=== PATIENT | female | born 1940 | race Caucasian/White ===

== ENCOUNTER → 2016-05-03 | Outpatient (CLI) | payer OTHER ==
[~2016-05-03] MED LIST: AMOX500C3 PO; ASPI81TA28 PO; CHOL100010 PO; CHOL200010 PO; FOLI800T PO; FOLIC ACID PO; IBAN150T7 PO; IBUP600T44 PO; IBUPROFEN PO; METH2.5T PO; NYSTOIN5 TOP; OXYC-57 PO; OXYC1TAB3 PO; PRAV20TA PO; PRED-301 PO; PRED20TA2 PO; PRVC10 PO
--- NOTE | 2016-05-03 15:37 | MAMMOGRAPHY REPORT ---
BILATERAL DIGITAL SCREENING MAMMOGRAM TOMOSYNTHESIS WITH CAD: 05/03/2016 CLINICAL HISTORY: Routine screening. Patient has no complaints. TECHNIQUE: Breast tomosynthesis in addition to standard 2D mammography was performed. Current study was also evaluated with a Computer Aided Detection (CAD) system. COMPARISON: Comparison is made to exams dated: 04/15/2015 mammogram, 03/13/2013 mammogram, 04/09/2014 m ammogram, 03/12/2012 mammogram, 03/09/2011 mammogram, and 03/06/2010 mammogram - [facility]. BREAST COMPOSITION: There are scattered areas of fibroglandular density in both breasts. FINDINGS: No suspicious masses, calcifications, or areas of architectural distortion are noted in e ither breast. There has been no significant interval change compared to prior exams. IMPRESSION: ACR BI-RADS CATEGORY 1: NEGATIVE There is no mammographic evidence of malignancy. A 1 year screening mammogram is recommended. The p atient will receive written notification of the results. Approximately 10% of breast cancers are not detected with mammography. A negative mammographic repor t should not delay biopsy if a clinically suggestive mass is present. Shani Quijano M.D. ah/:05/03/2016 15:08:26 Manager Interface: Concepcion PACHECO(Yasmin)(M), [facility] letter sent: Normal 1/2 BI-RADS Code: ACR BI-RADS Category 1: Negative
== END | disposition home or self-care (01) ==
LOC: C.MAMM 09:33
PROVIDERS: ATTEND Internal Medicine
DX: Z12.31 Encounter for screening mammogram for malignant neoplasm of breast (principal)

== ENCOUNTER 2016-07-24 16:45 | Emergency (ER) | payer OTHER ==
[~2016-07-24] VITALS: Ht 149.9 cm; Wt 110.1 kg
[~2016-07-24 16:45] MED LIST changes: -CHOL200010 PO; -FOLI800T PO; -IBUP600T44 PO; -OXYC-57 PO; -OXYC1TAB3 PO; -PRED20TA2 PO; -PRVC10 PO
[2016-07-24 16:56] VITALS: TEMP 36.5; Ht 149.9 cm; Wt 110.1 kg
--- NOTE | 2016-07-24 17:02 | EMERGENCY ROOM VISIT NOTE ---
"History Report prepared by Shane: Edna Acosta Under the Supervision of: Irma MorrisO. First contact with patient: 16:51 Chief Complaint: HIP PAIN Stated Complaint: HIP PAIN History of Present Illness The patient is a 75 year old female who presents to the Emergency Room with complaints of right hip pain starting about 3 hours ago. The patient bent over to put on her shoes and since then she has been having right hip pain with movement. She has pain relief with lying still. She currently denies any pain. About a month ago, she had an episode of similar pain which resolved after a few hours but her current pain has been persistent with movement. She denies any recent falls or injuries. Patient denies headache, change in vision, fevers , chest pain, shortness of breath, nausea, vomiting, abdominal pain, diarrhea, pain with urination, melena, numbness in groin, and numbness/tingling in lower extremities. Source of History: patient Onset: about 3 hours ago Position: other (right hip) Modifying Factors (Worsening): movement Modifying Factors (Relieving): other (lying still) Associated Symptoms: No SOB, No abdominal pain, No chest pain, No diarrhea, No fevers, No headache, No nausea, No numbness, No vomiting Review of Systems See HPI for pertinent positives & negatives. A total of 10 systems reviewed and were otherwise negative. Past Medical & Surgical Medical Problems: (1) Fall (2) HTN (hypertension) (3) Rheumatoid arthritis Surgical Problems: (1) H/O hernia repair (2) H/O: hysterectomy Family History Patient reports no known family medical history. Social History Smoking Status: Former Smoker Alcohol Use: none Drug Use: none Housing Status: lives alone Current/Historical Medications Scheduled Aspirin (Aspirin Ec), 81 MG PO QAM Cholecalciferol (Vitamin D), 2,000 INTER.UNIT PO QAM Ibandronate Sodium (Ibandronate Sodium), 150 MG PO MONTHLY Methotrexate (Methotrexate), 15 MG PO QWEEK Nystatin/Triamcinolone (Mycogen ||), 1 DOSE TOP PRN Pravastatin (Pravachol ), 10 MG PO HS Prednisone (Prednisone), 5 MG PO QAM Prednisone (Prednisone Tab), 0 PO DAILY [Folic Acid], 800 MCG PO QAM [Ibuprofen], 300 MG PO BID Scheduled PRN Oxycodone Immediate Rel Tab (Roxicodone Ir), 1-2 TAB PO Q4H PRN for Severe Pain Allergies Coded Allergies: Anselmo (Verified Allergy, Unknown, ANAPHYLAXIS, 07/24/16) Atorvastatin (Verified Adverse Reaction, Unknown, SEVERE MUSCLE ACHES, ) Physical Exam Vital Signs Date Time Temp Pulse Resp B/P Pulse Ox O2 Delivery O2 Flow Rate FiO2 07/24/16 17:42 84 16 154/84 99 07/24/16 16:56 36.5 84 20 154/80 95 Room Air Physical Exam GENERAL: Sitting up in bed, disheveled, no distress, non-toxic EYE EXAM: normal conjunctiva OROPHARYNX: no exudate, no erythema, lips, buccal mucosa, and tongue normal and mucous membranes are moist NECK: supple, no nuchal rigidity, no adenopathy, non-tender LUNGS: Clear to auscultation. Normal chest wall mechanics HEART: no murmurs, S1 normal and S2 normal ABDOMEN: abdomen soft, non-tender, normo-active bowel sounds, no masses, no rebound or guarding. BACK: Back is symmetrical on inspection and there is no deformity, no midline tenderness, no CVA tenderness. SKIN: no rashes and no bruising UPPER EXTREMITIES: upper extremities are grossly normal. LOWER EXTREMITIES: No pitting edema. Acute reproducible tenderness over the right hip and right gluteus tracking down to mid femur. Flexion extension in bilateral hips intact, along with plantar and dorsal flexion. EHL 2/4 bilateral. Dp 2/4. Gross sensation intact in bilateral lower extremities. Able to ambulate without difficulty. NEURO EXAM: Normal sensorium, cranial nerves II-XII grossly intact, normal speech, no gross weakness of arms, no gross weakness of legs. Medical Decision & Procedures ER Provider Diagnostic Interpretation: Radiology results as stated below per my and radiologist's interpretation: PELVIS 1 OR 2 VIEW ROUTINE, RIGHT FEMUR 2 VIEWS ROUTINE CLINICAL HISTORY: right hip pain COMPARISON STUDY: Pelvis and right hip 05/29/2014. FINDINGS: No fracture or dislocation. Degenerative changes within the bilateral SI joints. Soft tissues are within normal limits. No knee effusion. IMPRESSION: No fracture or dislocation within the pelvis, hips, or right femur. Electronically signed by: Tyler Parish M.D. 07/24/2016 5:57 PM Dictated Date/Time: 07/24/2016 5:54 PM LUMBAR SPINE 3 VIEWS HISTORY: right hip pain COMPARISON: None. FINDINGS: There is no fracture. Mild disc space narrowing at at L2-L3 and L3-L4. Mild levoscoliosis. 4 mm of anterolisthesis of L4 and L5. Moderate facet degenerative changes within the lower lumbar spine. IMPRESSION: No fractures within the lumbar spine. Degenerative changes as described above. Electronically signed by: Tyler Parish M.D. 07/24/2016 5:54 PM Dictated Date/Time: 07/24/2016 5:53 PM PELVIS 1 OR 2 VIEW ROUTINE, RIGHT FEMUR 2 VIEWS ROUTINE CLINICAL HISTORY: right hip pain COMPARISON STUDY: Pelvis and right hip 05/29/2014. FINDINGS: No fracture or dislocation. Degenerative changes within the bilateral SI joints. Soft tissues are within normal limits. No knee effusion. IMPRESSION: No fracture or dislocation within the pelvis, hips, or right femur. Electronically signed by: Tyler Parish M.D. 07/24/2016 5:57 PM Dictated Date/Time: 07/24/2016 5:54 PM Medications Administered Medications (Trade) Dose Ordered Sig/Rafael Route Start Time Stop Time Status Last Admin Dose Admin Morphine Sulfate (MoRPHine SULFATE INJ) 6 mg NOW STAT IM 07/24/16 17:48 07/24/16 17:49 DC 07/24/16 17:58 6 MG Ketorolac Tromethamine (Toradol Inj) 15 mg NOW STAT IV 07/24/16 17:48 07/24/16 17:49 DC 07/24/16 17:57 15 MG ED Course ED COURSE: Vital signs were reviewed and showed hypertensive. The patients medical record was reviewed The above diagnostic studies were performed and reviewed. ED treatments and interventions as stated above. 1651: The patient was evaluated in room C07. A complete history and physical examination was performed. 174: Toradol Inj 15 mg IV, Morphine Sulfate 6 mg IM 1821: Prednisone 40 mg PO 1820: Upon reevaluation, the patient is feeling better. I discussed my findings with the patient and she understands and agrees with the treatment plan. Based on the patients age, coexisting illnesses, exam and lab findings the decision to treat as an outpatient was made. The patient remained stable while under my care. The patient appeared well at the time of discharge. Medical Decision Differential diagnosis: Etiologies such as fracture, dislocation, neurovascular compromise, compartment syndrome, soft tissue injury, as well as others were entertained. Patient is a 75-year-old female who presents the ER with right gluteus pain tracking down the right side of her right femur. She denies any weakness or numbness. She notes the pain is improved with bending over. Denies any trauma. No fevers. No weakness or numbness in the legs. Able to urinate and move bowels without difficulty. She is able to walk. X-rays of her lumbar spine, pelvis and femur show no acute fractures. Based on her symptoms and exam I do believe this is consistent with sciatica. She was given IM Toradol, morphine and oral steroids. She was discharged follow-up with her primary care doctor. Discussed with Pt concerning signs and symptoms to watch out for. Pt was instructed to follow up with their PCP and discussed with the patient their option to return to the ED at anytime for persistent or worsening symptoms. The appropriate anticipatory guidance and out-patient management, including indications for return to the emergency department, were explained at length to the patient and understood. [place] Drug Monitoring [place] Search Results: patient reviewed within database, no issues identified Impression Primary Impression: Sciatica Scribe Attestation The scribe's documentation has been prepared under my direction and personally reviewed by me in its entirety. I confirm that the note above accurately reflects all work, treatment, procedures, and medical decision making performed by me. Departure Information Dispostion Home / Self-Care Prescriptions Prednisone (Prednisone Tab) 20 Mg Tab 0 PO DAILY for 4 Days, TAB 2 TABS DAILY FOR 2 DAYS, THEN 1 TAB DAILY FOR 2 DAYS, THEN 1/2 TAB DAILY FOR 2 DAYS. Prov: Moe Hammer, DO 07/24/16 Oxycodone Immediate Rel Tab (ROXICODONE IR) 5 Mg Tab 1-2 TAB PO Q4H Y for Severe Pain, #24 TAB Prov: Moe Hammer, DO 07/24/16 Referrals Poncho Aquino MD (PCP) Forms HOME CARE DOCUMENTATION FORM, IMPORTANT VISIT INFORMATION, WORK / SCHOOL INSTRUCTIONS Patient Instructions ED Sciatica, [facility] Additional Instructions Please follow up with your primary care doctor with in the next 24 hours. Any worsening of your symptoms, please return to the ED immediately. This includes numbness or weakness in your legs, inability to walk, numbness in your groin, inability to move your bowels or urinate, worsening pain, passing out, or any other concerning signs or symptoms from your standpoint. X-rays of your lower back, hip and pelvis show no acute fractures. I do believe that this is likely sciatica. It should gradually improve with steroids and pain medications. Please refrain from any heavy lifting. You were given medications during this visit that will inhibit your ability to drive, operate machinery and work. Please do NOT drive, operate machinery or work for the next 12hrs. You were also given a prescription for a narcotic/oxy IR. While taking this medication you should also not drive, operate machinery and or work. Problem Qualifiers Primary Impression: Sciatica Laterality: right Qualified Codes: M54.31 - Sciatica, right side"
[2016-07-24] MEDS ORDERED: KETOROLAC TROMETHAMINE 30 MG/ML VIAL IV STA (17:48)
[2016-07-24] MEDS ORDERED: MoRPHine SULFATE 10 MG/ML CARP/VIAL IM STA (17:48)
--- NOTE | 2016-07-24 17:56 | DIAGNOSTIC IMAGING REPORT ---
LUMBAR SPINE 3 VIEWS HISTORY: right hip pain COMPARISON: None. FINDINGS: There is no fracture. Mild disc space narrowing at at L2-L3 and L3-L4. Mild levoscoliosis. 4 mm of anterolisthesis of L4 and L5. Moderate facet degenerative changes within the lower lumbar spine. IMPRESSION: No fractures within the lumbar spine. Degenerative changes as described above. Electronically signed by: Tyler Parish M.D. 07/24/2016 5:54 PM Dictated Date/Time: 07/24/2016 5:53 PM
--- NOTE | 2016-07-24 17:59 | DIAGNOSTIC IMAGING REPORT ---
PELVIS 1 OR 2 VIEW ROUTINE, RIGHT FEMUR 2 VIEWS ROUTINE CLINICAL HISTORY: right hip pain COMPARISON STUDY: Pelvis and right hip 05/29/2014. FINDINGS: No fracture or dislocation. Degenerative changes within the bilateral SI joints. Soft tissues are within normal limits. No knee effusion. IMPRESSION: No fracture or dislocation within the pelvis, hips, or right femur. Electronically signed by: Tyler Parish M.D. 07/24/2016 5:57 PM Dictated Date/Time: 07/24/2016 5:54 PM
[2016-07-24] MEDS ORDERED: OXYC1TAB3 PO (18:28)
[2016-07-24] MEDS ORDERED: PRED20TA2 PO (18:28)
[2016-07-24 19:00] VITALS: BP 145/78; PULSE 102; O2SAT 95
[2016-12-04] MEDS ORDERED: CHOL200010 PO (15:09)
[2016-12-04] MEDS ORDERED: FOLI800T PO (15:09)
[2016-12-04] MEDS ORDERED: IBUP600T44 PO (15:09)
[2016-12-04] MEDS ORDERED: PRVC10 PO (15:09)
[2016-12-18] MEDS ORDERED: TRAM-10 PO (11:28)
[2016-12-18] MEDS ORDERED: CIPR-255 PO (11:28)
[2016-12-18] MEDS ORDERED: PHEN95TA14 PO (11:28)
== END 2016-07-24 19:01 | disposition home or self-care (01) ==
LOC: EDBD 16:45 → C.EDC 16:46
DX: M54.30 Sciatica, unspecified side (principal); I10 Essential (primary) hypertension; M06.9 Rheumatoid arthritis, unspecified; Z91.81 History of falling; Z87.891 Personal history of nicotine dependence; Z90.710 Acquired absence of both cervix and uterus; Z98.890 Other specified postprocedural states; Z79.82 Long term (current) use of aspirin; Z79.899 Other long term (current) drug therapy; Z88.8 Allergy status to other drugs, medicaments and biological substances; Z91.018 Allergy to other foods

== ENCOUNTER → 2016-10-02 | Outpatient (CLI) | payer OTHER ==
[~2016-10-02] MED LIST changes: -AMOX500C3 PO; +CHOL200010 PO; +FOLI800T PO; +IBUP600T44 PO; +OXYC1TAB3 PO; +PRVC10 PO
== END | disposition home or self-care (01) ==
LOC: C.PATHSPEC 10-01 11:05
PROVIDERS: ATTEND Urology
DX: C67.9 Malignant neoplasm of bladder, unspecified (principal)

== ENCOUNTER → 2016-10-17 | Outpatient (CLI) | payer OTHER ==
[2016-10-17 17:47] LABS: BLOOD UREA NITROGEN 17 mg/dl (7-18); BUN/CREATININE RATIO 19.3 (10-20); CREATININE 0.89 mg/dl (0.60-1.20)
== END | disposition home or self-care (01) ==
LOC: C.LABPVFM 13:44
PROVIDERS: ATTEND Urology
DX: C67.9 Malignant neoplasm of bladder, unspecified (principal)

== ENCOUNTER → 2016-11-19 | Outpatient (CLI) | payer OTHER ==
[~2016-11-19] MED LIST changes: +OPTIRAY 320 IV PRN
--- NOTE | 2016-11-19 12:51 | DIAGNOSTIC IMAGING REPORT ---
CT ABD/PELVIS COMBO WITH ORAL CLINICAL HISTORY: C67.9 Bladder cancerAUTH VALID 10/01/16 - 11/30/[id number] COMPARISON STUDY: 06/15/2015 TECHNIQUE: Noncontrast images were acquired through the abdomen and pelvis. The patient was injected with 50 cc of Optiray 320. After 5 minute delay, the patient is rescanned in a dynamic helical fashion during the additional administration of 60 cc of Optiray 320. A dose lowering technique was utilized adhering to the principles of ALARA. CT DOSE: 2190.74 mGycm FINDINGS: Lower chest: There is bibasal interstitial thickening/atelectatic change. Liver: There is hepatic steatosis. No focal masses are visualized. Gallbladder: Unremarkable. Spleen: Normal in size and attenuation. Pancreas: There is a 14 mm soft tissue nodule adjacent to the pancreatic tail posteriorly. I would favor this representing a peripancreatic nodule or splenule as opposed to an exophytic pancreatic mass. This remains unchanged from the prior study, and is therefore of doubtful clinical significance. Adrenal glands: Unremarkable. Kidneys: There is a punctate nonobstructing right renal calculus. There is no hydronephrosis. No ureteral calculi are visualized. There is a 4 cm right-sided parapelvic cyst. There are multiple left renal cysts the largest of which measures 35 mm. Bowel: There are no transition zones indicate bowel obstruction. There are no findings to indicate acute appendicitis. There is no evidence of acute diverticulitis. Peritoneum: There is no intraperitoneal free air or abdominal ascites. Vasculature: There is minor ectasia of the infrarenal abdominal aorta which measures 24 mm in maximal diameter. No aneurysm is visualized. Adenopathy: None. Pelvic viscera: The uterus is surgically absent. There is a 2 cm nodule involving the anterior bladder with extravesical infiltration. There are small calcifications along the base the nodule. There are calcifications within the proximal urethra or periurethral soft tissues. Skeletal structures: No destructive osseous lesions are seen. IMPRESSION: 1. Punctate nonobstructing right renal calculus 2. Bilateral renal cysts. No solid renal masses identified 3. No ureteral lesions identified 4. Thickening of the anterior bladder wall with an ill-defined 2 cm nodule which appears to extend into the extravesical fat. There are calcifications at the base the nodule. This is in the area of the previously described bladder nodules. It is difficult to determine with this represents a treatment response, or neoplasm recurrence. Correlation with cystoscopic evaluation is recommended Electronically signed by: Aaron Choi M.D. 11/19/2016 12:50 PM Dictated Date/Time: 11/19/2016 12:30 PM
== END | disposition home or self-care (01) ==
LOC: C.CTS 11:29
PROVIDERS: ATTEND Urology
DX: C67.9 Malignant neoplasm of bladder, unspecified (principal); N28.1 Cyst of kidney, acquired; N20.0 Calculus of kidney

== ENCOUNTER → 2016-11-19 | Outpatient (CLI) | payer OTHER ==
[~2016-11-19] MED LIST changes: -OPTIRAY 320 IV PRN
== END | disposition home or self-care (01) ==
LOC: C.LABPVFM 14:20
PROVIDERS: ATTEND Nurse Practitioner Family
DX: R35.0 Frequency of micturition (principal)

== ENCOUNTER → 2016-12-18 | Day surgery (SDC) | payer OTHER ==
[2016-12-04 15:10] VITALS: BMI 47.0
--- NOTE | 2016-12-04 15:47 | PAT Medication Instructions ---
Service Date Dec 04, 2016. Current Home Medication List Aspirin (Aspirin Ec), 81 MG PO QAM Cholecalciferol (Vitamin D), 1 TAB PO QAM Folic Acid (Folic Acid), 3 TAB PO QAM Ibuprofen (Motrin), 300 MG PO BID PRN for Pain Methotrexate (Methotrexate), 15 MG PO BRADLEY Pravastatin Sod (Pravastatin Sodium), 10 MG PO HS Prednisone (Prednisone), 5 MG PO QAM Medication Instructions For Your Scheduled Surgery - Hold the following medications per your surgeon's instructions: Methotrexate (Methotrexate), 15 MG PO BRADLEY Ibuprofen (Motrin), 300 MG PO BID PRN for Pain - Hold the following medications 10 days prior to surgery: Aspirin (Aspirin Ec), 81 MG PO QAM (per surgeon's instructions) - Hold the following medications the morning of surgery: Cholecalciferol (Vitamin D), 1 TAB PO QAM Folic Acid (Folic Acid), 3 TAB PO QAM - Take the following medications the morning of surgery with a sip of water: Prednisone (Prednisone), 5 MG PO QAM - Take the following medications as scheduled the night before surgery: Pravastatin Sod (Pravastatin Sodium), 10 MG PO HS If you have any questions please call us at [phone] or [phone] or [phone]
[2016-12-04 16:22] LABS: BASO % 0.4 %; BASO ABS # 0.05 K/uL (0-0.2); EOS % 1.7 %; HEMATOCRIT 41.4 % (37-47); IG% 0.1 %; LYMPH % 18.7 %; LYMPH ABS # 2.57 K/uL (1.2-3.4); MEAN CELL VOLUME 102.2 fL (80-100); MEAN CORPUSCULAR HEMOGLOBIN 31.1 pg (25-34); MEAN CORPUSCULAR HGB CONC 30.4 g/dl (32-36); MEAN PLATELET VOLUME 10.2 fL (7.4-10.4); MONO % 4.5 %; NEUT % 74.6 %; PLATELET COUNT 330 K/uL (130-400); RED BLOOD COUNT 4.05 M/uL (4.2-5.4); WHITE BLOOD COUNT 13.72 K/uL (4.8-10.8)
[2016-12-04 16:31] LABS: BUN/CREATININE RATIO 24.1 (10-20); CALCIUM 9.2 mg/dl (8.5-10.1); CREATININE 0.74 mg/dl (0.60-1.20); POTASSIUM 4.2 mmol/L (3.5-5.1)
[2016-12-04 16:38] LABS: URINE APPEARANCE CLOUDY (CLEAR); URINE BILIRUBIN NEG (NEG); URINE COLOR YELLOW; URINE EPITHELIAL CELL AUTO >30 /lpf (0-5); URINE NITRITE NEG (NEG); URINE PH 7.5 (4.5-7.5); UROBILINOGEN NEG (NEG)
[2016-12-04 16:53] LABS: MANUAL MICROSCOPIC REQUIRED? NO; REVIEW REQ? YES; SULFASALICYLIC ACID NEG (NEG)
[2016-12-04 17:09] LABS: COMPLETE YES
--- NOTE | 2016-12-04 17:21 | DIAGNOSTIC IMAGING REPORT ---
CERVICAL SPINE 3 VIEWS CLINICAL HISTORY: Preoperative assessment. FINDINGS: Lateral views of the cervical spine in the neutral, flexed, and extended positions are obtained. No prior studies are available for comparison at the time of dictation. The skeletal structures are osteopenic. There is no radiographic evidence of fracture or malalignment on these lateral views. Vertebral body height is maintained throughout the cervical spine. There is minimal anterolisthesis at C5-C6. This is unchanged in flexion and is in normal alignment in extension. Alignment is otherwise preserved. There is straightening of the cervical lordosis with mild reversal centered at C5-C6. The spinous processes appear intact. The spinolaminar line is maintained. The atlantodental articulation is preserved noting productive degenerative change with bony sclerosis, overgrowth, and narrowing of the interval. There is advanced disc space narrowing seen at C6-C7 and C7-T1. A small posterior disc osteophyte complex at C6-C7 may contribute to mild acquired compromise of the central canal. Mild to moderate disc space narrowing is seen at the remaining cervical levels. Small anterior osteophytes are seen throughout. The prevertebral soft tissues are normal as visualized. Atherosclerotic calcification is noted in the carotid bulbs. IMPRESSION: 1. No acute abnormality is seen. 2. Osteopenia and degenerative change as above. Dictated: 12/04/2016 4:39 PM Transcribed: 12/04/2016 5:21 PM Garima Electronically signed by: Jostin Jansen M.D. 12/04/2016 5:26 PM Dictated Date/Time: 12/04/2016 4:39 PM
[~2016-12-18] VITALS: Ht 149.9 cm; Wt 105.8 kg
[~2016-12-18] MED LIST changes: +ACETAMINOPHEN 325 MG TAB PO PRN; +ATROPINE SULFATE 0.1 MG/ML 5ML SYR IV PRN; -CHOL100010 PO; +CIPR-255 PO; +CIPROFLOXACIN / D5W 400 MG IV SCH; +CONRAY 30% 150ML BOTTLE ONE; +DEXAMETHASONE SOD INJ 4 MG/ML VIAL ONE; +EpHEDrine SULFATE INJ 50 MG/ML AMP IV PRN; +EpHEDrine SULFATE INJ 50 MG/ML AMP ONE; +FENTANYL CITRATE INJ 50 MCG/1 ML 2 ML VIAL IV PRN; +FENTANYL CITRATE INJ 50 MCG/1 ML 2 ML VIAL ONE; -FOLIC ACID PO; +GLYCOPYRROLATE INJ 0.2 MG/ML VIAL ONE; -IBAN150T7 PO; -IBUPROFEN PO; +LABETALOL HCL IV 5 MG/ML 20ML IV PRN; +LACTATED RINGER'S 1000ML 1,000 ML IV SCH; +LIDOCAINE HCL 2% 2 ML VIAL (20MG/ML) ONE; +METOPROLOL TARTRATE 1 MG/ML VIAL IV STA; +METOPROLOL TARTRATE 1 MG/ML VIAL ONE; +MIDAZOLAM HCL 1 MG/ML 2ML VIAL ONE; +NALOXONE HCL 0.4 MG/1 ML VIAL/CARP IV PRN; +NEOSTIGMINE METHYLSULFATE 5 MG/5 ML SYR ONE; -NYSTOIN5 TOP; +ONDANSETRON INJ 2 MG/ML 2 ML VIAL IV PRN; +ONDANSETRON INJ 2 MG/ML 2 ML VIAL ONE; -OXYC1TAB3 PO; +PHEN95TA14 PO; +PHENAZOPYRIDINE HCL 200 MG TAB PO STA; +PHENYLEPHRINE HCL INJ 10 MG/ML VIAL ONE; -PRAV20TA PO; +PROMETHAZINE HCL INJ 12.5 MG in SODIUM CHLORIDE 0.9% 50ML 50 ML IV PRN; +PROPOFOL IV EMULSION 10 MG/ML 20 ML VIAL IV ONE; +SODIUM CHLORIDE 0.9% 1000ML 1,000 ML IV SCH; +SUCCINYLCHOLINE CHLORIDE 20 MG/ML 10 ML VIAL IV ONE; +TRAM-10 PO; +TRAMADOL HCL 50 MG TAB PO PRN
[2016-12-18 09:15] VITALS: BP 163/83; PULSE 79; TEMP 36.7; O2SAT 92; Ht 149.9 cm; Wt 105.8 kg
--- NOTE | 2016-12-18 11:15 | History & Physical Bridge Note ---
H&P Re-Evaluation Bridge Note: I have examined the patient, reviewed the History & Physical and in the interval since the performance of the History & Physical I have noted the following changes of clinical significance: No changes noted
--- NOTE | 2016-12-18 11:30 | Discharge Instructions ---
Discharge Instructions Date of Service Dec 18, 2016. Admission Reason for Admission: Bladder Stone, Bladder Cancer Discharge Discharge Diagnosis / Problem: bladder stone, bladder cancer Discharge Goals Goal(s): Decrease discomfort, Improve function, Increase independence, Improve disease control, Prevent Disease Progression Activity Recommendations Activity Limitations: resume your previous activity Lifting Limitations: none Exercise/Sports Limitations: none May Resume Sexual Activity: when tolerated Shower/Bathe: no limitations Driving or Machine Use: resume 1 day after discharge . Instructions / Follow-Up Instructions / Follow-Up Please keep your previously scheduled follow up appointment with Dr. Mckeon Discharge Diet Recommended Diet: Regular Diet Pending Studies Studies pending at discharge: no Medical Emergencies . Who to Call and When: Medical Emergencies: If at any time you feel your situation is an emergency, please call 911 immediately. . Non-Emergent Contact Non-Emergency issues call your: Urologist Call Non-Emergent contact if: you have a fever, temperature is above 101.5, your pain is not controlled, your pain is worsening . . "Provider Documentation" section prepared by Nate Diaz. . VTE Core Measure Inpt VTE Proph given/why not?: Treatment not indicated [place] Drug Monitoring [place] Search Results: patient reviewed within database, no issues identified
--- NOTE | 2016-12-18 12:50 | [facility] Operative Report ---
Operative Report Operative Date Dec 18, 2016. Pre-Operative Diagnosis Bladder cancer and bladder stones Post-Operative Diagnosis Bladder cancer and bladder stones Procedure(s) Performed Cystolithopaxy with Laser and Cystoscopy Surgeon Dr. Anderson Mckeon Computer Security Manager Surgeon(s) None Estimated Blood Loss 0 mL Findings bladder calculi Specimens Permanent specimens A: Bladder stone for chemical analysis Drains none Anesthesia Gen Complication(s) None Disposition Recovery Room / PACU (stable) Indications Pt was identified in the preoperative holding area, informed consents reviewed, and she was transported to the operative suite where she was given general anesthesia and prepped and draped in standard fashion. She received a preoperative dose of ciprofloxacin. I began the case by passing a 22F cystoscope with 30degree lens. Full inspection of the bladder revealed a large calculus in the dependent portion of the bladder. There were also adherent calculi near the dome (5-6). The free floating stone was too large to irrigate out of the bladder, so a 1000micron laser fiber was passed and the stone was fragmented and irrigated out of the bladder. I then proceeded to fragement and free the adherent stones near the dome of the bladder. After freeing all of these stones - inspection failed to reveal any tissue consistent with a cancer recurrence. I cleared the bladder of all remaining fragments and concluded the case. She was extubated and taken to the PACU in stable condition. I attest to the content of the Intraoperative Record and any orders documented therein. Any exceptions are noted below.
--- NOTE | 2016-12-18 13:42 | Anesthesiology Progress Note ---
Anesthesia Post Op Note Date & Time Dec 18, 2016 at 13:41 Vital Signs Pain Intensity: 0 Vital Signs Past 12 Hours Date Time Temp Pulse Resp B/P (MAP) Pulse Ox O2 Delivery O2 Flow Rate FiO2 12/18/16 13:35 36.2 90 16 126/82 95 Nasal Cannula 2 12/18/16 13:25 90 16 124/77 100 Nasal Cannula 4 12/18/16 13:24 112 143/89 12/18/16 13:15 120 16 117/59 99 Nasal Cannula 4 12/18/16 13:05 120 16 140/89 99 Oxymask 10 12/18/16 12:55 95 16 136/95 100 Oxymask 10 12/18/16 12:45 36.5 95 16 141/92 97 Oxymask 10 12/18/16 09:15 36.7 79 20 163/83 (109) 92 Room Air Notes Mental Status: alert / awake / arousable, participated in evaluation Pt Amnestic to Procedure: Yes Nausea / Vomiting: adequately controlled Pain: adequately controlled Airway Patency, RR, SpO2: stable & adequate BP & HR: stable & adequate Hydration State: stable & adequate Anesthetic Complications: no major complications apparent
[2016-12-18 13:50] VITALS: BP 131/81; PULSE 93; TEMP 36.4; O2SAT 92
[2016-12-18 14:17] VITALS: BP 135/74; PULSE 97; O2SAT 91
[2016-12-18 14:30] VITALS: BP 121/71; PULSE 99; O2SAT 93
[2016-12-18 15:00] VITALS: BP 113/66; PULSE 98; O2SAT 92
== END | disposition home or self-care (01) ==
LOC: C.ACU 08:43
PROVIDERS: ATTEND Urology
DX: N21.0 Calculus in bladder (principal); C67.9 Malignant neoplasm of bladder, unspecified; J44.9 Chronic obstructive pulmonary disease, unspecified; E78.00 Pure hypercholesterolemia, unspecified; Z98.890 Other specified postprocedural states; Z90.710 Acquired absence of both cervix and uterus; Z79.82 Long term (current) use of aspirin; Z68.42 Body mass index [BMI] 45.0-49.9, adult; E66.01 Morbid (severe) obesity due to excess calories; Z87.891 Personal history of nicotine dependence; Z83.3 Family history of diabetes mellitus; Z82.49 Family history of ischemic heart disease and other diseases of the circulatory system; Z80.8 Family history of malignant neoplasm of other organs or systems; Z80.0 Family history of malignant neoplasm of digestive organs

== ENCOUNTER → 2017-06-26 | Day surgery (SDC) | payer OTHER ==
[2017-06-19 10:42] VITALS: BMI 47.0
[~2017-06-26] VITALS: Ht 149.9 cm; Wt 105.0 kg
[~2017-06-26] MED LIST changes: -ACETAMINOPHEN 325 MG TAB PO PRN; +ASPCH81X PO; -ASPI81TA28 PO; -ATROPINE SULFATE 0.1 MG/ML 5ML SYR IV PRN; -CIPR-255 PO; -CIPROFLOXACIN / D5W 400 MG IV SCH; -CONRAY 30% 150ML BOTTLE ONE; -DEXAMETHASONE SOD INJ 4 MG/ML VIAL ONE; -EpHEDrine SULFATE INJ 50 MG/ML AMP IV PRN; -EpHEDrine SULFATE INJ 50 MG/ML AMP ONE; -FENTANYL CITRATE INJ 50 MCG/1 ML 2 ML VIAL IV PRN; -FENTANYL CITRATE INJ 50 MCG/1 ML 2 ML VIAL ONE; +FOLI1TAB8 PO; -FOLI800T PO; -GLYCOPYRROLATE INJ 0.2 MG/ML VIAL ONE; +IBUP-1450 PO; -IBUP600T44 PO; -LABETALOL HCL IV 5 MG/ML 20ML IV PRN; -LACTATED RINGER'S 1000ML 1,000 ML IV SCH; -METOPROLOL TARTRATE 1 MG/ML VIAL IV STA; -METOPROLOL TARTRATE 1 MG/ML VIAL ONE; -MIDAZOLAM HCL 1 MG/ML 2ML VIAL ONE; -NALOXONE HCL 0.4 MG/1 ML VIAL/CARP IV PRN; -NEOSTIGMINE METHYLSULFATE 5 MG/5 ML SYR ONE; -ONDANSETRON INJ 2 MG/ML 2 ML VIAL IV PRN; -ONDANSETRON INJ 2 MG/ML 2 ML VIAL ONE; -PHEN95TA14 PO; -PHENAZOPYRIDINE HCL 200 MG TAB PO STA; -PHENYLEPHRINE HCL INJ 10 MG/ML VIAL ONE; -PROMETHAZINE HCL INJ 12.5 MG in SODIUM CHLORIDE 0.9% 50ML 50 ML IV PRN; -SODIUM CHLORIDE 0.9% 1000ML 1,000 ML IV SCH; -SUCCINYLCHOLINE CHLORIDE 20 MG/ML 10 ML VIAL IV ONE; -TRAM-10 PO; -TRAMADOL HCL 50 MG TAB PO PRN
[2017-06-26 10:27] VITALS: Ht 149.9 cm; Wt 105.0 kg
--- NOTE | 2017-06-26 11:49 | Endo History and Physical ---
History & Physical Date of Service: Jun 26, 2017. Chief Complaint: hx colon polyps, father of colon cancer Referring Physician: Dr. Aquino History of Present Illness h/o polyps Past Medical History Arthritis, Pulmonary Emboli, High Cholesterol, Thrombophlebitis Past Surgical History Hx Cardiac Surgery: No Hx Internal Defibrillator: No Hx Pacemaker: No Hx Abdominal Surgery: Yes (HYSTERECTOMY, UMBILICAL HERNIA) Hx of Implantable Prosthesis: No Hx Post-Op Nausea and Vomiting: Yes Hx Cancer Surgery: Yes (TURBT, CYSTOSCOPY) Hx Thoracic Surgery: No Hx Orthopedic: No Hx Urinary Tract Surgery: No Family History Colon CA Social History Smoking Status: Former Smoker Hx Substance Use: No Hx Alcohol Use: No Allergies Coded Allergies: [place] (Verified Allergy, Severe, ANAPHYLAXIS, 06/26/17) Atorvastatin (Verified Adverse Reaction, Unknown, SEVERE MUSCLE ACHES, ) Current Medications Reported Home Medications Medications Dose Route/Sig Max Daily Dose Days Date Category Dose Instructions Methotrexate 2.5 Mg Tab 6 Tab PO WK 06/19/17 Reported TAKES ON TUESDAYS Motrin (Ibuprofen) 600 Mg Tab 300 Mg PO BID 06/19/17 Reported Folvite (Folic Acid) 1 Mg Tab 3 Tab PO QAM 06/19/17 Reported Vitamin D (Cholecalciferol) 2,000 Unit Cap 1 Cap PO QAM 06/19/17 Reported Aspirin Chewable (Aspirin) 81 Mg Chew 81 Mg PO QPM 06/19/17 Reported Pravastatin Sodium (Pravastatin Sod) 10 Mg Tab 10 Mg PO HS 12/04/16 Reported Prednisone 5 Mg Tab 5 Mg PO QAM 12/20/15 Reported Vital Signs Weight (Kilograms): 105.00 Height (Feet): 4 Height (Inches): 11 Date Time Temp Pulse Resp B/P (MAP) Pulse Ox O2 Delivery O2 Flow Rate FiO2 06/26/17 10:32 36.6 97 22 134/86 (102) 93 Room Air Physical Exam General Appearance: no apparent distress Respiratory/Chest: Auscultation: breath sounds normal Cardiovascular: Heart Auscultation: RRR Abdomen: Inspection & Palpation: soft Assessment and Plan H/o polyps - cscopy
--- NOTE | 2017-06-26 13:07 | Anesthesiology Progress Note ---
Anesthesia Post Op Note Date & Time Jun 26, 2017 at 13:06 Vital Signs Pain Intensity: 8 Vital Signs Past 12 Hours Date Time Temp Pulse Resp B/P (MAP) Pulse Ox O2 Delivery O2 Flow Rate FiO2 06/26/17 12:46 36.0 97 18 118/77 (91) 95 Room Air 06/26/17 10:32 36.6 97 22 134/86 (102) 93 Room Air Notes Mental Status: alert / awake / arousable, participated in evaluation Pt Amnestic to Procedure: Yes Nausea / Vomiting: adequately controlled Pain: adequately controlled, see Notes Airway Patency, RR, SpO2: stable & adequate BP & HR: stable & adequate Hydration State: stable & adequate Anesthetic Complications: no major complications apparent Complaining of abdominal pain and bloating. GI physician aware.
--- NOTE | 2017-06-26 13:14 | Discharge Instructions ---
Endoscopy Patient Instructions Date / Procedure(s) Performed Jun 26, 2017. Colonoscopy Allergy Information Coded Allergies: [place] (Verified Allergy, Severe, ANAPHYLAXIS, 06/26/17) Atorvastatin (Verified Adverse Reaction, Unknown, SEVERE MUSCLE ACHES, ) Discharge Date / Findings Jun 26, 2017. Diverticulosis, hemorrhoids. Multiple polyps - 3 polyps in ascending, transverse, descending removed by cold snare; transverse colon polyp removed by hot snare Medication Instructions Stopped Medication(s): stopped all meds Resume all stopped medications Provider Instructions Activity Restrictions - No exercising or heavy lifting for 24 hours. - Do not drink alcohol the day of the procedure. - Do not drive a car or operate machinery until the day after the procedure. - Do not make any important decisions or sign important papers in 24 hours after the procedure. Following Day: - Return to full activity which may include returning to work/school. Diet Start your diet with liquids and light foods (jello, soup, juice, toast). Then eat your usual diet if not nauseated. Treatment For Common After Affects For mild abdominal pain, bloating, or excessive gas: - Rest - Eat lightly - Lie on right side Follow-Up Information Follow-up with Dr. Aquino as scheduled Anesthesia Information What You Should Know You have had a procedure that required some medicine to reduce anxiety and discomfort. This treatment is called moderate sedation. After receiving the treatment, you may be sleepy, but you will be able to breathe on your own. The effects of the treatment may last for several hours. Follow these instructions along with Activity/Diet recommendations noted above: * Do NOT do anything where dizziness or clumsiness would be dangerous. * Rest quietly at home today, then you can be up and about tomorrow. * Have a responsible person stay with you the rest of today. * You may have had an I.V. today. If so, you may take the dressing off later today. Recommendations Call your doctor if: * Trouble breathing * Continuous vomiting for more than 24 hours * Temperature above 101 degrees * Severe abdominal pain or bloating * Pain not relieved by pain medicine ordered * There is increased drainage or redness from any incision * A large amount of rectal bleeding greater than 2-3 tablespoons. (If you had a polyp/s removed or have hemorrhoids, a small amount of blood - from the rectum is to be expected.) * You have any unanswered questions or concerns. IN THE EVENT OF A SERIOUS EMERGENCY, GO TO THE NEAREST EMERGENCY ROOM Your discharge instructions were prepared by provider Christine Perez. Patient Instructions Signature Page Shoshana Cunninghambarbara Patient (or Guardian) Signature/Date: I have read and understand the instructions given to me by my caregivers. Caregiver/RN/Doctor Signature/Date: The above-named patient and/or guardian has received patient instructions on this date. + Original Patient Signature Page (only) stays with chart. Please make copy for patient.
[2017-06-26 13:15] VITALS: BP 128/78; PULSE 95; O2SAT 95
--- NOTE | 2017-06-27 11:35 | GI REPORT ---
Patient Name: Shoshana Joseph Procedure Date: 06/26/2017 11:46 AM Date of : 1940 Admit Type: Outpatient Age: 76 Gender: Female Attending MD: Christine Bowens MD Procedure: Colonoscopy Providers: Christine Bowens MD Referring MD: Poncho Aquino Indications: High risk colon cancer surveillance: Personal history of colonic polyps Medicines: See the Anesthesia note for documentation of the administered medications Complications: No immediate complications. Estimated Blood Loss: Estimated blood loss: none. Procedure: Pre-Anesthesia Assessment: - ASA Grade Assessment: III - A patient with severe systemic disease. After I obtained informed consent, the scope was passed under direct vision. Throughout the procedure, the patient's blood pressure, pulse, and oxygen saturations were monitored continuously. The scope was introduced through the anus and advanced to the cecum, identified by appendiceal orifice and ileocecal valve. The colonoscopy was somewhat difficult due to significant looping. The patient tolerated the procedure well. The quality of the bowel preparation was good. Findings: Hemorrhoids were found on perianal exam. Three sessile polyps were found in the descending colon, transverse colon and ascending colon. The polyps were 4 to 5 mm in size. These polyps were removed with a cold snare. Resection and retrieval were complete. A 12 mm polyp was found in the transverse colon. The polyp was pedunculated. The polyp was removed with a hot snare. Resection and retrieval were complete. Multiple small and large-mouthed diverticula were found in the sigmoid colon and descending colon. Large non bleeding AVM in the hepatic flexure. The exam was otherwise without abnormality. Impression: - Hemorrhoids found on perianal exam. - Three 4 to 5 mm polyps in the descending colon, in the transverse colon and in the ascending colon, removed with a cold snare. Resected and retrieved. - One 12 mm polyp in the transverse colon, removed with a hot snare. Resected and retrieved. - Diverticulosis in the sigmoid colon and in the descending colon. - AVM. Recommendation: - Discharge patient to home. Johan Cueva MD 06/27/2017 11:32:38 AM This report has been signed electronically. Note Initiated On: 06/26/2017 11:46 AM Number of Addenda: 0 I attest to the content of the Intraoperative Record and orders documented therein, exceptions below {[id number]}
== END | disposition home or self-care (01) ==
LOC: C.GI 09:42
PROVIDERS: ATTEND Internal Medicine Gastroenterology
DX: Z12.11 Encounter for screening for malignant neoplasm of colon (principal); Z86.010 Personal history of colon polyps; K64.8 Other hemorrhoids; D12.6 Benign neoplasm of colon, unspecified; K63.5 Polyp of colon; K57.90 Diverticulosis of intestine, part unspecified, without perforation or abscess without bleeding; Q27.33 Arteriovenous malformation of digestive system vessel; I10 Essential (primary) hypertension; Z85.51 Personal history of malignant neoplasm of bladder; Z86.711 Personal history of pulmonary embolism; Z91.018 Allergy to other foods; Z88.8 Allergy status to other drugs, medicaments and biological substances; Z79.82 Long term (current) use of aspirin; Z79.899 Other long term (current) drug therapy

== ENCOUNTER → 2017-06-28 | Outpatient (CLI) | payer OTHER ==
[~2017-06-28] MED LIST changes: -LIDOCAINE HCL 2% 2 ML VIAL (20MG/ML) ONE; -PROPOFOL IV EMULSION 10 MG/ML 20 ML VIAL IV ONE
--- NOTE | 2017-06-28 13:11 | DIAGNOSTIC IMAGING REPORT ---
CT OF THE ABDOMEN AND PELVIS WITHOUT CONTRAST CLINICAL HISTORY: Bladder stones. Urinary frequency. History of bladder cancer. COMPARISON STUDY: CT of the abdomen and pelvis June 15, 2015 and November 19, 2016. TECHNIQUE: Axial images of the abdomen and pelvis were obtained without IV contrast. Images were reviewed in the axial, sagittal, and coronal planes. A dose lowering technique was utilized adhering to the principles of ALARA. FINDINGS: A prominent right subcarinal lymph node remains unchanged. No enlarged abdominal or pelvic lymph nodes are present. The heart is mildly enlarged. There is moderate coronary artery calcification. Geographic fatty infiltration within the right hepatic lobe is noted. Note is made of a 4 mm calculus within the upper pole of the right kidney. There are no ureteral calculi. The bladder calculus shown on exam of November 19, 2016 is no longer visualized. There are several adherent calcific densities along anterior aspect of the bladder at site of bladder lesions shown on exam of June 15, 2015. These measure up to 4 mm. These calcifications are diminished when compared to exam of November 19, 2016. There is no evidence for a bowel obstruction. There is colonic diverticulosis without evidence for acute diverticulitis. No suspicious osseous lesions are present. Water attenuation bilateral renal lesions are shown to reflect cysts on prior contrast enhanced exam. IMPRESSION: 1. 4 mm right renal calculus. No ureteral calculi or hydronephrosis. 2. Several adherent calcific densities along the anterior aspect of the bladder at site of bladder lesion seen on CT of June 15, 2015. These calcific densities are diminished when compared to CT of November 19, 2016 and could reflect postsurgical change or small adherent calculi. Electronically signed by: Jorje Medrano M.D. 06/28/2017 1:10 PM Dictated Date/Time: 06/28/2017 10:56 AM
== END | disposition home or self-care (01) ==
LOC: C.CTS 10:39
PROVIDERS: ATTEND Urology
DX: N21.0 Calculus in bladder (principal); R35.0 Frequency of micturition

== ENCOUNTER 2018-06-10 08:34 | Inpatient (IN) ==
[2018-06-10] MEDS ORDERED: MoRPHine SULFATE 4 MG/ML 1 ML CARP\\VIAL IV STA ×2 (08:58→11:43)
[2018-06-10] MEDS ORDERED: ONDANSETRON INJ 2 MG/ML 2 ML VIAL IV STA (08:58)
[2018-06-10] MEDS ORDERED: SODIUM CHLORIDE 0.9% 500 ML IV SCH (09:00)
[2018-06-10 09:17] LABS: Basophils # (auto) 0.04 K/uL (0-0.2); Basophils % (auto) 0.3 %; Eosinophils # (auto) 0.25 K/uL (0-0.5); Eosinophils % (auto) 1.9 %; Hemoglobin 13.2 g/dL (12.0-16.0); Immature Granulocytes # (auto) 0.04 K/uL (0.00-0.02); Immature Granulocytes % (auto) 0.3 %; Lymphocytes # (auto) 3.69 K/uL (1.2-3.4); Lymphocytes % (auto) 27.9 %; Mean Corpuscular Hgb Conc 32.2 g/dL (32-36); Mean Corpuscular Volume 94.3 fL (80-100); Mean Platelet Volume 9.8 fL (7.4-10.4); Monocytes # (auto) 1.08 K/uL (0.11-0.59); Monocytes % (auto) 8.2 %; Neutrophils # (auto) 8.12 K/uL (1.4-6.5); Neutrophils % (auto) 61.4 %; Platelet Count 280 K/uL (130-400); RDW Coefficient of Variation 14.7 % (11.5-14.5); RDW Standard Deviation 51.5 fL (36.4-46.3); Red Blood Count 4.35 M/uL (4.2-5.4); White Blood Count 13.22 K/uL (4.8-10.8)
[2018-06-10 09:41] LABS: Albumin Level 2.9 gm/dl (3.4-5.0); BUN Creatinine Ratio 22.6 (10-20); Calcium 9.3 mg/dl (8.5-10.1); Est GFR (African American) 70.5; Est GFR (Non-African American) 60.9; Potassium 3.3 mmol/L (3.5-5.1)
[2018-06-10 09:44] LABS: Albumin Globulin Ratio 0.8 (0.9-2); Bilirubin,Total 0.5 mg/dl (0.2-1); Globulin 3.5 gm/dl (2.5-4.0); Total Protein 6.4 gm/dl (6.4-8.2)
--- NOTE | 2018-06-10 10:12 | CT Scan Report ---
CT lumbar spine wo con CT DOSE: 575.25 mGycm CLINICAL HISTORY: Low back pain status post trauma TECHNIQUE: Helical images were acquired in transverse plane. Reformatted sagittal and coronal images were reviewed. A dose lowering technique was utilized adhering to the principles of ALARA. CONTRAST: No contrast was administered COMPARISON STUDY: May 22, 2018 FINDINGS: L1-2 level: There is no evidence of significant disc bulge or focal herniation. There is no evidence of spinal or foraminal stenosis. L2-3 level: There is a circumferential disc bulge and mild secondary spinal stenosis. L3-4 level: There is no evidence of significant disc bulge or focal herniation. There is no evidence of spinal or foraminal stenosis. L4-5 level: There is a stable grade 1 spondylolisthesis of L4 on L5. There is mild spinal stenosis. T here is facet joint arthropathy. L5-S1 level: There is a minimal grade 1 spondylolisthesis of L5 on S1. There is no focal disc herniat ion. There is no significant spinal stenosis. There is mild bilateral foraminal narrowing. There is an S-shaped scoliosis. There is right-sided nephrolithiasis. Renal cysts are visualized. IMPRESSION: 1. No acute fractures or traumatic subluxations identified 2. Right-sided nephrolithiasis 3. Scoliosis 4. Degenerative changes with stable anterior spondylolisthesis of L4 on L5 and L5 on S1 Electronically signed by: Aaron Choi M.D. 06/10/2018 10:11 AM
--- NOTE | 2018-06-10 10:42 | XRay Report ---
XR pelvis 1-2V routine HISTORY: 77 years-old Female fall acute pelvic pain status post fall COMPARISON: CT lumbar spine of same day TECHNIQUE: Portable AP view of the pelvis FINDINGS: Demineralized appearance of the bones. Moderate osteoarthritis about the bilateral femoral acetabular joints. Degenerative changes of the pubic symphysis and lower lumbar spine. No acute fracture, dislo cation or avascular necrosis. IMPRESSION: No acute fracture or dislocation. The above report was generated using voice recognition software. It may contain grammatical, syntax o r spelling errors. Electronically signed by: Francesco Ziegler M.D. 06/10/2018 10:41 AM
--- NOTE | 2018-06-10 10:43 | XRay Report ---
XR thoracic spine 3V routine HISTORY: Pain. Trauma. back pain COMPARISON: Chest CT 12/27/2017 FINDINGS: No evidence for an acute compression deformity from T1 through T11. Very slight wedge defor mity of a midthoracic vertebral body unchanged from the prior exam. Considerable degenerative disc ch anges throughout. Very slight wedge deformity superior endplate T12. No subluxation. IMPRESSION: 1. Very slight wedge deformity superior endplate T12. 2. All remaining components of the thoracic spine are unchanged from the prior study. 3. Significant degenerative disc changes throughout. The above report was generated using voice recognition software. It may contain grammatical, syntax or spelling errors. Electronically signed by: Edin Falk M.D. 06/10/2018 10:42 AM
[2018-06-10] MEDS ORDERED: MoRPHine SULFATE 2 MG/ML CARP ONE (11:54)
[2018-06-10 11:56] LABS: Appearance Urine Cloudy (Clear); Bacteria Urine Automated Negative (Negative); Bilirubin Urine Negative (Negative); Blood Urine 2+ (Negative); Color Urine Yellow; Epithelial Cell Urine Auto >30 /lpf (0-5); Glucose Urine UA Negative (Negative); Ketones Urine Negative (Negative); Leukocyte Esterase Urine 2+ (Negative); Nitrite Urine Negative (Negative); Protein Urine Negative (Negative); Specific Gravity Urine 1.015 (1.000-1.030); Urobilinogen Urine Negative (Negative); WBC Urine Automated >30 /hpf (0-5)
[2018-06-10 12:26] LABS: RBC Urine Automated 0-4 /hpf (0-4)
--- NOTE | 2018-06-10 13:52 | History & Physical Report ---
Date of Service June 10, 2018 Assessment & Plan (1) Back pain: (2) Compression fracture: (3) Ambulatory dysfunction: Pt presented with c/o low back pain, L leg pain & pareshtesias and R buttock pain. Was in ER on 05/22/18 for L hip and L leg pain and paresthesias, dx with sciatica and was discharged to [facility] for rehab. On 06/04/18 pt reports slid out of bed when trying to go to the bathroom and fell on to buttocks. Pt states since with pain to R buttock.Completed prednisone taper on 06/05/18. Pt was discharge home (high rise apartment) on 06/06/18 and it is reported that she was able to ambulate 75 feet with rolling walker upon discharge. Pt states still with L leg pain and paresthesias and C/O bilateral leg weakness and feels unstable with ambulating with walker at home Today in ER was given morphine, zofran, 500ml NSS Pelvix Xray: No acute fracture or dislocation. THORACIC SPINE XRAY: Very slight wedge deformity superior endplate T12. Significant degenerative disc changes throughout. LUMBAR SPINE CT: No acute fractures or traumatic subluxations identified. Scoliosis. Degenerative changes with stable anterior spondylolisthesis of L4 on L5 and L5 on S1 -afebrile -continue voltaren gel, hydrocodone prn pain. Morphine prn severe pain -pt on ibuprofen and Prednisone 5mg daily for RA -PT/OT eval -Ortho spine eval, appreciate recommendations (4) Leukocytosis: Afebrile. Denies fevers/chills. WBC: 13. Is on chronic prednisone. Denies UTI symptoms, cough -pending urine culture -monitor cbc (5) Hypokalemia: K: 3.3. Probable secondary to HCTZ use -replace and monitor (6) Venous insufficiency: -continue HCTZ (7) Rheumatoid arthritis: -continue prednisone 5mg daily and ibuprofen (8) HLD (hyperlipidemia): -continue statin (9) Obesity: BMI: 47 -diet and lifestyle modifications suggested (10) Exposure to influenza: Pt on 14 day course of tamiflu for flu post exposure prophylaxis. Final dose tamiflu to be on 06/13/18. -continue tamiflu DVT Prophylaxis -Lovenox SQ manager intermediate consult for assistance with discharge and probable placement. Pt reports does not wish to return to [facility]. Full Code as per discussion with pt and daughter however pt reports does not want more than a "few minutes CPR" Follows with Dr Aquino for routine care Pt was seen with Dr Juarez. See addendum History of Present Illness Chief Complaint: Back pain Primary Care Provider: Poncho Aquino MD Pt is 77 y/o F with PMH rheumatoid arthritis, bladder cancer, HLD, prediabetes, obesity, venous insufficiency presented to ER with c/o back pain. Pt reports hx sciatica in past to L side. States couple of weeks ago started with L hip and leg pain and she was seen in ER on 05/22/18 for L hip and L leg pain and paresthesias, dx with sciatica and was discharged to [facility] for rehab. On 06/04/18 pt reports slid out of bed when trying to go to the bathroom and fell on to buttocks. Pt states since with pain to R buttock. Denies R leg pain. Pt states was taking flexeril and that made her feel a little dizzy and she does not want to take any further flexeril. Pt completed prednisone taper on 06/05/18. It is reported that she was able to ambulate 75 feet with rolling walker upon discharge. Pt was discharge home (high rise apartment) on 06/06/18. Pt states still with L leg pain and paresthesias but feels they are improved from initial onset. C/O bilateral leg weakness and feels unstable with ambulating with walker. Denies any falls since being home, however reports having difficulty getting around in her apartment. Pt on 14 day course of tamiflu for post exposure prophylaxis. Final dose tamiflu to be on 06/13/18. Pt reports chronic BLE edema and erythema secondary to venous insuffiency and denies any worsening. Denies fever/chills, diaphoresis, N/V/D/C, LOZA, further dizziness, syncope, vision changes, neck pain, CP, SOB, orthopnea, palpitations, cough, sore throat, choking, otalgia, rhinorrhea, abdominal pain, rashes, urinary symptoms. Allergies Allergy/AdvReac Type Severity Reaction Status Date / Time strawberry Allergy Severe ANAPHYLAXIS Verified 05/22/18 08:21 atorvastatin AdvReac Unknown SEVERE Verified 05/22/18 08:21 MUSCLE ACHES Home Medications Home Medications Medication Instructions Recorded Confirmed Type aspirin 81 mg PO QAM 05/22/18 06/10/18 History cholecalciferol (vitamin D3) 2,000 unit PO QAM 05/22/18 06/10/18 History [Vitamin D3] docusate sodium [Colace] 100 mg PO PM 05/22/18 06/10/18 History pravastatin 10 mg PO HS 05/22/18 06/10/18 History prednisone 5 mg PO QAM 05/22/18 06/10/18 History diclofenac sodium 2 g TOPICAL TID 06/10/18 06/10/18 History hydrochlorothiazide 12.5 mg PO Q2D 06/10/18 06/10/18 History hydrocodone-acetaminophen 1 tab PO Q6H PRN 06/10/18 06/10/18 History ibuprofen 400 mg PO BIDM 06/10/18 06/10/18 History oseltamivir 30 mg PO DAILY 06/10/18 06/10/18 History polyethylene glycol 3350 [Miralax] 17 g PO QAM 06/10/18 06/10/18 History Past Med/Surg History Medical History Venous insufficiency (Chronic) Bladder cancer (Chronic) Prediabetes (Chronic) Obesity (Chronic) HLD (hyperlipidemia) (Chronic) HTN (hypertension) (Chronic) Rheumatoid arthritis (Chronic) Surgical History History of cataract surgery (Chronic) H/O: hysterectomy (Chronic) H/O hernia repair (Chronic) Family History Other Alzheimer disease Breast cancer Coronary heart disease Social History Preferred Language: Yoruba Communication Ability: Effective Pole Classifier Required: No Beliefs That Will Affect Care: None marital status: / Current Living Situation: Alone current occupational status: retired Other Information That Helps Us Care for You: No Feels Safe at Home: Yes Smoking Status: Former smoker Hx Alcohol Use: No Hx Substance Use: No Review of Systems All systems reviewed & are unremarkable except as noted in HPI & below Physical Exam Vital Signs (Past 24 Hours): Last Vital Signs Temp 36.8 C 06/10/18 08:41 Pulse 97 H 06/10/18 12:30 Resp 16 06/10/18 12:30 BP 99/56 L 06/10/18 12:30 Pulse Ox 96 06/10/18 12:30 Physical Exam: General: no distress, obese Head: normocephalic, atraumatic Eyes: PERRL, EOM's intact, conjunctiva non-injected, anicteric ENT: normal inspection external ears, nose, mucous membranes moist Neck: supple, trachea midline, non-tender Lungs: clear, no respiratory distress, no wheezing/rhonchi/rales CV: RRR, no murmur Abd: normal BS, soft, non-tender Back: +slight tenderness to palpation over lower thoracic spinous process, +tenderness to palpation lower lumbar spine, tender to palpation bilateral buttocks Ext: left lateral hip with tenderness to palpation, hips with internal and external ROM intact, no calf tenderness, bilateral lower legs with edema and erythema and dry skin, no significant warmth or open areas. left leg raise positive to approx 30 degrees. pedal pushes and pulls intact bilaterally. Neuro: A&O x 3, no focal deficits noted, normal affect Skin: warm, dry, ecchymosis left lateral thoracic back, ecchymosis right buttock Results & Data Laboratory Results Short CBC 06/10/18 Range/Units 09:05 WBC 13.22 H (4.8-10.8) K/uL Hgb 13.2 (12.0-16.0) g/dL Hct 41.0 (37-47) % Plt Count 280 (130-400) K/uL BMP 06/10/18 09:05 Sodium 141 Potassium 3.3 L Chloride 106 Carbon Dioxide 32 BUN 21 H Creatinine 0.91 Glucose 110 H Calcium 9.3 Liver Function 06/10/18 Range/Units 09:05 Total Bilirubin 0.5 (0.2-1) mg/dl AST 13 L (15-37) U/L ALT 19 (12-78) U/L Alkaline Phosphatase 54 (45-117) U/L Albumin 2.9 L (3.4-5.0) gm/dl Urine 06/10/18 Range/Units 11:00 Urine Color Yellow Urine Appearance Cloudy H (Clear) Urine pH 5.0 (4.5-7.5) Ur Specific [place] 1.015 (1.000-1.030) Urine Protein Negative (Negative) Urine Glucose (UA) Negative (Negative) Diagnostic Findings PELVIS XRAY IMPRESSION: No acute fracture or dislocation. THORACIC SPINE XRAY: IMPRESSION: 1. Very slight wedge deformity superior endplate T12. 2. All remaining components of the thoracic spine are unchanged from the prior study. 3. Significant degenerative disc changes throughout. LUMBAR SPINE CT: IMPRESSION: 1. No acute fractures or traumatic subluxations identified 2. Right-sided nephrolithiasis 3. Scoliosis 4. Degenerative changes with stable anterior spondylolisthesis of L4 on L5 and L5 on S1 Supervising Physician Co-Signing Physician Notes I have seen and examined the patient and have discussed the case with the provider above. I agree with the assessment and plan as stated. Repeat PT/OT evals to re-evaluate for the need for placement, Ortho Spine for eval of compression fracture. Multiple tenderpoints everywhere along back and legs. Cont pain regimen as above. DO Larry (1) Back pain Back pain laterality: bilateral Back pain location: low back pain Chronicity: acute Sciatica laterality: sciatica of left side Sciatica presence: with sciatica Qualified Code(s): M54.42 - Lumbago with sciatica, left side
--- NOTE | 2018-06-10 14:18 | Emergency Department Note ---
Entered by Nuvia Wahl acting as a scribe for Moe Hammer DO History of Present Illness General Chief complaint: Back Injury/Pain Stated complaint: fall/ back pain Source: patient History of Present Illness Provider complaint: back pain Onset (ago): day(s) 5 Location: back (lower) Radiation: extremity (left) Pain Consistency: + other (persistent) Quality: + other (back pain) Associated symptoms: + other (left leg numbness. Denies: pain/burning with urination, bowel movement symptoms) The patient is a 77 year old female who presents to the Emergency Room with complaints of persistent lower back pain beginning 5 days ago. She reports she was at [facility] last week for rehab due to a history of sciatica, and slid from the bed to the floor 5 days ago. The patient notes left leg movement exacerbates her back pain. She states she has shooting pain down her left leg, into her calf. The patient reports a small amount of numbness in her left leg. She denies pain/burning with urination or bowel movement symptoms. The patient reports she does not wear oxygen and has no history of COPD or asthma. No other exacerbating or remitting factors. Home Medications Home Medications Medication Instructions Recorded Confirmed Type aspirin 81 mg PO QAM 05/22/18 06/10/18 History cholecalciferol (vitamin D3) 2,000 unit PO QAM 05/22/18 06/10/18 History [Vitamin D3] docusate sodium [Colace] 100 mg PO PM 05/22/18 06/10/18 History pravastatin 10 mg PO HS 05/22/18 06/10/18 History prednisone 5 mg PO QAM 05/22/18 06/10/18 History diclofenac sodium 2 g TOPICAL TID 06/10/18 06/10/18 History hydrochlorothiazide 12.5 mg PO Q2D 06/10/18 06/10/18 History hydrocodone-acetaminophen 1 tab PO Q6H PRN 06/10/18 06/10/18 History ibuprofen 400 mg PO BIDM 06/10/18 06/10/18 History oseltamivir 30 mg PO DAILY 06/10/18 06/10/18 History polyethylene glycol 3350 [Miralax] 17 g PO QAM 06/10/18 06/10/18 History Allergies Allergy/AdvReac Type Severity Reaction Status Date / Time strawberry Allergy Severe ANAPHYLAXIS Verified 05/22/18 08:21 atorvastatin AdvReac Unknown SEVERE Verified 05/22/18 08:21 MUSCLE ACHES Past Med/Surg History Medical History Bladder cancer (Chronic) Prediabetes (Chronic) Obesity (Chronic) HLD (hyperlipidemia) (Chronic) HTN (hypertension) (Chronic) Rheumatoid arthritis (Chronic) Surgical History H/O: hysterectomy (Resolved) H/O hernia repair (Resolved) Family History Other Alzheimer disease Breast cancer Coronary heart disease Social History Preferred Language: Bruneian marital status: / Current Living Situation: Alone current occupational status: retired Feels Safe at Home: Yes Smoking Status: Former smoker Hx Alcohol Use: No Hx Substance Use: No Review of Systems See HPI for pertinent positives & negatives. and A total of 10 systems reviewed and were otherwise negative Physical Exam Vital Signs Vital Signs - 24 hr 06/10/18 08:41 06/10/18 09:39 06/10/18 11:04 Temperature 36.8 C Temperature Source Oral Sepsis Recent Fever Within 48 Hours No Sepsis Action Taken by Nursing No Action Required Pulse Rate 86 Pulse Rate [Right Finger] 86 91 H Pulse Rate from SpO2 Sensor 94 H Pulse Rhythm [Right Finger] Regular Pulse Strength [Right Finger] Normal Respiratory Rate 20 20 20 Respiratory Effort / Characteristics Non-Labored Spontaneous Spontaneous Respiratory Depth Normal Normal Blood Pressure 126/79 Blood Pressure [Left Arm] 109/63 Blood Pressure Mean 94 Blood Pressure Mean [Left Arm] 78 Pulse Oximetry 95 92 84 L Oxygen Delivery Method Room Air Room Air Room Air Oxygen Flow Rate 06/10/18 11:59 06/10/18 12:01 06/10/18 12:30 Temperature Temperature Source Sepsis Recent Fever Within 48 Hours Sepsis Action Taken by Nursing Pulse Rate 96 H 97 H Pulse Rate [Right Finger] 96 H Pulse Rate from SpO2 Sensor 95 H Pulse Rhythm [Right Finger] Pulse Strength [Right Finger] Respiratory Rate 10 L 0 L 16 Respiratory Effort / Characteristics Respiratory Depth Blood Pressure 104/45 L 99/56 L Blood Pressure [Left Arm] 110/53 L Blood Pressure Mean 64 70 Blood Pressure Mean [Left Arm] 72 Pulse Oximetry 91 96 Oxygen Delivery Method Room Air Nasal Cannula Oxygen Flow Rate 2 06/10/18 13:00 06/10/18 13:30 06/10/18 14:01 Temperature Temperature Source Sepsis Recent Fever Within 48 Hours Sepsis Action Taken by Nursing Pulse Rate 99 H Pulse Rate [Right Finger] Pulse Rate from SpO2 Sensor 99 H 92 H 92 H Pulse Rhythm [Right Finger] Pulse Strength [Right Finger] Respiratory Rate 20 1 L 0 L Respiratory Effort / Characteristics Respiratory Depth Blood Pressure 113/79 117/83 116/87 Blood Pressure [Left Arm] Blood Pressure Mean 90 94 96 Blood Pressure Mean [Left Arm] Pulse Oximetry 95 96 97 Oxygen Delivery Method Nasal Cannula Nasal Cannula Nasal Cannula Oxygen Flow Rate 2 2 2 GENERAL: In moderate distress, intermittently rolling around. EYE EXAM: normal conjunctiva. OROPHARYNX: no exudate, no erythema, lips, buccal mucosa, and tongue normal and mucous membranes are moist NECK: supple, no nuchal rigidity, no adenopathy, non-tender LUNGS: Clear to auscultation. Normal chest wall mechanics HEART: no murmurs, S1 normal and S2 normal ABDOMEN: abdomen soft, non-tender, normo-active bowel, sounds, no masses, no rebound or guarding. BACK: Lumbar midline tenderness tracking down to the coccyx, upper thoracic paraspinal tenderness with bruising on left side. SKIN: no rashes and no bruising UPPER EXTREMITIES: upper extremities are grossly normal. LOWER EXTREMITIES: No pitting edema. Flexion and extension of the hips, knees, ankles, and EHL 5/5 bilaterally. Gross sensation is intact. DPs are 2/4 bilateral. Significant pain with flexion in left hip. NEURO EXAM: Normal sensorium, cranial nerves II-XII grossly intact, normal speech, no gross weakness of arms, no gross weakness of legs. Course ED COURSE: Vital signs were reviewed and showed no abnormalities. The patients medical record was reviewed The above diagnostic studies were performed and reviewed. ED treatments and interventions as stated above. 0848: The patient was evaluated in room A3. A complete history and physical examination was performed. 1235: I reviewed the patient's case with Danni Iraheta PA-C, [facility] hospitalist. She will evaluate the patient for further management. 1239: Upon reevaluation, the patient is resting. I discussed my findings with the patient and she understands and agrees with the treatment plan. Based on the patients age, coexisting illnesses, exam and lab findings the decision to treat as an inpatient was made. The patient remained stable while under my care. The patient will be evaluated for further management. Consultations Consultation #1: Danni Iraheta PA-C, [facility] hospitalist Time: 12:35 Administered Medications Discontinued Medications Sodium Chloride (Nss) 500 mls @ 999 mls/hr IV .Q31M SAMANTA Stop: 06/10/18 09:30 Last Infusion: 06/10/18 11:01 Dose: 0 mls/hr Documented by: [id number] Admin: 06/10/18 09:38 Dose: 999 mls/hr Documented by: [id number] Morphine Sulfate (Morphine Sulfate) 4 mg IV NOW STA Stop: 06/10/18 08:59 Last Admin: 06/10/18 09:32 Dose: 4 mg Documented by: [id number] Morphine Sulfate (Morphine Sulfate) 6 mg IV NOW STA Stop: 06/10/18 11:44 Last Admin: 06/10/18 12:02 Dose: 4 mg Documented by: [id number] Morphine Sulfate (Morphine Sulfate) Confirm Administered Dose 2 mg .ROUTE .STK- MED ONE Stop: 06/10/18 11:55 Last Admin: 06/10/18 12:03 Dose: 2 mg Documented by: [id number] Ondansetron HCl (Zofran) 4 mg IV NOW STA Stop: 06/10/18 08:59 Last Admin: 06/10/18 09:32 Dose: 4 mg Documented by: [id number] Medical Decision Making Differential Diagnosis Etiologies such as fracture, dislocation, neurovascular compromise, compartment syndrome, soft tissue injury, as well as others were entertained. Medical Records Attestation: I reviewed the patient's medical records. Home Medications Current Medication List: was personally reviewed by me Laboratory Data Attestation: I reviewed the patient's lab results. Result diagrams: 06/10/18 09:05 06/10/18 09:05 Lab Results 06/10/18 06/10/18 06/10/18 Range/Units 09:05 09:05 11:00 WBC 13.22 H (4.8-10.8) K/uL RBC 4.35 (4.2-5.4) M/uL Hgb 13.2 (12.0-16.0) g/dL Hct 41.0 (37-47) % MCV 94.3 (80-100) fL MCH 30.3 (25-34) pg MCHC 32.2 (32-36) g/dL RDW Std Deviation 51.5 H (36.4-46.3) fL RDW Coeff of Coty 14.7 H (11.5-14.5) % Plt Count 280 (130-400) K/uL MPV 9.8 (7.4-10.4) fL Immature Gran % (Auto) 0.3 % Neut % (Auto) 61.4 % Lymph % (Auto) 27.9 % Haines % (Auto) 8.2 % Eos % (Auto) 1.9 % Baso % (Auto) 0.3 % Immature Gran # (Auto) 0.04 H (0.00-0.02) K/uL Neut # (Auto) 8.12 H (1.4-6.5) K/uL Lymph # (Auto) 3.69 H (1.2-3.4) K/uL Haines # (Auto) 1.08 H (0.11-0.59) K/uL Eos # (Auto) 0.25 (0-0.5) K/uL Baso # (Auto) 0.04 (0-0.2) K/uL Sodium 141 (136-145) mmol/L Potassium 3.3 L (3.5-5.1) mmol/L Chloride 106 (98-107) mmol/L Carbon Dioxide 32 (21-32) mmol/L Anion Gap 3.0 (3-11) BUN 21 H (7-18) mg/dl Creatinine 0.91 (0.6-1.2) mg/dl Est Cr Clr Drug Dosing 55.0 ml/min Est GFR ( Amer) 70.5 Est GFR (Non-Af Amer) 60.9 BUN/Creatinine Ratio 22.6 H (10-20) Glucose 110 H (70-99) mg/dl Calcium 9.3 (8.5-10.1) mg/dl Total Bilirubin 0.5 (0.2-1) mg/dl AST 13 L (15-37) U/L ALT 19 (12-78) U/L Alkaline Phosphatase 54 (45-117) U/L Total Protein 6.4 (6.4-8.2) gm/dl Albumin 2.9 L (3.4-5.0) gm/dl Globulin 3.5 (2.5-4.0) gm/dl Albumin/Globulin Ratio 0.8 L (0.9-2) Lipase 228 (73-393) U/L Urine Color Yellow Urine Appearance Cloudy H (Clear) Urine pH 5.0 (4.5-7.5) Ur Specific Weinert 1.015 (1.000-1.030) Urine Protein Negative (Negative) POC Urine Protein (Negative) Urine Glucose (UA) Negative (Negative) POC Ur Glucose (UA) (Normal) Urine Ketones Negative (Negative) POC Urine Ketones (Negative) Urine Blood 2+ H (Negative) POC Urine Blood (Negative) Urine Nitrite Negative (Negative) POC Urine Nitrite (Negative) Urine Bilirubin Negative (Negative) Urine Urobilinogen Negative (Negative) Ur Leukocyte Esterase 2+ H (Negative) POC U Leukocyte Esteras (Negative) Urine WBC (Auto) >30 H (0-5) /hpf Urine RBC (Auto) 0-4 (0-4) /hpf U Hyaline Cast (Auto) 1-5 (0-5) /lpf U Epithel Cells (Auto) >30 H (0-5) /lpf Urine Bacteria (Auto) Negative (Negative) 06/10/18 Range/Units Unknown WBC (4.8-10.8) K/uL RBC (4.2-5.4) M/uL Hgb (12.0-16.0) g/dL Hct (37-47) % MCV (80-100) fL MCH (25-34) pg MCHC (32-36) g/dL RDW Std Deviation (36.4-46.3) fL RDW Coeff of Coty (11.5-14.5) % Plt Count (130-400) K/uL MPV (7.4-10.4) fL Immature Gran % (Auto) % Neut % (Auto) % Lymph % (Auto) % Haines % (Auto) % Eos % (Auto) % Baso % (Auto) % Immature Gran # (Auto) (0.00-0.02) K/uL Neut # (Auto) (1.4-6.5) K/uL Lymph # (Auto) (1.2-3.4) K/uL Haines # (Auto) (0.11-0.59) K/uL Eos # (Auto) (0-0.5) K/uL Baso # (Auto) (0-0.2) K/uL Sodium (136-145) mmol/L Potassium (3.5-5.1) mmol/L Chloride (98-107) mmol/L Carbon Dioxide (21-32) mmol/L Anion Gap (3-11) BUN (7-18) mg/dl Creatinine (0.6-1.2) mg/dl Est Cr Clr Drug Dosing ml/min Est GFR ( Amer) Est GFR (Non-Af Amer) BUN/Creatinine Ratio (10-20) Glucose (70-99) mg/dl Calcium (8.5-10.1) mg/dl Total Bilirubin (0.2-1) mg/dl AST (15-37) U/L ALT (12-78) U/L Alkaline Phosphatase (45-117) U/L Total Protein (6.4-8.2) gm/dl Albumin (3.4-5.0) gm/dl Globulin (2.5-4.0) gm/dl Albumin/Globulin Ratio (0.9-2) Lipase (73-393) U/L Urine Color Urine Appearance (Clear) Urine pH (4.5-7.5) Ur Specific Weinert (1.000-1.030) Urine Protein (Negative) POC Urine Protein Negative (Negative) Urine Glucose (UA) (Negative) POC Ur Glucose (UA) Normal (Normal) Urine Ketones (Negative) POC Urine Ketones Negative (Negative) Urine Blood (Negative) POC Urine Blood 50 H (Negative) Urine Nitrite (Negative) POC Urine Nitrite Negative (Negative) Urine Bilirubin (Negative) Urine Urobilinogen (Negative) Ur Leukocyte Esterase (Negative) POC U Leukocyte Esteras 2+ H (Negative) Urine WBC (Auto) (0-5) /hpf Urine RBC (Auto) (0-4) /hpf U Hyaline Cast (Auto) (0-5) /lpf U Epithel Cells (Auto) (0-5) /lpf Urine Bacteria (Auto) (Negative) Imaging Data Radiologist's Impression: Radiology results as stated below per my review and the radiologist's interpretation: XR thoracic spine 3V routine HISTORY: Pain. Trauma. back pain COMPARISON: Chest CT 12/27/2017 FINDINGS: No evidence for an acute compression deformity from T1 through T11. Very slight wedge deformity of a midthoracic vertebral body unchanged from the prior exam. Considerable degenerative disc changes throughout. Very slight wedge deformity superior endplate T12. No subluxation. IMPRESSION: 1. Very slight wedge deformity superior endplate T12. 2. All remaining components of the thoracic spine are unchanged from the prior study. 3. Significant degenerative disc changes throughout. The above report was generated using voice recognition software. It may contain grammatical, syntax or spelling errors. Electronically signed by: Edin Falk M.D. 06/10/2018 10:42 AM XR pelvis 1-2V routine HISTORY: 77 years-old Female fall acute pelvic pain status post fall COMPARISON: CT lumbar spine of same day TECHNIQUE: Portable AP view of the pelvis FINDINGS: Demineralized appearance of the bones. Moderate osteoarthritis about the bilateral femoral acetabular joints. Degenerative changes of the pubic symphysis and lower lumbar spine. No acute fracture, dislocation or avascular necrosis. IMPRESSION: No acute fracture or dislocation. The above report was generated using voice recognition software. It may contain grammatical, syntax or spelling errors. Electronically signed by: Francesco Ziegler M.D. 06/10/2018 10:[address] lumbar spine wo con CT DOSE: 575.25 mGycm CLINICAL HISTORY: Low back pain status post trauma TECHNIQUE: Helical images were acquired in transverse plane. Reformatted sagittal and coronal images were reviewed. A dose lowering technique was utilized adhering to the principles of ALARA. CONTRAST: No contrast was administered COMPARISON STUDY: May 22, 2018 FINDINGS: L1-2 level: There is no evidence of significant disc bulge or focal herniation. There is no evidence of spinal or foraminal stenosis. L2-3 level: There is a circumferential disc bulge and mild secondary spinal carmel nosis. L3-4 level: There is no evidence of significant disc bulge or focal herniation. There is no evidence of spinal or foraminal stenosis. L4-5 level: There is a stable grade 1 spondylolisthesis of L4 on L5. There is mild spinal stenosis. There is facet joint arthropathy. L5-S1 level: There is a minimal grade 1 spondylolisthesis of L5 on S1. There is no focal disc herniation. There is no significant spinal stenosis. There is mild bilateral foraminal narrowing. There is an S-shaped scoliosis. There is right-sided nephrolithiasis. Renal cysts are visualized. IMPRESSION: 1. No acute fractures or traumatic subluxations identified 2. Right-sided nephrolithiasis 3. Scoliosis 4. Degenerative changes with stable anterior spondylolisthesis of L4 on L5 and L5 on S1 Electronically signed by: Aaron Choi M.D. 06/10/2018 10:11 AM Blood Pressure Blood Pressure Findings: Normal blood pressure Blood Pressure Disposition: did not require urgent referral MDM Narrative Patient is a 77-year-old female who was recently admitted and discharged from the hospital and treated for [facility]. She notes that she fell at [facility] on Saturday and since then her back pain has been worsening. She does have her sciatica pain but this pain has been worsening. Denies any weakness in the lower extremities. Labs were obtained and showed a leukocytosis of 13,000. No significant anemia. BMP with mild hypokalemia at 3.3. LFTs bilirubin lipase was unremarkable. UA was contaminated with multiple epithelial cells. CT of the lumbar spine and x-ray of the thoracic shows a slightly new compression fracture at T12. Patient was given 2 dose of IV narcotics. She did become slightly hypoxic. Attempted to place but unsuccessful and patient was discussed with the hospitalist for observation. Impression & Plan Compression fracture, Back pain Discharge Plan Visit Data Chief Complaint: Back Injury/Pain Stated Complaint: fall/ back pain ED Provider: Moe Hammer Discharge Problem: Compression fracture, Back pain Patient Disposition: Being Evaluated by Hospitalist Forms Stand Alone Forms: My [facility] Prescriptions Prescriptions: No Action prednisone 5 mg Tablet 5 mg PO QAM RF: 0 aspirin 81 mg Tablet,Delayed Release (Dr/Ec) 81 mg PO QAM RF: 0 pravastatin 10 mg Tablet 10 mg PO HS RF: 0 docusate sodium [Colace] 100 mg Capsule 100 mg PO PM RF: 0 cholecalciferol (vitamin D3) [Vitamin D3] 2,000 unit Tablet 2,000 unit PO QAM RF: 0 polyethylene glycol 3350 [Miralax] 17 gram Powder In Packet 17 g PO QAM RF: 0 hydrochlorothiazide 12.5 mg Tablet 12.5 mg PO Q2D RF: 0 diclofenac sodium 1 % Gel 2 g TOPICAL TID RF: 0 hydrocodone-acetaminophen 5-325 mg Tablet 1 tab PO Q6H PRN (Reason: Pain) RF: 0 ibuprofen 200 mg Tablet 400 mg PO BIDM RF: 0 oseltamivir 30 mg Capsule 30 mg PO DAILY RF: 0 Referrals Referrals: Poncho Aquino MD [Primary Care Provider] - Discharge Problem: Back pain Qualifiers: Back pain location: low back pain Chronicity: acute Back pain laterality: bilateral Sciatica presence: with sciatica Sciatica laterality: sciatica of left side Qualified Code(s): M54.42 - Lumbago with sciatica, left side The scribe's documentation has been prepared under my direction and personally reviewed by me in its entirety. I confirm that the note above accurately reflects all work, treatment, procedures, and medical decision making performed by me.
[2018-06-10] MEDS ORDERED: POLYETHYLENE (MIRALAX) 17 GM PACK PO PRN (15:58)
[2018-06-10] MEDS ORDERED: ONDANSETRON INJ 2 MG/ML 2 ML VIAL IV PRN (15:58)
[2018-06-10] MEDS: HYDROCODONE/ACETAMOPHEN 5/325MG TAB PO PRN (16:22)
[2018-06-10] MEDS: IBUPROFEN 200 MG TAB PO SCH (16:48)
[2018-06-10 17:43] LABS: Prothrombin Time 10.1 Seconds (9.0-12.0)
[2018-06-10] MEDS: PRAVASTATIN SOD 10 MG TAB PO SCH (18:31)
[2018-06-10] MEDS: ENOXAPARIN INJ 40 MG/0.4 ML SYR SQ SCH (18:33)
[2018-06-10] MEDS: OSELTAMIVIR PHOSPHATE SUSP 30 MG/5 ML UDP PO SCH (20:35)
[2018-06-10] MEDS: DICLOFENAC SOD 1% GEL 100 GM TUBE EXT SCH (20:38)
[2018-06-10] MEDS: DOCUSATE SODIUM 100 MG CAP PO SCH (20:38)
[2018-06-10] MEDS: MoRPHine SULFATE 2 MG/ML CARP IV PRN (20:45)
[2018-06-11] MEDS: HYDROCODONE/ACETAMOPHEN 5/325MG TAB PO PRN ×3 (01:08→16:40)
[2018-06-11] MEDS: MoRPHine SULFATE 2 MG/ML CARP IV PRN ×3 (06:14→20:20)
[2018-06-11 06:15] LABS: Basophils # (auto) 0.06 K/uL (0-0.2); Basophils % (auto) 0.6 %; Eosinophils # (auto) 0.29 K/uL (0-0.5); Eosinophils % (auto) 2.8 %; Hematocrit (blood only) 39.6 % (37-47); Hemoglobin 12.4 g/dL (12.0-16.0); Immature Granulocytes # (auto) 0.02 K/uL (0.00-0.02); Immature Granulocytes % (auto) 0.2 %; Lymphocytes # (auto) 2.82 K/uL (1.2-3.4); Lymphocytes % (auto) 26.8 %; Mean Corpuscular Hgb Conc 31.3 g/dL (32-36); Mean Corpuscular Volume 96.4 fL (80-100); Mean Platelet Volume 10.2 fL (7.4-10.4); Monocytes # (auto) 0.81 K/uL (0.11-0.59); Monocytes % (auto) 7.7 %; Neutrophils # (auto) 6.53 K/uL (1.4-6.5); Neutrophils % (auto) 61.9 %; Platelet Count 278 K/uL (130-400); RDW Coefficient of Variation 14.8 % (11.5-14.5); RDW Standard Deviation 52.8 fL (36.4-46.3); Red Blood Count 4.11 M/uL (4.2-5.4); White Blood Count 10.53 K/uL (4.8-10.8)
[2018-06-11 06:28] LABS: BUN Creatinine Ratio 22.4 (10-20); Calcium 8.7 mg/dl (8.5-10.1); Creatinine Clr Calc Pharmacy 56.2 ml/min; Est GFR (African American) 72.5; Est GFR (Non-African American) 62.5; Potassium 3.5 mmol/L (3.5-5.1)
[2018-06-11] MEDS: IBUPROFEN 200 MG TAB PO SCH ×2 (08:36→16:40)
[2018-06-11] MEDS: DICLOFENAC SOD 1% GEL 100 GM TUBE EXT SCH ×3 (08:36→20:24)
[2018-06-11] MEDS: OSELTAMIVIR PHOSPHATE SUSP 30 MG/5 ML UDP PO SCH (08:37)
[2018-06-11] MEDS: hydroCHLOROthiazide 25 MG TAB PO SCH (08:37)
[2018-06-11] MEDS: CHOLECALCIFEROL 1,000 UNITS TAB PO SCH (08:37)
[2018-06-11] MEDS: predniSONE 5 MG TAB PO SCH (08:37)
[2018-06-11] MEDS ORDERED: OSELTAMIVIR PHOSPHATE SUSP 75 MG/12.5 ML UDP PO SCH (09:00)
--- NOTE | 2018-06-11 13:52 | Orthopedic Consultation ---
Date of Consultation June 11, 2018 Assessment & Plan (1) Spinal stenosis, lumbar region with neurogenic claudication: Patient does have evidence on her CAT scan of fairly significant lateral recess stenosis with spondylolisthesis. This is undoubtedly creating a component of nerve compression and subsequent leg pain. She has significant medical history as well as morbid obesity may be very high risk for surgical intervention. I have discussed with her interventional pain management for which she was receptive. I also discussed my desire to obtain an MRI of the lumbar spine at some point. She understands agrees. I will follow-up with her if she fails to improve with injections. Present on Admission?: Yes History of Present Illness Reason for Consultation: Back and leg pain Attending Physician: Shalonda Galeana MD History of Present Illness This is a very pleasant 77-year-old female that states she is a history of back and left leg symptoms for several months now. She is unable to describe any precipitating trauma fall or event. She describes symptoms involving the back left buttock posterior thigh extending down to the lower extremity with numbness and tingling into her left foot. She states the right is asymptomatic. She does note a fall approximately weeks ago where she fell onto the right side. The symptoms have essentially resolved. Allergies Allergy/AdvReac Type Severity Reaction Status Date / Time strawberry Allergy Severe ANAPHYLAXIS Verified 05/22/18 08:21 atorvastatin AdvReac Unknown SEVERE Verified 05/22/18 08:21 MUSCLE ACHES Home Medications Home Medications Medication Instructions Recorded Confirmed Type aspirin 81 mg PO QAM 05/22/18 06/10/18 History cholecalciferol (vitamin D3) 2,000 unit PO QAM 05/22/18 06/10/18 History [Vitamin D3] docusate sodium [Colace] 100 mg PO PM 05/22/18 06/10/18 History pravastatin 10 mg PO HS 05/22/18 06/10/18 History prednisone 5 mg PO QAM 05/22/18 06/10/18 History diclofenac sodium 2 g TOPICAL TID 06/10/18 06/10/18 History hydrochlorothiazide 12.5 mg PO Q2D 06/10/18 06/10/18 History hydrocodone-acetaminophen 1 tab PO Q6H PRN 06/10/18 06/10/18 History ibuprofen 400 mg PO BIDM 06/10/18 06/10/18 History oseltamivir 30 mg PO DAILY 06/10/18 06/10/18 History polyethylene glycol 3350 [Miralax] 17 g PO QAM 06/10/18 06/10/18 History Patient History Medical History Venous insufficiency (Chronic) Bladder cancer (Chronic) Prediabetes (Chronic) Obesity (Chronic) HLD (hyperlipidemia) (Chronic) HTN (hypertension) (Chronic) Rheumatoid arthritis (Chronic) Surgical History History of cataract surgery (Chronic) H/O: hysterectomy (Chronic) H/O hernia repair (Chronic) Family History Other Alzheimer disease Breast cancer Coronary heart disease Social History Communication Ability: Effective Beliefs That Will Affect Care: None marital status: / Current Living Situation: Alone current occupational status: retired Other Information That Helps Us Care for You: No Feels Safe at Home: Yes Smoking Status: Former smoker Hx Alcohol Use: No Hx Substance Use: No Physical Exam Vital Signs (Past 24 Hours): Last Vital Signs Temp 36.7 C 06/11/18 07:11 Pulse 92 H 06/11/18 07:11 Resp 20 06/11/18 07:11 BP 91/52 L 06/11/18 07:11 Pulse Ox 93 06/11/18 07:17 Physical Exam: Patient is sitting in the chair at the bedside. She leans forward for comfort. She has no tension signs with straight leg raising. She does have obvious signs of venous insufficiency with inspection of her feet and ankles. She does have reasonable strength detailed testing.
[2018-06-11] MEDS: PRAVASTATIN SOD 10 MG TAB PO SCH (16:41)
[2018-06-11] MEDS: ENOXAPARIN INJ 40 MG/0.4 ML SYR SQ SCH (17:49)
[2018-06-11] MEDS: DOCUSATE SODIUM 100 MG CAP PO SCH (20:23)
--- NOTE | 2018-06-11 20:27 | Hospitalist Progress Note ---
Date of Service June 11, 2018 Assessment & Plan (1) Back pain: (2) Compression fracture: (3) Ambulatory dysfunction: Present on admission with low back pain radiated to lower extremity THORACIC SPINE XRAY: Very slight wedge deformity superior endplate T12. Significant degenerative disc changes throughout. LUMBAR SPINE CT showed Degenerative changes with stable anterior spondylolisthesis of L4 on L5 and L5 on S1 Pelvis xray showed no acute fracture or dislocation. Ortho on board recommended pain management consult for possible injection Due to significant medical history very high risk for surgical intervention. Continue pain contol Fall precaution PT/OT (4) Leukocytosis: Mostly due to steroid Afebrile and WBC back to normal Urine cx pending (5) Hypokalemia: K: 3.5 Continue monitor BMP (6) Venous insufficiency: continue HCTZ (7) Rheumatoid arthritis: continue prednisone 5mg daily and ibuprofen (8) HLD (hyperlipidemia): continue statin (9) Obesity: BMI: 47 diet and lifestyle modifications suggested (10) Exposure to influenza: Pt on 14 day course of tamiflu for flu post exposure prophylaxis. Final dose tamiflu to be on 06/13/18. continue tamiflu DVT Prophylaxis Lovenox SQ CODE STATUS FULL CODE Subjective Pt was seen and examined Sitting in chair with no distress Pt said that she continue to have pain She said that she does have so much pain back pain and if she was home she would take all the pain med that she can find to help her She said that she would rather than to be in so much pain She said that pain is worst with standing and working Denies any chest pain, palpitation, dizziness and SOB Physical Exam Vital Signs (Past 24 Hours): Last Vital Signs Temp 36.5 C 06/11/18 15:23 Pulse 92 H 06/11/18 15:23 Resp 16 06/11/18 15:23 BP 92/64 L 06/11/18 15:23 Pulse Ox 93 06/11/18 15:23 Physical Exam: General- No acute distress Head- atraumatic Eyes- PERRL, EOMI, ENT- oropharynx clear Neck- supple, no JVD Lungs- clear to auscultation Heart- regular rhythm; no murmur Abdomen- normal bowel sounds, soft, nontender Extremities- no calf tenderness Neuro- alert, oriented x 3; PERRL, EOMI; no facial palsy; no dysarthria Skin- warm & dry (1) Back pain Back pain laterality: bilateral Back pain location: low back pain Chronicity: acute Sciatica laterality: sciatica of left side Sciatica presence: with sciatica Qualified Code(s): M54.42 - Lumbago with sciatica, left side
[2018-06-11] MEDS: KETOROLAC TROMETHAMINE 15 MG/ML VIAL IV PRN (22:02)
[2018-06-12] MEDS: HYDROCODONE/ACETAMOPHEN 5/325MG TAB PO PRN ×3 (01:11→18:34)
[2018-06-12] MEDS: MoRPHine SULFATE 2 MG/ML CARP IV PRN ×3 (03:54→20:54)
[2018-06-12] MEDS: KETOROLAC TROMETHAMINE 15 MG/ML VIAL IV ONE ×2 (06:25→06:55)
[2018-06-12] MEDS: TRAMADOL HCL 50 MG TABLET PO PRN ×2 (06:28→15:21)
[2018-06-12] MEDS: LIDOCAINE 5% 1 PATCH TD SCH (06:55)
[2018-06-12] MEDS: predniSONE 5 MG TAB PO SCH (07:59)
[2018-06-12] MEDS: DICLOFENAC SOD 1% GEL 100 GM TUBE EXT SCH ×3 (08:00→20:46)
[2018-06-12] MEDS: CHOLECALCIFEROL 1,000 UNITS TAB PO SCH (08:00)
[2018-06-12] MEDS: OSELTAMIVIR PHOSPHATE SUSP 30 MG/5 ML UDP PO SCH (08:02)
--- NOTE | 2018-06-12 08:17 | Pain Management Consultation ---
Date of Consultation June 12, 2018 Assessment & Plan (1) Lumbar back pain with radiculopathy affecting left lower extremity: Present on Admission?: Yes (2) Spinal stenosis, lumbar region with neurogenic claudication: Present on Admission?: Yes (3) Exposure to influenza: Present on Admission?: Yes (4) Venous insufficiency: Present on Admission?: Yes (5) Ambulatory dysfunction: 1. Will recommend patient undergo MRI of the lumbar spine prior to pursuing interventional treatment and attempt to further define etiology of presenting complaint. Discussed with hospitalist service who will arrange. 2. Recommend patient continue utilization of hydrocodone for as needed breakthrough pain in place of IV morphine which contributed to some confusion/mental status changes earlier today 3. Would not recommend gabapentin due to concerns over side effects profile with a recent history of episodes of falling 4. Ability to pursue STEFANI upon this admission will be determined pending review of MRI study Thank you for allowing us to participate in the care of Mrs. Correa. Present on Admission?: Yes History of Present Illness Reason for Consultation: Intractable low back and left lower extremity radicular pain Attending Physician: Shalonda Galeana MD History of Present Illness Mrs. Correa is a 77-year-old white female with a past medical history significant for steroid-dependent rheumatoid arthritis, bladder cancer, prediabetes, obesity and venous insufficiency who was admitted due to intractable low back and left lower extremity radicular pain. The patient reported onset of her low back and left lower extremity pain a few weeks ago and was emergently evaluated on 05/22/2018 for similar pain complaints. She was then discharged to [facility] on a steroid taper without symptomatic improvement. She then reportedly had a fall while at [facility] out of bed onto the gluteal region. She has had some increased pain in the left greater than right gluteal area. The left lower extremity pain continues to be problematic which she describes as burning, sharp and shooting in characteristic predominately traveling in an L4 distribution to the ankle and dorsal foot. She reports difficulty finding a comfortable position with her pain exacerbated with any standing or ambulation. She describes some generalized weakness of the lower extremity and is experience and ambulatory dysfunction. The patient denies any bowel or bladder incontinence or saddle anesthesias. She denies any recent fevers, chills or night sweats. She is currently on post influenza exposure Tamiflu with final dose to be on 06/13/2018. Influenza was apparently present at [facility] during her stay. She is typically living independently. Patient has no further constitutional complaints. Plan of care discussed with Dr. Vora. Pain Assessment Full Body Front + Back: 1. Left lower extremity-L4 distribution predominantly 2. Lower back left greater than right-sided Pain scale - at its best (0-10): 2 Pain scale - at its worst (0-10): 8 Allergies Allergy/AdvReac Type Severity Reaction Status Date / Time strawberry Allergy Severe ANAPHYLAXIS Verified 05/22/18 08:21 atorvastatin AdvReac Unknown SEVERE Verified 05/22/18 08:21 MUSCLE ACHES Home Medications Home Medications Medication Instructions Recorded Confirmed Type aspirin 81 mg PO QAM 05/22/18 06/10/18 History cholecalciferol (vitamin D3) 2,000 unit PO QAM 05/22/18 06/10/18 History [Vitamin D3] docusate sodium [Colace] 100 mg PO PM 05/22/18 06/10/18 History pravastatin 10 mg PO HS 05/22/18 06/10/18 History prednisone 5 mg PO QAM 05/22/18 06/10/18 History diclofenac sodium 2 g TOPICAL TID 06/10/18 06/10/18 History hydrochlorothiazide 12.5 mg PO Q2D 06/10/18 06/10/18 History hydrocodone-acetaminophen 1 tab PO Q6H PRN 06/10/18 06/10/18 History ibuprofen 400 mg PO BIDM 06/10/18 06/10/18 History oseltamivir 30 mg PO DAILY 06/10/18 06/10/18 History polyethylene glycol 3350 [Miralax] 17 g PO QAM 06/10/18 06/10/18 History Pain History Pain Intensity Pain scale - at its best (0-10): 2 Pain scale - at its worst (0-10): 8 Patient History Medical History Venous insufficiency (Chronic) Bladder cancer (Chronic) Prediabetes (Chronic) Obesity (Chronic) HLD (hyperlipidemia) (Chronic) HTN (hypertension) (Chronic) Rheumatoid arthritis (Chronic) Surgical History History of cataract surgery (Chronic) H/O: hysterectomy (Resolved) H/O hernia repair (Resolved) Family History Other Alzheimer disease Breast cancer Coronary heart disease Social History Communication Ability: Effective Beliefs That Will Affect Care: None marital status: / Current Living Situation: Alone current occupational status: retired Other Information That Helps Us Care for You: No Feels Safe at Home: Yes Smoking Status: Former smoker Hx Alcohol Use: No Hx Substance Use: No Review of Systems Constitutional: Negative for fever, chills, sweats Eyes: Negative for eye pain, photophobia, drainage Ear, nose, mouth, throat: Negative for ear pain, nasal congestion, mouth lesio ns, change in voice Respiratory: Negative for wheezing, sputum production Cardiovascular: Negative for chest pain, palpitations, calf pain Gastrointestinal: Negative for abdominal pain, belching, bloating Genitourinary: Negative for dysuria, urinary incontinence, urinary urgency Musculoskeletal: Negative for deformities Integumentary: Negative for nail changes, skin yellowing, pruritus Neurological: Negative for abnormal speech, seizure type activity Physical Exam Vital Signs (Past 24 Hours): Last Vital Signs Temp 36.5 C 06/12/18 07:08 Pulse 76 06/12/18 07:08 Resp 18 06/12/18 07:08 BP 108/57 L 06/12/18 07:08 Pulse Ox 92 06/12/18 07:08 Physical Exam: General: Patient in no acute distress. Speech and thought process appropriate. Patient morbidly obese and physically deconditioned. Patient is sitting in her chair upon entering the room. Mood and affect appropriate. Cognition intact. Head: Normocephalic and atraumatic. ENT: No evidence of nasal or oral mucosal lesions. Mucous membranes are moist. Eyes: Pupils equal round reactive to light. Neck: Supple without adenopathy and full range of motion. Chest: Nontender to palpation of the costosternal junction. Cardiac: Regular rate and rhythm without murmur. Lungs: Clear to auscultation no wheeze or rhonchi. Abdomen: Soft and nondistended. No organomegaly. Bowel sounds active. Back/spine: Loss of lumbar lordosis. Patient diffusely tender over the entire lumbosacral region which is nonfocal to the midline, facet joints or SI joints. Slightly hyperalgesic response upon palpation in the myofascial regions. Limited range of motion in all planes. Lower extremities: Dusky erythematous change in the pretibial region with evidence of chronic venous insufficiency. Lidoderm patch in place in the left pretibial region. Scaling of the skin with 1+ pitting edema of the ankle and pretibial regions. SLR was equivocal on the left in a sitting position and negative on the right. Strength testing was 4/5 throughout bilateral lower extremities without focal deficit. Sensation was intact distally. Neurologic: Cranial nerves grossly intact. Ambulatory function not witnessed. Results Diagnostic Review CT: non enhanced and reports reviewed CT Findings: [facility] [place] [phone] CT Scan Report Patient: NATAN CORREA Date: 06/10/18 MR#: [id number]: [address] Acct ID:[id number]: Date: [address] Zip: [place] [address] Age: 77Location: ED Sex: F Room/Bed: Att Phy: Diagnosis: fall/ back pain Rosa Phy: Poncho Aquino MDService Date: 06/10/18 Fam Phy: Interpreting Phy: Aaron Choi MD Admit Phy: Ordering Phy: Moe Hammer DO cc: ~ CT lumbar spine wo con CT DOSE: 575.25 mGycm CLINICAL HISTORY: Low back pain status post trauma TECHNIQUE: Helical images were acquired in transverse plane. Reformatted sagittal and coronal images were reviewed. A dose lowering technique was utilized adhering to the principles of ALARA. CONTRAST: No contrast was administered COMPARISON STUDY: May 22, 2018 FINDINGS: L1-2 level: There is no evidence of significant disc bulge or focal herniation. There is no evidence of spinal or foraminal stenosis. L2-3 level: There is a circumferential disc bulge and mild secondary spinal stenosis. L3-4 level: There is no evidence of significant disc bulge or focal herniation. There is no evidence of spinal or foraminal stenosis. L4-5 level: There is a stable grade 1 spondylolisthesis of L4 on L5. There is mild spinal stenosis. There is facet joint arthropathy. L5-S1 level: There is a minimal grade 1 spondylolisthesis of L5 on S1. There is no focal disc herniation. There is no significant spinal stenosis. There is mild bilateral foraminal narrowing. There is an S-shaped scoliosis. There is right-sided nephrolithiasis. Renal cysts are visualized. IMPRESSION: 1. No acute fractures or traumatic subluxations identified 2. Right-sided nephrolithiasis 3. Scoliosis 4. Degenerative changes with stable anterior spondylolisthesis of L4 on L5 and L5 on S1 Electronically signed by: Aaron Choi M.D. 06/10/2018 10:11 AM Dictated: 06/10/18 1005 Transcribed: 06/10/18 1005 Radiology: reports reviewed Radiology Findings: [facility], [place] [phone] XRay Report Patient: NATAN CORREA Date: 06/10/18 MR#: [id number]: [address] Acct ID:[id number]: Date: 1City Zip: [place] [address] Age: 77Location: ED Sex: F Room/Bed: Att Phy: Diagnosis: fall/ back pain Orsa Phy: Poncho Aquino MDService Date: 06/10/18 Fam Phy: Interpreting Phy: Edin Falk MD Admit Phy: Ordering Phy: Moe Hammer DO cc: ~ XR thoracic spine 3V routine HISTORY: Pain. Trauma. back pain COMPARISON: Chest CT 12/27/2017 FINDINGS: No evidence for an acute compression deformity from T1 through T11. Very slight wedge deformity of a midthoracic vertebral body unchanged from the prior exam. Considerable degenerative disc changes throughout. Very slight wedge deformity superior endplate T12. No subluxation. IMPRESSION: 1. Very slight wedge deformity superior endplate T12. 2. All remaining components of the thoracic spine are unchanged from the prior study. 3. Significant degenerative disc changes throughout. The above report was generated using voice recognition software. It may contain grammatical, syntax or spelling errors. Electronically signed by: Edin Falk M.D. 06/10/2018 10:42 AM Dictated: 06/10/18 1039 Transcribed: 06/10/18 1039 [place], [place] [phone] XRay Report Patient: NATAN CORREA Date: 06/10/18 MR#: [id number]: [address] Acct ID:[id number]: [facility] Zip: [place] [address] Age: 77Location: ED Sex: F Room/Bed: Att Phy: Diagnosis: fall/ back pain Rosa Phy: Poncho Aquino MDService Date: 06/10/18 Fam Phy: Interpreting Phy: Ankit Ziegler Admit Phy: Ordering Phy: Moe Hammer DO cc: ~ XR pelvis 1-2V routine HISTORY: 77 years-old Female fall acute pelvic pain status post fall COMPARISON: CT lumbar spine of same day TECHNIQUE: Portable AP view of the pelvis FINDINGS: Demineralized appearance of the bones. Moderate osteoarthritis about the bilateral femoral acetabular joints. Degenerative changes of the pubic symphysis and lower lumbar spine. No acute fracture, dislocation or avascular necrosis. IMPRESSION: No acute fracture or dislocation. The above report was generated using voice recognition software. It may contain grammatical, syntax or spelling errors. Electronically signed by: Francesco Ziegler M.D. 06/10/2018 10:41 AM Dictated: 06/10/18 1039 Transcribed: 06/10/18 1039
--- NOTE | 2018-06-12 15:08 | Hospitalist Progress Note ---
Date of Service June 12, 2018 Assessment & Plan (1) Back pain: (2) Compression fracture: (3) Ambulatory dysfunction: Present on admission with low back pain radiated to lower extremity THORACIC SPINE XRAY: Very slight wedge deformity superior endplate T12. Significant degenerative disc changes throughout. LUMBAR SPINE CT showed Degenerative changes with stable anterior spondylolisthesis of L4 on L5 and L5 on S1 Pelvis xray showed no acute fracture or dislocation. Ortho on board recommended pain management consult for possible injection Due to significant medical history very high risk for surgical intervention. Continue pain control Pain management on board Unable to get MRI of the back due to pt severe claustrophobic Dr. Mckinney reviewed the lumbar CT scan case discussed with Dr. Mckinney who will plan for injection in am will make NPO after midnight for possible injection Fall precaution PT/OT (4) Leukocytosis: Mostly due to steroid Afebrile and WBC back to normal Urine cx contaminated denies any urinary sumptoms (5) Hypokalemia: K: 3.5 Continue monitor BMP (6) Venous insufficiency: continue HCTZ (7) Rheumatoid arthritis: continue prednisone 5mg daily and ibuprofen (8) HLD (hyperlipidemia): continue statin (9) Obesity: BMI: 47 diet and lifestyle modifications suggested (10) Exposure to influenza: Pt on 14 day course of tamiflu for flu post exposure prophylaxis. Final dose tamiflu to be on 06/13/18. continue tamiflu DVT Prophylaxis Lovenox SQ will hold it for the injection in am CODE STATUS FULL CODE Subjective Pt was seen and examined Sitting in chair with no distress Pt said that pain seems to get better with pain med, but after a few hours pain is back talked to Dr. Mckinney who would like to get an MRI of the back to look for the location for injection Pt said that she is very claustrophobic and would not be able to get the MRI I tried to arrange with MRI and anesthesiologist to get IV sedation MRI, unfortunately we were not able to schedule it since there was no spot available The earliest possible time was after 10PM tomorrow and at that time we will not have any anesthesiologist in house Pt denies any chest pain, palpitation, dizziness and SOB Physical Exam Vital Signs (Past 24 Hours): Last Vital Signs Temp 36.5 C 06/12/18 07:08 Pulse 76 06/12/18 07:08 Resp 18 06/12/18 07:08 BP 108/57 L 06/12/18 07:08 Pulse Ox 92 06/12/18 07:08 Physical Exam: General- No acute distress Head- atraumatic Eyes- PERRL, EOMI, ENT- oropharynx clear Neck- supple, no JVD Lungs- clear to auscultation Heart- regular rhythm; no murmur Abdomen- normal bowel sounds, soft, nontender Extremities- no calf tenderness Neuro- alert, oriented x 3; PERRL, EOMI; no facial palsy; no dysarthria Skin- warm & dry (1) Back pain Back pain laterality: bilateral Back pain location: low back pain Chronicity: acute Sciatica laterality: sciatica of left side Sciatica presence: with sciatica Qualified Code(s): M54.42 - Lumbago with sciatica, left side
--- NOTE | 2018-06-12 17:01 | Anesthesiology Consultation ---
Date of Service June 12, 2018 Assessment & Plan Chart Review Chart Review: Acceptable Risk for Surgery and Patient NOT seen in Pre Admission Testing Consults Requested none History Surgery Operation Date: 06/13/18 11:30 Proposed Procedures p Lumbar Epidural Steroid Injection - Dkkyle Vora MD, PP Height/Weight Height: 1.49 m Weight: 105.1 kg Allergies Allergy/AdvReac Type Severity Reaction Status Date / Time strawberry Allergy Severe ANAPHYLAXIS Verified 05/22/18 08:21 atorvastatin AdvReac Unknown SEVERE Verified 05/22/18 08:21 MUSCLE ACHES Medications Home Medications Medication Instructions Recorded Confirmed Last Taken aspirin 81 mg PO QAM 05/22/18 06/10/18 06/09/18 cholecalciferol (vitamin D3) 2,000 unit PO QAM 05/22/18 06/10/18 06/09/18 [Vitamin D3] docusate sodium [Colace] 100 mg PO PM 05/22/18 06/10/18 06/09/18 pravastatin 10 mg PO HS 05/22/18 06/10/18 06/09/18 prednisone 5 mg PO QAM 05/22/18 06/10/18 06/09/18 diclofenac sodium 2 g TOPICAL TID 06/10/18 06/10/18 06/09/18 20:00 hydrochlorothiazide 12.5 mg PO Q2D 06/10/18 06/10/18 06/09/18 hydrocodone-acetaminophen 1 tab PO Q6H PRN 06/10/18 06/10/18 06/09/18 ibuprofen 400 mg PO BIDM 06/10/18 06/10/18 06/09/18 oseltamivir 30 mg PO DAILY 06/10/18 06/10/18 06/09/18 polyethylene glycol 3350 [Miralax] 17 g PO QAM 06/10/18 06/10/18 06/09/18 Active Medications Generic Name Dose Route Start Last Admin Trade Name Freq PRN Reason Stop Dose Admin Hydrocodone Bitart/Acetaminophen 1 tab 06/10/18 16:03 06/12/18 08:02 Cotton 5/325 PO 06/24/18 16:02 1 tab Q6H PRN Administration Pain Diclofenac Sodium 1 appln 06/10/18 21:00 06/12/18 13:42 Voltaren 1% Top EXT 07/10/18 20:59 1 appln TID SAMANTA Administration Docusate Sodium 100 mg 06/10/18 21:00 06/11/18 20:23 Colace PO 07/10/18 20:59 Not Given PM [facility] Enoxaparin Sodium 40 mg 06/10/18 18:00 06/11/18 17:49 Lovenox SQ 07/10/18 17:59 40 mg Q24H SAMANTA Administration Hydrochlorothiazide 12.5 mg 06/11/18 09:00 06/11/18 08:37 Hctz PO 07/11/18 08:59 12.5 mg Q2D SAMANTA Administration Ibuprofen 400 mg 06/10/18 17:00 06/11/18 16:40 Advil PO 07/10/18 16:59 400 mg BIDM SAMANTA Administration Ketorolac Tromethamine 15 mg 06/11/18 20:33 06/11/18 22:02 Toradol IV 06/16/18 20:32 15 mg Q12H PRN Administration Pain Lidocaine 1 patch 06/12/18 06:10 06/12/18 06:55 Lidoderm 5% TD 07/12/18 06:09 1 patch QAM SAMANTA Administration Morphine Sulfate 2 mg 06/10/18 14:55 06/12/18 11:43 Morphine Sulfate IV 06/24/18 14:54 2 mg Q4H PRN Administration Severe Pain Oseltamivir Phosphate 30 mg 06/10/18 16:30 06/12/18 08:02 Tamiflu PO 06/13/18 16:29 30 mg DAILY SAMANTA Administration Protocol Pravastatin Sodium 10 mg 06/10/18 17:00 06/11/18 16:41 Pravachol PO 07/10/18 16:59 10 mg DAILY@1700 SAMANTA Administration Prednisone 5 mg 06/11/18 09:00 06/12/18 07:59 Prednisone PO 07/11/18 08:59 5 mg DAILY SAMANTA Administration Tramadol HCl 25 - 50 mg 06/12/18 06:10 06/12/18 15:21 Ultram PO 07/12/18 06:09 50 mg Q4H PRN Administration Pain Vitamin D 2,000 units 06/11/18 09:00 06/12/18 08:00 Vitamin D3 PO 07/11/18 08:59 2,000 units QAM SAMANTA Administration Past Medical History Medical History Venous insufficiency (Chronic) Bladder cancer (Chronic) Prediabetes (Chronic) Obesity (Chronic) HLD (hyperlipidemia) (Chronic) HTN (hypertension) (Chronic) Rheumatoid arthritis (Chronic) Past Family History Family History Other Alzheimer disease Breast cancer Coronary heart disease Past Surgical History Surgical History History of cataract surgery (Chronic) H/O: hysterectomy (Resolved) H/O hernia repair (Resolved) Social History Smoking Status: Former smoker tobacco type: cigarettes Do You Dip or Chew Tobacco: No Smoking End Date: 2015 Hx Alcohol Use: No Hx Substance Use: No Physical Exam Vital Signs Last Vital Signs Temp 36.4 C L 06/12/18 15:00 Pulse 87 06/12/18 15:00 Resp 20 06/12/18 15:00 BP 108/80 06/12/18 15:00 Pulse Ox 90 06/12/18 15:00 Testing Laboratory Results 06/11/18 05:40 06/11/18 05:40 PT 10.1 Seconds (9.0-12.0) 06/10/18 16:25 INR 1.0 (0.9-1.1) 06/10/18 16:25 Urine Color Yellow 06/10/18 11:00 Urine Appearance Cloudy (Clear) H 06/10/18 11:00 Urine pH 5.0 (4.5-7.5) 06/10/18 11:00 Ur Specific [place] 1.015 (1.000-1.030) 06/10/18 11:00 Urine Protein Negative (Negative) 06/10/18 11:00 Urine Glucose (UA) Negative (Negative) 06/10/18 11:00 Urine Ketones Negative (Negative) 06/10/18 11:00 Urine Nitrite Negative (Negative) 06/10/18 11:00 Ur Leukocyte Esterase 2+ (Negative) H 06/10/18 11:00 Urine WBC (Auto) >30 /hpf (0-5) H 06/10/18 11:00 Urine RBC (Auto) 0-4 /hpf (0-4) 06/10/18 11:00 U Hyaline Cast (Auto) 1-5 /lpf (0-5) 06/10/18 11:00 U Epithel Cells (Auto) >30 /lpf (0-5) H 06/10/18 11:00 Urine Bacteria (Auto) Negative (Negative) 06/10/18 11:00 06/10/18 11:00 Urine Culture - Final Urine,Clean Catch More than three types of organisms present, all moderate counts mixed probable skin gely. No further identifications or sensitivities to follow.
[2018-06-12] MEDS: PRAVASTATIN SOD 10 MG TAB PO SCH (17:14)
[2018-06-12] MEDS: DOCUSATE SODIUM 100 MG CAP PO SCH (20:46)
[2018-06-13] MEDS: HYDROCODONE/ACETAMOPHEN 5/325MG TAB PO PRN ×3 (02:28→21:12)
[2018-06-13] MEDS: TRAMADOL HCL 50 MG TABLET PO PRN ×3 (06:11→15:07)
[2018-06-13 07:29] LABS: Partial Thromboplastin Ratio 0.9; Partial Thromboplastin Time 23.4 Seconds (21.0-31.0); Prothrombin Time 10.2 Seconds (9.0-12.0)
[2018-06-13] MEDS: MoRPHine SULFATE 2 MG/ML CARP IV PRN (07:36)
[2018-06-13] MEDS: DICLOFENAC SOD 1% GEL 100 GM TUBE EXT SCH ×3 (09:00→21:08)
--- NOTE | 2018-06-13 11:54 | History & Physical Bridge Note ---
Date of Service June 13, 2018 History & Physical Bridge Note Shoshana ortega is a 77-year-old with lumbar spinal stenosis with radicular symptoms. Lumbar interlaminar epidural steroid injection was offered to her based on her history, examination and imaging findings. Potential risks including infection, bleeding, nerve injury, persistent pain at the injection site, reaction to any one of the medication used for the procedure, possibility of postdural puncture headache as well as persistent symptoms after the procedure were discussed with the patient. Patient was also informed that additional procedures may be required to treat the complications. Alternatives to this procedure were also discussed with the patient. Patient's questions were answered. Patient gave informed consent. I have examined the patient, reviewed the History & Physical and in the interval since the performance of the History & Physical I have noted the following changes of clinical significance: no changes noted
[2018-06-13] MEDS ORDERED: IOPAMIDOL INJ 61% 15 ML VIAL ONE (12:00)
[2018-06-13] MEDS ORDERED: LIDOCAINE HCL 1% 20 ML VIAL ONE (12:00)
[2018-06-13] MEDS ORDERED: SODIUM CHLORIDE 0.9% INJ 10 ML VIAL ONE (12:00)
[2018-06-13] MEDS ORDERED: methylPREDNISolone acetate 80 MG/ML VIAL ONE (12:01)
--- NOTE | 2018-06-13 12:38 | Operative Report ---
Post Operative Report Pre & Post Diagnosis Operation Date: 06/13/18 11:30 <No data on this case meets the specified criteria> Procedure Operation Date: 06/13/18 11:30 Actual Procedures Lumbar Epidural Steroid Injection - Dk Vora MD, TYRA Surgeon Dk Vora MD, TYRA Appraiser None Estimated Blood Loss 0 Findings Consistent with Post-Op Diagnosis Specimens None Complications none Disposition Accompanied Patient To Recovery: No Disposition: Recovery Room Description of Procedure INTERLAMINAR EPIDURAL STEROID INJECTION Diagnosis: Lumbar radiculitis, lumbar spinal stenosis Level injected: L4/L5 Surgeon: Dr. Vora Prior to starting, the Patients diagnosis and the procedure were reviewed with the patient in detail. Possible risks, complications and alternative therapies were also reviewed. Patients questions were answered. Informed consent was obtained. Allergies and medication list was reviewed. The patient was brought to the fluoroscopy room and placed in prone position on the table. Immediately prior to starting the procedure, a ``time out was conducted with the staff and the patient where the patient was identified, proposed procedure was verified, consent was reviewed and the proper site for the planned procedure was identified. Fluoroscopy was utilized in performing the procedure to assist the placement of the needle, to evaluate the final position of the needle prior to injection and to avoid intravascular injection. Monitors used included intermittent blood pressure with automated device, continuous pulse oximetry and level of consciousness. Patient was not given any intravenous sedation and constant verbal contact was maintained throughout the procedure. Biplanar fluoroscopy was used to assist the placement of the needle and to evaluate final needle position prior to injection. Lumbar-sacral area was prepped with DuraPrep and Betadine solution. Sterile drapes were applied. A true AP view of the superior endplate of the inferior vertebra was obtained. Skin and soft tissue over the inferior aspect of the interlaminar laminar notch was infiltrated with 1 mL of 1% Xylocaine using a 25 gauge needle. Midline approach was utilized. A 20 gauge, 3.5 inch Tuohy needle was then inserted through the anesthetized area and advanced under fluoroscopic guidance through the intraspinous ligaments. C-arm was then turned to a true lateral view and the needle was advanced through the ligamentum flavum into the epidural space with [id number] technique with air. Upon entering the epidural space the patient did not experience pain or paresthesia. Bevel of the needle was directed in the cephalad direction. 6 inch micro bore tubing was attached to the needle and aspiration via the needle demonstrated no CSF or blood. In a lateral view, 1cc Isovue 300 contrast was injected via the needle under live fluoroscopy. The contrast was noted to be in the dorsal epidural space. No subarachnoid spread of contrast was noted. Presence of contrast was verified and contralateral oblique view. Finally, an AP view was then checked and additional 1cc of the contrast was injected under live fluoroscopy. Neither subdural or subarachnoid spread nor intravascular uptake was noted on plain fluoroscopy. No vascular uptake was noted on a 10 second run of digital subtraction angiography at rate of 8 fps. Next, 80 mg Depo-Medrol followed by 3cc of preservation free 0.9% saline was injected via the epidural needle gradually. Patient did not experience any pain, paresthesia or discomfort throughout the injection period. Needle was flushed with additional 0.5 ML of saline withdrawn. Adequate hemostasis was noted. A sterile Band-Aid was applied at the injection site. Patient was then placed in sitting position. Patient was monitored for additional 30 minutes in the waiting area and discharged with an accompanying adult. Discharge instructions were reviewed with the Patient. Any specific questions were answered. Patient voiced understanding of the instructions. Follow-up appointment has been scheduled. I attest to the content of the Intraoperative Record and any orders documented therein. Any exceptions are noted below.
[2018-06-13] MEDS: hydroCHLOROthiazide 25 MG TAB PO SCH (13:32)
[2018-06-13] MEDS: predniSONE 5 MG TAB PO SCH (13:32)
[2018-06-13] MEDS: LIDOCAINE 5% 1 PATCH TD SCH (13:32)
[2018-06-13] MEDS: OSELTAMIVIR PHOSPHATE SUSP 30 MG/5 ML UDP PO SCH (13:33)
[2018-06-13] MEDS: CHOLECALCIFEROL 1,000 UNITS TAB PO SCH (13:33)
[2018-06-13] MEDS ORDERED: Nursing to Pharmacy Communication ONE (14:28)
[2018-06-13] MEDS: IBUPROFEN 200 MG TAB PO SCH (16:00)
[2018-06-13] MEDS: PRAVASTATIN SOD 10 MG TAB PO SCH (16:00)
--- NOTE | 2018-06-13 19:21 | Hospitalist Progress Note ---
Date of Service June 13, 2018 Assessment & Plan (1) Back pain: (2) Compression fracture: (3) Ambulatory dysfunction: Present on admission with low back pain radiated to lower extremity THORACIC SPINE XRAY: Very slight wedge deformity superior endplate T12. Significant degenerative disc changes throughout. LUMBAR SPINE CT showed Degenerative changes with stable anterior spondylolisthesis of L4 on L5 and L5 on S1 Pelvis xray showed no acute fracture or dislocation. Ortho on board recommended pain management consult for possible injection Due to significant medical history very high risk for surgical intervention. Continue pain control Pain management on board Unable to get MRI of the back due to pt severe claustrophobic Dr. Mckinney reviewed the lumbar CT scan case discussed with Dr. Mckinney who will plan for injection in am will make NPO after midnight for possible injection Fall precaution PT/OT 06/13 S/P Lumbar Epidural Steroid Injection done by Dr. Vora No complication case discussed with pain management team Continue hydrocodone for pain Follow up with pain management as an outpatient fall precaution Plan to go to [facility] for rehab Continue PT/OT (4) Leukocytosis: Mostly due to steroid Afebrile and WBC back to normal Urine cx contaminated denies any urinary sumptoms (5) Hypokalemia: K: 3.5 Continue monitor BMP (6) Venous insufficiency: continue HCTZ (7) Rheumatoid arthritis: continue prednisone 5mg daily and ibuprofen (8) HLD (hyperlipidemia): continue statin (9) Obesity: BMI: 47 diet and lifestyle modifications suggested (10) Exposure to influenza: Pt on 14 day course of tamiflu for flu post exposure prophylaxis. Final dose tamiflu to be on 06/13/18. continue tamiflu DVT Prophylaxis Lovenox SQ will hold it for the injection in am CODE STATUS FULL CODE Subjective Pt was seen and examined Sitting in chair with no distress Pt said that pain slightly improves Denies any chest pain, palpitation and SOB Physical Exam Vital Signs (Past 24 Hours): Last Vital Signs Temp 36.6 C 06/13/18 15:00 Pulse 78 06/13/18 15:00 Resp 22 06/13/18 15:00 BP 122/74 06/13/18 15:00 Pulse Ox 96 06/13/18 15:00 Physical Exam: General- No acute distress Head- atraumatic Eyes- PERRL, EOMI, ENT- oropharynx clear Neck- supple, no JVD Lungs- clear to auscultation Heart- regular rhythm; no murmur Abdomen- normal bowel sounds, soft, nontender Extremities- no calf tenderness Neuro- alert, oriented x 3; PERRL, EOMI; no facial palsy; no dysarthria Skin- warm & dry (1) Back pain Back pain laterality: bilateral Back pain location: low back pain Chronicity: acute Sciatica laterality: sciatica of left side Sciatica presence: with sciatica Qualified Code(s): M54.42 - Lumbago with sciatica, left side
[2018-06-13] MEDS: DOCUSATE SODIUM 100 MG CAP PO SCH (21:08)
[2018-06-13] MEDS: ENOXAPARIN INJ 40 MG/0.4 ML SYR SQ SCH (21:50)
[2018-06-14] MEDS: TRAMADOL HCL 50 MG TABLET PO PRN ×4 (00:18→21:23)
[2018-06-14] MEDS: KETOROLAC TROMETHAMINE 15 MG/ML VIAL IV PRN (02:46)
[2018-06-14] MEDS: DICLOFENAC SOD 1% GEL 100 GM TUBE EXT SCH ×3 (09:10→21:41)
[2018-06-14] MEDS: CHOLECALCIFEROL 1,000 UNITS TAB PO SCH (09:11)
[2018-06-14] MEDS: predniSONE 5 MG TAB PO SCH (09:11)
[2018-06-14] MEDS: LIDOCAINE 5% 1 PATCH TD SCH (09:11)
[2018-06-14] MEDS: IBUPROFEN 200 MG TAB PO SCH ×2 (09:11→16:42)
[2018-06-14] MEDS: ASPIRIN 81 MG ECTAB PO SCH (09:11)
[2018-06-14] MEDS: POLYETHYLENE (MIRALAX) 17 GM PACK PO SCH (09:11)
[2018-06-14] MEDS: PRAVASTATIN SOD 10 MG TAB PO SCH (16:42)
--- NOTE | 2018-06-14 18:41 | Hospitalist Progress Note ---
Date of Service June 14, 2018 Assessment & Plan (1) Back pain: (2) Compression fracture: (3) Ambulatory dysfunction: Present on admission with low back pain radiated to lower extremity THORACIC SPINE XRAY: Very slight wedge deformity superior endplate T12. Significant degenerative disc changes throughout. LUMBAR SPINE CT showed Degenerative changes with stable anterior spondylolisthesis of L4 on L5 and L5 on S1 Pelvis xray showed no acute fracture or dislocation. Ortho on board recommended pain management consult for possible injection Due to significant medical history very high risk for surgical intervention. Continue pain control Pain management on board Unable to get MRI of the back due to pt severe claustrophobic Dr. Mckinney reviewed the lumbar CT scan case discussed with Dr. Mckinney who will plan for injection in am will make NPO after midnight for possible injection Fall precaution PT/OT 06/14 S/P day 1 Lumbar Epidural Steroid Injection done by Dr. Vora No complication case discussed with pain management team Continue hydrocodone for pain Follow up with pain management as an outpatient fall precaution Plan to go to [facility] re[facility] Continue PT/OT Clinically improves (4) Leukocytosis: Mostly due to steroid Afebrile and WBC back to normal Urine cx contaminated denies any urinary sumptoms (5) Hypokalemia: K: 3.5 Continue monitor BMP (6) Venous insufficiency: continue HCTZ (7) Rheumatoid arthritis: continue prednisone 5mg daily and ibuprofen (8) HLD (hyperlipidemia): continue statin (9) Obesity: BMI: 47 diet and lifestyle modifications suggested (10) Exposure to influenza: Pt on 14 day course of tamiflu for flu post exposure prophylaxis. Final dose tamiflu to be on 06/13/18. continue tamiflu DVT Prophylaxis Lovenox SQ CODE STATUS FULL CODE Disposition waiting for placement to rehab Subjective Pt was seen and examined Lying in bed with no distress Pt said that pain improves significantly She said that she was walk to the bathroom today Denies any chest pain, palpitation and SOB Physical Exam Vital Signs (Past 24 Hours): Last Vital Signs Temp 36.4 C L 06/14/18 15:57 Pulse 79 06/14/18 15:57 Resp 16 06/14/18 15:57 BP 122/76 06/14/18 15:57 Pulse Ox 93 06/14/18 15:57 Physical Exam: General- No acute distress Head- atraumatic Eyes- PERRL, EOMI, ENT- oropharynx clear Neck- supple, no JVD Lungs- clear to auscultation Heart- regular rhythm; no murmur Abdomen- normal bowel sounds, soft, nontender Extremities- no calf tenderness Neuro- alert, oriented x 3; PERRL, EOMI; no facial palsy; no dysarthria Skin- warm & dry (1) Back pain Back pain laterality: bilateral Back pain location: low back pain Chronicity: acute Sciatica laterality: sciatica of left side Sciatica presence: with sciatica Qualified Code(s): M54.42 - Lumbago with sciatica, left side
[2018-06-14] MEDS: DOCUSATE SODIUM 100 MG CAP PO SCH (21:28)
[2018-06-14] MEDS: ENOXAPARIN INJ 40 MG/0.4 ML SYR SQ SCH (21:40)
[2018-06-15] MEDS: TRAMADOL HCL 50 MG TABLET PO PRN ×4 (01:55→23:49)
[2018-06-15] MEDS: HYDROCODONE/ACETAMOPHEN 5/325MG TAB PO PRN ×2 (03:44→21:28)
[2018-06-15] MEDS: predniSONE 5 MG TAB PO SCH (10:22)
[2018-06-15] MEDS: ASPIRIN 81 MG ECTAB PO SCH (10:22)
[2018-06-15] MEDS: hydroCHLOROthiazide 25 MG TAB PO SCH (10:23)
[2018-06-15] MEDS: LIDOCAINE 5% 1 PATCH TD SCH (10:23)
[2018-06-15] MEDS: CHOLECALCIFEROL 1,000 UNITS TAB PO SCH (10:23)
[2018-06-15] MEDS: DICLOFENAC SOD 1% GEL 100 GM TUBE EXT SCH ×3 (10:24→21:23)
[2018-06-15] MEDS: POLYETHYLENE (MIRALAX) 17 GM PACK PO SCH (10:24)
[2018-06-15] MEDS: IBUPROFEN 200 MG TAB PO SCH ×2 (11:08→16:36)
[2018-06-15] MEDS: PRAVASTATIN SOD 10 MG TAB PO SCH (16:35)
--- NOTE | 2018-06-15 18:40 | Hospitalist Progress Note ---
Date of Service June 15, 2018 Assessment & Plan (1) Back pain: (2) Compression fracture: (3) Ambulatory dysfunction: Present on admission with low back pain radiated to lower extremity THORACIC SPINE XRAY: Very slight wedge deformity superior endplate T12. Significant degenerative disc changes throughout. LUMBAR SPINE CT showed Degenerative changes with stable anterior spondylolisthesis of L4 on L5 and L5 on S1 Pelvis xray showed no acute fracture or dislocation. Ortho on board recommended pain management consult for possible injection Due to significant medical history very high risk for surgical intervention. Continue pain control Pain management on board Unable to get MRI of the back due to pt severe claustrophobic Dr. Mckinney reviewed the lumbar CT scan case discussed with Dr. Mckinney who will plan for injection in am will make NPO after midnight for possible injection Fall precaution PT/OT 06/15 S/P day 2 Lumbar Epidural Steroid Injection done by Dr. Vora No complication case discussed with pain management team Continue hydrocodone for pain Follow up with pain management as an outpatient fall precaution Plan to go to [facility] for rehab Continue PT/OT Clinically improves (4) Leukocytosis: Mostly due to steroid Afebrile and WBC back to normal Urine cx contaminated denies any urinary symptoms (5) Hypokalemia: K: 3.5 Continue monitor BMP Stable (6) Venous insufficiency: continue HCTZ (7) Rheumatoid arthritis: continue prednisone 5mg daily and ibuprofen (8) HLD (hyperlipidemia): continue statin (9) Obesity: BMI: 47 diet and lifestyle modifications suggested (10) Exposure to influenza: Pt on 14 day course of tamiflu for flu post exposure prophylaxis. Final dose tamiflu to be on 06/13/18. continue tamiflu DVT Prophylaxis Lovenox SQ CODE STATUS FULL CODE Disposition waiting for placement to rehab Subjective Pt was seen and examined Lying in chair with no distress Pt said that pain is improved Pt said that pain is worst in at night She said that pain improves in the morning She said that she walked to the bathroom today and cleaned herself Denies any chest pain, palpitation, dizziness and SOB Physical Exam Vital Signs (Past 24 Hours): Last Vital Signs Temp 36.2 C L 06/15/18 15:18 Pulse 67 06/15/18 15:18 Resp 18 06/15/18 15:18 BP 119/71 06/15/18 15:18 Pulse Ox 92 06/15/18 15:18 Physical Exam: General- No acute distress Head- atraumatic Eyes- PERRL, EOMI, ENT- oropharynx clear Neck- supple, no JVD Lungs- clear to auscultation Heart- regular rhythm; no murmur Abdomen- normal bowel sounds, soft, nontender Extremities- no calf tenderness Neuro- alert, oriented x 3; PERRL, EOMI; no facial palsy; no dysarthria Skin- warm & dry (1) Back pain Back pain laterality: bilateral Back pain location: low back pain Chronicity: acute Sciatica laterality: sciatica of left side Sciatica presence: with sciatica Qualified Code(s): M54.42 - Lumbago with sciatica, left side
[2018-06-15] MEDS: DOCUSATE SODIUM 100 MG CAP PO SCH (21:22)
[2018-06-15] MEDS: ENOXAPARIN INJ 40 MG/0.4 ML SYR SQ SCH (21:23)
[2018-06-16] MEDS: HYDROCODONE/ACETAMOPHEN 5/325MG TAB PO PRN ×2 (03:35→21:41)
[2018-06-16] MEDS: IBUPROFEN 200 MG TAB PO SCH ×2 (09:30→18:42)
[2018-06-16] MEDS: LIDOCAINE 5% 1 PATCH TD SCH (09:31)
[2018-06-16] MEDS: ASPIRIN 81 MG ECTAB PO SCH (09:31)
[2018-06-16] MEDS: CHOLECALCIFEROL 1,000 UNITS TAB PO SCH (09:33)
[2018-06-16] MEDS: predniSONE 5 MG TAB PO SCH (09:33)
[2018-06-16] MEDS: DICLOFENAC SOD 1% GEL 100 GM TUBE EXT SCH ×3 (09:34→20:48)
[2018-06-16] MEDS: POLYETHYLENE (MIRALAX) 17 GM PACK PO SCH (09:34)
[2018-06-16] MEDS: TRAMADOL HCL 50 MG TABLET PO PRN (09:39)
[2018-06-16] MEDS: PRAVASTATIN SOD 10 MG TAB PO SCH (18:11)
[2018-06-16] MEDS: DOCUSATE SODIUM 100 MG CAP PO SCH (20:46)
[2018-06-16] MEDS: ENOXAPARIN INJ 40 MG/0.4 ML SYR SQ SCH (20:48)
[2018-06-17] MEDS: TRAMADOL HCL 50 MG TABLET PO PRN ×4 (01:09→20:48)
[2018-06-17] MEDS ORDERED: hydrOXYzine HCl 10 MG TAB PO STA (01:21)
[2018-06-17] MEDS: HYDROCODONE/ACETAMOPHEN 5/325MG TAB PO PRN (03:36)
[2018-06-17] MEDS: IBUPROFEN 200 MG TAB PO SCH ×2 (07:29→16:59)
--- NOTE | 2018-06-17 09:31 | Pain Management Progress Note ---
Date of Service June 17, 2018 Assessment & Plan (1) Lumbar back pain with radiculopathy affecting left lower extremity: (2) Spinal stenosis, lumbar region with neurogenic claudication: (3) Exposure to influenza: (4) Venous insufficiency: (5) Ambulatory dysfunction: 1. Epidural steroid injections can take 10 to 14 days for maximal effect of the procedure. She does not appear to have any complications after the procedure and her site is well-healed. She may follow-up at the [facility] pain management office for further evaluation and care in 2 weeks. 2. Recommend continued utilization of hydrocodone for as needed breakthrough pain. Consider conversion to tramadol as an outpatient. 3. Please call with any questions thank you Thank you for allowing us to participate in the care of Mrs. Joseph. Subjective 77-year-old white female with steroid-dependent rheumatoid arthritis, bladder cancer, prediabetes, obesity, venous insufficiency, and diagnosed with lumbar spinal stenosis and neurogenic claudication as well as lumbar radiculopathy who had an L5-S1 interlaminar epidural steroid injection performed at [facility] on June 13, 2018. She denies any complications of the procedure but has not noticed much as far as pain relief at this time. She reports that pain is predominantly over her left lower extremity described as burning, sharp and shooting in characteristic predominately traveling in an L4 distribution to the ankle and dorsal foot. She denies significant axial low back pain at this time. She denies any bowel or bladder incontinence, foot drop, fever, chills, night sweats. She does report that it is difficult to find a comfortable position and does continue to have generalized weakness over bilateral lower extremities as well as amatory dysfunction. She is not experiencing any side effects secondary to medication at this time. Pain is currently range between 4 and 5 out of 10. Review of Systems All systems reviewed & are unremarkable except as noted in HPI & below Pain Assessment Pain Assessment Full Body Front + Back: 1. [facility] Combined Pain Scale: 4-Mild to Mod - Interrupts ADLs. Decr ease in job performance Physical Exam Vital Signs (Past 24 Hours): Last Vital Signs Temp 36.4 C L 06/17/18 06:37 Pulse 72 06/17/18 06:37 Resp 16 06/17/18 06:37 BP 133/80 06/17/18 06:37 Pulse Ox 93 06/17/18 06:37 Physical Exam: General: Patient in no acute distress. Mood seems depressed pa tient morbidly obese and physically deconditioned. Patient is sitting in her bedside chair upon entering the room. Flat affect Head: Normocephalic and atraumatic. ENT: No evidence of nasal or oral mucosal lesions. Mucous membranes are moist. Eyes: Pupils equal round reactive to light. Neck: full range of motion. Chest: Deferred Cardiac: Regular rate and rhythm Lungs: Clear to auscultation no wheeze or rhonchi. Abdomen: Soft and nondistended. Morbidly obese and protuberant Back/spine: Loss of lumbar lordosis. Patient mildly tender over the entire lumbosacral junction but not tender over facet joints or SI joints. Limited range of motion in all planes. Well-healed injection site. No drainage fluctuance or erythema noted. Some discoloration from DuraPrep assist. Patient is nontender over the injection site. Lower extremities: Chronic venous stasis changes noted left greater than right lower extremities, scaling of the skin with 1-2+ pitting edema of the ankle and pretibial regions. SLR was negative bilaterally. Strength testing was 4/5 throughout bilateral lower extremities without focal deficit. Sensation was intact distally. Neurologic: Cranial nerves grossly intact. Gait was not observed
[2018-06-17] MEDS: ASPIRIN 81 MG ECTAB PO SCH (09:38)
[2018-06-17] MEDS: LIDOCAINE 5% 1 PATCH TD SCH ×2 (09:39→10:37)
[2018-06-17] MEDS: POLYETHYLENE (MIRALAX) 17 GM PACK PO SCH (09:39)
[2018-06-17] MEDS: DICLOFENAC SOD 1% GEL 100 GM TUBE EXT SCH ×4 (09:40→20:49)
[2018-06-17] MEDS: hydroCHLOROthiazide 25 MG TAB PO SCH (09:41)
[2018-06-17] MEDS: predniSONE 5 MG TAB PO SCH (10:37)
[2018-06-17] MEDS: CHOLECALCIFEROL 1,000 UNITS TAB PO SCH (10:49)
--- NOTE | 2018-06-17 11:14 | Hospitalist Progress Note ---
Date of Service June 16, 2018 Assessment & Plan (1) Back pain: (2) Compression fracture: (3) Ambulatory dysfunction: Present on admission with low back pain radiated to lower extremity THORACIC SPINE XRAY: Very slight wedge deformity superior endplate T12. Significant degenerative disc changes throughout. LUMBAR SPINE CT showed Degenerative changes with stable anterior spondylolisthesis of L4 on L5 and L5 on S1 Pelvis xray showed no acute fracture or dislocation. Ortho on board recommended pain management consult for possible injection Due to significant medical history very high risk for surgical intervention. Continue pain control Pain management on board Unable to get MRI of the back due to pt severe claustrophobic Dr. Mckinney reviewed the lumbar CT scan case discussed with Dr. Mckinney who will plan for injection in am will make NPO after midnight for possible injection Fall precaution PT/OT 06/16 S/P day 3 Lumbar Epidural Steroid Injection done by Dr. Vora No complication case discussed with pain management team Continue hydrocodone for pain Follow up with pain management as an outpatient in 2 weeks Will transition to tramadol prn on discharge fall precaution Plan to go to [facility] for rehab Continue PT/OT Clinically improves (4) Leukocytosis: Mostly due to steroid Afebrile and WBC back to normal Urine cx contaminated denies any urinary symptoms (5) Hypokalemia: K: 3.5 Continue monitor BMP Stable (6) Venous insufficiency: continue HCTZ (7) Rheumatoid arthritis: continue prednisone 5mg daily and ibuprofen (8) HLD (hyperlipidemia): continue statin (9) Obesity: BMI: 47 diet and lifestyle modifications suggested (10) Exposure to influenza: Pt on 14 day course of tamiflu for flu post exposure prophylaxis. Final dose tamiflu to be on 06/13/18. continue tamiflu DVT Prophylaxis Lovenox SQ CODE STATUS FULL CODE Disposition waiting for placement to rehab Subjective Late entry Pt was seen and examined Sitting in chair with no distress Pt said that pain improves Waiting for placement Denies any chest pain, palpitation, dizziness and SOB Physical Exam Vital Signs (Past 24 Hours): Last Vital Signs Temp 36.4 C L 06/17/18 06:37 Pulse 72 06/17/18 06:37 Resp 16 06/17/18 06:37 BP 109/69 06/17/18 09:41 Pulse Ox 93 06/17/18 06:37 Physical Exam: General- No acute distress Head- atraumatic Eyes- PERRL, EOMI, ENT- oropharynx clear Neck- supple, no JVD Lungs- clear to auscultation Heart- regular rhythm; no murmur Abdomen- normal bowel sounds, soft, nontender Extremities- no calf tenderness Neuro- alert, oriented x 3; PERRL, EOMI; no facial palsy; no dysarthria Skin- warm & dry (1) Back pain Back pain laterality: bilateral Back pain location: low back pain Chronicity: acute Sciatica laterality: sciatica of left side Sciatica presence: with sciatica Qualified Code(s): M54.42 - Lumbago with sciatica, left side
--- NOTE | 2018-06-17 13:19 | Psychiatric Consultation ---
Date of Consultation June 17, 2018 Impression / Recommendations Impression 77 yo woman with back pain and radiculopathy, admitted for management. We are consulted to evaluate suicidal statements. She did not want to endure a full psychiatric evaluation but restates that she is not suicidal and made the statements out of frustration that she was still in pain. She is not interested in medications for depression. Will sign off, but if the patient demonstrates additional symptoms of depression/suicidality, please feel free to reconsult. Risk Factors Assessment Male: No : Yes Health Problems: Yes Mental Health Diagnoses: No Substance Use Disorders: No Previous Psychiatric Hospitalization: No Protective Factors Assessment Church Beliefs: Yes Responsible for Young Children: No Employed: No CPT Code 57171 Psych History Chief Complaint "I was just in such pain". History of Present Illness Per H&P: Pt is 77 y/o F with PMH rheumatoid arthritis, bladder cancer, HLD, prediabetes, obesity, venous insufficiency presented to ER with c/o back pain. Pt reports hx sciatica in past to L side. States couple of weeks ago started with L hip and leg pain and she was seen in ER on 05/22/18 for L hip and L leg pain and par esthesias, dx with sciatica and was discharged to [facility] for rehab. On 06/04/18 pt reports slid out of bed when trying to go to the bathroom and fell on to buttocks. Pt states since with pain to R buttock. Denies R leg pain. Pt states was taking flexeril and that made her feel a little dizzy and she does not want to take any further flexeril. Pt completed prednisone taper on 06/05/18. It is reported that she was able to ambulate 75 feet with rolling walker upon discharge. Pt was discharge home (high rise apartment) on 06/06/18. Pt states still with L leg pain and paresthesias but feels they are improved from initial onset. C/O bilateral leg weakness and feels unstable with ambulating with walker. Denies any falls since being home, however reports having difficulty getting around in her apartment. Pt on 14 day course of tamiflu for post exposure prophylaxis. Final dose tamiflu to be on 06/13/18. Pt reports chronic BLE edema and erythema secondary to venous insuffiency and denies any worsening. Denies fever/chills, diaphoresis, N/V/D/C, LOZA, further dizziness, syncope, vision changes, neck pain, CP, SOB, orthopnea, palpitations, cough, sore throat, choking, otalgia, rhinorrhea, abdominal pain, rashes, urinary symptoms. The patient was seen by the liaison nurse last evening (see nurses notes) after the patient made suicidal statements. The patient explained that she made the statement when she was in pain and without sleep, but did not mean it. She denied SI, and was focused on getting her pain needs met. She said that she did not want meds nor did she want to see a psychiatric provider. I stopped by today to check in with the patient and she still doesn't want meds or to go through a psychiatric consult, but was willing to reiterate that she is not suicidal. She is a spiritual person and would not commit suicide as it is against her baptist beliefs. She made the statement in frustration and pain and has no P/I to hurt herself. She feels better informed now saying that she is being told that it could take up to 14 days to find relief from her procedure and she is only 7 days out, making her more hopeful. Allergies Allergy/AdvReac Type Severity Reaction Status Date / Time strawberry Allergy Severe ANAPHYLAXIS Verified 06/13/18 11:08 atorvastatin AdvReac Unknown SEVERE Verified 06/13/18 11:08 MUSCLE ACHES fentanyl AdvReac Verified 06/13/18 11:08 Home Medications Home Medications Medication Instructions Recorded Confirmed Type aspirin 81 mg PO QAM 05/22/18 06/10/18 History cholecalciferol (vitamin D3) 2,000 unit PO QAM 05/22/18 06/10/18 History [Vitamin D3] docusate sodium [Colace] 100 mg PO PM 05/22/18 06/10/18 History pravastatin 10 mg PO HS 05/22/18 06/10/18 History prednisone 5 mg PO QAM 05/22/18 06/10/18 History diclofenac sodium 2 g TOPICAL TID 06/10/18 06/10/18 History hydrochlorothiazide 12.5 mg PO Q2D 06/10/18 06/10/18 History hydrocodone-acetaminophen 1 tab PO Q6H PRN 06/10/18 06/10/18 History ibuprofen 400 mg PO BIDM 06/10/18 06/10/18 History oseltamivir 30 mg PO DAILY 06/10/18 06/10/18 History polyethylene glycol 3350 [Miralax] 17 g PO QAM 06/10/18 06/10/18 History Personal History Beliefs That Will Affect Care: None Patient History Medical History Venous insufficiency (Chronic) Bladder cancer (Chronic) Prediabetes (Chronic) Obesity (Chronic) HLD (hyperlipidemia) (Chronic) HTN (hypertension) (Chronic) Rheumatoid arthritis (Chronic) Surgical History History of cataract surgery (Chronic) H/O: hysterectomy (Resolved) H/O hernia repair (Resolved) Family History Other Alzheimer disease Breast cancer Coronary heart disease Social History Communication Ability: Effective Beliefs That Will Affect Care: None marital status: / Current Living Situation: Alone current occupational status: retired Feels Safe at Home: Yes Smoking Status: Former smoker Hx Alcohol Use: No Hx Substance Use: No Physical Exam Psychiatric Orientation: alert and cooperative (minimally) Apperance: appropriately dressed and appropriately groomed Eye Contact: good eye contact Motor Behavior: no abnormal motor movements Speech: normal rate/rhythm/volume of speech Affect: + depressed affect Mood: + depressed mood Thought Process: goal directed thought process Thought Content: reality based without delusions Suicidal Thoughts: denies suicidal thoughts Homicidal Thoughts: denies homicidal thoughts Hallucinations: no auditory hallucinations and no visual hallucinations Cognition: recent memory grossly intact, remote memory grossly intact, attention grossly intact and language grossly intact Estimated Intelligence: consistent with education level Insight: + limited insight Judgement: + limited judgement Vital Signs (Past 24 Hours) Last Vital Signs Temp 36.4 C L 06/17/18 06:37 Pulse 72 06/17/18 06:37 Resp 16 06/17/18 06:37 BP 109/69 06/17/18 09:41 Pulse Ox 93 06/17/18 06:37 Results & Data Medications Administered Hydrocodone Bitart/Acetaminophen ([place] 5/325) 1 tab PO Q6H PRN PRN Reason: Pain Stop: 06/24/18 16:02 Last Admin: 06/17/18 03:36 Dose: 1 tab Documented by: [id number] Admin: 06/16/18 21:41 Dose: 1 tab Documented by: [id number] Admin: 06/16/18 03:35 Dose: 1 tab Documented by: [id number] Admin: 06/15/18 21:28 Dose: 1 tab Documented by: [id number] Admin: 06/15/18 03:44 Dose: 1 tab Documented by: [id number] Admin: 06/13/18 21:12 Dose: 1 tab Documented by: [id number] Admin: 06/13/18 13:35 Dose: 1 tab Documented by: [id number] Admin: 06/13/18 02:28 Dose: 1 tab Documented by: [id number] Admin: 06/12/18 18:34 Dose: 1 tab Documented by: [id number] Admin: 06/12/18 08:02 Dose: 1 tab Documented by: [id number] Admin: 06/12/18 01:11 Dose: 1 tab Documented by: [id number] Admin: 06/11/18 16:40 Dose: 1 tab Documented by: [id number] Admin: 06/11/18 08:45 Dose: 1 tab Documented by: [id number] Admin: 06/11/18 01:08 Dose: 1 tab Documented by: [id number] Admin: 06/10/18 16:22 Dose: 1 tab Documented by: [id number] Aspirin (Ecotrin Ectab) 81 mg PO QAM COUNTS INCLUDE 234 BEDS AT THE [facility] Stop: 07/14/18 08:59 Last Admin: 06/17/18 09:38 Dose: 81 mg Documented by: [id number] Admin: 06/16/18 09:31 Dose: 81 mg Documented by: [id number] Admin: 06/15/18 10:22 Dose: 81 mg Documented by: [id number] Admin: 06/14/18 09:11 Dose: 81 mg Documented by: [id number] Diclofenac Sodium (Voltaren 1% Top) 1 appln EXT TID SAMANTA Stop: 07/10/18 20:59 Last Admin: 06/17/18 09:43 Dose: Not Given Documented by: [id number] Admin: 06/16/18 20:48 Dose: 1 appln Documented by: [id number] Admin: 06/16/18 14:14 Dose: 1 appln Documented by: [id number] Admin: 06/16/18 09:34 Dose: 1 appln Documented by: [id number] Admin: 06/15/18 21:23 Dose: 1 appln Documented by: [id number] Admin: 06/15/18 13:58 Dose: 1 appln Documented by: [id number] Admin: 06/15/18 10:24 Dose: 1 appln Documented by: [id number] Admin: 06/14/18 21:41 Dose: 1 appln Documented by: [id number] Admin: 06/14/18 13:07 Dose: 1 appln Documented by: [id number] Admin: 06/14/18 09:10 Dose: 1 appln Documented by: [id number] Admin: 06/13/18 21:08 Dose: 1 appln Documented by: [id number] Admin: 06/13/18 13:33 Dose: 1 appln Documented by: [id number] Admin: 06/13/18 09:00 Dose: Not Given Documented by: [id number] Admin: 06/12/18 20:46 Dose: 1 appln Documented by: [id number] Admin: 06/12/18 13:42 Dose: 1 appln Documented by: [id number] Admin: 06/12/18 08:00 Dose: 1 appln Documented by: [id number] Admin: 06/11/18 20:24 Dose: Not Given Documented by: [id number] Admin: 06/11/18 13:53 Dose: 1 appln Documented by: [id number] Admin: 06/11/18 08:36 Dose: 1 appln Documented by: [id number] Admin: 06/10/18 20:38 Dose: Not Given Documented by: [id number] Docusate Sodium (Colace) 100 mg PO PM SAMANTA Stop: 07/10/18 20:59 Last Admin: 06/16/18 20:46 Dose: Not Given Documented by: [id number] Admin: 06/15/18 21:22 Dose: 100 mg Documented by: [id number] Admin: 06/14/18 21:28 Dose: 100 mg Documented by: [id number] Admin: 06/13/18 21:08 Dose: 100 mg Documented by: [id number] Admin: 06/12/18 20:46 Dose: 100 mg Documented by: [id number] Admin: 06/11/18 20:23 Dose: Not Given Documented by: [id number] Admin: 06/10/18 20:38 Dose: Not Given Documented by: [id number] Enoxaparin Sodium (Lovenox) 40 mg SQ HS SAMANTA Stop: 07/13/18 20:59 Last Admin: 06/16/18 20:48 Dose: 40 mg Documented by: [id number] Admin: 06/15/18 21:23 Dose: 40 mg Documented by: [id number] Admin: 06/14/18 21:40 Dose: 40 mg Documented by: [id number] Admin: 06/13/18 21:50 Dose: 40 mg Documented by: [id number] Hydrochlorothiazide (Hctz) 12.5 mg PO Q2D SAMANTA Stop: 07/11/18 08:59 Last Admin: 06/17/18 09:41 Dose: 12.5 mg Documented by: [id number] Admin: 06/15/18 10:23 Dose: 12.5 mg Documented by: [id number] Admin: 06/13/18 13:32 Dose: 12.5 mg Documented by: [id number] Admin: 06/11/18 08:37 Dose: 12.5 mg Documented by: [id number] Ibuprofen (Advil) 400 mg PO BIDM SAMANTA Stop: 07/10/18 16:59 Last Admin: 06/17/18 07:29 Dose: 400 mg Documented by: [id number] Admin: 06/16/18 18:42 Dose: 400 mg Documented by: [id number] Admin: 06/16/18 09:30 Dose: 400 mg Documented by: [id number] Admin: 06/15/18 16:36 Dose: 400 mg Documented by: [id number] Admin: 06/15/18 11:08 Dose: 400 mg Documented by: [id number] Admin: 06/14/18 16:42 Dose: 400 mg Documented by: [id number] Admin: 06/14/18 09:11 Dose: 400 mg Documented by: [id number] Admin: 06/13/18 16:00 Dose: 400 mg Documented by: [id number] Admin: 06/11/18 16:40 Dose: 400 mg Documented by: [id number] Admin: 06/11/18 08:36 Dose: 400 mg Documented by: [id number] Admin: 06/10/18 16:48 Dose: 400 mg Documented by: [id number] Lidocaine (Lidoderm 5%) 1 patch TD QAM SAMANTA Stop: 07/12/18 06:09 Last Admin: 06/17/18 10:37 Dose: 1 patch Documented by: [id number] Admin: 06/16/18 09:31 Dose: 1 patch Documented by: [id number] Admin: 06/15/18 10:23 Dose: 1 patch Documented by: [id number] Admin: 06/14/18 09:11 Dose: 1 patch Documented by: [id number] Admin: 06/13/18 13:32 Dose: 1 patch Documented by: [id number] Admin: 06/12/18 06:55 Dose: 1 patch Documented by: [id number] Miscellaneous (Remove Lidoderm Patch) 1 ea N/A DAILY@2100 COUNTS INCLUDE 234 BEDS AT THE [facility] Stop: 07/12/18 20:59 Last Admin: 06/16/18 20:47 Dose: 1 ea Documented by: [id number] Admin: 06/15/18 21:22 Dose: 1 ea Documented by: [id number] Admin: 06/14/18 21:41 Dose: 1 ea Documented by: [id number] Admin: 06/13/18 21:09 Dose: 1 ea Documented by: [id number] Admin: 06/12/18 20:46 Dose: 1 ea Documented by: [id number] Morphine Sulfate (Morphine Sulfate) 2 mg IV Q4H PRN PRN Reason: Severe Pain Stop: 06/24/18 14:54 Last Admin: 06/13/18 07:36 Dose: 2 mg Documented by: [id number] Admin: 06/12/18 20:54 Dose: 2 mg Documented by: [id number] Admin: 06/12/18 11:43 Dose: 2 mg Documented by: [id number] Admin: 06/12/18 03:54 Dose: 2 mg Documented by: [id number] Admin: 06/11/18 20:20 Dose: 2 mg Documented by: [id number] Admin: 06/11/18 13:52 Dose: 2 mg Documented by: [id number] Admin: 06/11/18 06:14 Dose: 2 mg Documented by: [id number] Admin: 06/10/18 20:45 Dose: 2 mg Documented by: [id number] Polyethylene Glycol (Miralax Powder Packet) 17 gm PO DAILY PRN PRN Reason: Constipation Stop: 07/10/18 15:57 Last Admin: 06/12/18 17:15 Dose: 17 gm Documented by: [id number] Polyethylene Glycol (Miralax Powder Packet) 17 gm PO QAM COUNTS INCLUDE 234 BEDS AT THE [facility] Stop: 07/14/18 08:59 Last Admin: 06/17/18 09:39 Dose: 17 gm Documented by: [id number] Admin: 06/16/18 09:34 Dose: 17 gm Documented by: [id number] Admin: 06/15/18 10:24 Dose: 17 gm Documented by: [id number] Admin: 06/14/18 09:11 Dose: 17 gm Documented by: [id number] Pravastatin Sodium (Pravachol) 10 mg PO DAILY@1700 SAMANTA Stop: 07/10/18 16:59 Last Admin: 06/16/18 18:11 Dose: 10 mg Documented by: [id number] Admin: 06/15/18 16:35 Dose: 10 mg Documented by: [id number] Admin: 06/14/18 16:42 Dose: 10 mg Documented by: [id number] Admin: 06/13/18 16:00 Dose: 10 mg Documented by: [id number] Admin: 06/12/18 17:14 Dose: 10 mg Documented by: [id number] Admin: 06/11/18 16:41 Dose: 10 mg Documented by: [id number] Admin: 06/10/18 18:31 Dose: 10 mg Documented by: [id number] Prednisone (Prednisone) 5 mg PO DAILY COUNTS INCLUDE 234 BEDS AT [facility] Stop: 07/11/18 08:59 Last Admin: 06/17/18 10:37 Dose: 5 mg Documented by: [id number] Admin: 06/16/18 09:33 Dose: 5 mg Documented by: [id number] Admin: 06/15/18 10:22 Dose: 5 mg Documented by: [id number] Admin: 06/14/18 09:11 Dose: 5 mg Documented by: [id number] Admin: 06/13/18 13:32 Dose: 5 mg Documented by: [id number] Admin: 06/12/18 07:59 Dose: 5 mg Documented by: [id number] Admin: 06/11/18 08:37 Dose: 5 mg Documented by: [id number] Tramadol HCl (Ultram) 25 - 50 mg PO Q4H PRN PRN Reason: Pain Stop: 07/12/18 06:09 Last Admin: 06/17/18 09:44 Dose: 50 mg Documented by: [id number] Admin: 06/17/18 01:09 Dose: 50 mg Documented by: [id number] Admin: 06/16/18 09:39 Dose: 50 mg Documented by: [id number] Admin: 06/15/18 23:49 Dose: 50 mg Documented by: [id number] Admin: 06/15/18 14:00 Dose: 50 mg Documented by: [id number] Admin: 06/15/18 07:52 Dose: 50 mg Documented by: [id number] Admin: 06/15/18 01:55 Dose: 50 mg Documented by: [id number] Admin: 06/14/18 21:23 Dose: 50 mg Documented by: [id number] Admin: 06/14/18 15:01 Dose: 50 mg Documented by: [id number] Admin: 06/14/18 07:02 Dose: 50 mg Documented by: [id number] Admin: 06/14/18 00:18 Dose: 50 mg Documented by: [id number] Admin: 06/13/18 15:07 Dose: 50 mg Documented by: [id number] Admin: 06/13/18 06:11 Dose: 50 mg Documented by: [id number] Admin: 06/13/18 00:00 Dose: 50 mg Documented by: [id number] Admin: 06/12/18 15:21 Dose: 50 mg Documented by: [id number] Admin: 06/12/18 06:28 Dose: 50 mg Documented by: [id number] Vitamin D (Vitamin D3) [facility] [place] Stop: 07/11/18 08:59 Last Admin: 06/17/18 10:49 Dose: 2,000 units Documented by: [id number] Admin: 06/16/18 09:33 Dose: 2,000 units Documented by: [id number] Admin: 06/15/18 10:23 Dose: 2,000 units Documented by: [id number] Admin: 06/14/18 09:11 Dose: 2,000 units Documented by: [id number] Admin: 06/13/18 13:33 Dose: 2,000 units Documented by: [id number] Admin: 06/12/18 08:00 Dose: 2,000 units Documented by: [id number] Admin: 06/11/18 08:37 Dose: 2,000 units Documented by: [id number]
[2018-06-17] MEDS: PRAVASTATIN SOD 10 MG TAB PO SCH ×3 (18:11→20:48)
--- NOTE | 2018-06-17 20:16 | Hospitalist Progress Note ---
Date of Service June 17, 2018 Assessment & Plan (1) Back pain: (2) Compression fracture: (3) Ambulatory dysfunction: Present on admission with low back pain radiated to lower extremity THORACIC SPINE XRAY: Very slight wedge deformity superior endplate T12. Significant degenerative disc changes throughout. LUMBAR SPINE CT showed Degenerative changes with stable anterior spondylolisthesis of L4 on L5 and L5 on S1 Pelvis xray showed no acute fracture or dislocation. Ortho on board recommended pain management consult for possible injection Due to significant medical history very high risk for surgical intervention. Continue pain control Pain management on board Unable to get MRI of the back due to pt severe claustrophobic Dr. Mckinney reviewed the lumbar CT scan case discussed with Dr. Mckinney who will plan for injection in am will make NPO after midnight for possible injection Fall precaution PT/OT 06/17 S/P day 4 Lumbar Epidural Steroid Injection done by Dr. Vora No complication case discussed with pain management team Continue hydrocodone for pain Follow up with pain management as an outpatient in 2 weeks Will transition to tramadol prn as an oupatient fall precaution accepted by [facility] for rehab, but due to suicidal statement last night, facility refused to take her Continue PT/OT Clinically improves (4) Leukocytosis: Mostly due to steroid Afebrile and WBC back to normal Urine cx contaminated denies any urinary symptoms (5) Hypokalemia: K: 3.5 Continue monitor BMP Stable (6) Venous insufficiency: continue HCTZ (7) Rheumatoid arthritis: continue prednisone 5mg daily and ibuprofen (8) HLD (hyperlipidemia): continue statin (9) Obesity: BMI: 47 diet and lifestyle modifications suggested (10) Exposure to influenza: Pt on 14 day course of tamiflu for flu post exposure prophylaxis. Final dose tamiflu to be on 06/13/18. continue tamiflu Suicidal Statement denies any suicidal thought Psych on board No psych med started at this time DVT Prophylaxis Lovenox SQ CODE STATUS FULL CODE Disposition waiting for placement to rehab Subjective Pt was seen and examined Sitting in chair with no distress Last night pt was having alot of pain She made comment about to sign AMA and suicidal statements. Pt said that she is a Muslim and would never commit suicide Currently denies any hallucination and suicidal thoughts Pt said that her pain only occurs at night Physical Exam Vital Signs (Past 24 Hours): Last Vital Signs Temp 36.7 C 06/17/18 15:16 Pulse 85 06/17/18 15:16 Resp 19 06/17/18 15:16 BP 117/64 06/17/18 15:16 Pulse Ox 90 06/17/18 15:16 Physical Exam: General- No acute distress Head- atraumatic Eyes- PERRL, EOMI, ENT- oropharynx clear Neck- supple, no JVD Lungs- clear to auscultation Heart- regular rhythm; no murmur Abdomen- normal bowel sounds, soft, nontender Extremities- no calf tenderness Neuro- alert, oriented x 3; PERRL, EOMI; no facial palsy; no dysarthria Skin- warm & dry (1) Back pain Back pain laterality: bilateral Back pain location: low back pain Chronicity: acute Sciatica laterality: sciatica of left side Sciatica presence: with sciatica Qualified Code(s): M54.42 - Lumbago with sciatica, left side
[2018-06-17] MEDS: ENOXAPARIN INJ 40 MG/0.4 ML SYR SQ SCH (20:49)
[2018-06-17] MEDS: DOCUSATE SODIUM 100 MG CAP PO SCH (20:49)
[2018-06-18] MEDS: TRAMADOL HCL 50 MG TABLET PO PRN (05:09)
[2018-06-18] MEDS: LIDOCAINE 5% 1 PATCH TD SCH (07:23)
[2018-06-18] MEDS: IBUPROFEN 200 MG TAB PO SCH ×2 (07:23→18:34)
[2018-06-18] MEDS: ASPIRIN 81 MG ECTAB PO SCH (07:24)
[2018-06-18] MEDS: CHOLECALCIFEROL 1,000 UNITS TAB PO SCH (07:24)
[2018-06-18] MEDS: DICLOFENAC SOD 1% GEL 100 GM TUBE EXT SCH ×3 (07:24→20:54)
[2018-06-18] MEDS: POLYETHYLENE (MIRALAX) 17 GM PACK PO SCH (07:25)
[2018-06-18] MEDS: predniSONE 5 MG TAB PO SCH (07:28)
[2018-06-18] MEDS: HYDROCODONE/ACETAMOPHEN 5/325MG TAB PO PRN ×2 (09:35→22:05)
--- NOTE | 2018-06-18 18:25 | Hospitalist Progress Note ---
Date of Service June 18, 2018 Assessment & Plan (1) Back pain: (2) Compression fracture: (3) Ambulatory dysfunction: Present on admission with low back pain radiated to lower extremity THORACIC SPINE XRAY: Very slight wedge deformity superior endplate T12. Significant degenerative disc changes throughout. LUMBAR SPINE CT showed Degenerative changes with stable anterior spondylolisthesis of L4 on L5 and L5 on S1 Pelvis xray showed no acute fracture or dislocation. Ortho on board recommended pain management consult for possible injection Due to significant medical history very high risk for surgical intervention. Continue pain control Pain management on board Unable to get MRI of the back due to pt severe claustrophobic Dr. Mckinney reviewed the lumbar CT scan case discussed with Dr. Mckinney who will plan for injection in am will make NPO after midnight for possible injection Fall precaution PT/OT 06/18 S/P day 5 Lumbar Epidural Steroid Injection done by Dr. Vora No complication case discussed with pain management team Continue hydrocodone for pain Follow up with pain management as an outpatient in 2 weeks Will transition to tramadol prn as an oupatient fall precaution accepted by [facility] for rehab, but due to suicidal statement last night, facility refused to take her Continue PT/OT Clinically improves (4) Leukocytosis: Mostly due to steroid Afebrile and WBC back to normal Urine cx contaminated denies any urinary symptoms (5) Hypokalemia: K: 3.5 Continue monitor BMP Stable (6) Venous insufficiency: continue HCTZ (7) Rheumatoid arthritis: continue prednisone 5mg daily and ibuprofen (8) HLD (hyperlipidemia): continue statin (9) Obesity: BMI: 47 diet and lifestyle modifications suggested (10) Exposure to influenza: Pt on 14 day course of tamiflu for flu post exposure prophylaxis. Final dose tamiflu to be on 06/13/18. continue tamiflu Suicidal Statement denies any suicidal thought Psych on board No psych med started at this time DVT Prophylaxis Lovenox SQ CODE STATUS FULL CODE Disposition waiting for placement to rehab Subjective Pt was seen an examined Sitting in chair with no distress Pt said that he feels fine Denies any new complaint Physical Exam Physical Exam: General- No acute distress Head- atraumatic Eyes- PERRL, EOMI, ENT- oropharynx clear Neck- supple, no JVD Lungs- clear to auscultation Heart- regular rhythm; no murmur Abdomen- normal bowel sounds, soft, nontender Extremities- no calf tenderness Neuro- alert, oriented x 3; PERRL, EOMI; no facial palsy; no dysarthria Skin- warm & dry Results & Data Vital Signs (Past 12 Hours) Vital Signs Temp Pulse Resp BP Pulse Ox 06/18/18 15:19 36.2 C L 97 H 19 115/65 90 06/18/18 07:17 36.4 C L 72 17 115/63 93 (1) Back pain Back pain laterality: bilateral Back pain location: low back pain Chronicity: acute Sciatica laterality: sciatica of left side Sciatica presence: with sciatica Qualified Code(s): M54.42 - Lumbago with sciatica, left side
[2018-06-18] MEDS: PRAVASTATIN SOD 10 MG TAB PO SCH (20:55)
[2018-06-18] MEDS: ENOXAPARIN INJ 40 MG/0.4 ML SYR SQ SCH (20:56)
[2018-06-18] MEDS: DOCUSATE SODIUM 100 MG CAP PO SCH (20:56)
[2018-06-19] MEDS: TRAMADOL HCL 50 MG TABLET PO PRN ×4 (02:46→21:51)
[2018-06-19] MEDS: HYDROCODONE/ACETAMOPHEN 5/325MG TAB PO PRN ×2 (05:20→23:15)
[2018-06-19] MEDS: CHOLECALCIFEROL 1,000 UNITS TAB PO SCH (08:15)
[2018-06-19] MEDS: hydroCHLOROthiazide 25 MG TAB PO SCH (08:15)
[2018-06-19] MEDS: ASPIRIN 81 MG ECTAB PO SCH (08:15)
[2018-06-19] MEDS: predniSONE 5 MG TAB PO SCH (08:17)
[2018-06-19] MEDS: LIDOCAINE 5% 1 PATCH TD SCH (08:17)
[2018-06-19] MEDS: IBUPROFEN 200 MG TAB PO SCH ×2 (08:18→17:02)
[2018-06-19] MEDS: POLYETHYLENE (MIRALAX) 17 GM PACK PO SCH (08:19)
[2018-06-19] MEDS: DICLOFENAC SOD 1% GEL 100 GM TUBE EXT SCH ×3 (08:20→21:52)
--- NOTE | 2018-06-19 20:57 | Hospitalist Progress Note ---
Date of Service June 19, 2018 Assessment & Plan (1) Back pain: (2) Compression fracture: (3) Ambulatory dysfunction: Present on admission with low back pain radiated to lower extremity THORACIC SPINE XRAY: Very slight wedge deformity superior endplate T12. Significant degenerative disc changes throughout. LUMBAR SPINE CT showed Degenerative changes with stable anterior spondylolisthesis of L4 on L5 and L5 on S1 Pelvis xray showed no acute fracture or dislocation. Ortho on board recommended pain management consult for possible injection Due to significant medical history very high risk for surgical intervention. Continue pain control Pain management on board Unable to get MRI of the back due to pt severe claustrophobic Dr. Mckinney reviewed the lumbar CT scan case discussed with Dr. Mckinney who will plan for injection in am will make NPO after midnight for possible injection Fall precaution PT/OT 06/19 S/P day 6 Lumbar Epidural Steroid Injection done by Dr. Vora No complication case discussed with pain management team Continue hydrocodone for pain Follow up with pain management as an outpatient in 2 weeks Will transition to tramadol prn as an oupatient fall precaution accepted by [facility] for rehab, but due to suicidal statement last night, facility refused to take her Continue PT/OT Clinically improves (4) Leukocytosis: Mostly due to steroid Afebrile and WBC back to normal Urine cx contaminated denies any urinary symptoms (5) Hypokalemia: K: 3.5 Continue monitor BMP Stable (6) Venous insufficiency: continue HCTZ (7) Rheumatoid arthritis: continue prednisone 5mg daily and ibuprofen (8) HLD (hyperlipidemia): continue statin (9) Obesity: BMI: 47 diet and lifestyle modifications suggested (10) Exposure to influenza: Pt on 14 day course of tamiflu for flu post exposure prophylaxis. Final dose tamiflu to be on 06/13/18. continue tamiflu Suicidal Statement denies any suicidal thought Psych on board No psych med started at this time DVT Prophylaxis Lovenox SQ CODE STATUS FULL CODE Disposition waiting for placement to rehab Subjective Pt was seen and examined Sitting in chair with no distress Pt said that she only has the back pain when lying on the bed last night She said that she feels much better now by sitting on the chair She said that she walked around with no distress Denies any chest pain, palpitation, dizziness and SOB Physical Exam Physical Exam: General- No acute distress Head- atraumatic Eyes- PERRL, EOMI, ENT- oropharynx clear Neck- supple, no JVD Lungs- clear to auscultation Heart- regular rhythm; no murmur Abdomen- normal bowel sounds, soft, nontender Extremities- no calf tenderness Neuro- alert, oriented x 3; PERRL, EOMI; no facial palsy; no dysarthria Skin- warm & dry Results & Data Vital Signs (Past 12 Hours) Vital Signs Temp Pulse Resp BP Pulse Ox 06/19/18 14:58 36.7 C 90 18 119/74 94 (1) Back pain Back pain laterality: bilateral Back pain location: low back pain Chronicity: acute Sciatica laterality: sciatica of left side Sciatica presence: with sciatica Qualified Code(s): M54.42 - Lumbago with sciatica, left side
[2018-06-19] MEDS: PRAVASTATIN SOD 10 MG TAB PO SCH (21:51)
[2018-06-19] MEDS: DOCUSATE SODIUM 100 MG CAP PO SCH (21:52)
[2018-06-19] MEDS: ENOXAPARIN INJ 40 MG/0.4 ML SYR SQ SCH (21:52)
[2018-06-20] MEDS: TRAMADOL HCL 50 MG TABLET PO PRN (03:35)
[2018-06-20] MEDS: IBUPROFEN 200 MG TAB PO SCH (07:42)
[2018-06-20] MEDS: LIDOCAINE 5% 1 PATCH TD SCH (08:16)
[2018-06-20] MEDS: ASPIRIN 81 MG ECTAB PO SCH (08:16)
[2018-06-20] MEDS: POLYETHYLENE (MIRALAX) 17 GM PACK PO SCH (08:17)
[2018-06-20] MEDS: predniSONE 5 MG TAB PO SCH (08:17)
[2018-06-20] MEDS: CHOLECALCIFEROL 1,000 UNITS TAB PO SCH (08:17)
[2018-06-20] MEDS: DICLOFENAC SOD 1% GEL 100 GM TUBE EXT SCH ×2 (08:17→14:12)
--- NOTE | 2018-06-20 13:39 | Hospitalist Progress Note ---
Date of Service June 20, 2018 Assessment & Plan (1) Back pain: (2) Compression fracture: (3) Ambulatory dysfunction: Present on admission with low back pain radiated to lower extremity THORACIC SPINE XRAY: Very slight wedge deformity superior endplate T12. Significant degenerative disc changes throughout. LUMBAR SPINE CT showed Degenerative changes with stable anterior spondylolisthesis of L4 on L5 and L5 on S1 Pelvis xray showed no acute fracture or dislocation. Ortho on board recommended pain management consult for possible injection Due to significant medical history very high risk for surgical intervention. Continue pain control Pain management on board Unable to get MRI of the back due to pt severe claustrophobic Dr. Mckinney reviewed the lumbar CT scan case discussed with Dr. Mckinney who will plan for injection in am will make NPO after midnight for possible injection Fall precaution PT/OT 06/20 S/P day 7 Lumbar Epidural Steroid Injection done by Dr. Vora No complication case discussed with pain management team Continue hydrocodone for pain Follow up with pain management as an outpatient in 2 weeks Will transition to tramadol prn as an outpatient fall precaution Accepted to [facility]. Continue PT/OT Clinically improves (4) Leukocytosis: Mostly due to steroid Afebrile and WBC back to normal Urine cx contaminated denies any urinary symptoms (5) Hypokalemia: K: 3.5 Continue monitor BMP Stable (6) Venous insufficiency: continue HCTZ (7) Rheumatoid arthritis: continue prednisone 5mg daily and ibuprofen (8) HLD (hyperlipidemia): continue statin (9) Obesity: BMI: 47 diet and lifestyle modifications suggested (10) Exposure to influenza: Pt on 14 day course of tamiflu for flu post exposure prophylaxis. Final dose tamiflu to be on 06/13/18. continue tamiflu Suicidal Statement denies any suicidal thought Psych on board No psych med started at this time DVT Prophylaxis Lovenox SQ CODE STATUS FULL CODE Disposition Discharge to [facility] today Subjective Pt was seen and examined Sitting in bed with no distress Pt said that she feels much better She said that she did not use the bed last night to sleep She said that she slept on the chair She said that her pain much better Denies any chest pain, palpitation, hallucination and SOB Physical Exam Physical Exam: General- No acute distress Head- atraumatic Eyes- PERRL, EOMI, ENT- oropharynx clear Neck- supple, no JVD Lungs- clear to auscultation Heart- regular rhythm; no murmur Abdomen- normal bowel sounds, soft, nontender Extremities- no calf tenderness Neuro- alert, oriented x 3; PERRL, EOMI; no facial palsy; no dysarthria Skin- warm & dry Results & Data Vital Signs (Past 12 Hours) Vital Signs Temp Pulse Resp BP Pulse Ox 06/20/18 06:54 36.5 C 91 H 20 126/77 93 (1) Back pain Back pain laterality: bilateral Back pain location: low back pain Chronicity: acute Sciatica laterality: sciatica of left side Sciatica presence: with sciatica Qualified Code(s): M54.42 - Lumbago with sciatica, left side
--- NOTE | 2018-06-20 14:03 | Discharge Summary ---
Date of Service June 20, 2018 Admission HPI Per Admitting Provider Per H&P: Pt is 77 y/o F with PMH rheumatoid arthritis, bladder cancer, HLD, prediabetes, obesity, venous insufficiency presented to ER with c/o back pain. Pt reports hx sciatica in past to L side. States couple of weeks ago started with L hip and leg pain and she was seen in ER on 05/22/18 for L hip and L leg pain and paresthesias, dx with sciatica and was discharged to [facility] for rehab. On 06/04/18 pt reports slid out of bed when trying to go to the bathroom and fell on to buttocks. Pt states since with pain to R buttock. Denies R leg pain. Pt states was taking flexeril and that made her feel a little dizzy and she does not want to take any further flexeril. Pt completed prednisone taper on 06/05/18. It is reported that she was able to ambulate 75 feet with rolling walker upon discharge. Pt was discharge home (high rise apartment) on 06/06/18. Pt states still with L leg pain and paresthesias but feels they are improved from initial onset. C/O bilateral leg weakness and feels unstable with ambulating with walker. Denies any falls since being home, however reports having difficulty getting around in her apartment. Pt on 14 day course of tamiflu for post exposure prophylaxis. Final dose tamiflu to be on 06/13/18. Pt reports chronic BLE edema and erythema secondary to venous insuffiency and denies any worsening. Denies fever/chills, diaphoresis, N/V/D/C, LOZA, further dizziness, syncope, vision changes, neck pain, CP, SOB, orthopnea, palpitations, cough, sore throat, choking, otalgia, rhinorrhea, abdominal pain, rashes, urinary symptoms. The patient was seen by the liaison nurse last evening (see nurses notes) after the patient made suicidal statements. The patient explained that she made the statement when she was in pain and without sleep, but did not mean it. She denied SI, and was focused on getting her pain needs met. She said that she did not want meds nor did she want to see a psychiatric provider. I stopped by today to check in with the patient and she still doesn't want meds or to go through a psychiatric consult, but was willing to reiterate that she is not suicidal. She is a spiritual person and would not commit suicide as it is against her evangelical beliefs. She made the statement in frustration and pain and has no P/I to hurt herself. She feels better informed now saying that she is being told that it could take up to 14 days to find relief from her procedure and she is only 7 days out, making her more hopeful. Admission Exam Per Admitting Provider General: no distress, obese Head: normocephalic, atraumatic Eyes: PERRL, EOM's intact, conjunctiva non-injected, anicteric ENT: normal inspection external ears, nose, mucous membranes moist Neck: supple, trachea midline, non-tender Lungs: clear, no respiratory distress, no wheezing/rhonchi/rales CV: RRR, no murmur Abd: normal BS, soft, non-tender Back: +slight tenderness to palpation over lower thoracic spinous process, +tenderness to palpation lower lumbar spine, tender to palpation bilateral buttocks Ext: left lateral hip with tenderness to palpation, hips with internal and external ROM intact, no calf tenderness, bilateral lower legs with edema and erythema and dry skin, no significant warmth or open areas. left leg raise positive to approx 30 degrees. pedal pushes and pulls intact bilaterally. Neuro: A&O x 3, no focal deficits noted, normal affect Skin: warm, dry, ecchymosis left lateral thoracic back, ecchymosis right buttock Principal Diagnosis Back pain: Compression fracture: Ambulatory dysfunction: Hypokalemia Rheumatoid Arthritis Discharge Exam General- No acute distress Head- atraumatic Eyes- PERRL, EOMI, ENT- oropharynx clear Neck- supple, no JVD Lungs- clear to auscultation Heart- regular rhythm; no murmur Abdomen- normal bowel sounds, soft, nontender Extremities- no calf tenderness Neuro- alert, oriented x 3; PERRL, EOMI; no facial palsy; no dysarthria Skin- warm & dry Discharge Data Allergies Allergy/AdvReac Type Severity Reaction Status Date / Time strawberry Allergy Severe ANAPHYLAXIS Verified 06/13/18 11:08 atorvastatin AdvReac Unknown SEVERE Verified 06/13/18 11:08 MUSCLE ACHES fentanyl AdvReac Verified 06/13/18 11:08 Consultations 06/10/18 12:35 ED Decision to Admit Stat 06/10/18 14:55 Consult Orthopedic Surgery Routine 06/10/18 15:59 Consult Case Management - Discharge Planning Routine 06/11/18 20:30 Consult Pain Management Routine 06/17/18 00:10 Consult Psychiatry Routine Procedures Performed Operation Date: 06/13/18 11:30 Actual Procedures p Lumbar Epidural Steroid Injection - Dk Vora MD, FIPP Ordered Studies 06/10/18 08:58 CT lumbar spine wo con Stat 06/13/18 FL fluoroscopy <1hr Routine FL lumbar spine 2-3V Routine XR thoracic spine 3V routine HISTORY: Pain. Trauma. back pain COMPARISON: Chest CT 12/27/2017 FINDINGS: No evidence for an acute compression deformity from T1 through T11. Very slight wedge deformity of a midthoracic vertebral body unchanged from the prior exam. Considerable degenerative disc changes throughout. Very slight wedge deformity superior endplate T12. No subluxation. IMPRESSION: 1. Very slight wedge deformity superior endplate T12. 2. All remaining components of the thoracic spine are unchanged from the prior study. 3. Significant degenerative disc changes throughout. The above report was generated using voice recognition software. It may contain grammatical, syntax or spelling errors. Electronically signed by: Edin Falk M.D. 06/10/2018 10:42 AM Dictated: 06/10/181038 Transcribed: 06/10/18 103 XR pelvis 1-2V routine HISTORY: 77 years-old Female fall acute pelvic pain status post fall COMPARISON: CT lumbar spine of same day TECHNIQUE: Portable AP view of the pelvis FINDINGS: Demineralized appearance of the bones. Moderate osteoarthritis about the bilateral femoral acetabular joints. Degenerative changes of the pubic symphysis and lower lumbar spine. No acute fracture, dislocation or avascular necrosis. IMPRESSION: No acute fracture or dislocation. The above report was generated using voice recognition software. It may contain grammatical, syntax or spelling errors. Electronically signed by: Francesco Ziegler M.D. 06/10/2018 10:41 AM Dictated: 06/10/18 1039 Transcribed: 06/10/[address] lumbar spine wo con CT DOSE: 575.25 mGycm CLINICAL HISTORY: Low back pain status post trauma TECHNIQUE: Helical images were acquired in transverse plane. Reformatted sagittal and coronal images were reviewed. A dose lowering technique was utilized adhering to the principles of ALARA. CONTRAST: No contrast was administered COMPARISON STUDY: May 22, 2018 FINDINGS: L1-2 level: There is no evidence of significant disc bulge or focal herniation. There is no evidence of spinal or foraminal stenosis. L2-3 level: There is a circumferential disc bulge and mild secondary spinal stenosis. L3-4 level: There is no evidence of significant disc bulge or focal herniation. There is no evidence of spinal or foraminal stenosis. L4-5 level: There is a stable grade 1 spondylolisthesis of L4 on L5. There is m ild spinal stenosis. There is facet joint arthropathy. L5-S1 level: There is a minimal grade 1 spondylolisthesis of L5 on S1. There is no focal disc herniation. There is no significant spinal stenosis. There is mild bilateral foraminal narrowing. There is an S-shaped scoliosis. There is right-sided nephrolithiasis. Renal cysts are visualized. IMPRESSION: 1. No acute fractures or traumatic subluxations identified 2. Right-sided nephrolithiasis 3. Scoliosis 4. Degenerative changes with stable anterior spondylolisthesis of L4 on L5 and L5 on S1 Electronically signed by: Aaron Choi M.D. 06/10/2018 10:11 AM Dictated: 06/10/18 1005 Transcribed: 06/10/18 1005 Hospital Course (1) Back pain: (2) Compression fracture: (3) Ambulatory dysfunction: Present on admission with low back pain radiated to lower extremity THORACIC SPINE XRAY: Very slight wedge deformity superior endplate T12. Significant degenerative disc changes throughout. LUMBAR SPINE CT showed Degenerative changes with stable anterior spondylolisthesis of L4 on L5 and L5 on S1 Pelvis xray showed no acute fracture or dislocation. Ortho on board recommended pain management consult for possible injection Due to significant medical history very high risk for surgical intervention. Continue pain control Pain management on board Unable to get MRI of the back due to pt severe claustrophobic Dr. Mckinney reviewed the lumbar CT scan case discussed with Dr. Mckinney who will plan for injection in am will make NPO after midnight for possible injection Fall precaution PT/OT 06/20 S/P day 7 Lumbar Epidural Steroid Injection done by Dr. Vora No complication case discussed with pain management team Continue hydrocodone for pain Follow up with pain management as an outpatient in 2 weeks Will transition to tramadol prn as an outpatient fall precaution Accepted to [facility]. Continue PT/OT Clinically improves (4) Leukocytosis: Mostly due to steroid Afebrile and WBC back to normal Urine cx contaminated denies any urinary symptoms (5) Hypokalemia: K: 3.5 Continue monitor BMP Stable (6) Venous insufficiency: continue HCTZ (7) Rheumatoid arthritis: continue prednisone 5mg daily and ibuprofen (8) HLD (hyperlipidemia): continue statin (9) Obesity: BMI: 47 diet and lifestyle modifications suggested (10) Exposure to influenza: Pt on 14 day course of tamiflu for flu post exposure prophylaxis. Final dose tamiflu to be on 06/13/18. continue tamiflu Suicidal Statement denies any suicidal thought Psych on board No psych med started at this time DVT Prophylaxis Lovenox SQ CODE STATUS FULL CODE Disposition Discharge to [facility] today Total Time Total Time Spent Total Time Spent (In Minutes): 35 minutes Total Time Includes: Examination of the Patient, Discharge Planning, Medication Reconciliation, Communication With Other Providers and Other Discharge Plan Discharge Items Patient Disposition: Transfer Long Term Fac Reason For Visit: BACK PAIN Discharge Diagnosis: Back pain: Compression fracture: Ambulatory dysfunction: Hypokalemia Rheumatoid Arthritis Discharge Goals: Decrease discomfort, Diagnostic testing, Improve disease control, Improve function and Increase independence Activity: Resume your previous activity Activity Comment: As tolerated Non-emergency contact: Primary Care Provider and Specialist Call non-emergency contact if: you have any medication questions and your symptoms worsen Follow-up/Referrals: Poncho Aquino MD [Primary Care Provider] - Diet: Heart Healthy Addtl Provider Instructions: Follow up with Naye Villatoro pain management in 1-2 week (Please call to schedule for the appointment ) Follow up with your primary care provider Dr. Aquino on 06/24 @ 1:00 PM Fall precaution Continue physical and occupational therapy Continue tramadol as needed for pain Do not drive or operate any machine after taking the tramadol (Please hold the next dose of tramadol if you become drowsy) Prescriptions: New lidocaine 5 % Adhesive Patch,Medicated 1 patch transdermal QAM 5 Days Qty: 5 RF: 0 tramadol 50 mg Tablet 50 mg PO Q6H PRN (Reason: pain) Qty: 10 RF: 0 Continued prednisone 5 mg Tablet 5 mg PO QAM RF: 0 aspirin 81 mg Tablet,Delayed Release (Dr/Ec) 81 mg PO QAM RF: 0 pravastatin 10 mg Tablet 10 mg PO HS RF: 0 docusate sodium [Colace] 100 mg Capsule 100 mg PO PM RF: 0 cholecalciferol (vitamin D3) [Vitamin D3] 2,000 unit Tablet 2,000 unit PO QAM RF: 0 polyethylene glycol 3350 [Miralax] 17 gram Powder In Packet 17 g PO QAM RF: 0 hydrochlorothiazide 12.5 mg Tablet 12.5 mg PO Q2D RF: 0 diclofenac sodium 1 % Gel 2 g TOPICAL TID RF: 0 ibuprofen 200 mg Tablet 400 mg PO BIDM RF: 0 Discontinued hydrocodone-acetaminophen 5-325 mg Tablet 1 tab PO Q6H PRN (Reason: Pain) RF: 0 oseltamivir 30 mg Capsule 30 mg PO DAILY RF: 0 Stand-Alone Forms: [facility] Discharge Orders: Discharge Order (Routine); Ordered 06/20/18 Ordered By: Shalonda Galeana Skilled Items Patient informed of condition?: Yes DNR: No Discharge Level of Care: Skilled Communicable Disease: No Discharge Prognosis: Stable Admission Data Admit Date/Time: 06/12/18 10:06 Attending Provider: Shalonda Galeana Admit Provider: Fang Juarez Primary Care Provider: Poncho Aquino Other Providers: Home,Nursing Agency ; Fang Juarez ; Scooby Sharp ; Dk Vora ; Quin Morales Service: Medical
[2018-06-20] MEDS: HYDROCODONE/ACETAMOPHEN 5/325MG TAB PO PRN (14:15)
== END 2018-06-20 14:53 | DRG 552 ==
LOC: 3N 08:34 → ED 08:34 → 3N 14:41

== ENCOUNTER 2018-12-01 15:48 | Observation (INO) ==
[2018-12-01] MEDS ORDERED: ALPRAZolam 0.25 MG TABLET PO STA (17:42)
[2018-12-01] MEDS ORDERED: SODIUM CHLORIDE 0.9% 1000ML 1,000 ML IV SCH (17:45)
[2018-12-01] MEDS ORDERED: ALPRAZolam 0.5 MG TABLET ONE (17:52)
[2018-12-01] MEDS ORDERED: ALPRAZolam 0.5 MG TABLET PO STA (17:53)
--- NOTE | 2018-12-01 18:10 | XRay Report ---
XR chest 1V portable CLINICAL HISTORY: 78 years-old Female presenting with Dyspnea. TECHNIQUE: Portable upright AP view of the chest was obtained. COMPARISON: 09/10/[address] chest from 12/01/2018. FINDINGS: Atherosclerosis of the aortic arch. Cardiac silhouette enlarged. Pulmonary vascular prominence. Inter stitial prominence may suggest interlobular septal thickening. Opacity at the right lung base may in part related to the prominent pericardial fat pad and is chronic. No other focal opacity. No large ef fusion or pneumothorax. Degenerative changes of the thoracic spine. Upper abdomen normal. IMPRESSION: 1. Cardiomegaly with volume overload and congestive change. No nain pulmonary edema at this time. 2. No convincing evidence of a new right basilar infiltrate suggest developing infarct in the distri bution affected by pulmonary emboli allowing for image quality. Electronically signed by: Familia Hyatt M.D. 12/01/2018 6:09 PM
[2018-12-01 18:37] LABS: Basophils # (auto) 0.04 K/uL (0-0.2); Basophils % (auto) 0.2 %; Eosinophils # (auto) 0.05 K/uL (0-0.5); Eosinophils % (auto) 0.3 %; Hematocrit (blood only) 43.2 % (37-47); Hemoglobin 13.6 g/dL (12.0-16.0); Immature Granulocytes # (auto) 0.11 K/uL (0.00-0.02); Immature Granulocytes % (auto) 0.6 %; Lymphocytes # (auto) 2.53 K/uL (1.2-3.4); Lymphocytes % (auto) 14.7 %; Mean Corpuscular Hemoglobin 30.7 pg (25-34); Mean Corpuscular Hgb Conc 31.5 g/dL (32-36); Mean Corpuscular Volume 97.5 fL (80-100); Mean Platelet Volume 10.1 fL (7.4-10.4); Monocytes # (auto) 0.81 K/uL (0.11-0.59); Monocytes % (auto) 4.7 %; Neutrophils % (auto) 79.5 %; Platelet Count 371 K/uL (130-400); RDW Coefficient of Variation 13.3 % (11.5-14.5); RDW Standard Deviation 47.3 fL (36.4-46.3); Red Blood Count 4.43 M/uL (4.2-5.4); White Blood Count 17.24 K/uL (4.8-10.8)
[2018-12-01 18:49] LABS: Partial Thromboplastin Ratio 0.9; Partial Thromboplastin Time 25.7 Seconds (21.0-31.0); Prothrombin Time 10.4 Seconds (9.0-12.0)
[2018-12-01 19:10] LABS: Alanine Aminotransferase 16 U/L (12-78); Albumin Level 3.2 gm/dl (3.4-5.0); Aspartate Aminotransferase 15 U/L (15-37); BUN Creatinine Ratio 18.1 (10-20); Blood Urea Nitrogen 19 mg/dl (7-18); Calcium 9.4 mg/dl (8.5-10.1); Carbon Dioxide 31 mmol/L (21-32); Chloride 104 mmol/L (98-107); Est GFR (Non-African American) 52.6; Glucose 108 mg/dl (70-99); Magnesium 2.1 mg/dl (1.8-2.4); Potassium 3.4 mmol/L (3.5-5.1); Sodium 141 mmol/L (136-145)
[2018-12-01] MEDS ORDERED: HYDROCODONE/ACETAMOPHEN 5/325MG TAB PO STA (19:11)
[2018-12-01 19:12] LABS: Albumin Globulin Ratio 0.7 (0.9-2); Alkaline Phosphatase 71 U/L (45-117); Bilirubin,Total 0.3 mg/dl (0.2-1); Globulin 4.5 gm/dl (2.5-4.0); Total Protein 7.7 gm/dl (6.4-8.2)
--- NOTE | 2018-12-01 20:52 | History & Physical Report ---
Date of Service December 01, 2018 Assessment & Plan (1) Acute pulmonary embolism: -Admit to [facility] with telemetry -Patient found to have acute/subacute right lung pulmonary embolism on routine follow-up CT scan as an outpatient today -Patient asymptomatic, saturating well on room air, hemodynamically stable -History of prior DVT in the past, anticoagulation discontinued 02/2018 as per patient request -Patient agreeable to restart anticoagulation -Was on Coumadin in the past and would like to restart (also previously was on Xarelto however reports she had increased bruising) -will start Lovenox/Coumadin bridge; of note, patient unwilling to do home Lovenox injections, therefore at discharge, may need to utilize 1.5 mg/kg Lovenox daily so that she can receive her injections in the clinic -per prior outpatient Coumadin clinic note, patient received 150 mg Lovenox daily while bridging to Coumadin -Check lower extremity Dopplers (2) Lymphedema: (3) Wound of lower extremity: -Patient has been following with the wound center -Recent wound culture grew a pansensitive Pseudomonas -WBC 17 K -prednisone and acute PE likely contributing; patient does not appear septic -Patient was started on Cipro by the wound care center, will continue as patient has had significant improvement since starting -Wound care consult -Lymphedema fluid managed with HCTZ every other day as BP allows (4) Rheumatoid arthritis: -Continue prednisone (5) HLD (hyperlipidemia): -Continue statin (6) DVT prophylaxis: -Currently on Lovenox/Coumadin bridge History of Present Illness Chief Complaint: Evaluation for PE Primary Care Provider: Poncho Aquino MD 78-year-old female who was referred to the ED for evaluation after outpatient CT scan demonstrated acute/subacute PE. Patient was getting a routine chest CT to follow-up on a previous diagnosis of pneumonia. Patient reports she was experiencing some shortness of breath a few weeks ago whenever she developed l ymphedema to the bilateral lower extremities. Reports this improved once she started to receive wraps to her legs and the swelling improved. She denies chest pain and palpitations. No lightheadedness, dizziness, diaphoresis, syncopal events. She denies abdominal pain, nausea, vomiting, diarrhea. No urinary symptoms. No fevers or chills. She is following at the wound care center for bilateral lower extremity wounds and lymphedema. Recent outpatient culture was positive for a pansensitive Pseudomonas. Patient was placed on ciprofloxacin. She reports a market improvement in her lower extremities since starting this antibiotic. In the ED, patient is hemodynamically stable. She is saturating well on room air. Labs show WBC 17 K however otherwise unremarkable. Allergies Allergy/AdvReac Type Severity Reaction Status Date / Time strawberry Allergy Severe ANAPHYLAXIS Verified 12/01/18 18:13 tramadol AdvReac Severe confusion Verified 12/01/18 18:13 atorvastatin AdvReac Unknown SEVERE Verified 12/01/18 18:13 MUSCLE ACHES ibandronate sodium AdvReac Unknown nausea/vomi Verified 12/01/18 18:13 [From Boniva] ting fentanyl AdvReac Verified 12/01/18 18:13 Home Medications Home Medications Medication Instructions Recorded Confirmed Type aspirin 81 mg PO QAM 05/22/18 12/01/18 History cholecalciferol (vitamin D3) 2,000 unit PO QAM 05/22/18 12/01/18 History [Vitamin D3] docusate sodium [Colace] 100 mg PO BID 05/22/18 12/01/18 History pravastatin 10 mg PO HS 05/22/18 12/01/18 History hydrochlorothiazide 12.5 mg PO Q2D PRN 06/10/18 12/01/18 History ibuprofen 600 mg PO DAILY@0600,1800,0000 06/10/18 12/01/18 History hydrocodone 5 mg-acetaminophen 325 1 tab PO TID PRN tab 11/25/18 12/01/18 History mg tablet prednisone 5 mg tablet 10 mg PO QAM tab 11/25/18 12/01/18 History ciprofloxacin 500 mg tablet 500 mg PO q12h #28 tab 11/27/18 12/01/18 Rx biotin 5 mg PO QAM 12/01/18 12/01/18 History Past Med/Surg History Medical History COPD (chronic obstructive pulmonary disease) (Chronic) H/O deep venous thrombosis (Chronic) H/O renal calculi (Chronic) H/O sciatica (Chronic) Compression fracture (Resolved) Lymphedema (Chronic) Lumbar back pain with radiculopathy affecting left lower extremity (Chronic) Spinal stenosis, lumbar region with neurogenic claudication (Chronic) Venous insufficiency (Chronic) Bladder cancer (Chronic) Prediabetes (Chronic) Obesity (Chronic) HLD (hyperlipidemia) (Chronic) HTN (hypertension) (Chronic) Rheumatoid arthritis (Chronic) Surgical History H/O breast biopsy (Chronic) History of cataract surgery (Chronic) H/O: hysterectomy (Resolved) H/O hernia repair (Resolved) Family History Mother Diabetes Father Colorectal cancer Social History Preferred Language: Vincentian Communication Ability: Effective Assembler Skylights Required: No Beliefs That Will Affect Care: None marital status: / Current Living Situation: Alone current occupational status: retired Feels Safe at Home: Yes Smoking Status: Former smoker Tobacco Type: cigarettes ; Second Hand Exposure: No ; Hx Alcohol Use: No Hx Substance Use: No Review of Systems Review of Systems: ROS per HPI, all other systems reviewed and negative Physical Exam Constitutional: WD/WN, vitals as above Eyes: PERRL, conjunctivae normal, anicteric sclerae ENMT: external ear and nose normal, oropharynx normal Respiratory: normal respiratory effort, lungs clear to auscultation Cardiovascular: Rate/Rhythm: regular rate and regular rhythm Vessels: normal peripheral pulses Extremities: + edema (+2 BLE) Gastrointestinal (Abdomen): normal bowel sounds, soft, nontender, no hepatosplenomegaly Musculoskeletal: no cyanosis or clubbing, extremities motor strength 5/5 Skin: no rashes, warm and dry Dry flaky skin BLE, mild erythema/pinkness BLE, scattered open/seeping areas BLE (L>R) Neurologic: PERRL, EOMI, accommodation nl, no face palsy, no dysarthria Psychiatric: A+Ox3, euthymic affect Results & Data Vital Signs (Past 12 Hours) Vital Signs Temp Pulse Resp BP Pulse Ox 12/01/18 19:16 80 23 93 12/01/18 19:14 80 23 137/78 12/01/18 19:00 79 21 119/76 93 12/01/18 15:59 36.6 C 81 24 92 Laboratory Results Short CBC 12/01/18 Range/Units 18:27 WBC 17.24 H (4.8-10.8) K/uL Hgb 13.6 (12.0-16.0) g/dL Hct 43.2 (37-47) % Plt Count 371 (130-400) K/uL BMP 12/01/18 18:27 Sodium 141 Potassium 3.4 L Chloride 104 Carbon Dioxide 31 BUN 19 H Creatinine 1.02 Glucose 108 H Calcium 9.4 Liver Function 12/01/18 Range/Units 18:27 Total Bilirubin 0.3 (0.2-1) mg/dl AST 15 (15-37) U/L ALT 16 (12-78) U/L Alkaline Phosphatase 71 (45-117) U/L Albumin 3.2 L (3.4-5.0) gm/dl Diagnostic Findings CXR IMPRESSION: 1. Cardiomegaly with volume overload and congestive change. No nain pulmonary edema at this time. 2. No convincing evidence of a new right basilar infiltrate suggest developing infarct in the distribution affected by pulmonary emboli allowing for image quality. CTA CHEST: 1. Acute/subacute right lung pulmonary emboli, not visualized in the prior December 2017 study 2. Stable mildly enlarged right as azygoesophageal recess lymph node 3. Mild interstitial thickening similar to the preceding study 4. Pulmonary thyroid goiter 5. Hepatic steatosis 4. Pulmonary thyroid gland 5. Hepatic steatosis 6. Partially visualized 13 mm cystic lesion in the upper abdomen, possibly representing a cystic pancreatic head lesion Code Status & VTE Plan Code Status Patient is a full code as per my discussion with her. VTE Prophylaxis Plan VTE Prophylaxis will be ordered: Yes Supervising Physician Co-Signing Physician Notes I, Dr. Mikey Hunter, have seen and examined the patient with nurse practitioner and agree with the assessment and plan and would like to comment that This is a 78 year old female who had CT of Chest with IV contrast to follow for resolution of a pneumonia when she was seen on the scan to have findings of Acute/subacute right lung pulmonary emboli. Patient does not have recent acute respiratory symptoms and breathing on room air. Patient is hemodynamically stable with normal heart rate and blood pressure so there is no clinical evidence for acute cor pulmonale. Patient had ultrasound performed of lower extremities but no ultrasound findings of deep vein thrombosis. As the admitting physician, I have called radiologist to discuss whether any need to do a dedicated CTA test to verify whether patient truly has pulmonary embolism. Radiologist Dr. Hyatt reports that the CT of Chest with IV contrast is an accurate test and no need for repeat CTA. Will perform the anticoagulation of Lovenox 1mg/kg BID with transition to coumadin by starting warfarin 1st dose on 12/01/18 for ACUTE PULMONARY EMBOLISM WITHOUT ACUTE COR PULMONALE patient follows chronically of lower extremity edema and wounds with outpatient wound care and on oral antibiotics agree with nurse practitioner for management of other health issues including LYMPHEDEMA and OPEN WOUNDS of LEFT lower extremity and RIGHT lower extremity patient has also CURRENT CHRONIC USE OF SYSTEMIC STEROIDS as prednisone for RHEUMATOID ARTHRITIS Physical Exam general: no acute distress lungs: clear to auscultation bilaterally heart: regular rate and rhythm abdomen: soft, nontender, positive bowel sounds, truncal obesity Extremities: bilateral lower extremity erythema, Dry flaky skin, some areas of scattered open/seeping areas BLE (L>R) My colleague Dr. Velez will be taking care of the patient on 12/02/18
--- NOTE | 2018-12-01 20:54 | Ultrasound Report ---
US venous doppler LE CLINICAL HISTORY: 78 years-old Female presenting with Dyspnea, pain and swelling in the lower extremi ties. TECHNIQUE: Real-time grayscale and color and spectral Doppler ultrasound imaging of the veins of the bilateral lower extremities was performed. Compression and augmentation were also utilized. COMPARISON: 09/11/2017. FINDINGS: RIGHT: Common femoral vein: Patent. Greater saphenous vein (superficial): Patent. Deep femoral vein: Patent. Femoral vein: Patent. Popliteal vein: Patent. Calf veins: Patent. LEFT: Common femoral vein: Patent. Greater saphenous vein (superficial): Patent. Deep femoral vein: Patent. Femoral vein: Patent. Popliteal vein: Patent. Calf veins: Limited visualization secondary to subcutaneous edema. Grossly patent apart from nonvisua lization of the left peroneal vein. Additionally, the region of the open wound in the mid to distal c half-way was not interrogated. Other: Subcutaneous edema in the popliteal fossae. IMPRESSION: 1. No evidence of deep venous thrombosis. 2. Bilateral lower extremity subcutaneous edema. Electronically signed by: Familia Hyatt M.D. 12/01/2018 8:52 PM
[2018-12-01] MEDS ORDERED: HYDROCODONE/ACETAMOPHEN 5/325MG TAB PO PRN (22:25)
[2018-12-01] MEDS ORDERED: ENOXAPARIN 100 MG/1ML SYR SQ SCH (23:00)
[2018-12-01] MEDS ORDERED: PRAVASTATIN SOD 10 MG TAB PO SCH (23:00)
[2018-12-01] MEDS ORDERED: WARFARIN SOD 5 MG TAB PO ONE (23:00)
--- NOTE | 2018-12-01 23:03 | Emergency Department Note ---
Entered by Ashlyn Charles acting as a scribe for History of Present Illness General Chief complaint: Respiratory Problems Stated complaint: ANNIKA, DR PRESTON Source: patient History of Present Illness Onset (ago): hour(s) (earlier today) Location: chest (pulmonary embolus) Pain Consistency: + other (episode) Relieved By: + none Associated symptoms: + other (anxiety); no shortness of breath The patient is a 78 year old F who presents to the Emergency Room with complaints of an episode of a pulmonary embolus that occurred earlier today. The patient states that she got pneumonia last year. She notes that she went to see her PCP who told her that something was not sounding right in her lung. She adds that her PCP wanted her to get a CT done to see if her prior pneumonia was clearing up properly. She notes that she had a CT scan done at [facility], today, which found a pulmonary embolus. She states that she has a history of pulmonary emboli and DVTs. She notes that she has been on Xarelto and Coumadin for her history of blood clots. She adds that she goes to see the wound care clinic regularly to get her legs wrapped for lymph edema. She notes that she is currently experiencing anxiety. She denies currently experiencing shortness of breath. Home Medications Home Medications Medication Instructions Recorded Confirmed Type cholecalciferol (vitamin D3) 2,000 unit PO QAM 05/22/18 12/01/18 History [Vitamin D3] docusate sodium [Colace] 100 mg PO BID 05/22/18 12/01/18 History pravastatin 10 mg PO HS 05/22/18 12/01/18 History hydrochlorothiazide 12.5 mg PO Q2D PRN 06/10/18 12/01/18 History prednisone 5 mg tablet 10 mg PO QAM tab 11/25/18 12/01/18 History ciprofloxacin 500 mg tablet 500 mg PO q12h #28 tab 11/27/18 12/01/18 Rx biotin 5 mg PO QAM 12/01/18 12/01/18 History enoxaparin [Lovenox] 150 mg SUBCUT DAILY@1100 10 Days 12/02/18 Rx #10 ml hydrocodone-acetaminophen 1 tab PO TID PRN #10 tab 12/02/18 Rx potassium chloride [Klor-Con M10] 20 meq PO DAILY 30 Days #60 tab 12/02/18 Rx warfarin [Coumadin] 5 mg PO DAILY@1600 30 Days #30 tab 12/02/18 Rx Allergies Allergy/AdvReac Type Severity Reaction Status Date / Time strawberry Allergy Severe ANAPHYLAXIS Verified 12/01/18 18:13 tramadol AdvReac Severe confusion Verified 12/01/18 18:13 atorvastatin AdvReac Unknown SEVERE Verified 12/01/18 18:13 MUSCLE ACHES ibandronate sodium AdvReac Unknown nausea/vomi Verified 12/01/18 18:13 [From Boniva] ting fentanyl AdvReac Verified 12/01/18 18:13 Past Med/Surg History Medical History COPD (chronic obstructive pulmonary disease) (Chronic) H/O deep venous thrombosis (Chronic) H/O renal calculi (Chronic) H/O sciatica (Chronic) Compression fracture (Resolved) Lymphedema (Chronic) Lumbar back pain with radiculopathy affecting left lower extremity (Chronic) Spinal stenosis, lumbar region with neurogenic claudication (Chronic) Venous insufficiency (Chronic) Bladder cancer (Chronic) Prediabetes (Chronic) Obesity (Chronic) HLD (hyperlipidemia) (Chronic) HTN (hypertension) (Chronic) Rheumatoid arthritis (Chronic) Surgical History H/O breast biopsy (Chronic) History of cataract surgery (Chronic) H/O: hysterectomy (Resolved) H/O hernia repair (Resolved) Family History Mother Diabetes Father Colorectal cancer Social History Preferred Language: Moldovan Communication Ability: Effective Vet Tech Required: No Beliefs That Will Affect Care: Scientology marital status: / Current Living Situation: Alone current occupational status: retired Other Information That Helps Us Care for You: No Feels Safe at Home: Yes Safety Concerns: Afraid for Self Smoking Status: Former smoker Tobacco Type: cigarettes ; Second Hand Exposure: No ; Hx Alcohol Use: No Hx Substance Use: No Review of Systems See HPI for pertinent positives & negatives. and A total of 10 systems reviewed and were otherwise negative Physical Exam Vital Signs Vital Signs - 24 hr 12/01/18 15:59 12/01/18 19:00 12/01/18 19:14 Temperature 36.6 C Temperature Source Oral Sepsis Recent Fever Within 48 Hours No Sepsis New/Unexplained Change in Mental Status No Sepsis Action Taken by Nursing No Action Required Pulse Rate 81 79 80 Pulse Rate from SpO2 Sensor 74 79 Respiratory Rate 24 21 23 Respiratory Effort / Characteristics Non-Labored Respiratory Depth Normal Blood Pressure 119/76 137/78 Blood Pressure Mean 90 97 Pulse Oximetry 92 93 Oxygen Delivery Method Room Air 12/01/18 19:16 Temperature Temperature Source Sepsis Recent Fever Within 48 Hours Sepsis New/Unexplained Change in Mental Status Sepsis Action Taken by Nursing Pulse Rate 80 Pulse Rate from SpO2 Sensor 69 Respiratory Rate 23 Respiratory Effort / Characteristics Respiratory Depth Blood Pressure Blood Pressure Mean Pulse Oximetry 93 Oxygen Delivery Method Room Air Vital signs reviewed. General: Chronically ill-appearing elderly female. HEENT: No scleral icterus, PERRLA, neck supple. Atraumatic. Cardiovascular: Regular rate and rhythm, no extra sounds. Pulmonary: Clear to auscultation bilaterally, normal work of breathing. Abdomen: Soft, obese, nontender, nondistended, positive bowel sounds. Musculoskeletal: Atraumatic, no peripheral edema. Extensive dressing in place to bilateral lower extremities (refuses removal) Neurologic: Patient awake alert and oriented x 3 Skin: Warm, dry, no rash Course 172: Past medical records reviewed. The patient was evaluated in room B7. A complete history and physical exam was performed. 7: I reassessed the patient who is doing fine. I will monitor her further as she waits for an ultrasound. 1930: I reviewed the patient's case with CORINNE Huston. She will evaluate the patient for further management. Consultations Consultation #1: I reviewed the patient's case with CORINNE Narvaez. She will evaluate the patient for further management. Time: 19:30 Administered Medications Discontinued Medications Acetaminophen (Tylenol) 650 mg PO Q4H PRN PRN Reason: pain/fever Stop: 12/31/18 22:24 Last Admin: 12/02/18 15:48 Dose: 650 mg Documented by: [id number] Admin: 12/02/18 10:38 Dose: 650 mg Documented by: [id number] Hydrocodone Bitart/Acetaminophen ([place] 5/325) 1 tab PO NOW STA Stop: 12/01/18 19:12 Last Admin: 12/01/18 19:24 Dose: 1 tab Documented by: [id number] Hydrocodone Bitart/Acetaminophen ([place] 5/325) 1 tab PO TID PRN PRN Reason: Pain Stop: 12/15/18 22:24 Last Admin: 12/01/18 22:41 Dose: 1 tab Documented by: [id number] Hydrocodone Bitart/Acetaminophen ([place] 5/325) 1 - 2 tab PO Q6H PRN PRN Reason: Pain Stop: 12/15/18 22:24 Last Admin: 12/02/18 01:52 Dose: 2 tab Documented by: [id number] Alprazolam (Xanax) 0.25 mg PO NOW STA Stop: 12/01/18 17:54 Last Admin: 12/01/18 17:55 Dose: 0.25 mg Documented by: [id number] Alprazolam (Xanax) Confirm Administered Dose 0.5 mg .ROUTE .STK-MED ONE Stop: 12/01/18 17:53 Last Admin: 12/01/18 17:55 Dose: Not Given Documented by: [id number] Aspirin (Ecotrin Ectab) 81 mg PO QAM [facility] Stop: 01/01/19 08:59 Last Admin: 12/02/18 08:46 Dose: 81 mg Documented by: [id number] Ciprofloxacin (Cipro) 500 mg PO BID [facility] Stop: 12/11/18 22:59 Last Admin: 12/02/18 08:46 Dose: 500 mg Documented by: [id number] Admin: 12/01/18 23:56 Dose: 500 mg Documented by: [id number] Docusate Sodium (Colace) 100 mg PO BID [facility] Stop: 12/31/18 22:59 Last Admin: 12/02/18 08:46 Dose: 100 mg Documented by: [id number] Admin: 12/01/18 23:56 Dose: 100 mg Documented by: [id number] Enoxaparin Sodium (Lovenox) 100 mg SQ Q12H [facility] Stop: 12/31/18 22:59 Last Admin: 12/01/18 23:57 Dose: 100 mg Documented by: [id number] Enoxaparin Sodium (Lovenox) 150 mg SQ DAILY@1100 [facility] Stop: 01/01/19 10:59 Last Admin: 12/02/18 11:30 Dose: 150 mg Documented by: [id number] Hydrochlorothiazide (Hctz) 12.5 mg PO Q2D@0900 [facility] Stop: 01/01/19 08:59 Last Admin: 12/02/18 10:31 Dose: 12.5 mg Documented by: [id number] Sodium Chloride (Nss 1000ml) 1,000 mls @ 100 mls/hr IV .Q10H [facility] Stop: 12/02/18 03:44 Last Admin: 12/01/18 23:22 Dose: Not Given Documented by: [id number] Influenza Virus Vaccine Quadrival (Flucelvax Quad Vaccine) 0.5 ml IM .ONCE ONE Stop: 12/02/18 09:01 Last Admin: 12/02/18 10:33 Dose: 0.5 ml Documented by: [id number] Potassium Chloride (Klor-Con M10) 40 meq PO DAILY [facility] Stop: 01/01/19 08:59 Last Admin: 12/02/18 10:31 Dose: 40 meq Documented by: [id number] Pravastatin Sodium (Pravachol) 10 mg PO HS [facility] Stop: 12/31/18 22:59 Last Admin: 12/01/18 23:56 Dose: 10 mg Documented by: [id number] Prednisone (Prednisone) 10 mg PO QAM [facility] Stop: 01/01/19 08:59 Last Admin: 12/02/18 08:46 Dose: 10 mg Documented by: [id number] Warfarin Sodium (Coumadin) 5 mg PO NOW ONE Stop: 12/01/18 23:01 Last Admin: 12/01/18 23:56 Dose: 5 mg Documented by: [id number] Warfarin Sodium (Coumadin) 5 mg PO DAILY@1600 [facility] Stop: 01/01/19 15:59 Last Admin: 12/02/18 15:49 Dose: 5 mg Documented by: [id number] Medical Decision Making Differential Diagnosis Differential diagnosis: Etiologies such as infections, reactive airway disease, pneumonia, pneumothorax, COPD, CHF, cardiac ischemia, pulmonary embolism, musculoskeletal, gastrointestinal, as well as others were entertained. Medical Records Attestation: I reviewed the patient's medical records. Home Medications Current Medication List: was personally reviewed by me Laboratory Data Attestation: I reviewed the patient's lab results. Result diagrams: 12/02/18 05:56 12/02/18 05:56 Lab Results 12/01/18 12/01/18 12/01/18 Range/Units 18:27 18:27 18:27 WBC 17.24 H (4.8-10.8) K/uL RBC 4.43 (4.2-5.4) M/uL Hgb 13.6 (12.0-16.0) g/dL Hct 43.2 (37-47) % MCV 97.5 (80-100) fL MCH 30.7 (25-34) pg MCHC 31.5 L (32-36) g/dL RDW Std Deviation 47.3 H (36.4-46.3) fL RDW Coeff of Coty 13.3 (11.5-14.5) % Plt Count 371 (130-400) K/uL MPV 10.1 (7.4-10.4) fL Immature Gran % (Auto) 0.6 % Neut % (Auto) 79.5 % Lymph % (Auto) 14.7 % [place] % (Auto) 4.7 % Eos % (Auto) 0.3 % Baso % (Auto) 0.2 % Immature Gran # (Auto) 0.11 H (0.00-0.02) K/uL Neut # (Auto) 13.70 H (1.4-6.5) K/uL Lymph # (Auto) 2.53 (1.2-3.4) K/uL [place] # (Auto) 0.81 H (0.11-0.59) K/uL Eos # (Auto) 0.05 (0-0.5) K/uL Baso # (Auto) 0.04 (0-0.2) K/uL PT 10.4 (9.0-12.0) Seconds INR 1.0 (0.9-1.1) APTT 25.7 (21.0-31.0) Seconds PTT Ratio 0.9 Sodium 141 (136-145) mmol/L Potassium 3.4 L (3.5-5.1) mmol/L Chloride 104 (98-107) mmol/L Carbon Dioxide 31 (21-32) mmol/L Anion Gap 6.0 (3-11) BUN 19 H (7-18) mg/dl Creatinine 1.02 (0.6-1.2) mg/dl Est Cr Clr Drug Dosing Not Reportable Est GFR ( Amer) 61.0 Est GFR (Non-Af Amer) 52.6 BUN/Creatinine Ratio 18.1 (10-20) Glucose 108 H (70-99) mg/dl Calcium 9.4 (8.5-10.1) mg/dl Magnesium 2.1 (1.8-2.4) mg/dl Total Bilirubin 0.3 (0.2-1) mg/dl AST 15 (15-37) U/L ALT 16 (12-78) U/L Alkaline Phosphatase 71 (45-117) U/L Total Protein 7.7 (6.4-8.2) gm/dl Albumin 3.2 L (3.4-5.0) gm/dl Globulin 4.5 H (2.5-4.0) gm/dl Albumin/Globulin Ratio 0.7 L (0.9-2) Imaging Data Radiologist's Impression: Radiology results as stated below per my review and the radiologist's interpretation: XR chest 1V portable CLINICAL HISTORY: 78 years-old Female presenting with Dyspnea. TECHNIQUE: Portable upright AP view of the chest was obtained. COMPARISON: 09/10/[address] chest from 12/01/2018. FINDINGS: Atherosclerosis of the aortic arch. Cardiac silhouette enlarged. Pulmonary vascular prominence. Interstitial prominence may suggest interlobular septal thickening. Opacity at the right lung base may in part related to the prominent pericardial fat pad and is chronic. No other focal opacity. No large effusion or pneumothorax. Degenerative changes of the thoracic spine. Upper abdomen normal. IMPRESSION: 1. Cardiomegaly with volume overload and congestive change. No nain pulmonary edema at this time. 2. No convincing evidence of a new right basilar infiltrate suggest developing infarct in the distribution affected by pulmonary emboli allowing for image quality. Electronically signed by: Familia Hyatt M.D. 12/01/2018 6:09 PM US venous doppler LE CLINICAL HISTORY: 78 years-old Female presenting with Dyspnea, pain and swelling in the lower extremities. TECHNIQUE: Real-time grayscale and color and spectral Doppler ultrasound imaging of the veins of the bilateral lower extremities was performed. Compression and augmentation were also utilized. COMPARISON: 09/11/2017. FINDINGS: RIGHT: Common femoral vein: Patent. Greater saphenous vein (superficial): Patent. Deep femoral vein: Patent. Femoral vein: Patent. Popliteal vein: Patent. Calf veins: Patent. LEFT: Common femoral vein: Patent. Greater saphenous vein (superficial): Patent. Deep femoral vein: Patent. Femoral vein: Patent. Popliteal vein: Patent. Calf veins: Limited visualization secondary to subcutaneous edema. Grossly patent apart from nonvisualization of the left peroneal vein. Additionally, the region of the open wound in the mid to distal calf was not interrogated. Other: Subcutaneous edema in the popliteal fossae. IMPRESSION: 1. No evidence of deep venous thrombosis. 2. Bilateral lower extremity subcutaneous edema. Electronically signed by: Familia Hyatt M.D. 12/01/2018 8:52 PM ECG Data Attestation: I personally reviewed and interpreted this ECG as follows: Indication: chest pain and SOB/dyspnea Rate (beats per minute): 72 Rhythm: sinus rhythm Findings: + other (T wave abnormality inferior and anterior; QTC 431) and + PAC Comparison ECG Date: from (09/10/17) Change: no significant change Blood Pressure Blood Pressure Findings: Normal blood pressure MDM Narrative This patient was evaluated and appeared to be in no significant distress. IV access was obtained and laboratory work was drawn. The patient was placed on the public health informatician. Outpatient imaging study was reviewed and is significant for pulmonary emboli. There is no evidence of heart strain. EKG reveals no evidence of acute ischemia and patient has a rate of 72 bpm. Oxygen levels have remained stable on room air. Patient was significantly anxious and required Xanax. She requested pain medication including ibuprofen however as she will likely be anticoagulated, this is ill advised. Patient was then given a [place] tablet. Patient was finally agreeable to obtaining lower extremity Dopplers. As the patient is stable and the duration of the PE is unknown, patient will likely be anticoagulated with Lovenox. Case was discussed with the hospitalist service for further management. Patient and daughter are aware of the findings and plan and agree. Impression & Plan Pulmonary embolism, Chronic acquired lymphedema Discharge Plan Visit Data *Final* Discharge Date/Time: 12/01/18 21:58 Chief Complaint: Respiratory Problems Stated Complaint: PE, DR PRESTON ED Provider: Jessica James Discharge Problem: Pulmonary embolism, Chronic acquired lymphedema Patient Disposition: Admitted As Inpatient Discharge Instructions Interventions: ED Discharge Assessment Last Done: 12/01/18 21:58 The scribe's documentation has been prepared under my direction and personally reviewed by me in its entirety. I confirm that the note above accurately reflects all work, treatment, procedures, and medical decision making performed by me.
[2018-12-01] MEDS: CIPROFLOXACIN 500 MG TAB PO SCH (23:56)
[2018-12-01] MEDS: DOCUSATE SODIUM 100 MG CAP PO SCH (23:56)
[2018-12-02] MEDS ORDERED: HYDROCODONE/ACETAMOPHEN 5/325MG TAB PO PRN (01:35)
[2018-12-02 06:35] LABS: Hemoglobin 13.1 g/dL (12.0-16.0); Mean Corpuscular Hemoglobin 30.8 pg (25-34); Mean Corpuscular Hgb Conc 31.2 g/dL (32-36); Mean Corpuscular Volume 98.8 fL (80-100); Mean Platelet Volume 10.5 fL (7.4-10.4); Platelet Count 354 K/uL (130-400); RDW Coefficient of Variation 13.5 % (11.5-14.5); RDW Standard Deviation 48.2 fL (36.4-46.3); Red Blood Count 4.25 M/uL (4.2-5.4); White Blood Count 14.73 K/uL (4.8-10.8)
[2018-12-02 06:45] LABS: INR 1.1 (0.9-1.1); Prothrombin Time 10.8 Seconds (9.0-12.0)
[2018-12-02 06:54] LABS: BUN Creatinine Ratio 21.9 (10-20); Calcium 9.2 mg/dl (8.5-10.1); Creatinine Clr Calc Pharmacy 48.2 ml/min; Est GFR (African American) 65.7; Est GFR (Non-African American) 56.6; Potassium 3.3 mmol/L (3.5-5.1)
[2018-12-02] MEDS: DOCUSATE SODIUM 100 MG CAP PO SCH (08:46)
[2018-12-02] MEDS: CIPROFLOXACIN 500 MG TAB PO SCH (08:46)
[2018-12-02] MEDS ORDERED: INFLUENZA VIRUS QUAD VACCINE 0.5 ML SYR IM ONE (09:00)
[2018-12-02] MEDS ORDERED: ASPIRIN 81 MG ECTAB PO SCH (09:00)
[2018-12-02] MEDS ORDERED: POTASSIUM CHLORIDE 10 MEQ TABCR PO SCH (09:00)
[2018-12-02] MEDS ORDERED: predniSONE 10 MG TABLET PO SCH (09:00)
[2018-12-02] MEDS ORDERED: hydroCHLOROthiazide 25 MG TAB PO SCH (09:00)
[2018-12-02] MEDS ORDERED: INFLUENZA ADMINISTRATION CHARGE ONE (09:00)
[2018-12-02] MEDS: ACETAMINOPHEN 325 MG TAB PO PRN ×2 (10:38→15:48)
[2018-12-02] MEDS ORDERED: ENOXAPARIN 150 MG/ML SYR SQ SCH (11:00)
--- NOTE | 2018-12-02 12:20 | Hospitalist Progress Note ---
Date of Service December 02, 2018 Assessment & Plan (1) Acute pulmonary embolism: Per admitting service notes: -Patient found to have acute/subacute right lung pulmonary embolism on routine follow-up CT scan as an outpatient today -Patient asymptomatic, saturating well on room air, hemodynamically stable -History of prior DVT in the past, anticoagulation discontinued 02/2018 as per patient request Lower extremity Doppler ultrasound: Negative for DVT Coumadin 5 mg p.o. daily started with Lovenox bridge 150 mg subcutaneous daily (daily dosing prescribed as twice daily dosing not possible with logistics, discussed with pharmacist) Patient will need to be established with the Coumadin clinic, already informed about patient, will need repeat INR on , December 04, 2018 Please refer to associate software development engineer, this is patient's second episode of venous thromboembolism, will need to hypercoagulable work-up (2) Lymphedema: (3) Wound of lower extremity: Already following with the wound care center -Recent wound culture grew a pansensitive Pseudomonas -Continue ciprofloxacin as prescribed by wound care center Continue follow-up with wound care center Continue HCTZ (4) Rheumatoid arthritis: -Continue prednisone (5) HLD (hyperlipidemia): -Continue statin (6) DVT prophylaxis: -Currently on Lovenox/Coumadin bridge Disposition Discharge to home with home health services Follow-up with primary care physician on December 08, [address] Aquino Follow-up with wound care center as scheduled Subjective Follow-up for acute PE Seen resting in bedside chair, comfortable, not in distress On room air Denies shortness of breath, palpitations, chest pain, dizziness, cough Denies other symptoms She feels fine overall No bleeding Denies any other symptoms States she would like to be discharged today Review of Systems Review of Systems: All systems reviewed & are unremarkable except as noted in HPI & below Physical Exam Physical Exam: General- oriented x 3, not in distress, speaks in sentences with no effort or accessory muscle use Head- atraumatic Eyes- PERRL, EOMI, anicteric ENT- oropharynx clear Neck- supple, no JVD, no adenopathy, no thyromegaly; carotids +2/2, no bruits appreciated Lungs- clear to auscultation bilaterally, no rales/wheezes Heart- normal rate, regular rhythm; no murmur, no gallop, no rub appreciated Abdomen- normal bowel sounds, nondistended, soft, nontender, no masses or hepatosplenomegaly Extremities-right lower leg edema, chronic as per patient, with dressing wrapped around the whole lower leg Neuro- alert, oriented x 3; CN 2-12 grossly intact; motor 5/5 bilaterally;sensation 100% on all extremities; no other gross focal neurologic deficits Skin- warm & dry Results & Data Vital Signs (Past 12 Hours) Vital Signs Temp Pulse Pulse Resp BP Pulse Ox 12/02/18 11:31 36.6 C 69 18 111/63 92 12/02/18 07:10 36.4 C L 73 20 119/77 91 12/02/18 07:00 77 12/02/18 03:24 36.5 C 67 18 96/57 L 92 12/02/18 02:04 97 H Laboratory Results Laboratory Results - last 24 hr 12/01/18 12/01/18 12/01/18 18:27 18:27 18:27 WBC 17.24 H RBC 4.43 Hgb 13.6 Hct 43.2 MCV 97.5 MCH 30.7 MCHC 31.5 L RDW Std Deviation 47.3 H RDW Coeff of Coty 13.3 Plt Count 371 MPV 10.1 Immature Gran % (Auto) 0.6 Neut % (Auto) 79.5 Lymph % (Auto) 14.7 [place] % (Auto) 4.7 Eos % (Auto) 0.3 Baso % (Auto) 0.2 Immature Gran # (Auto) 0.11 H Neut # (Auto) 13.70 H Lymph # (Auto) 2.53 [place] # (Auto) 0.81 H Eos # (Auto) 0.05 Baso # (Auto) 0.04 PT 10.4 INR 1.0 APTT 25.7 PTT Ratio 0.9 Sodium 141 Potassium 3.4 L Chloride 104 Carbon Dioxide 31 Anion Gap 6.0 BUN 19 H Creatinine 1.02 Est Cr Clr Drug Dosing Not Reportable Est GFR ( Amer) 61.0 Est GFR (Non-Af Amer) 52.6 BUN/Creatinine Ratio 18.1 Glucose 108 H Calcium 9.4 Magnesium 2.1 Total Bilirubin 0.3 AST 15 ALT 16 Alkaline Phosphatase 71 Total Protein 7.7 Albumin 3.2 L Globulin 4.5 H Albumin/Globulin Ratio 0.7 L 12/02/18 12/02/18 12/02/18 05:56 05:56 06:20 WBC 14.73 H RBC 4.25 Hgb 13.1 Hct 42.0 MCV 98.8 MCH 30.8 MCHC 31.2 L RDW Std Deviation 48.2 H RDW Coeff of [place]y 13.5 Plt Count 354 MPV 10.5 H Immature Gran % (Auto) Neut % (Auto) Lymph % (Auto) [place] % (Auto) Eos % (Auto) Baso % (Auto) Immature Gran # (Auto) Neut # (Auto) Lymph # (Auto) [place] # (Auto) Eos # (Auto) Baso # (Auto) PT 10.8 INR 1.1 APTT PTT Ratio Sodium 141 Potassium 3.3 L Chloride 106 Carbon Dioxide 29 Anion Gap 7.0 BUN 21 H Creatinine 0.96 Est Cr Clr Drug Dosing 48.2 Est GFR ( Amer) 65.7 Est GFR (Non-Af Amer) 56.6 BUN/Creatinine Ratio 21.9 H Glucose 111 H Calcium 9.2 Magnesium Total Bilirubin AST ALT Alkaline Phosphatase Total Protein Albumin Globulin Albumin/Globulin Ratio
--- NOTE | 2018-12-02 12:37 | Discharge Summary ---
Date of Service December 02, 2018 Admission HPI Per Admitting Provider 78-year-old female who was referred to the ED for evaluation after outpatient CT scan demonstrated acute/subacute PE. Patient was getting a routine chest CT to follow-up on a previous diagnosis of pneumonia. Patient reports she was experiencing some shortness of breath a few weeks ago whenever she developed lymphedema to the bilateral lower extremities. Reports this improved once she started to receive wraps to her legs and the swelling improved. She denies chest pain and palpitations. No lightheadedness, dizziness, diaphoresis, syncopal events. She denies abdominal pain, nausea, vomiting, diarrhea. No u rinary symptoms. No fevers or chills. She is following at the wound care center for bilateral lower extremity wounds and lymphedema. Recent outpatient culture was positive for a pansensitive Pseudomonas. Patient was placed on ciprofloxacin. She reports a market improvement in her lower extremities since starting this antibiotic. In the ED, patient is hemodynamically stable. She is saturating well on room air. Labs show WBC 17 K however otherwise unremarkable. Admission Exam Per Admitting Provider General- oriented x 3, not in distress, speaks in sentences with no effort or accessory muscle use Head- atraumatic Eyes- PERRL, EOMI, anicteric ENT- oropharynx clear Neck- supple, no JVD, no adenopathy, no thyromegaly; carotids +2/2, no bruits appreciated Lungs- clear to auscultation bilaterally, no rales/wheezes Heart- normal rate, regular rhythm; no murmur, no gallop, no rub appreciated Abdomen- normal bowel sounds, nondistended, soft, nontender, no masses or hepatosplenomegaly Extremities-right lower leg edema, chronic as per patient, with dressing wrapped around the whole lower leg Neuro- alert, oriented x 3; CN 2-12 grossly intact; motor 5/5 bilaterally;sensation 100% on all extremities; no other gross focal neurologic deficits Skin- warm & dry Principal Diagnosis ACUTE PULMONARY EMBOLISM, RIGHT LUNG Discharge Exam General- oriented x 3, not in distress, speaks in sentences with no effort or accessory muscle use Head- atraumatic Eyes- PERRL, EOMI, anicteric ENT- oropharynx clear Neck- supple, no JVD, no adenopathy, no thyromegaly; carotids +2/2, no bruits appreciated Lungs- clear to auscultation bilaterally, no rales/wheezes Heart- normal rate, regular rhythm; no murmur, no gallop, no rub appreciated Abdomen- normal bowel sounds, nondistended, soft, nontender, no masses or hepatosplenomegaly Extremities-right lower leg edema, chronic as per patient, with dressing wrapped around the whole lower leg Neuro- alert, oriented x 3; CN 2-12 grossly intact; motor 5/5 bilat erally;sensation 100% on all extremities; no other gross focal neurologic deficits Skin- warm & dry Discharge Data Allergies Allergy/AdvReac Type Severity Reaction Status Date / Time strawberry Allergy Severe ANAPHYLAXIS Verified 12/01/18 18:13 tramadol AdvReac Severe confusion Verified 12/01/18 18:13 atorvastatin AdvReac Unknown SEVERE Verified 12/01/18 18:13 MUSCLE ACHES ibandronate sodium AdvReac Unknown nausea/vomi Verified 12/01/18 18:13 [From Boniva] ting fentanyl AdvReac Verified 12/01/18 18:13 Consultations 12/01/18 19:58 ED Decision to Admit Stat 12/01/18 22:25 Consult Case Management - Discharge Planning Routine Ordered Studies 12/01/18 17:32 US venous doppler LE BI Stat IMPRESSION: 1. No evidence of deep venous thrombosis. 2. Bilateral lower extremity subcutaneous edema. Hospital Course (1) Acute pulmonary embolism: Per admitting service notes: -Patient found to have acute/subacute right lung pulmonary embolism on routine follow-up CT scan as an outpatient today -Patient asymptomatic, saturating well on room air, hemodynamically stable -History of prior DVT in the past, anticoagulation discontinued 02/2018 as per patient request Lower extremity Doppler ultrasound: Negative for DVT Coumadin 5 mg p.o. daily started with Lovenox bridge 150 mg subcutaneous daily ( discussed with pharmacist, daily dosing prescribed as twice daily dosing not possible with logistics) Patient will need to be established with the Coumadin clinic, already informed about patient, will need repeat INR on , December 04, 2018 Please refer to stick puller, this is patient's second episode of venous thromboembolism, will need to hypercoagulable work-up (2) Lymphedema: (3) Wound of lower extremity: Already following with the wound care center -Recent wound culture grew a pansensitive Pseudomonas -Continue ciprofloxacin as prescribed by wound care center Continue follow-up with wound care center Continue HCTZ, potassium ordered for hypokalemia of 3.3 Repeat basic metabolic panel on follow-up with primary care physician Requested prescription for [place], PDMP queried, no issues (4) Rheumatoid arthritis: -Continue prednisone (5) HLD (hyperlipidemia): -Continue statin (6) DVT prophylaxis: -Currently on Coumadin with Lovenox bridge Disposition Discharge to home with home health services Follow-up with primary care physician on December 08, [address] Aquino Follow-up with wound care center as scheduled Total Time Total Time Spent Total Time Spent (In Minutes): 60 minutes Discharge Plan Discharge Items Patient Disposition: Home - Home Health Services Reason For Visit: PE Discharge Diagnosis: Acute pulmonary embolism (blood clot in the lung) Activity: As commented below Activity Comment: No heavy exertion until reevaluated by primary care physician Lifting: Wait until after follow-up appointment Exercise/Sports: Wait until after follow-up appointment Non-emergency contact: Primary Care Provider Call non-emergency contact if: you have any medication questions, your symptoms worsen, you have a fever, your wound has increased redness, your wound has increased drainage and your wound pain has increased Follow-up/Referrals: Poncho Aquino MD [Primary Care Provider] - 12/08/18 2:00 pm Diet: Heart Healthy Addtl Attending Provider Instructions: New medications for blood clot: Lovenox injection 150 mg subcutaneous daily Coumadin 5 mg by mouth daily You are also ordered potassium supplement, potassium 20 mEq daily. Stop taking aspirin, ibuprofen or any other NSAIDs to avoid bleeding. The [facility] pharmacist/Coumadin clinic will be calling you soon for advice regarding dosing of Coumadin and Lovenox, as well as blood work. Proceed to the emergency room immediately or call 911 if you have any head trauma, or if you experience major bleeding, for evaluation. Call your primary care physician immediately if you have signs of minor b leeding. Follow-up with Dr. Aquino on December 08, 2018 at [address] Aquino if you have any questions regarding your medications. Pending Studies at Discharge: Yes Studies:: Blood work care of [facility] pharmacy/Coumadin clinic (the office will be calling you for the schedule) Stand-Alone Forms: My [facility] Medications and DC Order Prescriptions: New enoxaparin [Lovenox] 150 mg/mL Syringe 150 mg subcut DAILY@1100 10 Days Qty: 10 RF: 1 warfarin [Coumadin] 5 mg Tablet 5 mg PO DAILY@1600 30 Days Qty: 30 RF: 0 potassium chloride [Klor-Con M10] 10 mEq Tablet,Er Particles/Crystals 20 meq PO DAILY 30 Days Qty: 60 RF: 0 Continued ciprofloxacin HCl 500 mg tablet 500 mg PO q12h Qty: 28 RF: 1 pravastatin 10 mg Tablet 10 mg PO HS RF: 0 docusate sodium [Colace] 100 mg Capsule 100 mg PO BID RF: 0 cholecalciferol (vitamin D3) [Vitamin D3] 2,000 unit Tablet 2,000 unit PO QAM RF: 0 prednisone 5 mg tablet 10 mg PO QAM RF: 0 hydrochlorothiazide 12.5 mg Tablet 12.5 mg PO Q2D PRN (Reason: Blood Pressure Systolic>100) RF: 0 biotin 5 mg Tablet 5 mg PO QAM RF: 0 hydrocodone-acetaminophen 5-325 mg tablet 1 tab PO TID PRN (Reason: Pain) Qty: 10 RF: 0 Discontinued aspirin 81 mg Tablet,Delayed Release (Dr/Ec) 81 mg PO QAM RF: 0 ibuprofen 200 mg Tablet 600 mg PO DAILY@0600,1800,0000 RF: 0 Discharge Orders: Discharge Order (Routine); Ordered 12/02/18 Ordered By: Gerardo Velez Admission Data Admit Date/Time: 12/01/18 20:23 Attending Provider: Gerardo Velez Admit Provider: Mikey Hunter Primary Care Provider: Poncho Aquino Other Providers: Teofilo Prather ; Mikey Hunter Other Interventions: Discharge Summary Assessment (RN) Last Done: 12/02/18 15:35
[2018-12-02] MEDS ORDERED: WARFARIN SOD 5 MG TAB PO SCH (16:00)
== END 2018-12-02 16:50 | disposition home health service (06) ==
LOC: 2W 15:48 → ED 15:48 → SUATTDRO 20:23 → 2W 21:58

== ENCOUNTER 2019-05-17 15:22 | Inpatient (IN) ==
--- NOTE | 2019-05-17 16:12 | Emergency Department Note ---
ED Provider Note NAME: NATAN CORREA AGE: 78 SEX: F ARRIVES VIA: Ambulance INFORMANT: [Patient] ED PROVIDER(S): [Zana Cohen MD] CHIEF COMPLAINT: Shortness of breath IMPRESSION: Hypoxia, Pneumonia, Acute UTI, COPD (chronic obstructive pulmonary disease) MEDICAL DECISION MAKING: The patient is a pleasant 78-year-old woman with a past medical history of COPD, hypertension, hyperlipidemia, rheumatoid arthritis, PE, venous insufficiency, history of Pseudomonas infection who presents emergency department from her assisted living facility with cough congestion and fevers over the past 36 hours. On arrival the patient is uncomfortable appearing but no acute distress, temperature of 37.4, hypoxic with O2 saturation of 85% on room air and vital signs otherwise stable. Patient has scattered wheezes throughout. She has dry mucous membranes. She has 2+ bilateral lower extremity edema which she reports is improved for her. EKG without overt acute ischemia. Chest x-ray with bibasilar infiltrates suspicious for pneumonia. WBC, H/H and platelets within normal limits. Chemistry without acidosis. Lactate within normal limits. Electrolytes LFTs unremarkable. Troponin negative/undetectable. BNP within normal limits. Influenza a negative. Given the patient's objective fevers prior to arrival in the setting of her chest x-ray findings, symptoms suspicious for pneumonia. Reasonable to proceed with admission given the patient's hypoxia in the setting of not being on oxygen normally. Ordered for Cefepime (given h/o of pseudomonas infection) and doxycycline. [facility]. Triage Nursing notes reviewed and agree them. [Prior medical records reviewed] [] Differential diagnosis: Reactive airway disease, pneumonia, pneumothorax, COPD, CHF, infections, cardiac ischemia, pulmonary embolism, musculoskeletal, gastrointestinal, as well as other pathologies. ER treatment provided: See below Diagnostics interpreted by me: ECG: NSR, 98 bpm, occasional pvcs, No ST elevation or depression, Qtc 446 and qrs 72. Cardiac Monitoring: NSR 90, occasional pvcs. Laboratory studies: [See below] [] Imaging studies: [See below] [] Consultation(s): [facility] HPI: The patient is a pleasant 78-year-old woman with a past medical history of COPD, hypertension, hyperlipidemia, rheumatoid arthritis, PE, venous insufficiency, history of Pseudomonas infection who presents emergency department from her assisted living facility with cough congestion and fevers over the past 36 hours. The patient reports onset as gradual. Reports no provoking factors. Describes symptoms as tightness. Reports no radiation. Reports severity as mild to moderate. Timing of symptoms are constant over past 36 hours. Has tried no medications prior to arrival. ROS: See above HPI for pertinent positives & negatives. A total of [10] systems reviewed and were otherwise negative. PAST MEDICAL HISTORY:[See Below] PAST SURGICAL HISTORY:[See Below] FAMILY HISTORY:[See Below] SOCIAL HISTORY:[See Below] HOME MEDICATIONS:[See Below] ALLERGIES:[See Below] VITALS:[See Below] PHYSICAL EXAMINATION: GENERAL: Awake, alert, uncomfortable-appearing, in no distress HENT: Normocephalic, atraumatic. Oropharynx with dry mucous membranes and otherwise unremarkable. . EYES: Normal conjunctiva. Sclera non-icteric. NECK: Supple. No nuchal rigidity. FROM. No JVD. RESPIRATORY: Scattered wheezes otherwise clear. CARDIAC: Tachycardic rate, normal rhythm. Extremities warm and well perfused. Pulses equal. ABDOMEN: Soft, non-distended. No tenderness to palpation. No rebound or guarding. No masses. RECTAL: Deferred. MUSCULOSKELETAL: Chest examination reveals no tenderness. The back is symmetrical on inspection without obvious abnormality. There is no CVA tenderness to palpation. No joint edema. LOWER EXTREMITIES: Calves are equal size bilaterally and non-tender. 2+ BLE edema. No discoloration. NEURO: Normal sensorium. No sensory or motor deficits noted. SKIN: No rash or jaundice noted. ED COURSE: Procedures: [none] [Critical Care:] [None] Impression & Plan Hypoxia, Pneumonia, Acute UTI, COPD (chronic obstructive pulmonary disease) Past Med/Surg History Medical History Bladder cancer (Chronic) Compression fracture (Resolved) COPD (chronic obstructive pulmonary disease) (Chronic) H/O deep venous thrombosis (Chronic) H/O renal calculi (Chronic) H/O sciatica (Chronic) HLD (hyperlipidemia) (Chronic) HTN (hypertension) (Chronic) Lumbar back pain with radiculopathy affecting left lower extremity (Chronic) Lymphedema (Chronic) Obesity (Chronic) Prediabetes (Chronic) Rheumatoid arthritis (Chronic) Spinal stenosis, lumbar region with neurogenic claudication (Chronic) Venous insufficiency (Chronic) Surgical History H/O breast biopsy (Chronic) H/O hernia repair (Resolved) H/O: hysterectomy (Resolved) History of cataract surgery (Chronic) Family History Mother Diabetes Father Colorectal cancer Social History Preferred Language: Lithuanian Communication Ability: Effective Phone Circuit Operator Required: No Beliefs That Will Affect Care: Jewish Jewish Beliefs: CONFUCIANISM marital status: / Current Living Situation: Alone Current Living Situation Comment: [facility] current occupational status: retired Other Information That Helps Us Care for You: No Feels Safe at Home: Yes Smoking Status: Former smoker Tobacco Type: cigarettes ; Second Hand Exposure: No ; Hx Alcohol Use: No Hx Substance Use: No Results & Data Vital Signs Vital Signs - 24 hr 05/17/19 15:34 05/17/19 15:43 05/17/19 16:36 Temperature 37.4 C Temperature Source Oral Pulse Rate 106 H Pulse Rate [Right Finger] 98 H Pulse Rate from SpO2 Sensor Pulse Rhythm Regular Respiratory Rate 22 22 Respiratory Effort / Characteristics Spontaneous SOB on Exertion Respiratory Depth Normal Blood Pressure 132/89 Blood Pressure Mean 103 Blood Pressure Position Lying Pulse Oximetry 85 L 93 96 Oxygen Delivery Method Room Air Nasal Cannula Nasal Cannula Oxygen Flow Rate 4 4 Sepsis Recent Fever Within 48 Hours No Sepsis Action Taken by Nursing No Action Required 05/17/19 17:14 05/17/19 19:00 Temperature Temperature Source Pulse Rate 124 H Pulse Rate [Right Finger] Pulse Rate from SpO2 Sensor 125 H Pulse Rhythm Respiratory Rate 22 Respiratory Effort / Characteristics Respiratory Depth Blood Pressure 115/67 Blood Pressure Mean 89 Blood Pressure Position Pulse Oximetry 96 90 Oxygen Delivery Method Aerosol Mask Oxygen Flow Rate 7 Sepsis Recent Fever Within 48 Hours Sepsis Action Taken by Custodial Medications Current Medication List: was personally reviewed by me Laboratory Data Attestation: I reviewed the patient's lab results. Result diagrams: 05/17/19 16:50 05/17/19 16:50 Lab Results 05/17/19 05/17/19 05/17/19 Range/Units 16:45 16:50 16:50 WBC 10.23 (4.8-10.8) K/uL RBC 4.41 (4.2-5.4) M/uL Hgb 13.4 (12.0-16.0) g/dL Hct 42.8 (37-47) % MCV 97.1 (80-100) fL MCH 30.4 (25-34) pg MCHC 31.3 L (32-36) g/dL RDW Std Deviation 53.2 H (36.4-46.3) fL RDW Coeff of Coty 14.9 H (11.5-14.5) % Plt Count 275 (130-400) K/uL MPV 10.1 (7.4-10.4) fL Immature Gran % (Auto) 0.2 % Neut % (Auto) 79.3 % Lymph % (Auto) 10.8 % Crosby % (Auto) 8.8 % Eos % (Auto) 0.4 % Baso % (Auto) 0.5 % Immature Gran # (Auto) 0.02 (0.00-0.02) K/uL Neut # (Auto) 8.12 H (1.4-6.5) K/uL Lymph # (Auto) 1.10 L (1.2-3.4) K/uL Crosby # (Auto) 0.90 H (0.11-0.59) K/uL Eos # (Auto) 0.04 (0-0.5) K/uL Baso # (Auto) 0.05 (0-0.2) K/uL PT 19.3 H (9.0-12.0) Seconds INR 1.9 H (0.9-1.1) APTT 35.5 H (21.0-31.0) Seconds PTT Ratio 1.3 Sodium (136-145) mmol/L Potassium (3.5-5.1) mmol/L Chloride (98-107) mmol/L Carbon Dioxide (21-32) mmol/L Anion Gap (3-11) BUN (7-18) mg/dl Creatinine (0.6-1.2) mg/dl Est Cr Clr Drug Dosing ml/min Est GFR ( Amer) Est GFR (Non-Af Amer) BUN/Creatinine Ratio (10-20) Glucose (70-99) mg/dl Lactate (0.4-2.0) mmol/L Calcium (8.5-10.1) mg/dl Phosphorus (2.5-4.9) mg/dl Magnesium (1.8-2.4) mg/dl Total Bilirubin (0.2-1) mg/dl AST (15-37) U/L ALT (12-78) U/L Alkaline Phosphatase (45-117) U/L Troponin I (0-0.045) ng/ml NT-Pro-B Natriuret Pep (0-1800) pg/ml Total Protein (6.4-8.2) gm/dl Albumin (3.4-5.0) gm/dl Globulin (2.5-4.0) gm/dl Albumin/Globulin Ratio (0.9-2) Influenza Type A (PCR) Neg for Influ A (Neg) Influenza Type B (PCR) Neg for Influ B (Neg) 05/17/19 05/17/19 Range/Units 16:50 16:50 WBC (4.8-10.8) K/uL RBC (4.2-5.4) M/uL Hgb (12.0-16.0) g/dL Hct (37-47) % MCV (80-100) fL MCH (25-34) pg MCHC (32-36) g/dL RDW Std Deviation (36.4-46.3) fL RDW Coeff of Coty (11.5-14.5) % Plt Count (130-400) K/uL MPV (7.4-10.4) fL Immature Gran % (Auto) % Neut % (Auto) % Lymph % (Auto) % Crosby % (Auto) % Eos % (Auto) % Baso % (Auto) % Immature Gran # (Auto) (0.00-0.02) K/uL Neut # (Auto) (1.4-6.5) K/uL Lymph # (Auto) (1.2-3.4) K/uL Crosby # (Auto) (0.11-0.59) K/uL Eos # (Auto) (0-0.5) K/uL Baso # (Auto) (0-0.2) K/uL PT (9.0-12.0) Seconds INR (0.9-1.1) APTT (21.0-31.0) Seconds PTT Ratio Sodium 137 (136-145) mmol/L Potassium 3.6 (3.5-5.1) mmol/L Chloride 104 (98-107) mmol/L Carbon Dioxide 28 (21-32) mmol/L Anion Gap 5.0 (3-11) BUN 18 (7-18) mg/dl Creatinine 1.15 (0.6-1.2) mg/dl Est Cr Clr Drug Dosing 43.0 ml/min Est GFR ( Amer) 52.8 Est GFR (Non-Af Amer) 45.5 BUN/Creatinine Ratio 15.4 (10-20) Glucose 114 H (70-99) mg/dl Lactate 0.8 (0.4-2.0) mmol/L Calcium 8.6 (8.5-10.1) mg/dl Phosphorus 3.6 (2.5-4.9) mg/dl Magnesium 1.9 (1.8-2.4) mg/dl Total Bilirubin 0.6 (0.2-1) mg/dl AST 23 (15-37) U/L ALT 19 (12-78) U/L Alkaline Phosphatase 62 (45-117) U/L Troponin I < 0.015 (0-0.045) ng/ml NT-Pro-B Natriuret Pep 200 (0-1800) pg/ml Total Protein 7.0 (6.4-8.2) gm/dl Albumin 3.0 L (3.4-5.0) gm/dl Globulin 4.0 (2.5-4.0) gm/dl Albumin/Globulin Ratio 0.8 L (0.9-2) Influenza Type A (PCR) (Neg) Influenza Type B (PCR) (Neg) Administered Medications Hydrocodone Bitart/Acetaminophen ([place] 5/325) 0.5 tab PO HS PRN PRN Reason: Pain Stop: 05/31/19 21:54 Last Admin: 05/18/19 01:13 Dose: 0.5 tab Documented by: [id number] Acetylcysteine (Mucomyst 10%) 3 ml INH BIDR SAMANTA Stop: 06/16/19 21:43 Last Admin: 05/17/19 23:26 Dose: Not Given Documented by: [id number] Docusate Sodium (Colace) 100 mg PO BID [facility] Stop: 06/16/19 21:43 Last Admin: 05/17/19 23:31 Dose: 100 mg Documented by: [id number] Guaifenesin (Mucinex) 1,200 mg PO Q12 [facility] Stop: 06/16/19 21:43 Last Admin: 05/17/19 23:31 Dose: 1,200 mg Documented by: [id number] Sodium Chloride (Nss 1000ml) 1,000 mls @ 100 mls/hr IV .Q10H SAMANTA Stop: 06/16/19 21:43 Last Admin: 05/17/19 22:11 Dose: 100 mls/hr Documented by: [id number] Ipratropium [place] (Atrovent 0.02% 0.5mg/2.5ml) 0.5 mg INH Q6R [facility] Stop: 06/17/19 00:59 Last Admin: 05/18/19 01:02 Dose: 0.5 mg Documented by: [id number] Levalbuterol HCl (Xopenex 1.25mg/0.5ml Neb) 1.25 mg INH Q6R SAMANTA Stop: 06/17/19 00:59 Last Admin: 05/18/19 01:02 Dose: 1.25 mg Documented by: [id number] Pravastatin Sodium (Pravachol) 10 mg PO HS [facility] Stop: 06/16/19 21:43 Last Admin: 05/17/19 23:31 Dose: 10 mg Documented by: [id number] Warfarin Sodium (Coumadin) 2.5 mg PO [id number] [facility] Stop: 06/16/19 21:59 Last Admin: 05/17/19 23:30 Dose: 2.5 mg Documented by: [id number] Discontinued Medications Albuterol (Duoneb) 12 ml NEB ONE ONE Stop: 05/17/19 16:19 Last Admin: 05/17/19 16:36 Dose: 12 ml Documented by: [id number] Cefepime HCl (Maxipime) Confirm Administered Dose 2,000 mg .ROUTE .STK-MED ONE Stop: 05/17/19 20:08 Last Admin: 05/17/19 20:08 Dose: Not Given Documented by: [id number] Dexamethasone Sodium Phosphate (Decadron Pf) 10 mg IV NOW ONE Stop: 05/17/19 16:19 Last Admin: 05/17/19 17:04 Dose: 10 mg Documented by: [id number] Guaifenesin (Mucinex) 600 mg PO NOW STA Stop: 05/17/19 16:21 Last Admin: 05/17/19 17:04 Dose: 600 mg Documented by: [id number] Acetaminophen (Ofirmev) 1,000 mg in 100 mls @ 400 mls/hr IV NOW STA Stop: 05/17/19 16:33 Last Infusion: 05/17/19 18:00 Dose: 0 mls/hr Documented by: [id number] Admin: 05/17/19 17:04 Dose: 400 mls/hr Documented by: [id number] Cefepime HCl (Maxipime) 2,000 mg in 20 mls @ 5 mls/min IV NOW STA; Protocol Stop: 05/17/19 17:50 Last Admin: 05/17/19 20:09 Dose: 5 mls/min Documented by: [id number] Doxycycline Hyclate 100 mg/ (Dextrose) 110 mls @ 50 mls/hr IV NOW STA Stop: 05/17/19 20:01 Last Infusion: 05/17/19 21:35 Dose: 0 mls/hr Documented by: [id number] Admin: 05/17/19 19:09 Dose: 50 mls/hr Documented by: [id number] Blood Pressure Blood Pressure Findings: Elevated blood pressure Blood Pressure Disposition: further management by hospitalist Discharge Plan Visit Data *Final* Discharge Date/Time: 05/17/19 21:44 Chief Complaint: Flu Like Symptoms Stated Complaint: LEG PAIN, FLU LIKE SX, COUGH ED Provider: Zana Cohen Discharge Problem: Hypoxia, Pneumonia, Acute UTI, COPD (chronic obstructive pulmonary disease) Patient Disposition: Admitted As Inpatient Discharge Instructions Interventions: ED Discharge Assessment Last Done: 05/17/19 21:44 Meds Home Medications and Allergies Home Medications Medication Instructions Recorded Confirmed Type cholecalciferol (vitamin D3) 2,000 unit PO QAM 05/22/18 05/17/19 History [Vitamin D3] docusate sodium [Colace] 100 mg PO BID 05/22/18 05/17/19 History pravastatin 10 mg PO HS 05/22/18 05/17/19 History hydrochlorothiazide 12.5 mg PO Q2D PRN 06/10/18 05/17/19 History prednisone 5 mg tablet 10 mg PO QAM tab 11/25/18 05/17/19 History biotin 5 mg PO QAM 12/01/18 05/17/19 History acetaminophen [Tylenol Extra 1,000 mg PO Q6H PRN 05/17/19 05/17/19 History Strength] hydrocodone-acetaminophen 0.5 tab PO HS PRN 05/17/19 05/17/19 History warfarin [Jantoven] 2.5 mg PO [id number] 05/17/19 05/17/19 History warfarin [Jantoven] 5 mg PO WK 05/17/19 05/17/19 History Allergies Allergy/AdvReac Type Severity Reaction Status Date / Time strawberry Allergy Severe ANAPHYLAXIS Verified 05/17/19 16:15 tramadol AdvReac Severe confusion Verified 05/17/19 16:15 atorvastatin AdvReac Unknown SEVERE Verified 05/17/19 16:15 MUSCLE ACHES ibandronate sodium AdvReac Unknown nausea/vomi Verified 05/17/19 16:15 [From Boniva] ting fentanyl AdvReac Unknown Verified 05/17/19 21:46
[2019-05-17] MEDS ORDERED: DEXAMETHASONE **PF** INJ 10 MG/ML VIAL IV ONE (16:18)
[2019-05-17] MEDS ORDERED: ALBUT/IPRATROP 3MG/0.5MG NEB 3 ML VIAL NEB ONE (16:18)
[2019-05-17] MEDS ORDERED: ACETAMINOPHEN 1,000 MG/100 ML VIAL IV STA (16:19)
[2019-05-17] MEDS ORDERED: guaiFENesin 600 MG TABCR PO STA (16:20)
[2019-05-17 17:04] LABS: Basophils # (auto) 0.05 K/uL (0-0.2); Basophils % (auto) 0.5 %; Eosinophils # (auto) 0.04 K/uL (0-0.5); Eosinophils % (auto) 0.4 %; Hematocrit (blood only) 42.8 % (37-47); Hemoglobin 13.4 g/dL (12.0-16.0); Immature Granulocytes # (auto) 0.02 K/uL (0.00-0.02); Immature Granulocytes % (auto) 0.2 %; Lymphocytes % (auto) 10.8 %; Mean Corpuscular Hemoglobin 30.4 pg (25-34); Mean Corpuscular Hgb Conc 31.3 g/dL (32-36); Mean Corpuscular Volume 97.1 fL (80-100); Mean Platelet Volume 10.1 fL (7.4-10.4); Monocytes % (auto) 8.8 %; Neutrophils # (auto) 8.12 K/uL (1.4-6.5); Neutrophils % (auto) 79.3 %; Platelet Count 275 K/uL (130-400); RDW Coefficient of Variation 14.9 % (11.5-14.5); RDW Standard Deviation 53.2 fL (36.4-46.3); Red Blood Count 4.41 M/uL (4.2-5.4); White Blood Count 10.23 K/uL (4.8-10.8)
--- NOTE | 2019-05-17 17:10 | XRay Report ---
XR chest 1V portable CLINICAL HISTORY: SEPSIS COMPARISON STUDY: 12/01/2018 FINDINGS: The heart is enlarged. There is radiographic evidence of mild congestive failure/fluid over load. There is no lobar consolidation. Basilar opacities likely represent a combination of atelectasi s, and overlying breast tissue attenuation. If there is clinical concern over the presence of a pneum onia, then a PA and lateral study should be obtained in follow-up[ IMPRESSION: 1. Cardiomegaly and radiographic evidence of mild congestive failure/fluid overload 2. Basilar opacities statistically atelectatic although an infectious/inflammatory processes could ap pear similar ACT 112: Negative or not required by law. Electronically signed by: Aaron Choi M.D. 05/17/2019 5:09 PM
[2019-05-17 17:15] LABS: INR 1.9 (0.9-1.1); Partial Thromboplastin Ratio 1.3; Partial Thromboplastin Time 35.5 Seconds (21.0-31.0); Prothrombin Time 19.3 Seconds (9.0-12.0)
[2019-05-17 17:26] LABS: Alanine Aminotransferase 19 U/L (12-78); Aspartate Aminotransferase 23 U/L (15-37); BUN Creatinine Ratio 15.4 (10-20); Blood Urea Nitrogen 18 mg/dl (7-18); Calcium 8.6 mg/dl (8.5-10.1); Carbon Dioxide 28 mmol/L (21-32); Chloride 104 mmol/L (98-107); Est GFR (African American) 52.8; Est GFR (Non-African American) 45.5; Glucose 114 mg/dl (70-99); Magnesium 1.9 mg/dl (1.8-2.4); Potassium 3.6 mmol/L (3.5-5.1); Sodium 137 mmol/L (136-145)
[2019-05-17 17:31] LABS: Influenza A virus by PCR Neg for Influ A (Neg); Influenza B virus by PCR Neg for Influ B (Neg)
[2019-05-17 17:31] LABS: Albumin Globulin Ratio 0.8 (0.9-2); Alkaline Phosphatase 62 U/L (45-117); Bilirubin,Total 0.6 mg/dl (0.2-1); NT Pro B Type Natriuretic Pept 200 pg/ml (0-1800); Phosphorus 3.6 mg/dl (2.5-4.9); Troponin I < 0.015 ng/ml (0-0.045)
[2019-05-17] MEDS ORDERED: CEFEPIME 2,000 MG/20 ML VIAL IV STA (17:47)
[2019-05-17] MEDS ORDERED: DOXYCYCLINE HYCLATE 100 MG in DEXTROSE 5% 100 ML IV STA (17:50)
--- NOTE | 2019-05-17 19:13 | History & Physical Report ---
Date of Service May 17, 2019 Assessment & Plan (1) Pneumonia: PNEUMONIA WITH HYPOXIA POSSIBLE SEPSIS Blood pressure stable, lactic acid within normal limits Blood cultures, sputum culture, urinalysis with reflex for urine culture ordered Chest x-ray:1. Cardiomegaly and radiographic evidence of mild congestive failure/fluid overload 2. Basilar opacities statistically atelectatic although an infectious/inflammatory processes could appear similar CT chest without contrast: Ordered Nasal MRSA ordered Influenza a and B PCR negative Bio fire test ordered, if unrevealing will proceed with testing for Covid 19 in light of patient's clinical presentation and history For now airborne, droplet, contact precautions ordered Cefepime plus doxycycline ordered IV fluids Scheduled Xopenex and Atrovent, Mucomyst every 12, Mucinex every 12 Monitor in telemetry unit HISTORY OF PULMONARY EMBOLISM ON COUMADIN INR 1.9 Usually on Coumadin 2.5 mg daily except 5 mg INR daily HISTORY OF BILATERAL LOWER EXTREMITY LYMPHEDEMA Lower extremity edema at baseline per patient On HCTZ, hold for now in light of underlying infection RHEUMATOID ARTHRITIS ON CHRONIC PREDNISONE Blood pressure stable, continue prednisone 10 mg p.o. daily DVT prophylaxis INR 1.9, on chronic Coumadin Disposition Lives in a senior housing facility Will need PT and OT evaluation History of Present Illness 78-year-old female with history of pulmonary embolism on Coumadin, bilateral lymphedema, rheumatoid arthritis on chronic prednisone, Presenting with progressive cough, shortness of breath, subjective chills x4 days. Patient lives in a senior housing building. She was at her usual baseline state of heal. until last 4 days ago, when she started to develop cough, associated with subjective chills, and shortness of breath This was followed by sputum production-green, thick phlegm. Today, the patient was noted to be very weak and unable to stand due to leg weakness as per patient's daughter at the bedside. Of note, patient reports that she was around residents in her building who were coughing for the past week. Patient was admitted with blood pressure of 132/89, pulse rate 106, respiratory rate 22, saturating 85% on room air, improving to 93% 4 L of nasal cannula. Temperature is 37.4 Chest x-ray showing possible bilateral lower lobe pneumonia. Lactic acid normal. BNP normal. On exam, the patient was seen sitting up in bedside chair, on 4 L of nasal cannula, oriented x3, alert, not in distress, speaks in sentences with no effort Denies active shortness of breath, chest pain, headache, dizziness, nausea or vomiting, abdominal pain, problems urination bowel movement. She says she just feels "rotten". Denies sore throat, myalgias, arthralgias. No other symptoms Primary Care Provider: Poncho Aquino MD Allergies Allergy/AdvReac Type Severity Reaction Status Date / Time strawberry Allergy Severe ANAPHYLAXIS Verified 05/17/19 16:15 tramadol AdvReac Severe confusion Verified 05/17/19 16:15 atorvastatin AdvReac Unknown SEVERE Verified 05/17/19 16:15 MUSCLE ACHES ibandronate sodium AdvReac Unknown nausea/vomi Verified 05/17/19 16:15 [From Boniva] ting fentanyl AdvReac Verified 05/17/19 16:15 Home Medications Home Medications Medication Instructions Recorded Confirmed Type cholecalciferol (vitamin D3) 2,000 unit PO QAM 05/22/18 05/17/19 History [Vitamin D3] docusate sodium [Colace] 100 mg PO BID 05/22/18 05/17/19 History pravastatin 10 mg PO HS 05/22/18 05/17/19 History hydrochlorothiazide 12.5 mg PO Q2D PRN 06/10/18 05/17/19 History prednisone 5 mg tablet 10 mg PO QAM tab 11/25/18 05/17/19 History biotin 5 mg PO QAM 12/01/18 05/17/19 History acetaminophen [Tylenol Extra 1,000 mg PO Q6H PRN 05/17/19 05/17/19 History Strength] hydrocodone-acetaminophen 0.5 tab PO HS PRN 05/17/19 05/17/19 History warfarin [Jantoven] 2.5 mg PO [id number] 05/17/19 05/17/19 History warfarin [Jantoven] 5 mg PO WK 05/17/19 05/17/19 History Past Med/Surg History Social History Preferred Language: Palestinian Communication Ability: Effective [place] Required: No Beliefs That Will Affect Care: Faith Faith Beliefs: SYNAGOGUE marital status: / Current Living Situation: Alone Current Living Situation Comment: [facility] current occupational status: retired Other Information That Helps Us Care for You: No Feels Safe at Home: Yes Smoking Status: Former smoker Tobacco Type: cigarettes ; Second Hand Exposure: No ; Hx Alcohol Use: No Hx Substance Use: No Review of Systems Review of Systems: All systems reviewed & are unremarkable except as noted in HPI & below Physical Exam Physical Exam: General- oriented x 3, not in distress, speaks in sentences with no effort or accessory muscle use Head- atraumatic Eyes- PERRL, EOMI, anicteric ENT- oropharynx clear Neck- supple, no JVD, no adenopathy, no thyromegaly; carotids +2/2, no bruits appreciated Lungs-positive crackles at the bases, no wheezing, good air entry bilaterally Heart-tachycardic, regular rhythm; no murmur, no gallop, no rub appreciated Abdomen- normal bowel sounds, nondistended, soft, nontender, no masses or hepatosplenomegaly Extremities-positive grade 2 bilateral lower extremity edema, with mild to moderate erythema, no warmth, no tenderness; peripheral pulses intact Neuro- alert, oriented x 3; CN 2-12 grossly intact; motor 5/5 bilate rally;sensation 100% on all extremities; no other gross focal neurologic deficits Skin- warm & dry Results & Data Vital Signs (Past 12 Hours) Vital Signs Temp Pulse Pulse Resp BP Pulse Ox 05/17/19 17:14 96 05/17/19 16:36 98 H 22 96 05/17/19 15:43 93 05/17/19 15:34 37.4 C 106 H 22 132/89 85 L Laboratory Results Laboratory Results - last 24 hr 05/17/19 05/17/19 05/17/19 16:45 16:50 16:50 WBC 10.23 RBC 4.41 Hgb 13.4 Hct 42.8 MCV 97.1 MCH 30.4 MCHC 31.3 L RDW Std Deviation 53.2 H RDW Coeff of Coty 14.9 H Plt Count 275 MPV 10.1 Immature Gran % (Auto) 0.2 Neut % (Auto) 79.3 Lymph % (Auto) 10.8 [place] % (Auto) 8.8 Eos % (Auto) 0.4 Baso % (Auto) 0.5 Immature Gran # (Auto) 0.02 Neut # (Auto) 8.12 H Lymph # (Auto) 1.10 L [place] # (Auto) 0.90 H Eos # (Auto) 0.04 Baso # (Auto) 0.05 PT 19.3 H INR 1.9 H APTT 35.5 H PTT Ratio 1.3 Sodium Potassium Chloride Carbon Dioxide Anion Gap BUN Creatinine Est Cr Clr Drug Dosing Est GFR ( Amer) Est GFR (Non-Af Amer) BUN/Creatinine Ratio Glucose Lactate Calcium Phosphorus Magnesium Total Bilirubin AST ALT Alkaline Phosphatase Troponin I NT-Pro-B Natriuret Pep Total Protein Albumin Globulin Albumin/Globulin Ratio Influenza Type A (PCR) Neg for Influ A Influenza Type B (PCR) Neg for Influ B 05/17/19 05/17/19 16:50 16:50 WBC RBC Hgb Hct MCV MCH MCHC RDW Std Deviation RDW Coeff of Coty Plt Count MPV Immature Gran % (Auto) Neut % (Auto) Lymph % (Auto) [place] % (Auto) Eos % (Auto) Baso % (Auto) Immature Gran # (Auto) Neut # (Auto) Lymph # (Auto) [place] # (Auto) Eos # (Auto) Baso # (Auto) PT INR APTT PTT Ratio Sodium 137 Potassium 3.6 Chloride 104 Carbon Dioxide 28 Anion Gap 5.0 BUN 18 Creatinine 1.15 Est Cr Clr Drug Dosing 43.0 Est GFR ( Amer) 52.8 Est GFR (Non-Af Amer) 45.5 BUN/Creatinine Ratio 15.4 Glucose 114 H Lactate 0.8 Calcium 8.6 Phosphorus 3.6 Magnesium 1.9 Total Bilirubin 0.6 AST 23 ALT 19 Alkaline Phosphatase 62 Troponin I < 0.015 NT-Pro-B Natriuret Pep 200 Total Protein 7.0 Albumin 3.0 L Globulin 4.0 Albumin/Globulin Ratio 0.8 L Influenza Type A (PCR) Influenza Type B (PCR) Code Status & VTE Plan Code Status Full code as per patient VTE Prophylaxis Plan VTE Prophylaxis will be ordered: Yes
[2019-05-17] MEDS ORDERED: CEFEPIME 2,000 MG/20 ML VIAL ONE (20:07)
[2019-05-17 21:38] LABS: Appearance Urine Cloudy (Clear); Bilirubin Urine Negative (Negative); Blood Urine 3+ (Negative); Color Urine Amber; Glucose Urine UA Negative (Negative); Ketones Urine 1+ (Negative); Leukocyte Esterase Urine 1+ (Negative); Nitrite Urine Positive (Negative); Protein Urine 1+ (Negative); Specific Gravity Urine >= 1.030 (1.000-1.030); Urobilinogen Urine Negative (Negative); pH Urine 5.5 (4.5-7.5)
[2019-05-17 21:44] LABS: Bacteria Urine 4+ (Negative); Mucus Urine Present (None Prsent); WBC Urine >30 /hpf (0-5)
[2019-05-17] MEDS ORDERED: XOPENEX/ATROVENT 1.25mg/0.5MG NEB COMBO NEB SCH (21:44)
[2019-05-17 21:45] LABS: RBC Urine >30 /hpf (0-4)
[2019-05-17] MEDS ORDERED: CEFEPIME CONSULT ACTIVE PRN (21:50)
[2019-05-17] MEDS: SODIUM CHLORIDE 0.9% 1000ML 1,000 ML IV SCH (22:11)
[2019-05-17 23:21] LABS: Adenovirus PCR Not Detected (NotDetected)
[2019-05-17 23:22] LABS: Bordetella parapertussis PCR Not Detected (NotDetected); Bordetella pertussis PCR Not Detected (NotDetected); Chlamydia pneumoniae PCR Not Detected (NotDetected); Coronavirus 229E PCR Not Detected (NotDetected); Coronavirus HKU1 PCR Not Detected (NotDetected); Coronavirus NL63 PCR Not Detected (NotDetected); Coronavirus OC43PCR Not Detected (NotDetected); Influenza A PCR Not Detected (NotDetected); Influenza B PCR Not Detected (NotDetected); Mycoplasma pneumoniae PCR Not Detected (NotDetected); Parainfluenza Virus 1 PCR Not Detected (NotDetected); Parainfluenza Virus 2 PCR Not Detected (NotDetected); Parainfluenza Virus 3 PCR Not Detected (NotDetected); Parainfluenza Virus 4 PCR Not Detected (NotDetected); Respiratory Syncytial VirusPCR Not Detected (NotDetected); Rhinovirus/Enterovirus PCR Not Detected (NotDetected)
[2019-05-17 23:23] LABS: Human Metapneumovirus PCR DETECTED (NotDetected)
[2019-05-17] MEDS: ACETYLCYSTEINE 10% INHAL SOLN 4 ML **DISPENSED BY RESP. INH SCH (23:26)
[2019-05-17] MEDS: WARFARIN SOD 2.5 MG TAB PO SCH (23:30)
[2019-05-17] MEDS: PRAVASTATIN SOD 10 MG TAB PO SCH (23:31)
[2019-05-17] MEDS: guaiFENesin 600 MG TABCR PO SCH (23:31)
[2019-05-17] MEDS: DOCUSATE SODIUM 100 MG CAP PO SCH (23:31)
[2019-05-18] MEDS: IPRATROPIUM BROMIDE NEB SOLN 0.02% 2.5 ML VIAL INH SCH ×4 (01:02→19:16)
[2019-05-18] MEDS: LEVALBUTEROL 1.25MG/0.5ML NEB INH SCH ×4 (01:02→19:16)
[2019-05-18] MEDS: HYDROCODONE/ACETAMOPHEN 5/325MG TAB PO PRN (01:13)
[2019-05-18] MEDS: ACETAMINOPHEN 325 MG TAB PO PRN (05:23)
[2019-05-18 05:47] LABS: Basophils # (auto) 0.01 K/uL (0-0.2); Basophils % (auto) 0.2 %; Hematocrit (blood only) 41.8 % (37-47); Hemoglobin 12.9 g/dL (12.0-16.0); Immature Granulocytes # (auto) 0.02 K/uL (0.00-0.02); Immature Granulocytes % (auto) 0.3 %; Lymphocytes # (auto) 0.91 K/uL (1.2-3.4); Lymphocytes % (auto) 14.4 %; Mean Corpuscular Hemoglobin 29.9 pg (25-34); Mean Corpuscular Hgb Conc 30.9 g/dL (32-36); Mean Corpuscular Volume 96.8 fL (80-100); Mean Platelet Volume 9.7 fL (7.4-10.4); Monocytes # (auto) 0.39 K/uL (0.11-0.59); Monocytes % (auto) 6.2 %; Neutrophils # (auto) 5.01 K/uL (1.4-6.5); Neutrophils % (auto) 78.9 %; Platelet Count 248 K/uL (130-400); RDW Coefficient of Variation 14.8 % (11.5-14.5); RDW Standard Deviation 52.4 fL (36.4-46.3); Red Blood Count 4.32 M/uL (4.2-5.4); White Blood Count 6.34 K/uL (4.8-10.8)
[2019-05-18 05:55] LABS: Prothrombin Time 19.9 Seconds (9.0-12.0)
[2019-05-18] MEDS ORDERED: DOXYCYCLINE HYCLATE 100 MG in DEXTROSE 5% 100 ML IV SCH (06:00)
[2019-05-18 06:16] LABS: BUN Creatinine Ratio 16.7 (10-20); Calcium 8.2 mg/dl (8.5-10.1); Creatinine Clr Calc Pharmacy 41.6 ml/min; Est GFR (African American) 50.6; Est GFR (Non-African American) 43.7; Potassium 3.8 mmol/L (3.5-5.1)
[2019-05-18] MEDS: ACETYLCYSTEINE 10% INHAL SOLN 4 ML **DISPENSED BY RESP. INH SCH ×2 (07:06→19:16)
--- NOTE | 2019-05-18 07:25 | CT Scan Report ---
CT chest wo con CT DOSE: 652.63 mGycm HISTORY: hypoxia, pneumonia, r/o pleural effusion TECHNIQUE: Multiaxial CT images of the chest were performed without contrast. A dose lowering techni que was utilized adhering to the principles of ALARA. COMPARISON: Chest CT 12/01/2018. FINDINGS: No pneumothorax. No pleural effusions. Patchy consolidation within the left lower lobe. The re are a few additional faint groundglass airspace opacities seen within the lungs. The central airwa ys are patent. No fractures within the visualized osseous structures. The heart is borderline enlarge d. No pericardial effusion. Limited views of the upper abdomen demonstrate hepatic steatosis. There i s a bilobed hypodense lesion within the left kidney which is partially visualized. This favors a cyst . Normal esophagus. Normal caliber thoracic aorta with mild calcified plaque. IMPRESSION: 1. Patchy consolidation within the left lower lobe. There are a few additional scattered faint ground glass opacities within the lungs. This is nonspecific and could be due to a bacterial or viral pneumo yarely. 2. Additional findings as described above. ACT 112: Negative or not required by law. Electronically signed by: Tyler Parish M.D. 05/18/2019 7:23 AM
[2019-05-18] MEDS: predniSONE 10 MG TABLET PO SCH (08:51)
[2019-05-18] MEDS: guaiFENesin 600 MG TABCR PO SCH ×2 (08:51→21:26)
[2019-05-18] MEDS: DOCUSATE SODIUM 100 MG CAP PO SCH ×2 (08:51→21:25)
[2019-05-18] MEDS: CHOLECALCIFEROL 1,000 UNITS 25 MCG TAB PO SCH (08:52)
[2019-05-18] MEDS: CEFEPIME 2,000 MG in SYRINGE 7.5 ML IV SCH ×2 (08:52→21:24)
[2019-05-18] MEDS ORDERED: NON-FORMULARY MEDICATION (Biotin 5 MG) PO SCH (09:00)
[2019-05-18] MEDS: SODIUM CHLORIDE 0.9% 1000ML 1,000 ML IV SCH (10:27)
--- NOTE | 2019-05-18 11:48 | Hospitalist Progress Note ---
Date of Service Delayed entry Date of service noted below May 18, 2019 Assessment & Plan (1) Pneumonia: PNEUMONIA WITH HYPOXIA POSSIBLE SEPSIS Blood pressure stable, lactic acid within normal limits Blood cultures: Negative so far Serum culture: Awaiting collection Urine culture: Negative Chest x-ray: 1. Cardiomegaly and radiographic evidence of mild congestive failure/fluid overload 2. Basilar opacities statistically atelectatic although an infectious/inflammatory processes could appear similar CT chest without contrast: Patchy consolidation within the left lower lobe. There are a few additional scattered faint groundglass opacities within the lungs. This is nonspecific and could be due to a bacterial or viral pneumonia. Nasal MRSA: Negative Influenza a and B PCR negative Bio fire test: Positive for metapneumovirus Continue cefepime plus doxycycline Scheduled Xopenex and Atrovent, Mucomyst nebs and Mucinex every 12 hours Discontinue IV fluids Dr. ribeiro HISTORY OF PULMONARY EMBOLISM ON COUMADIN INR 2.0 Usually on Coumadin 2.5 mg daily except 5 mg INR daily HISTORY OF BILATERAL LOWER EXTREMITY LYMPHEDEMA Lower extremity edema at baseline per patient Will resume HCTZ RHEUMATOID ARTHRITIS ON CHRONIC PREDNISONE Blood pressure stable, continue prednisone 10 mg p.o. daily DVT prophylaxis INR 2.0, on chronic Coumadin Disposition Lives in a senior housing facility on her own PT and OT evaluation Admission and Anticipated Discharge Date Admission Date: May 17, 2019 Subjective Follow-up for hypoxia, pneumonia Seen resting in bedside chair, off nasal cannula, comfortable States that she feels improved compared to previous day Less cough, less sputum production No chills, no chest pain No abdominal pain, nausea vomiting Denies other symptoms Review of Systems Review of Systems: All systems reviewed & are unremarkable except as noted in HPI & below Physical Exam Physical Exam: General- oriented x 3, not in distress, speaks in sentences with no effort or accessory muscle use Eyes- anicteric Neck- no JVD Lungs-mild rales on the left base, no wheezing Heart- normal rate, regular rhythm; no murmurs Abdomen- normal bowel sounds, nondistended, soft, nontender Extremities-chronic grade 2 lower leg edema with mild erythema, no tenderness Neuro- alert, oriented x 3; no gross focal neurologic deficits Skin- warm & dry Results & Data ([facility]) Vital Signs (Past 12 Hours) Vital Signs Temp Pulse Pulse Resp BP Pulse Ox 05/18/19 08:07 36.5 C 98 H 18 149/73 H 96 05/18/19 08:00 37.0 C 76 96 H 16 151/69 H 95 05/18/19 07:07 71 20 92 05/18/19 02:34 36.4 C L 90 22 150/78 H 91 05/18/19 01:03 93 H 20 93 Laboratory Results All noted and reviewed
[2019-05-18] MEDS ORDERED: SODIUM CHLORIDE 0.65% NA SOLN 45 ML (OCEAN) ONE (19:57)
[2019-05-18] MEDS: WARFARIN SOD 2.5 MG TAB PO SCH (21:25)
[2019-05-18] MEDS: PRAVASTATIN SOD 10 MG TAB PO SCH (21:26)
[2019-05-19] MEDS: LEVALBUTEROL 1.25MG/0.5ML NEB INH SCH ×4 (00:55→19:52)
[2019-05-19] MEDS: IPRATROPIUM BROMIDE NEB SOLN 0.02% 2.5 ML VIAL INH SCH ×4 (00:57→19:51)
[2019-05-19] MEDS: HYDROCODONE/ACETAMOPHEN 5/325MG TAB PO PRN (01:32)
--- NOTE | 2019-05-19 05:30 | Electrocardiogram Report ---
Test Reason : Blood Pressure : / mmHG Vent. Rate : 098 BPM Atrial Rate : 098 BPM P-R Int : 140 ms QRS Dur : 072 ms QT Int : 350 ms P-R-T Axes : 065 022 -18 degrees QTc Int : 446 ms Poor data quality, interpretation may be adversely affected Sinus rhythm with occasional Premature ventricular complexes and Premature atrial complexes Poor R wave progression, consider anterior VA vs. lead placement vs. LVH Nonspecific T wave abnormality Abnormal ECG When compared with ECG of 01-DEC-2018 18:30, Premature ventricular complexes are now Present Confirmed by Mitchell Stevens ([id number]) on 05/19/2019 5:30:23 AM Referred By: REFERRED SELF Confirmed By:Mitchell Stevens
[2019-05-19 06:00] LABS: Basophils # (auto) 0.07 K/uL (0-0.2); Basophils % (auto) 0.6 %; Eosinophils # (auto) 0.04 K/uL (0-0.5); Eosinophils % (auto) 0.3 %; Hematocrit (blood only) 40.6 % (37-47); Hemoglobin 12.6 g/dL (12.0-16.0); Immature Granulocytes # (auto) 0.02 K/uL (0.00-0.02); Immature Granulocytes % (auto) 0.2 %; Lymphocytes # (auto) 1.78 K/uL (1.2-3.4); Lymphocytes % (auto) 15.3 %; Mean Corpuscular Hemoglobin 29.9 pg (25-34); Mean Corpuscular Volume 96.2 fL (80-100); Mean Platelet Volume 9.9 fL (7.4-10.4); Monocytes # (auto) 0.99 K/uL (0.11-0.59); Monocytes % (auto) 8.5 %; Neutrophils # (auto) 8.71 K/uL (1.4-6.5); Neutrophils % (auto) 75.1 %; Platelet Count 262 K/uL (130-400); RDW Coefficient of Variation 14.8 % (11.5-14.5); RDW Standard Deviation 52.2 fL (36.4-46.3); Red Blood Count 4.22 M/uL (4.2-5.4); White Blood Count 11.61 K/uL (4.8-10.8)
[2019-05-19 06:34] LABS: BUN Creatinine Ratio 22.3 (10-20); Calcium 8.3 mg/dl (8.5-10.1); Creatinine Clr Calc Pharmacy 47.7 ml/min; Est GFR (African American) 59.6; Est GFR (Non-African American) 51.4; Potassium 3.9 mmol/L (3.5-5.1)
[2019-05-19 06:39] LABS: INR 2.7 (0.9-1.1); Prothrombin Time 27.4 Seconds (9.0-12.0)
[2019-05-19] MEDS: ACETYLCYSTEINE 10% INHAL SOLN 4 ML **DISPENSED BY RESP. INH SCH ×2 (07:19→19:53)
[2019-05-19] MEDS: DOCUSATE SODIUM 100 MG CAP PO SCH ×2 (07:46→21:56)
[2019-05-19] MEDS: guaiFENesin 600 MG TABCR PO SCH ×2 (07:46→21:10)
[2019-05-19] MEDS: predniSONE 10 MG TABLET PO SCH (07:47)
[2019-05-19] MEDS: CHOLECALCIFEROL 1,000 UNITS 25 MCG TAB PO SCH (07:47)
[2019-05-19] MEDS: CEFEPIME 2,000 MG in SYRINGE 7.5 ML IV SCH ×2 (07:48→21:08)
[2019-05-19] MEDS: DOXYCYCLINE HYCLATE 100 MG CAP PO SCH ×2 (10:37→21:10)
[2019-05-19] MEDS: LACTOBACILLUS ACIDOPHILUS (FLORANEX) TAB PO SCH ×3 (12:33→21:12)
[2019-05-19] MEDS ORDERED: WARFARIN SOD 2.5 MG TAB PO SCH (16:00)
[2019-05-19] MEDS ORDERED: hydroCHLOROthiazide 25 MG TAB PO PRN (18:49)
--- NOTE | 2019-05-19 18:54 | Hospitalist Progress Note ---
Date of Service May 19, 2019 Assessment & Plan (1) Pneumonia: LEFT LOWER LOBE PNEUMONIA WITH HYPOXIA POSSIBLE SEPSIS Blood pressure stable, lactic acid within normal limits Blood cultures: Negative so far Sputum culture: Awaiting collection Urine culture: Negative Chest x-ray: 1. Cardiomegaly and radiographic evidence of mild congestive failure/fluid overload 2. Basilar opacities statistically atelectatic although an infectious/inflammatory processes could appear similar CT chest without contrast: Patchy consolidation within the left lower lobe. There are a few additional scattered faint groundglass opacities within the lungs. This is nonspecific and could be due to a bacterial or viral pneumonia. Procalcitonin limits Nasal MRSA: Negative Influenza a and B PCR negative Bio fire test: Positive for metapneumovirus Clinically improving, patient has been weaned off nasal cannula cefepime plus doxycycline day #2, if patient remains afebrile and cultures remain negative, DC cefepime tomorrow, may transition to doxycycline to complete 7 days course Continue with scheduled Xopenex and Atrovent, Mucomyst nebs and Mucinex every 12 hours Monitor closely HISTORY OF PULMONARY EMBOLISM ON COUMADIN INR 2.7 Usually on Coumadin 2.5 mg daily except 5 mg INR daily HISTORY OF BILATERAL LOWER EXTREMITY LYMPHEDEMA Lower extremity edema at baseline per patient Will resume HCTZ RHEUMATOID ARTHRITIS ON CHRONIC PREDNISONE Blood pressure stable, continue prednisone 10 mg p.o. daily DVT prophylaxis INR 2.7, on chronic Coumadin Disposition Lives in a senior housing facility on her own PT and OT evaluation ordered Admission and Anticipated Discharge Date Admission Date: May 17, 2019 Subjective Follow-up for pneumonia, hypoxia Seen sitting up in bedside chair, not in distress, appears tired today On room air, saturating well States she feels tired today, did not sleep well last night But reports breathing continues to improve Less cough, no sputum production, no chest pain No chills Denies other symptoms Review of Systems Review of Systems: All systems reviewed & are unremarkable except as noted in HPI & below Physical Exam Physical Exam: General- oriented x 3, not in distress, speaks in sentences with no effort or accessory muscle use Eyes- anicteric Neck- no JVD Lungs-mild crackles left base, no wheezing Clear breath sounds on the right Heart- normal rate, regular rhythm; no murmurs Abdomen- normal bowel sounds, nondistended, soft, nontender Extremities-grade 2 lower leg edema mild erythema, no calf tenderness Neuro- alert, oriented x 3; no gross focal neurologic deficits Skin- warm & dry Results & Data ([facility]) Vital Signs (Past 12 Hours) Vital Signs Temp Pulse Pulse Resp BP Pulse Ox 05/19/19 16:00 86 05/19/19 15:52 36.8 C 82 20 109/73 91 05/19/19 13:13 93 H 16 91 05/19/19 11:27 36.5 C 77 19 133/82 92 05/19/19 08:00 86 05/19/19 07:46 36.7 C 93 H 18 113/74 92 05/19/19 07:19 86 18 91
[2019-05-19] MEDS ORDERED: COUGH DROP (SUGAR FREE) LOZ 24 LOZ/1 BOX BUCCAL ONE (19:50)
[2019-05-19] MEDS: PRAVASTATIN SOD 10 MG TAB PO SCH (21:10)
[2019-05-20] MEDS ORDERED: methylPREDNISolone 20 MG in SYRINGE 0 ML IV STA (00:39)
[2019-05-20] MEDS ORDERED: BENZONATATE 100 MG CAPSULE PO PRN (00:39)
[2019-05-20] MEDS: LEVALBUTEROL 1.25MG/0.5ML NEB INH SCH ×4 (00:51→19:13)
[2019-05-20] MEDS: IPRATROPIUM BROMIDE NEB SOLN 0.02% 2.5 ML VIAL INH SCH ×4 (00:51→19:13)
[2019-05-20] MEDS: ACETAMINOPHEN 325 MG TAB PO PRN (04:37)
[2019-05-20 07:02] LABS: Hematocrit (blood only) 41.4 % (37-47); Hemoglobin 12.5 g/dL (12.0-16.0); Mean Corpuscular Hemoglobin 29.6 pg (25-34); Mean Corpuscular Hgb Conc 30.2 g/dL (32-36); Mean Corpuscular Volume 97.9 fL (80-100); Mean Platelet Volume 10.3 fL (7.4-10.4); Platelet Count 283 K/uL (130-400); RDW Standard Deviation 53.3 fL (36.4-46.3); Red Blood Count 4.23 M/uL (4.2-5.4); White Blood Count 8.83 K/uL (4.8-10.8)
[2019-05-20] MEDS: ACETYLCYSTEINE 10% INHAL SOLN 4 ML **DISPENSED BY RESP. INH SCH ×2 (07:06→19:13)
[2019-05-20 07:16] LABS: INR 3.1 (0.9-1.1); Prothrombin Time 30.6 Seconds (9.0-12.0)
[2019-05-20 07:22] LABS: Basophils # (auto) 0.03 K/uL (0-0.2); Basophils % (auto) 0.3 %; Eosinophils # (auto) 0.05 K/uL (0-0.5); Eosinophils % (auto) 0.6 %; Immature Granulocytes # (auto) 0.02 K/uL (0.00-0.02); Immature Granulocytes % (auto) 0.2 %; Lymphocytes # (auto) 1.73 K/uL (1.2-3.4); Lymphocytes % (auto) 19.6 %; Monocytes # (auto) 0.67 K/uL (0.11-0.59); Monocytes % (auto) 7.6 %; Neutrophils # (auto) 6.33 K/uL (1.4-6.5); Neutrophils % (auto) 71.7 %
[2019-05-20 07:33] LABS: BUN Creatinine Ratio 21.6 (10-20); Calcium 8.4 mg/dl (8.5-10.1); Creatinine Clr Calc Pharmacy 55.3 ml/min; Est GFR (Non-African American) 61.2; Potassium 3.7 mmol/L (3.5-5.1)
[2019-05-20] MEDS: CHOLECALCIFEROL 1,000 UNITS 25 MCG TAB PO SCH (08:01)
[2019-05-20] MEDS: LACTOBACILLUS ACIDOPHILUS (FLORANEX) TAB PO SCH ×4 (08:01→21:07)
[2019-05-20] MEDS: DOCUSATE SODIUM 100 MG CAP PO SCH ×2 (08:01→21:09)
[2019-05-20] MEDS: predniSONE 10 MG TABLET PO SCH (08:02)
[2019-05-20] MEDS: DOXYCYCLINE HYCLATE 100 MG CAP PO SCH ×2 (08:02→21:08)
[2019-05-20] MEDS: guaiFENesin 600 MG TABCR PO SCH ×2 (08:02→21:08)
[2019-05-20] MEDS: CEFEPIME 2,000 MG in SYRINGE 7.5 ML IV SCH ×2 (08:28→19:42)
[2019-05-20] MEDS ORDERED: Nursing to Pharmacy Communication ONE (14:38)
[2019-05-20] MEDS ORDERED: POLYETHYLENE (MIRALAX) 17 GM PACK PO PRN (20:17)
[2019-05-20] MEDS: DOCUSATE SODIUM/SENNA 50/8.6MG TAB PO SCH (21:08)
[2019-05-20] MEDS: WARFARIN SOD 2.5 MG TAB PO SCH (21:08)
[2019-05-20] MEDS: PRAVASTATIN SOD 10 MG TAB PO SCH (21:09)
--- NOTE | 2019-05-20 21:29 | Hospitalist Progress Note ---
Date of Service May 20, 2019 Assessment & Plan (1) Pneumonia: Metapneumovirus diagnosed by Biofire resp panel. Continue doxycycline for possible co-existent bacterial infection. (2) Hypoxia: Secondary to viral pneumonia. Continue supplemental O2. (3) COPD (chronic obstructive pulmonary disease): Exacerbation secondary to viral pneumonia. Continue nebs, O2. (4) HTN (hypertension): HCTZ on hold due to acute illness. (5) Chronic venous insufficiency of lower extremity: Continue compression stockings and elevation. (6) Rheumatoid arthritis: Continue prednisone. (7) DVT prophylaxis: On warfarin for history of PE & DVT. (8) Discharge planning issues: Discharge disposition to be determined. Internal Medicine follow-up with Dr. Aquino. Admission and Anticipated Discharge Date Admission Date: May 17, 2019 Subjective Recheck for viral pneumonia. Patient seen in their room around 1340. Persistent nonproductive cough and SOB. No fever. Review of Systems: Constitutional- no fever. Cardiac- no chest pain. Pulmonary- as noted above. GI- no nausea, vomiting, diarrhea, melena, hematochezia. - no urinary symptoms. Otherwise, as noted above. Physical Exam Constitutional: no acute distress Respiratory: no respiratory distress Auscultation: + rales (bibasilar) Cardiovascular: Rate/Rhythm: regular rate and regular rhythm Vessels: no JVD ((neck veins difficult to assess)) Extremities: + edema (1+); no calf tenderness Gastrointestinal (Abdomen): normal bowel sounds, soft, nontender, no hepatosplenomegaly Skin: no rashes, warm and dry Psychiatric: Orientation: alert and oriented x 3 Results & Data ([facility]) Vital Signs (Past 12 Hours) Vital Signs Temp Pulse Pulse Resp BP Pulse Ox 05/20/19 19:18 89 18 98 05/20/19 18:55 36.4 C L 89 19 126/84 98 05/20/19 16:21 100 H 05/20/19 16:04 36.7 C 93 H 20 155/78 H 92 05/20/19 13:26 87 20 91 05/20/19 11:46 36.8 C 79 18 124/69 96 Laboratory Results Laboratory Results - last 24 hr 05/20/19 05/20/19 05/20/19 06:18 06:18 06:18 WBC 8.83 RBC 4.23 Hgb 12.5 Hct 41.4 MCV 97.9 MCH 29.6 MCHC 30.2 L RDW Std Deviation 53.3 H RDW Coeff of Coty 15.0 H Plt Count 283 MPV 10.3 Immature Gran % (Auto) 0.2 Neut % (Auto) 71.7 Lymph % (Auto) 19.6 [place] % (Auto) 7.6 Eos % (Auto) 0.6 Baso % (Auto) 0.3 Immature Gran # (Auto) 0.02 Neut # (Auto) 6.33 Lymph # (Auto) 1.73 [place] # (Auto) 0.67 H Eos # (Auto) 0.05 Baso # (Auto) 0.03 PT 30.6 H INR 3.1 H Sodium 141 Potassium 3.7 Chloride 111 H Carbon Dioxide 26 Anion Gap 4.0 BUN 20 H Creatinine 0.90 Est Cr Clr Drug Dosing 55.3 Est GFR ( Amer) 71.0 Est GFR (Non-Af Amer) 61.2 BUN/Creatinine Ratio 21.6 H Glucose 108 H Calcium 8.4 L
[2019-05-21] MEDS: LEVALBUTEROL 1.25MG/0.5ML NEB INH SCH ×4 (01:13→18:55)
[2019-05-21] MEDS: IPRATROPIUM BROMIDE NEB SOLN 0.02% 2.5 ML VIAL INH SCH ×4 (01:14→18:55)
[2019-05-21] MEDS: HYDROCODONE/ACETAMOPHEN 5/325MG TAB PO PRN (02:32)
[2019-05-21 06:04] LABS: Hematocrit (blood only) 41.1 % (37-47); Hemoglobin 12.1 g/dL (12.0-16.0); Mean Corpuscular Hemoglobin 28.9 pg (25-34); Mean Corpuscular Hgb Conc 29.4 g/dL (32-36); Mean Corpuscular Volume 98.1 fL (80-100); Mean Platelet Volume 10.3 fL (7.4-10.4); Platelet Count 289 K/uL (130-400); RDW Coefficient of Variation 14.8 % (11.5-14.5); RDW Standard Deviation 52.8 fL (36.4-46.3); Red Blood Count 4.19 M/uL (4.2-5.4); White Blood Count 10.59 K/uL (4.8-10.8)
[2019-05-21] MEDS: ACETAMINOPHEN 325 MG TAB PO PRN ×2 (06:10→10:28)
[2019-05-21 06:33] LABS: INR 3.5 (0.9-1.1); Prothrombin Time 34.2 Seconds (9.0-12.0)
[2019-05-21 06:38] LABS: BUN Creatinine Ratio 22.1 (10-20); Calcium 8.7 mg/dl (8.5-10.1); Creatinine Clr Calc Pharmacy 54.1 ml/min; Est GFR (African American) 69.1; Est GFR (Non-African American) 59.6; Potassium 3.6 mmol/L (3.5-5.1)
[2019-05-21 06:43] LABS: Basophils # (auto) 0.03 K/uL (0-0.2); Basophils % (auto) 0.3 %; Eosinophils % (auto) 0.9 %; Immature Granulocytes # (auto) 0.03 K/uL (0.00-0.02); Immature Granulocytes % (auto) 0.3 %; Lymphocytes # (auto) 3.34 K/uL (1.2-3.4); Lymphocytes % (auto) 31.5 %; Monocytes # (auto) 0.94 K/uL (0.11-0.59); Monocytes % (auto) 8.9 %; Neutrophils # (auto) 6.15 K/uL (1.4-6.5); Neutrophils % (auto) 58.1 %
[2019-05-21] MEDS: ACETYLCYSTEINE 10% INHAL SOLN 4 ML **DISPENSED BY RESP. INH SCH ×2 (07:03→18:55)
[2019-05-21] MEDS: LACTOBACILLUS ACIDOPHILUS (FLORANEX) TAB PO SCH ×4 (07:49→20:31)
[2019-05-21] MEDS: CHOLECALCIFEROL 1,000 UNITS 25 MCG TAB PO SCH (07:50)
[2019-05-21] MEDS: CEFEPIME 2,000 MG in SYRINGE 7.5 ML IV SCH ×2 (07:50→20:31)
[2019-05-21] MEDS: DOXYCYCLINE HYCLATE 100 MG CAP PO SCH ×2 (07:50→20:33)
[2019-05-21] MEDS: DOCUSATE SODIUM 100 MG CAP PO SCH ×2 (07:51→20:32)
[2019-05-21] MEDS: predniSONE 10 MG TABLET PO SCH (07:51)
[2019-05-21] MEDS: DOCUSATE SODIUM/SENNA 50/8.6MG TAB PO SCH ×2 (07:51→20:32)
[2019-05-21] MEDS: guaiFENesin 600 MG TABCR PO SCH ×2 (07:51→20:33)
[2019-05-21] MEDS ORDERED: SODIUM CHLORIDE 0.65% NA SOLN 45 ML (OCEAN) ONE (10:25)
[2019-05-21] MEDS: SODIUM CHLORIDE 0.65% NA SOLN 45 ML (OCEAN) SCH ×3 (12:26→20:33)
[2019-05-21] MEDS ORDERED: WARFARIN SOD 5 MG TAB PO SCH (16:00)
[2019-05-21] MEDS ORDERED: MAGNESIUM HYDROXIDE SUSP 30 ML UDC PO PRN (19:31)
[2019-05-21] MEDS: WARFARIN SOD 2.5 MG TAB PO SCH (20:32)
[2019-05-21] MEDS: PRAVASTATIN SOD 10 MG TAB PO SCH (20:34)
--- NOTE | 2019-05-21 20:52 | Hospitalist Progress Note ---
Date of Service May 21, 2019 Assessment & Plan (1) Pneumonia: Metapneumovirus diagnosed by Biofire resp panel. Continue doxycycline for possible co-existent bacterial infection. (2) Hypoxia: Secondary to viral pneumonia. Continue supplemental O2. (3) COPD (chronic obstructive pulmonary disease): Exacerbation secondary to viral pneumonia. Continue nebs, O2. (4) HTN (hypertension): HCTZ on hold due to acute illness. (5) Chronic venous insufficiency of lower extremity: Continue compression stockings and elevation. (6) Rheumatoid arthritis: Continue prednisone. (7) DVT prophylaxis: On warfarin for history of PE & DVT. (8) Discharge planning issues: Discharge disposition to be determined. Pt hopes to be discharged to home. Internal Medicine follow-up with Dr. Aquino. Admission and Anticipated Discharge Date Admission Date: May 17, 2019 Subjective Recheck for viral pneumonia. Patient seen in their room around 1530. Frontal headache this morning- improved with analgesics and saline nasal spray. Persistent nonproductive cough and SOB. No fever. Constipated. Review of Systems: Constitutional- no fever. Cardiac- no chest pain. Pulmonary- as noted above. GI- no nausea, vomiting, diarrhea, melena, hematochezia. - no urinary symptoms. Otherwise, as noted above. Physical Exam Constitutional: no acute distress Respiratory: no respiratory distress Auscultation: + rales (bibasilar) Cardiovascular: Rate/Rhythm: regular rate and regular rhythm Vessels: no JVD ((neck veins difficult to assess)) Extremities: + edema (1+); no calf tenderness Gastrointestinal (Abdomen): normal bowel sounds, soft, nontender, no hepatosplenomegaly Skin: no rashes, warm and dry Psychiatric: Orientation: alert and oriented x 3 Results & Data ([facility]) Vital Signs (Past 12 Hours) Vital Signs Temp Pulse Pulse Resp BP Pulse Ox 05/21/19 20:00 36.9 C 74 16 132/64 98 05/21/19 19:01 96 H 18 96 05/21/19 16:00 92 H 05/21/19 15:38 36.8 C 84 18 124/69 96 05/21/19 13:45 80 18 91 05/21/19 12:03 36.5 C 82 16 116/76 92 Laboratory Results Laboratory Results - last 24 hr 05/21/19 05/21/19 05/21/19 05:31 05:31 05:31 WBC 10.59 RBC 4.19 L Hgb 12.1 Hct 41.1 MCV 98.1 MCH 28.9 MCHC 29.4 L RDW Std Deviation 52.8 H RDW Coeff of Coty 14.8 H Plt Count 289 MPV 10.3 Immature Gran % (Auto) 0.3 Neut % (Auto) 58.1 Lymph % (Auto) 31.5 [place] % (Auto) 8.9 Eos % (Auto) 0.9 Baso % (Auto) 0.3 Immature Gran # (Auto) 0.03 H Neut # (Auto) 6.15 Lymph # (Auto) 3.34 [place] # (Auto) 0.94 H Eos # (Auto) 0.10 Baso # (Auto) 0.03 PT 34.2 H INR 3.5 H Sodium 141 Potassium 3.6 Chloride 109 H Carbon Dioxide 30 Anion Gap 2.0 L BUN 20 H Creatinine 0.92 Est Cr Clr Drug Dosing 54.1 Est GFR ( Amer) 69.1 Est GFR (Non-Af Amer) 59.6 BUN/Creatinine Ratio 22.1 H Glucose 102 H Calcium 8.7
[2019-05-22] MEDS: IPRATROPIUM BROMIDE NEB SOLN 0.02% 2.5 ML VIAL INH SCH ×4 (01:08→19:08)
[2019-05-22] MEDS: LEVALBUTEROL 1.25MG/0.5ML NEB INH SCH ×4 (01:08→19:08)
[2019-05-22] MEDS: ACETAMINOPHEN 325 MG TAB PO PRN ×2 (01:38→05:49)
[2019-05-22 05:59] LABS: Basophils # (auto) 0.02 K/uL (0-0.2); Basophils % (auto) 0.2 %; Eosinophils % (auto) 1.7 %; Hematocrit (blood only) 41.3 % (37-47); Hemoglobin 12.4 g/dL (12.0-16.0); Immature Granulocytes # (auto) 0.04 K/uL (0.00-0.02); Immature Granulocytes % (auto) 0.3 %; Lymphocytes # (auto) 3.17 K/uL (1.2-3.4); Lymphocytes % (auto) 27.1 %; Mean Corpuscular Hemoglobin 29.4 pg (25-34); Mean Corpuscular Volume 97.9 fL (80-100); Mean Platelet Volume 10.2 fL (7.4-10.4); Monocytes # (auto) 0.97 K/uL (0.11-0.59); Monocytes % (auto) 8.3 %; Neutrophils # (auto) 7.28 K/uL (1.4-6.5); Neutrophils % (auto) 62.4 %; Platelet Count 329 K/uL (130-400); RDW Coefficient of Variation 14.5 % (11.5-14.5); RDW Standard Deviation 51.9 fL (36.4-46.3); Red Blood Count 4.22 M/uL (4.2-5.4); White Blood Count 11.68 K/uL (4.8-10.8)
[2019-05-22 06:08] LABS: INR 3.1 (0.9-1.1); Prothrombin Time 30.8 Seconds (9.0-12.0)
[2019-05-22 06:30] LABS: BUN Creatinine Ratio 18.4 (10-20); Calcium 8.7 mg/dl (8.5-10.1); Creatinine Clr Calc Pharmacy 53.5 ml/min; Est GFR (African American) 68.2; Est GFR (Non-African American) 58.9; Potassium 3.7 mmol/L (3.5-5.1)
[2019-05-22] MEDS: ACETYLCYSTEINE 10% INHAL SOLN 4 ML **DISPENSED BY RESP. INH SCH ×2 (07:11→19:07)
--- NOTE | 2019-05-22 07:20 | XRay Report ---
XR chest 1V portable CLINICAL HISTORY: pneumonia dyspnea COMPARISON STUDY: 05/17/2019 FINDINGS: Cardiomegaly. Unchanging atelectatic and/or infiltrative changes left lung base. Slight imp rovement in aeration right base. Pulmonary vascular congestion is considered stable. IMPRESSION: 1. Slight improvement in aeration right lung base. 2. Unchanging infiltrative process left base. 3. Stable findings of cardiomegaly and pulmonary vascular congestion. ACT 112: Negative or not required by law. The above report was generated using voice recognition software. It may contain grammatical, syntax or spelling errors. Electronically signed by: Edin Falk M.D. 05/22/2019 7:19 AM
[2019-05-22] MEDS: SODIUM CHLORIDE 0.65% NA SOLN 45 ML (OCEAN) SCH ×4 (08:41→20:45)
[2019-05-22] MEDS: DOXYCYCLINE HYCLATE 100 MG CAP PO SCH ×2 (08:42→20:45)
[2019-05-22] MEDS: CHOLECALCIFEROL 1,000 UNITS 25 MCG TAB PO SCH (08:42)
[2019-05-22] MEDS: guaiFENesin 600 MG TABCR PO SCH ×2 (08:42→20:43)
[2019-05-22] MEDS: predniSONE 10 MG TABLET PO SCH (08:42)
[2019-05-22] MEDS: LACTOBACILLUS ACIDOPHILUS (FLORANEX) TAB PO SCH ×4 (08:42→20:42)
[2019-05-22] MEDS: DOCUSATE SODIUM/SENNA 50/8.6MG TAB PO SCH ×2 (08:42→20:46)
[2019-05-22] MEDS: DOCUSATE SODIUM 100 MG CAP PO SCH ×2 (08:42→20:42)
[2019-05-22] MEDS: CEFEPIME 2,000 MG in SYRINGE 7.5 ML IV SCH ×2 (09:44→20:41)
--- NOTE | 2019-05-22 13:31 | XRay Report ---
XR sinus min 3V routine CLINICAL HISTORY: frontal headache COMPARISON STUDY: Head CT September 10, 2017. FINDINGS: Frontal sinuses are well aerated. The ethmoid and right maxillary sinuses are well aerated. There is slight asymmetric opacity projecting over the left maxillary sinus. No bony destruction is identified by radiography. IMPRESSION: Possible partial opacification of the left maxillary sinus. ACT 112: Negative or not required by law. Electronically signed by: Jorje Medrano M.D. 05/22/2019 1:30 PM
--- NOTE | 2019-05-22 19:55 | Hospitalist Progress Note ---
Date of Service May 22, 2019 Assessment & Plan (1) Pneumonia: Metapneumovirus diagnosed by [employer] resp panel. Continue doxycycline for possible co-existent bacterial infection. Suspect that tachycardia and tachypnea due to respiratory status, not to sepsis. Did not meet other criteria for sepsis. (2) Hypoxia: Secondary to viral pneumonia. Continue supplemental O2. (3) COPD (chronic obstructive pulmonary disease): Exacerbation secondary to viral pneumonia. Continue nebs, O2. (4) HTN (hypertension): HCTZ on hold due to acute illness. (5) Chronic venous insufficiency of lower extremity: Continue compression stockings and elevation. (6) Rheumatoid arthritis: Continue prednisone. (7) Sinus headache: Check sinus films. 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 (9) Discharge planning issues: Discharge disposition to be determined. Pt hopes to be discharged to home. Internal Medicine follow-up with Dr. Aquino. Admission and Anticipated Discharge Date Admission Date: May 17, 2019 Subjective Recheck for viral pneumonia. Patient seen in their room around 1620. Recurrent frontal headache. Persistent nonproductive cough and SOB with exertion. No fever. Review of Systems: Constitutional- no fever. Cardiac- no chest pain. Pulmonary- as noted above. GI- no nausea, vomiting, diarrhea, melena, hematochezia. - no urinary symptoms. Otherwise, as noted above. Physical Exam Constitutional: no acute distress Respiratory: no respiratory distress Auscultation: + rales (bibasilar) Cardiovascular: Rate/Rhythm: regular rate and regular rhythm Vessels: no JVD ((neck veins difficult to assess)) Extremities: + edema (1+); no calf tenderness Gastrointestinal (Abdomen): normal bowel sounds, soft, nontender, no hepatospl enomegaly Skin: no rashes, warm and dry Psychiatric: Orientation: alert and oriented x 3 Results & Data ([facility]) Vital Signs (Past 12 Hours) Vital Signs Temp Pulse Pulse Resp BP Pulse Ox 05/22/19 19:34 36.5 C 106 H 20 115/75 94 05/22/19 19:08 100 H 18 90 05/22/19 16:09 92 05/22/19 16:00 104 H 05/22/19 15:40 36.5 C 100 H 20 125/84 85 L 05/22/19 13:41 92 H 18 90 05/22/19 11:44 36.7 C 85 19 139/83 94 05/22/19 08:15 37.0 C 85 20 136/84 97 05/22/19 08:00 72 Laboratory Results 05/22/19 05:27 05/22/19 05:27
[2019-05-22] MEDS: OXYMETAZOLINE 0.05% 30 ML BTL SCH (20:41)
[2019-05-22] MEDS: FLUTICASONE PROPIONATE NA SPR 16 GM BTL SCH (20:44)
[2019-05-22] MEDS: WARFARIN SOD 2.5 MG TAB PO SCH (20:44)
[2019-05-22] MEDS: PRAVASTATIN SOD 10 MG TAB PO SCH (20:46)
[2019-05-23] MEDS: HYDROCODONE/ACETAMOPHEN 5/325MG TAB PO PRN ×2 (00:02→22:58)
[2019-05-23] MEDS: IPRATROPIUM BROMIDE NEB SOLN 0.02% 2.5 ML VIAL INH SCH ×4 (01:17→19:17)
[2019-05-23] MEDS: LEVALBUTEROL 1.25MG/0.5ML NEB INH SCH ×4 (01:18→19:17)
[2019-05-23] MEDS: ACETYLCYSTEINE 10% INHAL SOLN 4 ML **DISPENSED BY RESP. INH SCH ×2 (07:10→19:17)
[2019-05-23 07:46] LABS: BUN Creatinine Ratio 21.3 (10-20); Calcium 9.1 mg/dl (8.5-10.1); Creatinine Clr Calc Pharmacy 55.9 ml/min; Est GFR (African American) 71.9; Est GFR (Non-African American) 62.1; Potassium 3.4 mmol/L (3.5-5.1)
[2019-05-23] MEDS ORDERED: POTASSIUM CHLORIDE 20 MEQ TABCR PO ONE (07:55)
[2019-05-23] MEDS: OXYMETAZOLINE 0.05% 30 ML BTL SCH ×2 (09:02→20:46)
[2019-05-23] MEDS: SODIUM CHLORIDE 0.65% NA SOLN 45 ML (OCEAN) SCH ×4 (09:02→20:45)
[2019-05-23] MEDS: FLUTICASONE PROPIONATE NA SPR 16 GM BTL SCH ×2 (09:02→20:46)
[2019-05-23] MEDS: CEFEPIME 2,000 MG in SYRINGE 7.5 ML IV SCH ×2 (09:05→19:22)
[2019-05-23] MEDS: LACTOBACILLUS ACIDOPHILUS (FLORANEX) TAB PO SCH ×4 (09:07→20:44)
[2019-05-23] MEDS: guaiFENesin 600 MG TABCR PO SCH ×2 (09:07→20:45)
[2019-05-23] MEDS: predniSONE 10 MG TABLET PO SCH (09:08)
[2019-05-23] MEDS: DOCUSATE SODIUM/SENNA 50/8.6MG TAB PO SCH ×2 (09:08→20:45)
[2019-05-23] MEDS: DOCUSATE SODIUM 100 MG CAP PO SCH ×2 (09:08→20:44)
[2019-05-23] MEDS: CHOLECALCIFEROL 1,000 UNITS 25 MCG TAB PO SCH (09:08)
[2019-05-23] MEDS: DOXYCYCLINE HYCLATE 100 MG CAP PO SCH ×2 (09:08→20:45)
[2019-05-23] MEDS ORDERED: ALUMINUM/MAGNESIUM SUSP 30 ML UDC PO PRN (17:12)
--- NOTE | 2019-05-23 18:05 | Hospitalist Progress Note ---
Date of Service May 23, 2019 Assessment & Plan (1) Pneumonia: Metapneumovirus diagnosed by [employer] resp panel. Continue doxycycline for possible co-existent bacterial infection. Suspect that tachycardia and tachypnea due to respiratory status, not to sepsis. Did not meet other criteria for sepsis. (2) Hypoxia: Secondary to viral pneumonia. Continue supplemental O2. (3) COPD (chronic obstructive pulmonary disease): Exacerbation secondary to viral pneumonia. Continue nebs, O2. (4) HTN (hypertension): HCTZ on hold due to acute illness. (5) Chronic venous insufficiency of lower extremity: Continue compression stockings and elevation. (6) Rheumatoid arthritis: Continue prednisone. (7) Sinus headache: Sinus films showed possible partial opacification of left maxillary sinus. Receiving saline nasal spray, Flonase, Afrin. Improved. (8) Hypokalemia: K 3.4. Replace. Follow. (9) Nocturnal hypoxia: Check nocturnal pulse oximetry. 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 (11) Discharge planning issues: Discharge disposition to be determined. Pt hopes to be discharged to home. Internal Medicine follow-up with Dr. Aquino. Admission and Anticipated Discharge Date Admission Date: May 17, 2019 Subjective Recheck for viral pneumonia. Patient seen in their room around 1140. Cough improved. Less SOB. Oxygenating well on RA when awake, but noted to be hypoxic when sleeping. Sinus headache resolved. Review of Systems: Constitutional- no fever. Cardiac- no chest pain. Pulmonary- as noted above. GI- no nausea, vomiting, diarrhea, melena, hematochezia. - no urinary symptoms. Otherwise, as noted above. Physical Exam Constitutional: no acute distress Respiratory: no respiratory distress Auscultation: + rales (bibasilar) Cardiovascular: Rate/Rhythm: regular rate and regular rhythm Vessels: no JVD ((neck veins difficult to assess)) Extremities: + edema (1+); no calf tenderness Gastrointestinal (Abdomen): normal bowel sounds, soft, nontender, no hepatosplenomegaly Skin: no rashes, warm and dry Psychiatric: Orientation: alert and oriented x 3 Results & Data ([facility]) Vital Signs (Past 12 Hours) Vital Signs Temp Pulse Pulse Resp BP Pulse Ox 05/23/19 15:16 36.7 C 97 H 19 135/89 93 05/23/19 13:34 90 18 91 05/23/19 11:41 36.7 C 88 18 127/83 93 05/23/19 08:00 36.8 C 99 H 20 124/80 91 05/23/19 07:11 86 18 93 Laboratory Results Laboratory Results - last 24 hr 05/23/19 06:29 Sodium 140 Potassium 3.4 L Chloride 107 Carbon Dioxide 29 Anion Gap 4.0 BUN 19 H Creatinine 0.89 Est Cr Clr Drug Dosing 55.9 Est GFR ( Amer) 71.9 Est GFR (Non-Af Amer) 62.1 BUN/Creatinine Ratio 21.3 H Glucose 110 H Calcium 9.1
[2019-05-23] MEDS ORDERED: POTASSIUM CHLORIDE PWD 20 MEQ PACK PO ONE (18:06)
[2019-05-23] MEDS: PRAVASTATIN SOD 10 MG TAB PO SCH (20:44)
[2019-05-23] MEDS: WARFARIN SOD 2.5 MG TAB PO SCH (20:45)
[2019-05-24] MEDS: IPRATROPIUM BROMIDE NEB SOLN 0.02% 2.5 ML VIAL INH SCH ×2 (01:14→07:20)
[2019-05-24] MEDS: LEVALBUTEROL 1.25MG/0.5ML NEB INH SCH ×2 (01:15→07:20)
[2019-05-24 07:20] LABS: INR 2.5 (0.9-1.1); Prothrombin Time 24.8 Seconds (9.0-12.0)
[2019-05-24] MEDS: ACETYLCYSTEINE 10% INHAL SOLN 4 ML **DISPENSED BY RESP. INH SCH (07:21)
[2019-05-24 07:38] LABS: BUN Creatinine Ratio 23.1 (10-20); Creatinine Clr Calc Pharmacy 56.5 ml/min; Est GFR (African American) 72.9; Est GFR (Non-African American) 62.9; Potassium 3.6 mmol/L (3.5-5.1)
[2019-05-24] MEDS: CEFEPIME 2,000 MG in SYRINGE 7.5 ML IV SCH (08:05)
[2019-05-24] MEDS: OXYMETAZOLINE 0.05% 30 ML BTL SCH (08:06)
[2019-05-24] MEDS: FLUTICASONE PROPIONATE NA SPR 16 GM BTL SCH (08:06)
[2019-05-24] MEDS: SODIUM CHLORIDE 0.65% NA SOLN 45 ML (OCEAN) SCH (08:07)
[2019-05-24] MEDS: LACTOBACILLUS ACIDOPHILUS (FLORANEX) TAB PO SCH (08:07)
[2019-05-24] MEDS: DOXYCYCLINE HYCLATE 100 MG CAP PO SCH (08:08)
[2019-05-24] MEDS: CHOLECALCIFEROL 1,000 UNITS 25 MCG TAB PO SCH (08:08)
[2019-05-24] MEDS: DOCUSATE SODIUM/SENNA 50/8.6MG TAB PO SCH (08:08)
[2019-05-24] MEDS: predniSONE 10 MG TABLET PO SCH (08:08)
[2019-05-24] MEDS: DOCUSATE SODIUM 100 MG CAP PO SCH (08:09)
[2019-05-24] MEDS: guaiFENesin 600 MG TABCR PO SCH (08:09)
--- NOTE | 2019-05-24 14:43 | Hospitalist Progress Note ---
Date of Service May 24, 2019 Assessment & Plan (1) Pneumonia: Metapneumovirus diagnosed by [employer] resp panel. Received doxycycline and cefepime for possible co-existent bacterial infection. Suspect that tachycardia and tachypnea due to respiratory status, not to sepsis. Did not meet other criteria for sepsis. No need for additional antibiotics. (2) Hypoxia: Secondary to viral pneumonia with exacerbation of COPD. Oxygen weaned and saturating well on RA. Nocturnal hypoxia noted, but pt declined home O2 HS. (3) Nocturnal hypoxia: As noted above. (4) COPD (chronic obstructive pulmonary disease): Exacerbation secondary to viral pneumonia. Received nebs, O2. Discharged with Rx for albuterol HFA. (5) HTN (hypertension): HCTZ held due to acute illness. Resumed at time of discharge. (6) Chronic venous insufficiency of lower extremity: Continue compression stockings and elevation. (7) Rheumatoid arthritis: Continue prednisone. (8) Sinus headache: Sinus films showed possible partial opacification of left maxillary sinus. Receiving saline nasal spray, Flonase, Afrin with improvement. (9) Hypokalemia: K as low as 3.4. Replaced. K 3.6 day of discharge. Follow. 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 (11) Discharge planning issues: Discharged to home. Internal Medicine follow-up with Dr. Aquino. Admission and Anticipated Discharge Date Admission Date: May 17, 2019 Subjective Recheck for viral pneumonia. Patient seen in their room around 0920. Cough improved. Less SOB. Sinus headache resolved. Oxygenating well on RA when awake, but desaturations noted while sleeping. Pt does not want to have O2 at home because it seems to make her headaches worse. Very interested in going home today. Review of Systems: Constitutional- no fever. Cardiac- no chest pain; chronic dependent edema unchanged. Pulmonary- as noted above. GI- no nausea, vomiting, diarrhea, melena, hematochezia. - no urinary symptoms. Otherwise, as noted above. Physical Exam Constitutional: no acute distress Respiratory: no respiratory distress Auscultation: + rales (bibasilar) Cardiovascular: Rate/Rhythm: regular rate and regular rhythm Vessels: no JVD ((neck veins difficult to assess)) Extremities: + edema (1+ pretibial / 2+ pedal); no calf tenderness Gastrointestinal (Abdomen): normal bowel sounds, soft, nontender, no hepatosplenomegaly Skin: no rashes, warm and dry Psychiatric: Orientation: alert and oriented x 3 Results & Data ([facility]) Vital Signs (Past 12 Hours) Vital Signs Temp Pulse Pulse Pulse Resp BP Pulse Ox 05/24/19 09:47 36.5 C 80 88 16 138/73 92 05/24/19 08:00 86 05/24/19 07:21 88 16 92 05/24/19 06:54 36.5 C 80 20 138/73 90 05/24/19 04:41 36.7 C 69 20 113/78 93 Laboratory Results 05/24/19 06:40
--- NOTE | 2019-05-24 22:25 | Discharge Summary ---
Date of Service Date of Admission: 05/17/19 Date of Discharge: 05/24/19 Admission HPI Per Admitting Provider 78-year-old female with history of pulmonary embolism on Coumadin, bilateral lymphedema, rheumatoid arthritis on chronic prednisone, Presenting with progressive cough, shortness of breath, subjective chills x4 days. Patient lives in a senior housing building. She was at her usual baseline state of heal. until last 4 days ago, when she started to develop cough, associated with subjective chills, and shortness of breath This was followed by sputum production-green, thick phlegm. Today, the patient was noted to be very weak and unable to stand due to leg weakness as per patient's daughter at the bedside. Of note, patient reports that she was around residents in her building who were coughing for the past week. Patient was admitted with blood pressure of 132/89, pulse rate 106, respiratory rate 22, saturating 85% on room air, improving to 93% 4 L of nasal cannula. Temperature is 37.4 Chest x-ray showing possible bilateral lower lobe pneumonia. Lactic acid normal. BNP normal. On exam, the patient was seen sitting up in bedside chair, on 4 L of nasal cannula, oriented x3, alert, not in distress, speaks in sentences with no effort Denies active shortness of breath, chest pain, headache, dizziness, nausea or vomiting, abdominal pain, problems urination bowel movement. She says she just feels "rotten". Denies sore throat, myalgias, arthralgias. No other symptoms Principal Diagnosis viral pneumonia secondary to human metapneumovirus OTHER ACUTE / NEW DIAGNOSES: hypoxia exacerbation COPD Discharge Data Allergies Allergy/AdvReac Type Severity Reaction Status Date / Time strawberry Allergy Severe ANAPHYLAXIS Verified 05/17/19 16:15 tramadol AdvReac Severe confusion Verified 05/17/19 16:15 atorvastatin AdvReac Unknown SEVERE Verified 05/17/19 16:15 MUSCLE ACHES ibandronate sodium AdvReac Unknown nausea/vomi Verified 05/17/19 16:15 [From Boniva] ting fentanyl AdvReac Unknown Verified 05/17/19 21:46 Consultations 05/17/19 17:50 ED Decision to Admit Stat Ordered Studies 05/17/19 21:44 CT chest wo con Stat Hospital Course (1) Pneumonia: Metapneumovirus diagnosed by [employer] resp panel. Received doxycycline and cefepime for possible co-existent bacterial infection. Suspect that tachycardia and tachypnea due to respiratory status, not to sepsis. Did not meet other criteria for sepsis. No need for additional antibiotics. (2) Hypoxia: Secondary to viral pneumonia with exacerbation of COPD. Oxygen weaned and saturating well on RA by discharge when awake. Nocturnal hypoxia noted, but pt declined home O2 HS. (3) Nocturnal hypoxia: As noted above. (4) COPD (chronic obstructive pulmonary disease): Exacerbation secondary to viral pneumonia. Received nebs, O2. Discharged with Rx for albuterol HFA. (5) HTN (hypertension): HCTZ held due to acute illness. Resumed at time of discharge. (6) Chronic venous insufficiency of lower extremity: Continue compression stockings and elevation. (7) Rheumatoid arthritis: Continue prednisone. (8) Sinus headache: Sinus films showed possible partial opacification of left maxillary sinus. Receiving saline nasal spray, Flonase, Afrin with improvement. (9) Hypokalemia: K as low as 3.4. Replaced. K 3.6 day of discharge. Follow. 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 (11) Discharge planning issues: Discharged to home. Internal Medicine follow-up with Dr. Aquino. Total Time Total Time Spent Total Time Spent (In Minutes): 45 Discharge Plan Discharge Items Patient Disposition: Home - Home Health Services Reason For Visit: cough Discharge Diagnosis: viral pneumonia Condition on Discharge: Fair Activity: As commented below Activity Comment: Gradually increase activity as tolerated. Non-emergency contact: Primary Care Provider and Hospitalist Call non-emergency contact if: you have any medication questions and your symptoms worsen Follow-up/Referrals: Poncho Aqunio MD [Primary Care Provider] - 06/02/19 3:00 pm (06/02/2019 3:00 PM Poncho Aquino MD) Diet: Heart Healthy Addtl Attending Provider Instructions: MEDICATION CHANGES: albuterol inhaler (Proventil or Ventolin) for wheezing 2 puffs 4 times a day until better, then 4 times a day as needed for wheezing saline nose spray (Caroline [place]) 4 sprays to each nostril 4 times a day for next few days, then as needed for nasal congestion or sinus headache no prescription necessary fluticasone nose spray (Flonase) 2 sprays to each nostril twice a day for next few days, then as needed for nasal congestion or sinus headache no prescription necessary SUMMARY OF TEST RESULTS: Testing showed that you had a virus called metapneumovirus. RECOMMENDATIONS FOR FOLLOW-UP: Please discuss outpatient sleep study with Dr. Aquino. OTHER INSTRUCTIONS: You are recovering from a viral pneumonia. You may or may not still be contagious. Best to play it safe and wear a mask whenever you are coughing and around other people. You and others should wash hands often. Seek medical attention if you have: * temperature above 101 * chest pain or trouble breathing * abdominal pain, nausea, vomiting * diarrhea, dark stools or bloody stools * any unanswered questions or concerns Call 911 if symptoms are severe. Please take good care of yourself. Call if you have any questions or problems. You can reach a [facility] hospitalist on duty at [facility] 24 hours a day by calling [phone]. My cell # is [phone]. Pending Studies at Discharge: No Stand-Alone Forms: My [facility], Smoking Cessation Medications and DC Order Prescriptions: New fluticasone propionate 50 mcg/actuation [place],Suspension 2 spray NA BID PRN (Reason: nasal congestion or sinus headaches) Qty: 15.8 RF: 0 sodium chloride [Saline Mist] 0.65 % Aerosol,[place] 4 spray NA QID PRN (Reason: nasal congestion or sinus headache) Qty: 30 RF: 0 albuterol sulfate 90 mcg/actuation HFA aerosol inhaler 2 puffs INH Q6H Qty: 18 RF: 1 Continued pravastatin 10 mg Tablet 10 mg PO HS RF: 0 docusate sodium [Colace] 100 mg Capsule 100 mg PO BID RF: 0 cholecalciferol (vitamin D3) [Vitamin D3] 2,000 unit Tablet 2,000 unit PO QAM RF: 0 hydrochlorothiazide 12.5 mg Tablet 12.5 mg PO Q2D PRN (Reason: Blood Pressure Systolic>100) RF: 0 acetaminophen [Tylenol Extra Strength] 500 mg Tablet 1,000 mg PO Q6H PRN (Reason: Pain) RF: 0 warfarin [Jantoven] 5 mg tablet 2.5 mg PO [id number] RF: 0 warfarin [Jantoven] 5 mg tablet 5 mg PO WK RF: 0 hydrocodone-acetaminophen 5-325 mg tablet 0.5 tab PO HS PRN (Reason: Pain) RF: 0 prednisone 10 mg tablet 10 mg PO DAILY RF: 0 biotin 5 mg Tablet 5 mg PO QAM RF: 0 Discharge Orders: Discharge Order (Routine); Ordered 05/24/19 Ordered By: Antonio Schrader/Other Patient Handouts: Droplet Transmission Precautions Admission Data Admit Date/Time: 05/17/19 19:06 Attending Provider: Antonio Barrow Admit Provider: Gerardo Velez Primary Care Provider: Poncho Aquino Other Providers: Gerardo Velez ; [facility],Home Health Other Interventions: Discharge Summary Assessment (RN) Last Done: 05/24/19 09:47 DC Date/Time DO NOT enter until pt leaves facility: 05/24/19 10:17
== END 2019-05-24 10:17 | disposition home health service (06) | DRG 194 ==
LOC: ED 15:22 → SUATTDRO 19:06 → 2S 19:06

== ENCOUNTER 2019-11-23 14:20 | Inpatient (IN) ==
--- NOTE | 2019-11-23 15:05 | Emergency Department Note ---
Impression & Plan Acute kidney injury, Hypoxia, Acute dyspnea ED Provider Note NAME: NATAN CORREA AGE: 79 SEX: F : 1940 ARRIVES VIA: Ambulance INFORMANT: Patient, ED PROVIDER(S): David Ramsey DO CHIEF COMPLAINT: Shortness of breath HPI: The patient is a 79-year-old female who presented to the emergency department for evaluation of difficulty breathing. The patient has a history of pulmonary embolism as well as DVT. She was seen in our facility over the summer for an injury to her left leg. She is currently [facility] because of delayed healing in the left leg. The patient was noted to have difficulty breathing after ambulating. Her pulse ox was checked and it was noted to be 85% by the prehospital personnel. While she was at the wound care center 911 was called. The patient complains of shortness of breath with lying flat as well as exertion. She denies having any swelling in her legs greater th an usual. She denies having any cough or fever. She denies having any significant weight gain. She does not have any chest pain. 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 She states that she has been compliant with his medication and her last INR was [facility]. The patient has been having the symptoms for 2 weeks. The patient did contact her primary care physician. She is scheduled for a CT of the chest on Saturday to evaluate for venous pulmonary thromboembolic disease. ROS: See above HPI for pertinent positives & negatives. A total of 10 systems reviewed and were otherwise negative. PAST MEDICAL HISTORY: See Below PAST SURGICAL HISTORY: See Below FAMILY HISTORY: See Below SOCIAL HISTORY: See Below HOME MEDICATIONS: See Below ALLERGIES: See Below VITALS: See Below PHYSICAL EXAMINATION: GENERAL: Patient is awake alert in no acute distress patient is resting comfortably and showing no signs of anxiety EYES: The conjunctivae are clear. The pupils are round and reactive. EARS, NOSE, MOUTH AND THROAT: The nose is without any evidence of any deformity. Mucous membranes are moist. Tongue is midline. NECK: The neck is nontender and supple. RESPIRATORY: Normal respiratory effort is noted there is no evidence of wheezing rhonchi or rales CARDIOVASCULAR: Regular rate and rhythm noted there no murmurs rubs or gallops normal S1 normal S2. GASTROINTESTINAL: The abdomen is soft. Abdomen is nontender. MUSCULOSKELETAL/EXTREMITIES: There is no evidence of gross deformity full range of motion is noted in the hips and shoulders. SKIN: There is bilateral pedal edema noted. There are compression dressings in both legs. There is some erythema to the anterior left de la torre. Skin is warm and dry. NEUROLOGIC: Patient is awake alert and oriented x3. MEDICAL DECISION MAKING: The patient is a 79-year-old female who presented to the emergency department for an evaluation shortness of breath. The patient has a history of pulmonary venous thromboembolic disease. She does take blood thinners. She was at the wound care center and was sent to the emergency department with hypoxia. The patient was placed on supplemental oxygen and was feeling much better. I discussed the patient's laboratory and radiographic studies with her. Given the patient's findings and hypoxia I also discussed her case with the on[facility]call [facility]. They have agreed to evaluate the patient in the emergency department for further management and disposition. The patient was reevaluated multiple times. Given the patient's cardiac status I did not treat her elevated creatinine with any IV fluids. I will defer this to the admitting team at this time. Triage Nursing notes reviewed. Prior medical records reviewed Vital Signs: reviewed and remarkable for no significant abnormalities Differential diagnosis: Reactive airway disease, pneumonia, pneumothorax, COPD, CHF, infections, cardiac ischemia, pulmonary embolism, musculoskeletal, gastrointestinal, as well as other pathologies. ER treatment provided: See below Diagnostics interpreted by me: ECG: EKG was obtained in the emergency department. My interpretation is sinus rhythm at 90 bpm. PACs were noted. Low voltage was noted throughout. There were no acute ST segment abnormalities noted. This was compared to a tracing from May 162019. No significant changes were noted. Cardiac Monitoring: An order was placed for continuous cardiac monitoring. The monitor shows a rate of 75 bpm with sinus rhythm. Laboratory studies: As stated above and show below. Imaging studies: See below Consultation(s): 1730: I discussed this case with Jyotsna Rodriguez who is on-call for [facility]. Past Med/Surg History Medical History Bladder cancer Compression fracture COPD (chronic obstructive pulmonary disease) H/O deep venous thrombosis H/O renal calculi H/O sciatica HLD (hyperlipidemia) HTN (hypertension) Lumbar back pain with radiculopathy affecting left lower extremity Lymphedema Obesity Prediabetes Rheumatoid arthritis Spinal stenosis, lumbar region with neurogenic claudication Venous insufficiency Surgical History H/O breast biopsy H/O hernia repair H/O: hysterectomy History of cataract surgery Family History Mother Diabetes Father Colorectal cancer Social History Smoking Status: Former smoker Tobacco Type: Cigarettes Second Hand Exposure: No; Hx Alcohol Use: No Hx Substance Use: No Preferred Language: Russian Communication Ability: Effective 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 Beliefs That Will Affect Care: Buddhist Buddhist Beliefs: Yazdanism marital status: / Current Living Situation: Alone Current Living Situation Comment: [facility] current occupational status: retired Feels Safe at Home: No Is there a partner from a previous relationship who is making you feel unsafe now?: No Assistive Devices: Oxygen - Continuous Allergies Allergies Allergy/AdvReac Type Severity Reaction Status Date / Time strawberry Allergy Severe Anaphylaxis Verified 11/23/19 16:23 tramadol AdvReac Severe Confusion Verified 11/23/19 16:23 atorvastatin AdvReac Unknown Muscle Verified 11/23/19 16:23 Aches fentanyl AdvReac Unknown Vomiting Verified 11/23/19 16:23 ibandronate sodium AdvReac Unknown Nausea/Vomi Verified 11/23/19 16:23 [From Boniva] ting Home Meds Home Medications Medication Instructions Recorded Confirmed cholecalciferol (vitamin D3) 2,000 unit PO QAM 05/22/18 11/23/19 [Vitamin D3] docusate sodium [Colace] 100 mg PO BID 05/22/18 11/23/19 pravastatin 10 mg PO HS 05/22/18 11/23/19 hydrochlorothiazide 12.5 mg PO Q2D 06/10/18 11/23/19 biotin 5 mg PO QAM 12/01/18 11/23/19 acetaminophen [Tylenol Extra 1,000 mg PO Q6H PRN 05/17/19 11/23/19 Strength] hydrocodone-acetaminophen 0.5 tab PO BID PRN 05/17/19 11/23/19 warfarin [Jantoven] 2.5 mg PO SUMOTUWEFRSA@1600 05/17/19 11/23/19 losartan 25 mg tablet 25 mg PO DAILY 11/16/19 11/23/19 warfarin [Jantoven] 5 mg PO TH@1600 11/23/19 11/23/19 prednisone 10 mg PO DAILY 11/24/19 11/24/19 Previous Rx's Medication Instructions Recorded albuterol sulfate 2 puffs INH Q6H #18 gm 05/24/19 fluticasone propionate 2 spray NA BID PRN #15.8 ml 05/24/19 sodium chloride [Saline Mist] 4 spray NA QID PRN #30 ml 05/24/19 ciprofloxacin HCl 500 mg tablet 500 mg PO q12h 10 Days #20 tab 11/18/19 Results & Data (ED) Vital Signs Vital Signs - 24 hr 11/23/19 14:30 11/23/19 14:35 11/23/19 15:00 Temperature 36.6 C Temperature Source Oral Pulse Rate 98 H 93 H 88 Pulse Rate from SpO2 Sensor 98 H 86 Respiratory Rate 24 20 20 Respiratory Effort / Characteristics Non-Labored Spontaneous Respiratory Depth Normal Respiratory Pattern Regular Blood Pressure 144/66 H 144/66 H 141/64 H Blood Pressure Mean 88 92 95 Pulse Oximetry 100 95 100 Oxygen Delivery Method Nasal Cannula Room Air Oxygen Flow Rate 3 Sepsis Recent Fever Within 48 Hours No Sepsis New/Unexplained Change in Mental Status No Sepsis Action Taken by Nursing No Action Required Oxygen Flow Rate - Titration 3 Pulse Oximetry Post Tiitration 100 11/23/19 15:01 11/23/19 15:35 11/23/19 16:00 Temperature Temperature Source Pulse Rate 92 H 79 96 H Pulse Rate from SpO2 Sensor 90 94 H Respiratory Rate 19 22 Respiratory Effort / Characteristics Respiratory Depth Respiratory Pattern Blood Pressure Blood Pressure Mean Pulse Oximetry 100 100 Oxygen Delivery Method Oxygen Flow Rate Sepsis Recent Fever Within 48 Hours Sepsis New/Unexplained Change in Mental Status Sepsis Action Taken by Nursing Oxygen Flow Rate - Titration Pulse Oximetry Post Tiitration 11/23/19 16:30 11/23/19 17:08 11/23/19 17:30 Temperature Temperature Source Pulse Rate 87 110 H 83 Pulse Rate from SpO2 Sensor 85 87 Respiratory Rate 16 23 17 Respiratory Effort / Characteristics Respiratory Depth Respiratory Pattern Blood Pressure Blood Pressure Mean Pulse Oximetry 100 100 Oxygen Delivery Method Oxygen Flow Rate Sepsis Recent Fever Within 48 Hours Sepsis New/Unexplained Change in Mental Status Sepsis Action Taken by Nursing Oxygen Flow Rate - Titration Pulse Oximetry Post Tiitration Home Medications Current Medication List: was personally reviewed by me Laboratory Data Attestation: I reviewed the patient's lab results. Result diagrams: 11/24/19 06:22 11/24/19 06:22 Lab Results 11/23/19 11/23/19 11/23/19 Range/Units 15:17 15:17 15:17 WBC 12.76 H (4.8-10.8) K/uL RBC 4.03 L (4.2-5.4) M/uL Hgb 12.4 (12.0-16.0) g/dL POC Hgb (12.0-16.0) g/dl Hct 39.6 (37-47) % POC Hct (37-47) % MCV 98.3 (80-100) fL MCH 30.8 (25-34) pg MCHC 31.3 L (32-36) g/dL RDW Std Deviation 54.7 H (36.4-46.3) fL RDW Coeff of Coty 15.1 H (11.5-14.5) % Plt Count 327 (130-400) K/uL MPV 10.4 (7.4-10.4) fL Immature Gran % (Auto) 0.3 % Neut % (Auto) 82.6 % Lymph % (Auto) 11.2 % [place] % (Auto) 5.3 % Eos % (Auto) 0.4 % Baso % (Auto) 0.2 % Neut # (Auto) 10.54 H (1.4-6.5) K/uL Lymph # (Auto) 1.43 (1.2-3.4) K/uL [place] # (Auto) 0.67 H (0.11-0.59) K/uL Eos # (Auto) 0.05 (0-0.5) K/uL Baso # (Auto) 0.03 (0-0.2) K/uL Immature Gran # (Auto) 0.04 H (0.00-0.02) K/uL PT 30.7 H (9.0-12.0) Seconds INR 3.1 H (0.9-1.1) APTT 35.9 H (21.0-31.0) Seconds PTT Ratio 1.3 POC Sodium (135-144) mmol/L Sodium 141 (136-145) mmol/L POC Potassium (3.3-5.0) mmol/L Potassium 3.9 (3.5-5.1) mmol/L POC Chloride (101-112) mmol/L Chloride 106 (98-107) mmol/L Carbon Dioxide 32 (21-32) mmol/L POC Total CO2 (24-31) mmol/L Anion Gap 3.0 (3-11) POC Anion Gap (16-25) mmol/L POC BUN (7-18) mg/dl BUN 21 H (7-18) mg/dl Creatinine 1.31 H (0.6-1.2) mg/dl POC Creatinine (0.6-1.3) mg/dl Est Cr Clr Drug Dosing 38.5 ml/min Est GFR ( Amer) 44.8 Est GFR (Non-Af Amer) 38.6 BUN/Creatinine Ratio 15.7 (10-20) Glucose 191 H (70-99) mg/dl POC Glucose (other) (70-99) mg/dl Calcium 8.7 (8.5-10.1) mg/dl POC Ioniz Calcium Kenji (1.12-1.32) mmol/l Total Bilirubin 0.4 (0.2-1) mg/dl AST 12 L (15-37) U/L ALT 17 (12-78) U/L Alkaline Phosphatase 68 (45-117) U/L Troponin I < 0.015 (0-0.045) ng/ml Total Protein 6.8 (6.4-8.2) gm/dl Albumin 2.8 L (3.4-5.0) gm/dl Globulin 4.0 (2.5-4.0) gm/dl Albumin/Globulin Ratio 0.7 L (0.9-2) Lipase 140 (73-393) U/L // Range/Units 15:22 WBC (4.8-10.8) K/uL RBC (4.2-5.4) M/uL Hgb (12.0-16.0) g/dL POC Hgb 12.9 (12.0-16.0) g/dl Hct (37-47) % POC Hct 38 (37-47) % MCV (80-100) fL MCH (25-34) pg MCHC (32-36) g/dL RDW Std Deviation (36.4-46.3) fL RDW Coeff of Coty (11.5-14.5) % Plt Count (130-400) K/uL MPV (7.4-10.4) fL Immature Gran % (Auto) % Neut % (Auto) % Lymph % (Auto) % [place] % (Auto) % Eos % (Auto) % Baso % (Auto) % Neut # (Auto) (1.4-6.5) K/uL Lymph # (Auto) (1.2-3.4) K/uL [place] # (Auto) (0.11-0.59) K/uL Eos # (Auto) (0-0.5) K/uL Baso # (Auto) (0-0.2) K/uL Immature Gran # (Auto) (0.00-0.02) K/uL PT (9.0-12.0) Seconds INR (0.9-1.1) APTT (21.0-31.0) Seconds PTT Ratio POC Sodium 142 (135-144) mmol/L Sodium (136-145) mmol/L POC Potassium 4.0 (3.3-5.0) mmol/L Potassium (3.5-5.1) mmol/L POC Chloride 101 (101-112) mmol/L Chloride (98-107) mmol/L Carbon Dioxide (21-32) mmol/L POC Total CO2 29 (24-31) mmol/L Anion Gap (3-11) POC Anion Gap 16.0 (16-25) mmol/L POC BUN 22 H (7-18) mg/dl BUN (7-18) mg/dl Creatinine (0.6-1.2) mg/dl POC Creatinine 1.3 (0.6-1.3) mg/dl Est Cr Clr Drug Dosing ml/min Est GFR ( Amer) Est GFR (Non-Af Amer) BUN/Creatinine Ratio (10-20) Glucose (70-99) mg/dl POC Glucose (other) 197 H (70-99) mg/dl Calcium (8.5-10.1) mg/dl POC Ioniz Calcium Kenji 1.18 (1.12-1.32) mmol/l Total Bilirubin (0.2-1) mg/dl AST (15-37) U/L ALT (12-78) U/L Alkaline Phosphatase (45-117) U/L Troponin I (0-0.045) ng/ml Total Protein (6.4-8.2) gm/dl Albumin (3.4-5.0) gm/dl Globulin (2.5-4.0) gm/dl Albumin/Globulin Ratio (0.9-2) Lipase (73-393) U/L Administered Medications Hydrocodone Bitart/Acetaminophen (Hydrocodone/Acetamophen 5/325mg Tab) 0.5 tab PO BID PRN PRN Reason: Pain Stop: 12/07/19 20:03 Last Admin: 11/23/19 23:13 Dose: 0.5 tab Documented by: [id number] Ciprofloxacin (Ciprofloxacin 500 Mg Tab) 500 mg PO Q12H SAMANTA Stop: 12/01/19 06:59 Last Admin: 11/24/19 08:20 Dose: 500 mg Documented by: [id number] Docusate Sodium (Docusate Sodium 100 Mg Cap) 100 mg PO BID SAMANTA Stop: 12/23/19 20:59 Last Admin: 11/24/19 08:20 Dose: 100 mg Documented by: [id number] Admin: 11/23/19 21:12 Dose: 100 mg Documented by: [id number] Pravastatin Sodium (Pravastatin Sod 10 Mg Tab) 10 mg PO HS SAMANTA Stop: 12/23/19 20:59 Last Admin: 11/23/19 21:12 Dose: 10 mg Documented by: [id number] Prednisone (Prednisone 10 Mg Tablet) 10 mg PO DAILY SAMANTA Stop: 12/24/19 09:59 Last Admin: 11/24/19 10:31 Dose: 10 mg Documented by: [id number] Vitamin D (Cholecalciferol 1,000 Units 25 Mcg Tab) 2,000 units PO QAM SAMANTA Stop: 12/24/19 08:59 Last Admin: 11/24/19 08:20 Dose: 2,000 units Documented by: [id number] Discontinued Medications Acetaminophen (Acetaminophen 325 Mg Tab) 650 mg PO Q4H PRN PRN Reason: Pain or Fever Stop: 12/23/19 19:55 Last Admin: 11/24/19 06:05 Dose: 650 mg Documented by: [id number] Albuterol (Albut/Ipratrop 3mg/0.5mg Neb 3 Ml Vial) 3 ml NEB QIDR [facility] Stop: 12/24/19 06:59 Last Admin: 11/24/19 07:00 Dose: 3 ml Documented by: [id number] Admin: 11/23/19 21:22 Dose: 3 ml Documented by: [id number] Ceftriaxone Sodium 1,000 mg/ (Dextrose) 50 mls @ 100 mls/hr IV DAILY@2000 [facility]; Protocol Stop: 11/30/19 20:29 Last Infusion: 11/23/19 21:46 Dose: 0 mls/hr Documented by: [id number] Admin: 11/23/19 21:13 Dose: 100 mls/hr Documented by: [id number] Ioversol (Optiray 320 125ml) 119 ml IV ONCE ONE Stop: 11/23/19 16:54 Last Admin: 11/23/19 16:54 Dose: 119 ml Documented by: [id number] Perflutren Lipid Microsphere (Perflutren Lipid Microsphere (Definity)) 2 ml IV ONCE ONE Stop: 11/24/19 07:55 Last Admin: 11/24/19 07:55 Dose: 2 ml Documented by: [id number] Warfarin Sodium (Warfarin Sod 2.5 Mg Tab) 2.5 mg PO ONE ONE Stop: 11/23/19 21:01 Last Admin: 11/23/19 21:12 Dose: 2.5 mg Documented by: [id number] Imaging Data Radiologist's Impression: CT ANGIOGRAM OF THE CHEST CLINICAL HISTORY: Atypical chest pain. Dyspnea on exertion. COMPARISON STUDY: Chest CT scans dated 05/17/2019 and 09/10/2017. TECHNIQUE: Following the IV administration of 120 cc of Optiray 320, CT angiogram of the chest was performed from the upper abdomen to the thoracic inlet utilizing the pulmonary embolus protocol. Images are reviewed in the axial, sagittal, and coronal planes. 3-D MIPS images are created and assessed. IV contrast was administered without complication. A dose lowering technique was utilized adhering to the principles of ALARA. CT DOSE: 537.56 mGycm FINDINGS: Thyroid: The thyroid gland is enlarged and heterogeneous. Low-attenuation nodules measure up to 1.2 cm. Thoracic aorta: There is atherosclerotic calcification of the thoracic aorta, which is normal in caliber and demonstrates standard 3-vessel arch anatomy. No dissection is seen. Pulmonary vasculature: The main pulmonary arteries appear dilated indicating pulmonary artery hypertension. There are no filling defects identified in main, lobar, or segmental pulmonary branches to suggest pulmonary embolus. Heart: The heart is enlarged and without pericardial effusion. The coronary arteries are densely calcified. Lungs and pleural spaces: Evaluation of the lung parenchyma is modestly degraded by motion artifact. Scarring/atelectasis is noted the lung bases. There are scattered calcified granulomas. No airspace consolidation is seen typical for pneumonia and there is no pleural effusion. The trachea and central airways are clear. Mediastinum: There is no mediastinal lymphadenopathy. Elvie: Clear. Axillae: There is no axillary lymphadenopathy. Upper abdomen: There is a small hiatal hernia. A cyst arising from the upper pole of the left kidney is only partially visualized. Skeletal structures: The skeletal structures are osteopenic. Degenerative change is noted throughout the thoracic spine. No lytic or blastic bony lesions are seen. IMPRESSION: 1. There is no evidence of pulmonary embolus in the main, lobar, or segmental pulmonary arteries. 2. There is no airspace consolidation or pleural effusion. 3. Cardiomegaly. ACT 112: Negative or not required by law. Electronically signed by: Jostin Jansen M.D. 11/23/2019 5:15 PM Dictated: 11/23/191709 Transcribed: 11/23/191709 Blood Pressure Blood Pressure Findings: Normal blood pressure Discharge Plan Visit Data Chief Complaint: Shortness of Breath/Dyspnea ED Provider: David Ramsey Discharge Problem: Acute kidney injury, Hypoxia, Acute dyspnea Patient Disposition: Admitted As Inpatient Condition: Good Discharge Instructions Interventions: ED Discharge Assessment Last Done: 11/23/19 19:31
[2019-11-23 15:28] LABS: Basophils # (auto) 0.03 K/uL (0-0.2); Basophils % (auto) 0.2 %; Eosinophils # (auto) 0.05 K/uL (0-0.5); Eosinophils % (auto) 0.4 %; Hematocrit (blood only) 39.6 % (37-47); Hemoglobin 12.4 g/dL (12.0-16.0); Immature Granulocytes # (auto) 0.04 K/uL (0.00-0.02); Immature Granulocytes % (auto) 0.3 %; Lymphocytes # (auto) 1.43 K/uL (1.2-3.4); Lymphocytes % (auto) 11.2 %; Mean Corpuscular Hemoglobin 30.8 pg (25-34); Mean Corpuscular Hgb Conc 31.3 g/dL (32-36); Mean Corpuscular Volume 98.3 fL (80-100); Mean Platelet Volume 10.4 fL (7.4-10.4); Monocytes # (auto) 0.67 K/uL (0.11-0.59); Monocytes % (auto) 5.3 %; Neutrophils # (auto) 10.54 K/uL (1.4-6.5); Neutrophils % (auto) 82.6 %; Platelet Count 327 K/uL (130-400); RDW Coefficient of Variation 15.1 % (11.5-14.5); RDW Standard Deviation 54.7 fL (36.4-46.3); Red Blood Count 4.03 M/uL (4.2-5.4); White Blood Count 12.76 K/uL (4.8-10.8)
[2019-11-23 15:34] LABS: iSTAT Creatinine 1.3 mg/dl (0.6-1.3); iSTAT Hemoglobin 12.9 g/dl (12.0-16.0); iSTAT Ionized Calcium 1.18 mmol/l (1.12-1.32)
[2019-11-23 15:39] LABS: INR 3.1 (0.9-1.1); Partial Thromboplastin Ratio 1.3; Partial Thromboplastin Time 35.9 Seconds (21.0-31.0); Prothrombin Time 30.7 Seconds (9.0-12.0)
[2019-11-23 15:49] LABS: Alanine Aminotransferase 17 U/L (12-78); Albumin Level 2.8 gm/dl (3.4-5.0); Aspartate Aminotransferase 12 U/L (15-37); BUN Creatinine Ratio 15.7 (10-20); Blood Urea Nitrogen 21 mg/dl (7-18); Calcium 8.7 mg/dl (8.5-10.1); Carbon Dioxide 32 mmol/L (21-32); Chloride 106 mmol/L (98-107); Creatinine Clr Calc Pharmacy 38.5 ml/min; Est GFR (African American) 44.8; Est GFR (Non-African American) 38.6; Glucose 191 mg/dl (70-99); Lipase 140 U/L (73-393); Potassium 3.9 mmol/L (3.5-5.1); Sodium 141 mmol/L (136-145)
[2019-11-23 15:54] LABS: Albumin Globulin Ratio 0.7 (0.9-2); Alkaline Phosphatase 68 U/L (45-117); Bilirubin,Total 0.4 mg/dl (0.2-1); Total Protein 6.8 gm/dl (6.4-8.2); Troponin I < 0.015 ng/ml (0-0.045)
[2019-11-23] MEDS ORDERED: OPTIRAY 320 125ml IV ONE (16:53)
--- NOTE | 2019-11-23 17:16 | CT Scan Report ---
CT ANGIOGRAM OF THE CHEST CLINICAL HISTORY: Atypical chest pain. Dyspnea on exertion. COMPARISON STUDY: Chest CT scans dated 05/17/2019 and 09/10/2017. TECHNIQUE: Following the IV administration of 120 cc of Optiray 320, CT angiogram of the chest was pe rformed from the upper abdomen to the thoracic inlet utilizing the pulmonary embolus protocol. Images are reviewed in the axial, sagittal, and coronal planes. 3-D MIPS images are created and assessed. I V contrast was administered without complication. A dose lowering technique was utilized adhering to the principles of ALARA. CT DOSE: 537.56 mGycm FINDINGS: Thyroid: The thyroid gland is enlarged and heterogeneous. Low-attenuation nodules measure up to 1.2 c m. Thoracic aorta: There is atherosclerotic calcification of the thoracic aorta, which is normal in ana yaz and demonstrates standard 3-vessel arch anatomy. No dissection is seen. Pulmonary vasculature: The main pulmonary arteries appear dilated indicating pulmonary artery hyperte nsion. There are no filling defects identified in main, lobar, or segmental pulmonary branches to sug gest pulmonary embolus. Heart: The heart is enlarged and without pericardial effusion. The coronary arteries are densely calc ified. Lungs and pleural spaces: Evaluation of the lung parenchyma is modestly degraded by motion artifact. Scarring/atelectasis is noted the lung bases. There are scattered calcified granulomas. No airspace c onsolidation is seen typical for pneumonia and there is no pleural effusion. The trachea and central airways are clear. Mediastinum: There is no mediastinal lymphadenopathy. Elvie: Clear. Axillae: There is no axillary lymphadenopathy. Upper abdomen: There is a small hiatal hernia. A cyst arising from the upper pole of the left kidney is only partially visualized. Skeletal structures: The skeletal structures are osteopenic. Degenerative change is noted throughout the thoracic spine. No lytic or blastic bony lesions are seen. IMPRESSION: 1. There is no evidence of pulmonary embolus in the main, lobar, or segmental pulmonary arteries. 2. There is no airspace consolidation or pleural effusion. 3. Cardiomegaly. ACT 112: Negative or not required by law. Electronically signed by: Jostin Jansen M.D. 11/23/2019 5:15 PM
--- NOTE | 2019-11-23 17:35 | History & Physical Report ---
Date of Service November 23, 2019 Assessment & Plan (1) Acute respiratory failure with hypoxia: (2) COPD (chronic obstructive pulmonary disease): (3) Dyspnea on exertion: This is a 79 yo F with a PMH of pulmonary embolism on Coumadin, chronic LE wound in setting of venous insufficiency on Cipro, COPD, bilateral lymphedema, rheumatoid arthritis on chronic prednisone and other medical problems listed below who presents from wound care clinic with dyspnea on exertion and hypoxia at 85%. -History of PE on coumadin. CTA chest today without evidence of pulmonary embolus in the main, lobar, or segmental pulmonary arteries. There is no airspace consolidation or pleural effusion -COVID PCR negative. ABG pending, 2D echo ordered to evaluate for heart failure, considered [employer] respiratory panel but afebrile, no chills or sick contacts -Continue supplemental O2. Duonebs. Likely component of obesity hypoventilation, known noctural hypoxemia not on O2 and COPD (4) Pulmonary embolism: (5) Anticoagulated on Coumadin: No evidence of PE on CTA chest. Coumadin therapeutic at 3.1. Continue Coumadin regimen with dose this evening (6) MICHEAL (acute kidney injury): Cr elevated at 1.31 (baseline ~0.9) in setting of Cipro use for chronic leg infection. Switch abx to rocephin. Holding losartan and HCTZ in AM. Gentle IV fluids. Monitor renal function (7) Traumatic open wound of left lower leg with delayed healing: (8) Chronic venous insufficiency of lower extremity: Following with [facility] wound care. Most recent wound cx on 11/16/19 grew rai- sensitive Enterobacter. Holding Cipro due to MICHEAL and giving Rocephin for now (9) HTN (hypertension): Holding HCTZ and losartan 2/2 MICHEAL. BP currently 127/85. Add PRN antihypertensives as needed (10) HLD (hyperlipidemia): Continue statin DVT Ppx: Coumadin Code status: FULL PCP: Kenia Dispo: Admitted to [facility]. Plan to return home once medically stable. Patient seen in collaboration with Dr. Garber. Please see addendum. History of Present Illness Chief Complaint: dyspnea on exertion Primary Care Provider: Poncho Aquino MD This is a 79 yo F with a PMH of pulmonary embolism on Coumadin, chronic LE wound in setting of venous insufficiency on Cipro, COPD, bilateral lymphedema, rheumatoid arthritis on chronic prednisone and other medical problems listed below who presents from wound care clinic with dyspnea on exertion and hypoxia at 85%. Has felt progressively more short of breath over the past 3 weeks, having to rest even if she walks across the room to use the bathroom. + orthopnea. Is not on home O2. No known history of heart failure. Denies any sick contacts or known COVID exposures. No fever or chills. No muscle aches or generalized weakness. Denies any chest pain, palpitations, wheezing, cough, sore throat, nausea, vomiting, abdominal pain, dysuria, diarrhea or constipation. Does feel like she gained weight in abdomen and lower extremities ever since being on extended course of prednisone this summer. Allergies Allergy/AdvReac Type Severity Reaction Status Date / Time strawberry Allergy Severe Anaphylaxis Verified 11/23/19 16:23 tramadol AdvReac Severe Confusion Verified 11/23/19 16:23 atorvastatin AdvReac Unknown Muscle Verified 11/23/19 16:23 Aches fentanyl AdvReac Unknown Vomiting Verified 11/23/19 16:23 ibandronate sodium AdvReac Unknown Nausea/Vomi Verified 11/23/19 16:23 [From Pavel] ting Home Medications Home Medications Medication Instructions Recorded Confirmed Type cholecalciferol (vitamin D3) 2,000 unit PO QAM 05/22/18 11/23/19 History [Vitamin D3] docusate sodium [Colace] 100 mg PO BID 05/22/18 11/23/19 History pravastatin 10 mg PO HS 05/22/18 11/23/19 History hydrochlorothiazide 12.5 mg PO Q2D 06/10/18 11/23/19 History biotin 5 mg PO QAM 12/01/18 11/23/19 History acetaminophen [Tylenol Extra 1,000 mg PO Q6H PRN 05/17/19 11/23/19 History Strength] hydrocodone-acetaminophen 0.5 tab PO BID PRN 05/17/19 11/23/19 History warfarin [Jantoven] 2.5 mg PO SUMOTUWEFRSA@1600 05/17/19 11/23/19 History albuterol sulfate 2 puffs INH Q6H #18 gm 05/24/19 11/23/19 Rx fluticasone propionate 2 spray NA BID PRN #15.8 ml 05/24/19 11/23/19 Rx sodium chloride [Saline Mist] 4 spray NA QID PRN #30 ml 05/24/19 11/23/19 Rx losartan 25 mg tablet 25 mg PO DAILY 11/16/19 11/23/19 History ciprofloxacin HCl 500 mg tablet 500 mg PO q12h 10 Days #20 tab 11/18/19 11/23/19 Rx warfarin [Jantoven] 5 mg PO TH@1600 11/23/19 11/23/19 History Past Med/Surg History Medical History Bladder cancer Compression fracture COPD (chronic obstructive pulmonary disease) H/O deep venous thrombosis H/O renal calculi H/O sciatica HLD (hyperlipidemia) HTN (hypertension) Lumbar back pain with radiculopathy affecting left lower extremity Lymphedema Obesity Prediabetes Rheumatoid arthritis Spinal stenosis, lumbar region with neurogenic claudication Venous insufficiency Surgical History H/O breast biopsy H/O hernia repair H/O: hysterectomy History of cataract surgery Family History Mother Diabetes Father Colorectal cancer Social History Smoking Status: Former smoker Tobacco Type: Cigarettes Second Hand Exposure: No; Hx Alcohol Use: No Hx Substance Use: No Preferred Language: Chinese Communication Ability: Effective Track Fitter Required: No Beliefs That Will Affect Care: Yazidism Yazidism Beliefs: Faith marital status: / Current Living Situation: Alone Current Living Situation Comment: [facility] current occupational status: retired Feels Safe at Home: No Is there a partner from a previous relationship who is making you feel unsafe now?: No Assistive Devices: Oxygen - Continuous Review of Systems Review of Systems: At least ten systems reviewed and negative except as noted in the HPI. Physical Exam Physical Exam: General Appearance: vitals as above, NAD, +morbidly obese, conversational dyspnea Head: normocephalic, atraumatic Eyes: normal inspection, PERRL, conjunctivae normal, anicteric sclerae ENT: external ear and nose normal, oropharynx normal Neck: normal visual inspection, trachea midline, no thyromegaly Respiratory: Diminished breath sounds, scattered wheezes, no rales. No accessory muscle use Cardiovascular: regular rate, rhythm, no murmur appreciated, normal peripheral pulses. Vessels: no JVD Chest: normal inspection of chest Abdomen/GI: normal bowel sounds, soft but distended, nontender, no hepatosplenomegaly Extremities/Musculoskeletal: +bilateral lymphedema. no cyanosis or clubbing, extremities motor strength 5/5 Neurologic: PERRL, EOMI, accommodation nl, no face palsy, no dysarthria, CN's II-XI intact bilaterally and moves all extremities Psychiatric: A+Ox3, euthymic affect Skin: no rashes, normal color, warm/dry. + LLE wound with dressing in place Results & Data Results & Data ([facility]) Vital Signs (Past 12 Hours) Vital Signs Temp Pulse Resp BP Pulse Ox 11/23/19 14:35 36.6 C 93 H 20 144/66 H 95 11/23/19 14:30 98 H 24 144/66 H 100 Laboratory Results Short CBC 11/23/19 Range/Units 15:17 WBC 12.76 H (4.8-10.8) K/uL Hgb 12.4 (12.0-16.0) g/dL Hct 39.6 (37-47) % Plt Count 327 (130-400) K/uL BMP 11/23/19 15:17 Sodium 141 Potassium 3.9 Chloride 106 Carbon Dioxide 32 BUN 21 H Creatinine 1.31 H Glucose 191 H Calcium 8.7 Cardiac Enzymes 11/23/19 Range/Units 15:17 Troponin I < 0.015 (0-0.045) ng/ml Liver Function 11/23/19 Range/Units 15:17 Total Bilirubin 0.4 (0.2-1) mg/dl AST 12 L (15-37) U/L ALT 17 (12-78) U/L Alkaline Phosphatase 68 (45-117) U/L Albumin 2.8 L (3.4-5.0) gm/dl Diagnostic Findings CTA chest: IMPRESSION: 1. There is no evidence of pulmonary embolus in the main, lobar, or segmental pulmonary arteries. 2. There is no airspace consolidation or pleural effusion. 3. Cardiomegaly. Code Status & VTE Plan VTE Prophylaxis Plan VTE Prophylaxis will be ordered: Yes Supervising Physician Co-Signing Physician Notes Care coordinated with Jyotsna Boland. Agree with above note. Patient seen and examined. Please refer to her notes for full details. Vital signs reviewed. Physical exam: General exam: Alert and oriented. Not in acute distress. CVS: S1 and S2 heard, regular rate and rhythm, no murmurs. RS: Clear to auscultation, no wheezing or crackles. ABD: Soft, bowel sounds present, nontender, no distention. SUPERVISOR LIQUID YEAST: Nonfocal. EXT: lower extremity gross edema present Labs: Reviewed. Assessment and plan: 79F presents with ongoing sob on exertion for 2-3 weeks. Denies copugh. No fevers/ No chest pain. No nausea or abdominal pain. Was saturating 85% at wound clinic.Currently with oxygen on she is feeling better, Hypoxia sob on exertion hx of requiring oxygen q hs but seems declined last admission. no wheezing on exam cta chest no PE. possibly needs home o2 two step nebs follow echo. last admission had viral pneumonia.no infiltrates on ct scan currently. has chronic lower extremity edema' Hx of PE on coumadin inr therapeutic Other diagnosis and plan of care as per Jyotsna Rodriguez PA-C. Bimal weeks MD.
[2019-11-23] MEDS ORDERED: SODIUM CHLORIDE 0.65% NA SOLN 45 ML (OCEAN) PRN (19:56)
[2019-11-23] MEDS ORDERED: POLYETHYLENE (MIRALAX) 17 GM PACK PO PRN (19:56)
[2019-11-23] MEDS ORDERED: ALBUTEROL HFA 8 GM INHALER INH PRN (19:56)
[2019-11-23] MEDS ORDERED: FLUTICASONE PROPIONATE NA SPR 16 GM BTL PRN (19:56)
[2019-11-23] MEDS ORDERED: ACETAMINOPHEN 325 MG TAB PO PRN (19:56)
[2019-11-23] MEDS ORDERED: ACETAMINOPHEN 500 MG TAB PO PRN (19:56)
[2019-11-23] MEDS ORDERED: cefTRIAXone SODIUM 1,000 MG in DEXTROSE 5% 50 ML IV SCH (20:30)
[2019-11-23 20:31] LABS: Allen Test Pos (Pos); Base Excess ABG 1.8 mEq/L (-9-1.8); HCO3 ABG 28 mmol/L (19-24); Oxygen Saturation ABG 98.4 % (90-95); PCO2 ABG 49 mmHg (35-46); PO2 ABG 121 mmHg (80-95); pH ABG 7.38 (7.35-7.45)
[2019-11-23] MEDS ORDERED: WARFARIN SOD 2.5 MG TAB PO ONE (21:00)
[2019-11-23] MEDS: DOCUSATE SODIUM 100 MG CAP PO SCH (21:12)
[2019-11-23] MEDS: PRAVASTATIN SOD 10 MG TAB PO SCH (21:12)
[2019-11-23] MEDS: ALBUT/IPRATROP 3MG/0.5MG NEB 3 ML VIAL NEB SCH (21:22)
[2019-11-23] MEDS: HYDROCODONE/ACETAMOPHEN 5/325MG TAB PO PRN (23:13)
[2019-11-24 06:52] LABS: INR 3.1 (0.9-1.1); Prothrombin Time 30.5 Seconds (9.0-12.0)
[2019-11-24] MEDS: ALBUT/IPRATROP 3MG/0.5MG NEB 3 ML VIAL NEB SCH (07:00)
[2019-11-24 07:12] LABS: BUN Creatinine Ratio 15.2 (10-20); Calcium 8.7 mg/dl (8.5-10.1); Creatinine Clr Calc Pharmacy 40.9 ml/min; Est GFR (African American) 49.3; Est GFR (Non-African American) 42.5; Potassium 3.9 mmol/L (3.5-5.1)
[2019-11-24 07:30] LABS: Hematocrit (blood only) 41.6 % (37-47); Hemoglobin 12.5 g/dL (12.0-16.0); Mean Corpuscular Volume 99.8 fL (80-100); Mean Platelet Volume 10.3 fL (7.4-10.4); Platelet Count 319 K/uL (130-400); RDW Coefficient of Variation 15.3 % (11.5-14.5); RDW Standard Deviation 55.6 fL (36.4-46.3); Red Blood Count 4.17 M/uL (4.2-5.4); White Blood Count 12.69 K/uL (4.8-10.8)
[2019-11-24] MEDS ORDERED: PERFLUTREN LIPID MICROSPHERE (DEFINITY) IV ONE (07:54)
[2019-11-24] MEDS: DOCUSATE SODIUM 100 MG CAP PO SCH ×2 (08:20→20:20)
[2019-11-24] MEDS: CHOLECALCIFEROL 1,000 UNITS 25 MCG TAB PO SCH (08:20)
[2019-11-24] MEDS: CIPROFLOXACIN 500 MG TAB PO SCH ×2 (08:20→19:11)
[2019-11-24] MEDS ORDERED: NON-FORMULARY MEDICATION (Biotin 5 MG) PO SCH (09:00)
[2019-11-24] MEDS ORDERED: ALBUT/IPRATROP 3MG/0.5MG NEB 3 ML VIAL NEB PRN (09:27)
--- NOTE | 2019-11-24 10:03 | Hospitalist Progress Note ---
Date of Service November 24, 2019 Assessment & Plan (1) Acute respiratory failure with hypoxia: (2) COPD (chronic obstructive pulmonary disease): (3) Dyspnea on exertion: possible pulmonary artery hypertension -This is a 79 yo F with a PMH of pulmonary embolism on Coumadin, chronic LE wo und in setting of venous insufficiency on Cipro, COPD, bilateral lymphedema, rheumatoid arthritis on chronic prednisone and other medical problems listed below who presents from wound care clinic with dyspnea on exertion and hypoxia at 85%. -screening for COVID-19 is negative -History of PE on coumadin in the past. admission CTA: Chest CTA that did not find evidence of pneumonia or pulmonary edema or pulmonary embolism. patient was started on scheduled nebulizer treatments and supplementary oxygen Thoracic aorta: There is atherosclerotic calcification of the thoracic aorta, which is normal in caliber and demonstrates standard 3-vessel arch anatomy. No dissection is seen. Pulmonary vasculature: The main pulmonary arteries appear dilated indicating pulmonary artery hypertension. There are no filling defects identified in main, lobar, or segmental pulmonary branches to suggest pulmonary embolus. Heart: The heart is enlarged and without pericardial effusion. The coronary arteries are densely calcified. Lungs and pleural spaces: Evaluation of the lung parenchyma is modestly degraded by motion artifact. Scarring/atelectasis is noted the lung bases. There are scattered calcified granulomas. No airspace consolidation is seen typical for pneumonia and there is no pleural effusion. The trachea and central airways are clear. -11/24/2019 patient on nasal cannula oxygen during exam by daytime hospitalist - no wheezing on exam. patient denies home oxygen use and denies of any inhalers or nebulizers. patient is obese. overnight pulse oximetry between 11/23/19 to 11/24/19 did not show evidence for acute desaturation with sleep - however the study was also done with supplementary oxygen of 3 liters/min. patient with chronic bilateral lower extremity and reports that at home she intermittently takes HCTZ when blood pressure above 110 systolic. Patient's telemetry monitoring reviews possible artifacts and nurse asked to adjusted the telemetry leads. Patient denies chest pain. She reports some right shoulder pain which developed on this hospital presentation after she needed assistance to get on/off the bed the admission Chest CTA that did not find evidence of pneumonia or pulmonary edema or pulmonary embolism. Patient reports that the echocardiogram as ordered by the hospital admission team was performed - results are pending. 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 Patient lives by herself at home. She reports she has difficulties with buttoning her clothes at home. She has a daughter who lives the local area. Patient questions whether she needs a stint at a physical therapy rehabilitation center -continue prednisone -PT/OT evaluations -case management consult (6) MICHEAL (acute kidney injury): -baseline creatinine around 0.9 -admission creatinine 1.31 -creatinine 1.21 on 11/24/2019 AM labs after IV fluids and holding home dose HCTZ -monitor renal function (7) Traumatic open wound of left lower leg with delayed healing: -Following with [facility] wound care. Most recent wound cx on 11/16/19 grew rai- sensitive Enterobacter -patient has been chronically on ciprofloxacin. initially given ceftriaxone IV on admission as a substitute but home dose ciprofloxacin likely can be given instead (8) Chronic venous insufficiency of lower extremity: patient with chronic bilateral lower extremity and reports that at home she intermittently takes HCTZ when blood pressure above 110 systolic. (9) HTN (hypertension): -blood pressures are ok when off HCTZ and losartan for now (10) HLD (hyperlipidemia): Obesity with BMI of 51 -on pravastatin 10 mg qhs -low fat diet while in hospital DVT Ppx: Coumadin Code status: FULL PCP: Kenia My hospitalist colleague Dr. Velez will be following the patient starting on 11/25/2019 Admission and Anticipated Discharge Date Admission Date: November 23, 2019 Subjective patient on nasal cannula oxygen during exam by daytime hospitalist - no wheezing on exam. patient denies home oxygen use and denies of any inhalers or nebulizers. patient is obese. overnight pulse oximetry between 11/23/19 to 11/24/19 did not show evidence for acute desaturation with sleep - however the study was also done with supplementary oxygen of 3 liters/min. patient with chronic bilateral lower extremity and reports that at home she intermittently takes HCTZ when blood pressure above 110 systolic. Patient's telemetry monitoring reviews possible artifacts and nurse asked to adjusted the telemetry leads. Patient denies chest pain. She reports some right shoulder pain which developed on this hospital presentation after she needed assistance to get on/off the bed the initial Chest CTA that did not find evidence of pneumonia or pulmonary edema or pulmonary embolism. Patient reports that the echocardiogram as ordered by the hospital admission team was performed - results are pending. Patient reports that she takes chronic prednisone 10 mg daily at home for years because of history of rheumatoid arthritis. Patient lives by herself at home. She reports she has difficulties with buttoning her clothes at home. She has a daughter who lives the local area. Patient questions whether she needs a stint at a physical therapy rehabilitation center Review of Systems Review of Systems: All systems reviewed & are unremarkable except as noted in Subjective Physical Exam Constitutional: + morbidly obese Eyes: PERRL, conjunctivae normal, anicteric sclerae EOM intact bilaterally ENMT: external ear and nose normal, oropharynx normal Neck: normal visual inspection Respiratory: normal respiratory effort, lungs clear to auscultation Cardiovascular: Rate/Rhythm: regular rate Gastrointestinal (Abdomen): normal bowel sounds, soft, nontender, no hepatosplenomegaly Musculoskeletal: Head/Neck/Chest: normocephalic Extremities: + lower leg abnormality (bilateral lower extremity edema (chronic as per patient)) Neurologic: PERRL, EOMI, accommodation nl, no face palsy, no dysarthria Psychiatric: A+Ox3, euthymic affect Results & Data Results & Data ([facility]) Vital Signs (Past 12 Hours) Vital Signs Temp Pulse Pulse Pulse Resp BP Pulse Ox 11/24/19 07:45 36.7 C 82 18 119/66 96 11/24/19 07:20 84 11/24/19 07:02 70 20 99 11/24/19 05:36 68 11/24/19 04:33 36.5 C 75 19 106/67 99 11/24/19 02:05 78 11/24/19 01:01 83 11/24/19 00:23 36.6 C 82 18 113/66 99 Pulse Ox 11/24/19 07:45 11/24/19 07:20 11/24/19 07:02 11/24/19 05:36 100 11/24/19 04:33 11/24/19 02:05 11/24/19 01:01 99 11/24/19 00:23
[2019-11-24] MEDS: predniSONE 10 MG TABLET PO SCH (10:31)
--- NOTE | 2019-11-24 12:05 | XCELERA ---
[id number]
[2019-11-24] MEDS: WARFARIN SOD 2.5 MG TAB PO SCH (15:40)
--- NOTE | 2019-11-24 16:15 | Electrocardiogram Report ---
Test Reason : Blood Pressure : / mmHG Vent. Rate : 090 BPM Atrial Rate : 088 BPM P-R Int : 166 ms QRS Dur : 076 ms QT Int : 350 ms P-R-T Axes : 039 012 -08 degrees QTc Int : 428 ms Poor data quality, interpretation may be adversely affected Sinus rhythm with premature atrial beats Low voltage QRS Nonspecific T wave abnormality Abnormal ECG When compared with ECG of 17-MAY-2019 16:34, No significant change Confirmed by Lico Smiley ([id number]) on 11/24/2019 4:15:08 PM Referred By: REFERRED SELF Confirmed By:Lico Smiley
[2019-11-24] MEDS: ACETAMINOPHEN 325 MG TAB PO PRN (19:11)
[2019-11-24] MEDS: PRAVASTATIN SOD 10 MG TAB PO SCH (20:20)
[2019-11-24] MEDS: HYDROCODONE/ACETAMOPHEN 5/325MG TAB PO PRN (23:05)
[2019-11-25] MEDS ORDERED: oxyCODONE HCL IR 5 MG TAB (IMMEDIATE RELEASE) PO STA (03:10)
[2019-11-25] MEDS: CIPROFLOXACIN 500 MG TAB PO SCH ×2 (05:31→20:14)
[2019-11-25 07:12] LABS: Hematocrit (blood only) 41.5 % (37-47); Hemoglobin 12.3 g/dL (12.0-16.0); Mean Corpuscular Hemoglobin 29.3 pg (25-34); Mean Corpuscular Hgb Conc 29.6 g/dL (32-36); Mean Corpuscular Volume 98.8 fL (80-100); Mean Platelet Volume 10.3 fL (7.4-10.4); Platelet Count 320 K/uL (130-400); White Blood Count 11.07 K/uL (4.8-10.8)
[2019-11-25 07:27] LABS: INR 3.2 (0.9-1.1); Prothrombin Time 31.6 Seconds (9.0-12.0)
[2019-11-25 07:39] LABS: C Reactive Protein 2.07 mg/dl (0-0.29); Calcium 8.4 mg/dl (8.5-10.1); Creatinine Clr Calc Pharmacy 40.9 ml/min; Est GFR (African American) 48.8; Est GFR (Non-African American) 42.1; Potassium 3.7 mmol/L (3.5-5.1)
[2019-11-25] MEDS: DOCUSATE SODIUM 100 MG CAP PO SCH ×2 (08:03→20:14)
[2019-11-25] MEDS: predniSONE 10 MG TABLET PO SCH (08:04)
[2019-11-25] MEDS: CHOLECALCIFEROL 1,000 UNITS 25 MCG TAB PO SCH (08:04)
[2019-11-25] MEDS: ACETAMINOPHEN 325 MG TAB PO PRN (14:30)
[2019-11-25] MEDS: WARFARIN SOD 2.5 MG TAB PO SCH (15:37)
--- NOTE | 2019-11-25 16:17 | Hospitalist Progress Note ---
Date of Service November 25, 2019 Assessment & Plan (1) Acute respiratory failure with hypoxia: (2) COPD (chronic obstructive pulmonary disease): (3) Dyspnea on exertion: Present on admission with worsening SOB with oxygen sat 85% CTA chest showed no evidence of pulmonary embolus in the main, lobar, or segmental pulmonary arteries. There is no airspace consolidation or pleural effusion. screening for COVID-19 is negative ECHO showed LV wall motion is normal with EF 55-60% Nocturnal pulse oximetry done did not qualify for overnight oxygen Will need 2 step exercise Continue oxygen oxygen (4) Pulmonary embolism: (5) Anticoagulated on Coumadin: pulmonary embolism in the past; no acute pulmonary embolism on this admission Continue coumadin with therapeutic INR INR 3.2 today Continue monitor PT/INR Rheumatoid Arthritis with chronic half-way use of steroids Continue chronic prednisone 10 mg daily Continue PT/OT Will consider Inpatient rehab Will add lidocaine gel and continue tylenol (6) CKD (chronic kidney disease) stage 3, GFR 30-59 ml/min: Creatinine on admission 1.3, baseline creatinine btw 1.2 to 1.3 Will resume HCTZ Continue monitor BMP (7) Traumatic open wound of left lower leg with delayed healing: Following with [facility] wound care. Most recent wound cx on 11/16/19 grew rai- sensitive Enterobacter Continue chronically ciprofloxacin. Continue wound care (8) Chronic venous insufficiency of lower extremity: patient with chronic bilateral lower extremity and reports that at home she intermittently takes HCTZ when blood pressure above 110 systolic. Will resume HCTZ today (9) HTN (hypertension): BP stable Losartan has been on hold due to elevate creatinine but her baseline cr has been btw 1.2 to 1.3 Continue monitor BP (10) HLD (hyperlipidemia): Obesity with BMI of 51 -on pravastatin 10 mg qhs -low fat diet while in hospital DVT Ppx: Coumadin Code status: FULL PCP: Kenia Disposition Possible discharge to rehab Admission and Anticipated Discharge Date Admission Date: November 23, 2019 Subjective Pt was seen and examined Sitting in chair with no distress Pt said that she does have SOB with exertion She said that she does not think that she will be able to care for herself at home She would like to go [facility] for rehab Denies any chest pain, palpitation, dizziness and SOB Physical Exam Physical Exam: General- No acute distress Head- atraumatic Eyes- PERRL, EOMI, ENT- oropharynx clear Neck- supple, no JVD Lungs- clear to auscultation Heart- regular rhythm; no murmur Abdomen- normal bowel sounds, soft, nontender Extremities- no calf tenderness, +B/L LE edema Neuro- alert, oriented x 3; PERRL, EOMI; no facial palsy; no dysarthria Skin- warm & dry Results & Data Results & Data ([facility]) Vital Signs (Past 12 Hours) Vital Signs Temp Pulse Pulse Resp BP Pulse Ox 11/25/19 15:40 36.9 C 92 H 20 129/77 95 11/25/19 15:11 95 H 11/25/19 07:27 36.5 C 80 20 110/69 91 11/25/19 07:03 77
[2019-11-25] MEDS ORDERED: LIDOCAINE 4% CREAM 15 GM TUBE EXT PRN (16:39)
[2019-11-25] MEDS ORDERED: hydroCHLOROthiazide 25 MG TAB PO STA (16:43)
[2019-11-25] MEDS: PRAVASTATIN SOD 10 MG TAB PO SCH (20:15)
[2019-11-25] MEDS: HYDROCODONE/ACETAMOPHEN 5/325MG TAB PO PRN (23:40)
[2019-11-26] MEDS: CIPROFLOXACIN 500 MG TAB PO SCH ×3 (05:55→19:08)
[2019-11-26] MEDS: HYDROCODONE/ACETAMOPHEN 5/325MG TAB PO PRN ×2 (06:08→23:29)
[2019-11-26 07:07] LABS: Hematocrit (blood only) 41.1 % (37-47); Hemoglobin 12.3 g/dL (12.0-16.0); Mean Corpuscular Hemoglobin 29.3 pg (25-34); Mean Corpuscular Hgb Conc 29.9 g/dL (32-36); Mean Corpuscular Volume 97.9 fL (80-100); Mean Platelet Volume 10.3 fL (7.4-10.4); Platelet Count 310 K/uL (130-400); RDW Coefficient of Variation 14.8 % (11.5-14.5); White Blood Count 11.01 K/uL (4.8-10.8)
[2019-11-26 07:36] LABS: BUN Creatinine Ratio 15.6 (10-20); Calcium 8.7 mg/dl (8.5-10.1); Creatinine Clr Calc Pharmacy 41.6 ml/min; Est GFR (African American) 49.8; Potassium 3.4 mmol/L (3.5-5.1)
[2019-11-26] MEDS: CHOLECALCIFEROL 1,000 UNITS 25 MCG TAB PO SCH (08:08)
[2019-11-26] MEDS: predniSONE 10 MG TABLET PO SCH (08:08)
[2019-11-26] MEDS: DOCUSATE SODIUM 100 MG CAP PO SCH ×2 (08:08→20:15)
[2019-11-26 08:41] LABS: INR 3.2 (0.9-1.1); Prothrombin Time 31.8 Seconds (9.0-12.0)
[2019-11-26] MEDS: ACETAMINOPHEN 325 MG TAB PO PRN (11:23)
[2019-11-26] MEDS ORDERED: POTASSIUM CHLORIDE 20 MEQ TABCR PO STA (12:02)
[2019-11-26] MEDS: WARFARIN SOD 5 MG TAB PO SCH (15:30)
[2019-11-26] MEDS ORDERED: MAGNESIUM HYDROXIDE SUSP 30 ML UDC PO ONE (17:55)
--- NOTE | 2019-11-26 18:07 | Hospitalist Progress Note ---
Date of Service November 26, 2019 Assessment & Plan (1) Acute respiratory failure with hypoxia: (2) COPD (chronic obstructive pulmonary disease): (3) Dyspnea on exertion: Present on admission with worsening SOB with oxygen sat 85% CTA chest showed no evidence of pulmonary embolus in the main, lobar, or segmental pulmonary arteries. There is no airspace consolidation or pleural effusion. screening for COVID-19 is negative ECHO showed LV wall motion is normal with EF 55-60% Nocturnal pulse oximetry done did not qualify for overnight oxygen Will need 2 step exercise saturated well on RA Clinically improves (4) Pulmonary embolism: pulmonary embolism in the past; no acute pulmonary embolism on this admission (5) Anticoagulated on Coumadin: pulmonary embolism in the past; no acute pulmonary embolism on this admission Continue coumadin with therapeutic INR INR 3.2 today Continue monitor PT/INR Rheumatoid Arthritis with chronic retirement use of steroids Continue chronic prednisone 10 mg daily Continue PT/OT Will consider Inpatient rehab Consider lidocaine gel and continue tylenol (6) CKD (chronic kidney disease) stage 3, GFR 30-59 ml/min: Creatinine on admission 1.3, baseline creatinine btw 1.2 to 1.3 receive HCTZ 12.5mg Continue monitor BMP (7) Traumatic open wound of left lower leg with delayed healing: Following with [facility] [place]. Most recent wound cx on 11/16/19 grew rai- sensitive Enterobacter Will complete ciprofloxacin course tomorrow Continue wound care (8) Chronic venous insufficiency of lower extremity: patient with chronic bilateral lower extremity and reports that at home she intermittently takes HCTZ when blood pressure above 110 systolic. Received HCTZ x1 yesterday (9) HTN (hypertension): BP stable Losartan has been on hold due to elevate creatinine but her baseline cr has been btw 1.2 to 1.3 Continue monitor BP Will resume Losartan on discharge (10) HLD (hyperlipidemia): Obesity with BMI of 51 -on pravastatin 10 mg qhs -low fat diet while in hospital DVT Ppx: Coumadin Code status: FULL PCP: Kenia Disposition waiting for placement to rehab Admission and Anticipated Discharge Date Admission Date: November 23, 2019 Subjective Pt was seen and examined Lying in bed with no distress Pt feels a little better today She is saturated well on RA She said that yesterday after received the HCTZ she urinated a lot Denies any chest pain, palpitation, dizziness and SOB Physical Exam Physical Exam: General- No acute distress Head- atraumatic Eyes- PERRL, EOMI, ENT- oropharynx clear Neck- supple, no JVD Lungs- clear to auscultation Heart- regular rhythm; no murmur Abdomen- normal bowel sounds, soft, nontender Extremities- no calf tenderness, +B/L LE edema Neuro- alert, oriented x 3; PERRL, EOMI; no facial palsy; no dysarthria Skin- warm & dry Results & Data Results & Data ([facility]) Vital Signs (Past 12 Hours) Vital Signs Temp Pulse Pulse Resp BP Pulse Ox 11/26/19 15:40 88 11/26/19 15:34 36.8 C 93 H 20 125/77 90 11/26/19 11:44 36.3 C L 95 H 22 106/64 98 11/26/19 07:52 36.7 C 84 22 137/77 90 11/26/19 07:05 96 H
[2019-11-26] MEDS ORDERED: LIDOCAINE 4% CREAM 15 GM TUBE EXT PRN (18:39)
[2019-11-26] MEDS ORDERED: hydroCHLOROthiazide 25 MG TAB PO STA (18:41)
[2019-11-26] MEDS: PRAVASTATIN SOD 10 MG TAB PO SCH (20:15)
[2019-11-27] MEDS: CIPROFLOXACIN 500 MG TAB PO SCH ×2 (06:00→20:29)
[2019-11-27 07:34] LABS: BUN Creatinine Ratio 13.6 (10-20); Calcium 9.7 mg/dl (8.5-10.1); Creatinine Clr Calc Pharmacy 41.1 ml/min; Est GFR (African American) 49.3; Est GFR (Non-African American) 42.5; Potassium 3.3 mmol/L (3.5-5.1)
[2019-11-27 07:35] LABS: INR 3.8 (0.9-1.1)
[2019-11-27] MEDS: predniSONE 10 MG TABLET PO SCH (08:09)
[2019-11-27] MEDS: CHOLECALCIFEROL 1,000 UNITS 25 MCG TAB PO SCH (08:09)
[2019-11-27] MEDS ORDERED: POTASSIUM CHLORIDE 10 MEQ TABCR PO STA (08:09)
[2019-11-27] MEDS: DOCUSATE SODIUM 100 MG CAP PO SCH ×2 (08:09→20:34)
--- NOTE | 2019-11-27 16:14 | Hospitalist Progress Note ---
Date of Service November 27, 2019 Assessment & Plan (1) Acute respiratory failure with hypoxia: (2) COPD (chronic obstructive pulmonary disease): (3) Dyspnea on exertion: Present on admission with worsening SOB with oxygen sat 85% CTA chest showed no evidence of pulmonary embolus in the main, lobar, or segmental pulmonary arteries. There is no airspace consolidation or pleural effusion. screening for COVID-19 is negative ECHO showed LV wall motion is normal with EF 55-60% Nocturnal pulse oximetry done did not qualify for overnight oxygen Will need 2 step exercise, will get it at rehab saturated well on RA Clinically improves (4) Pulmonary embolism: pulmonary embolism in the past; no acute pulmonary embolism on this admission (5) Anticoagulated on Coumadin: pulmonary embolism in the past; no acute pulmonary embolism on this admission Continue coumadin with therapeutic INR INR 3.8 today, will hold coumadin Continue monitor PT/INR Rheumatoid Arthritis with chronic detention use of steroids Continue chronic prednisone 10 mg daily Continue PT/OT Will consider Inpatient rehab Consider lidocaine gel and continue tylenol (6) CKD (chronic kidney disease) stage 3, GFR 30-59 ml/min: Creatinine on admission 1.3, baseline creatinine btw 1.2 to 1.3 receive HCTZ 12.5mg Continue monitor BMP (7) Traumatic open wound of left lower leg with delayed healing: Following with [facility] [place] care. Most recent wound cx on 11/16/19 grew rai- sensitive Enterobacter Completed ciprofloxacin course today Continue wound care (8) Chronic venous insufficiency of lower extremity: patient with chronic bilateral lower extremity and reports that at home she intermittently takes HCTZ when blood pressure above 110 systolic. Received HCTZ x1 yesterday (9) HTN (hypertension): BP stable Losartan has been on hold due to elevate creatinine but her baseline cr has been btw 1.2 to 1.3 Continue monitor BP Will resume Losartan on discharge (10) HLD (hyperlipidemia): Obesity with BMI of 51 -on pravastatin 10 mg qhs -low fat diet while in hospital DVT Ppx: Coumadin Code status: FULL PCP: Kenia Disposition waiting for placement to rehab Admission and Anticipated Discharge Date Admission Date: November 23, 2019 Subjective Pt was seen and examined Sitting in chair with no distress Pt said that she feels a little better She said that her swelling is less Denies any chest pain, palpitation and SOB Physical Exam Physical Exam: General- No acute distress Head- atraumatic Eyes- PERRL, EOMI, ENT- oropharynx clear Neck- supple, no JVD Lungs- clear to auscultation Heart- regular rhythm; no murmur Abdomen- normal bowel sounds, soft, nontender Extremities- no calf tenderness, +B/L LE edema Neuro- alert, oriented x 3; PERRL, EOMI; no facial palsy; no dysarthria Skin- warm & dry Results & Data Results & Data ([facility]) Vital Signs (Past 12 Hours) Vital Signs Temp Pulse Pulse Resp BP Pulse Ox 11/27/19 14:59 36.9 C 90 18 131/72 97 11/27/19 08:00 73 11/27/19 07:46 36.4 C L 81 16 101/71 90
[2019-11-27] MEDS: PRAVASTATIN SOD 10 MG TAB PO SCH (20:30)
[2019-11-28] MEDS: HYDROCODONE/ACETAMOPHEN 5/325MG TAB PO PRN ×2 (00:35→23:08)
[2019-11-28] MEDS: CIPROFLOXACIN 500 MG TAB PO SCH (06:04)
[2019-11-28] MEDS: ACETAMINOPHEN 325 MG TAB PO PRN (06:32)
[2019-11-28] MEDS: CHOLECALCIFEROL 1,000 UNITS 25 MCG TAB PO SCH (07:41)
[2019-11-28] MEDS: DOCUSATE SODIUM 100 MG CAP PO SCH ×2 (07:41→20:18)
[2019-11-28] MEDS: predniSONE 10 MG TABLET PO SCH (07:41)
[2019-11-28 10:09] LABS: INR 3.2 (0.9-1.1); Prothrombin Time 31.9 Seconds (9.0-12.0)
[2019-11-28] MEDS: LIDOCAINE 4% CREAM 15 GM TUBE EXT SCH ×4 (11:06→20:19)
[2019-11-28] MEDS ORDERED: WARFARIN SOD 2.5 MG TAB PO ONE (19:34)
--- NOTE | 2019-11-28 19:43 | Hospitalist Progress Note ---
Date of Service November 28, 2019 Assessment & Plan (1) Acute respiratory failure with hypoxia: (2) COPD (chronic obstructive pulmonary disease): (3) Dyspnea on exertion: Present on admission with worsening SOB with oxygen sat 85% CTA chest showed no evidence of pulmonary embolus in the main, lobar, or segmental pulmonary arteries. There is no airspace consolidation or pleural effusion. screening for COVID-19 is negative ECHO showed LV wall motion is normal with EF 55-60% Nocturnal pulse oximetry done did not qualify for overnight oxygen Will need 2 step exercise, will get it at rehab saturated well on RA Clinically improves (4) Pulmonary embolism: pulmonary embolism in the past; no acute pulmonary embolism on this admission (5) Anticoagulated on Coumadin: pulmonary embolism in the past; no acute pulmonary embolism on this admission Continue coumadin with therapeutic INR INR 3.2 today Will resume coumadin Continue monitor PT/INR Rheumatoid Arthritis with chronic [facility] use of steroids Continue chronic prednisone 10 mg daily Continue PT/OT Continue lidocaine gel and continue tylenol waiting for placement to rehab (6) CKD (chronic kidney disease) stage 3, GFR 30-59 ml/min: Creatinine on admission 1.3, baseline creatinine btw 1.2 to 1.3 She wants to hold for the HCTZ for today, but get it early in the morning Continue monitor BMP (7) Traumatic open wound of left lower leg with delayed healing: [place] [facility] [place]. Most recent wound cx on 11/16/19 grew rai- sensitive Enterobacter Completed ciprofloxacin course today Continue wound care (8) Chronic venous insufficiency of lower extremity: patient with chronic bilateral lower extremity and reports that at home she intermittently takes HCTZ when blood pressure above 110 systolic. Received HCTZ x1 yesterday (9) HTN (hypertension): BP stable Losartan has been on hold due to elevate creatinine but her baseline cr has been btw 1.2 to 1.3 Continue monitor BP Will resume Losartan on discharge (10) HLD (hyperlipidemia): Obesity with BMI of 51 -on pravastatin 10 mg qhs -low fat diet while in hospital DVT Ppx: Coumadin Code status: FULL PCP: Kenia Disposition waiting for placement to rehab Admission and Anticipated Discharge Date Admission Date: November 23, 2019 Subjective Pt was seen and examined Sitting in chair with no distress Pt said that she feels ok She said that the lidocaine gel helps with the pain she said that her breathing is stable denies any chest pain, palpitation, dizziness and SOB Physical Exam Physical Exam: General- No acute distress Head- atraumatic Eyes- PERRL, EOMI, ENT- oropharynx clear Neck- supple, no JVD Lungs- clear to auscultation Heart- regular rhythm; no murmur Abdomen- normal bowel sounds, soft, nontender Extremities- no calf tenderness, +B/L LE edema Neuro- alert, oriented x 3; PERRL, EOMI; no facial palsy; no dysarthria Skin- warm & dry Results & Data Results & Data ([facility]) Vital Signs (Past 12 Hours) Vital Signs Temp Pulse Pulse Resp BP Pulse Ox 11/28/19 16:00 93 H 11/28/19 15:34 36.5 C 88 18 120/76 90 11/28/19 11:53 36.4 C L 72 20 118/79 90 11/28/19 08:00 83
[2019-11-28] MEDS: PRAVASTATIN SOD 10 MG TAB PO SCH (20:18)
[2019-11-29] MEDS: ACETAMINOPHEN 325 MG TAB PO PRN (03:15)
[2019-11-29] MEDS: CHOLECALCIFEROL 1,000 UNITS 25 MCG TAB PO SCH (07:47)
[2019-11-29] MEDS: LIDOCAINE 4% CREAM 15 GM TUBE EXT SCH ×4 (07:47→20:23)
[2019-11-29] MEDS: DOCUSATE SODIUM 100 MG CAP PO SCH ×2 (07:47→20:24)
[2019-11-29] MEDS: predniSONE 10 MG TABLET PO SCH (07:47)
[2019-11-29 07:51] LABS: INR 2.5 (0.9-1.1); Prothrombin Time 25.3 Seconds (9.0-12.0)
[2019-11-29] MEDS ORDERED: hydroCHLOROthiazide 25 MG TAB PO ONE (08:00)
[2019-11-29] MEDS: WARFARIN SOD 2.5 MG TAB PO SCH (16:16)
--- NOTE | 2019-11-29 19:19 | Hospitalist Progress Note ---
Date of Service November 29, 2019 Assessment & Plan (1) Acute respiratory failure with hypoxia: (2) COPD (chronic obstructive pulmonary disease): (3) Dyspnea on exertion: Present on admission with worsening SOB with oxygen sat 85% CTA chest showed no evidence of pulmonary embolus in the main, lobar, or segmental pulmonary arteries. There is no airspace consolidation or pleural effusion. screening for COVID-19 is negative ECHO showed LV wall motion is normal with EF 55-60% Nocturnal pulse oximetry done did not qualify for overnight oxygen Will need 2 step exercise, will get it at rehab saturated well on RA Clinically improves (4) Pulmonary embolism: pulmonary embolism in the past; no acute pulmonary embolism on this admission (5) Anticoagulated on Coumadin: pulmonary embolism in the past; no acute pulmonary embolism on this admission Continue coumadin with therapeutic INR INR 3.2 today Will resume coumadin Continue monitor PT/INR Rheumatoid Arthritis with chronic [facility] use of steroids Continue chronic prednisone 10 mg daily Continue PT/OT Continue lidocaine gel and continue tylenol waiting for placement to rehab (6) CKD (chronic kidney disease) stage 3, GFR 30-59 ml/min: Creatinine on admission 1.3, baseline creatinine btw 1.2 to 1.3 She wants to hold for the HCTZ for today, but get it early in the morning Continue monitor BMP (7) Traumatic open wound of left lower leg with delayed healing: Following with [facility] [place]. Most recent wound cx on 11/16/19 grew rai- sensitive Enterobacter Completed ciprofloxacin course today Continue wound care (8) Chronic venous insufficiency of lower extremity: patient with chronic bilateral lower extremity and reports that at home she intermittently takes HCTZ when blood pressure above 110 systolic. Received HCTZ x1 yesterday (9) HTN (hypertension): BP stable Losartan has been on hold due to elevate creatinine but her baseline cr has been btw 1.2 to 1.3 Continue monitor BP Will resume Losartan on discharge (10) HLD (hyperlipidemia): Obesity with BMI of 51 -on pravastatin 10 mg qhs -low fat diet while in hospital DVT Ppx: Coumadin Code status: FULL PCP: Kenia Disposition waiting for placement to rehab Admission and Anticipated Discharge Date Admission Date: November 23, 2019 Subjective Pt was seen and examined Sitting in chair with no distress with daughter present Pt said that she feels much better Denies any chest pain, palpitation and SOB Physical Exam Physical Exam: General- No acute distress Head- atraumatic Eyes- PERRL, EOMI, ENT- oropharynx clear Neck- supple, no JVD Lungs- clear to auscultation Heart- regular rhythm; no murmur Abdomen- normal bowel sounds, soft, nontender Extremities- no calf tenderness, +B/L LE edema Neuro- alert, oriented x 3; PERRL, EOMI; no facial palsy; no dysarthria Skin- warm & dry Results & Data Results & Data ([facility]) Vital Signs (Past 12 Hours) Vital Signs Temp Pulse Pulse Resp BP Pulse Ox 11/29/19 16:00 80 11/29/19 15:39 36.3 C L 78 20 107/70 90 11/29/19 11:25 36.6 C 74 20 116/72 90 11/29/19 08:00 36.4 C L 64 79 20 108/68 90
[2019-11-29] MEDS: PRAVASTATIN SOD 10 MG TAB PO SCH (20:24)
[2019-11-29] MEDS: HYDROCODONE/ACETAMOPHEN 5/325MG TAB PO PRN (22:49)
[2019-11-30] MEDS: LIDOCAINE 4% CREAM 15 GM TUBE EXT SCH ×4 (08:12→20:45)
[2019-11-30] MEDS: predniSONE 10 MG TABLET PO SCH (08:13)
[2019-11-30] MEDS: DOCUSATE SODIUM 100 MG CAP PO SCH ×2 (08:13→20:44)
[2019-11-30] MEDS: CHOLECALCIFEROL 1,000 UNITS 25 MCG TAB PO SCH (08:13)
[2019-11-30] MEDS ORDERED: ONDANSETRON INJ 2 MG/ML 2 ML VIAL IV ONE (10:57)
[2019-11-30] MEDS ORDERED: hydroCHLOROthiazide 25 MG TAB PO ONE (11:15)
[2019-11-30] MEDS ORDERED: POTASSIUM CHLORIDE 10 MEQ TABCR PO ONE (11:15)
[2019-11-30] MEDS: WARFARIN SOD 2.5 MG TAB PO SCH (16:54)
[2019-11-30] MEDS: ACETAMINOPHEN 325 MG TAB PO PRN (17:14)
--- NOTE | 2019-11-30 19:44 | Hospitalist Progress Note ---
Date of Service November 30, 2019 Assessment & Plan (1) Acute respiratory failure with hypoxia: (2) COPD (chronic obstructive pulmonary disease): (3) Dyspnea on exertion: Present on admission with worsening SOB with oxygen sat 85% CTA chest showed no evidence of pulmonary embolus in the main, lobar, or segmental pulmonary arteries. There is no airspace consolidation or pleural effusion. screening for COVID-19 is negative ECHO showed LV wall motion is normal with EF 55-60% Nocturnal pulse oximetry done did not qualify for overnight oxygen Will need 2 step exercise, will get it at rehab saturated well on RA Clinically improves (4) Pulmonary embolism: pulmonary embolism in the past; no acute pulmonary embolism on this admission (5) Anticoagulated on Coumadin: pulmonary embolism in the past; no acute pulmonary embolism on this admission Continue coumadin with therapeutic INR INR 2.5 today Continue coumadin Continue monitor PT/INR Rheumatoid Arthritis with chronic watermaster use of steroids Continue chronic prednisone 10 mg daily Continue PT/OT Continue lidocaine gel and continue tylenol waiting for placement to rehab (6) CKD (chronic kidney disease) stage 3, GFR 30-59 ml/min: Creatinine on admission 1.3, baseline creatinine btw 1.2 to 1.3 She wants to hold for the HCTZ for today, but get it early in the morning Continue monitor BMP (7) Traumatic open wound of left lower leg with delayed healing: Following with [facility] [place] wound care. Most recent wound cx on 11/16/19 grew rai- sensitive Enterobacter Completed ciprofloxacin course today Continue wound care (8) Chronic venous insufficiency of lower extremity: patient with chronic bilateral lower extremity and reports that at home she intermittently takes HCTZ when blood pressure above 110 systolic. Received HCTZ x1 yesterday (9) HTN (hypertension): BP stable Losartan has been on hold due to elevate creatinine but her baseline cr has been btw 1.2 to 1.3 Continue monitor BP Will resume Losartan on discharge (10) HLD (hyperlipidemia): Obesity with BMI of 51 -on pravastatin 10 mg qhs -low fat diet while in hospital DVT Ppx: Coumadin Code status: FULL PCP: Kenia Disposition waiting for placement to rehab Admission and Anticipated Discharge Date Admission Date: November 23, 2019 Subjective Pt was see and examined Sitting in bed with no distress Pt said that she was a little bit nauseated today after eating lunch She said that she feels ok now Denies any chest pain, palpitation, dizziness and SOB Physical Exam Physical Exam: General- No acute distress Head- atraumatic Eyes- PERRL, EOMI, ENT- oropharynx clear Neck- supple, no JVD Lungs- clear to auscultation Heart- regular rhythm; no murmur Abdomen- normal bowel sounds, soft, nontender Extremities- no calf tenderness, +B/L LE edema Neuro- alert, oriented x 3; PERRL, EOMI; no facial palsy; no dysarthria Skin- warm & dry Results & Data Results & Data ([facility]) Vital Signs (Past 12 Hours) Vital Signs Temp Pulse Pulse Resp BP Pulse Ox 11/30/19 19:22 36.6 C 91 H 18 114/67 93 11/30/19 18:59 92 H 11/30/19 15:46 36.8 C 69 19 137/64 97 11/30/19 12:05 36.5 C 67 20 121/75 98 11/30/19 07:55 66
[2019-11-30] MEDS: PRAVASTATIN SOD 10 MG TAB PO SCH (20:46)
[2019-11-30] MEDS: HYDROCODONE/ACETAMOPHEN 5/325MG TAB PO PRN (23:58)
[2019-12-01] MEDS ORDERED: NITROGLYCERIN SL 0.4 MG/TAB TAB SL STA (01:15)
[2019-12-01] MEDS ORDERED: OLANZAPINE 2.5 MG TAB PO STA (01:36)
[2019-12-01] MEDS ORDERED: ACETAMINOPHEN 325 MG TAB PO STA (01:41)
[2019-12-01 02:04] LABS: Basophils # (auto) 0.04 K/uL (0-0.2); Basophils % (auto) 0.3 %; Eosinophils # (auto) 0.21 K/uL (0-0.5); Eosinophils % (auto) 1.6 %; Hematocrit (blood only) 38.7 % (37-47); Immature Granulocytes # (auto) 0.03 K/uL (0.00-0.02); Immature Granulocytes % (auto) 0.2 %; Lymphocytes # (auto) 2.88 K/uL (1.2-3.4); Lymphocytes % (auto) 21.6 %; Mean Corpuscular Hemoglobin 30.1 pg (25-34); Mean Platelet Volume 10.5 fL (7.4-10.4); Monocytes # (auto) 1.02 K/uL (0.11-0.59); Monocytes % (auto) 7.7 %; Neutrophils # (auto) 9.14 K/uL (1.4-6.5); Neutrophils % (auto) 68.6 %; Platelet Count 336 K/uL (130-400); RDW Coefficient of Variation 14.6 % (11.5-14.5); RDW Standard Deviation 52.2 fL (36.4-46.3); Red Blood Count 3.99 M/uL (4.2-5.4); White Blood Count 13.32 K/uL (4.8-10.8)
[2019-12-01 02:14] LABS: Partial Thromboplastin Ratio 1.3; Partial Thromboplastin Time 36.7 Seconds (21.0-31.0)
[2019-12-01 02:26] LABS: INR 2.4 (0.9-1.1); Prothrombin Time 24.6 Seconds (9.0-12.0)
[2019-12-01 02:28] LABS: Alanine Aminotransferase 18 U/L (12-78); Albumin Level 2.9 gm/dl (3.4-5.0); Aspartate Aminotransferase 16 U/L (15-37); BUN Creatinine Ratio 15.4 (10-20); Blood Urea Nitrogen 21 mg/dl (7-18); Calcium 8.8 mg/dl (8.5-10.1); Carbon Dioxide 35 mmol/L (21-32); Chloride 100 mmol/L (98-107); Creatinine Clr Calc Pharmacy 36.6 ml/min; Est GFR (African American) 43.2; Est GFR (Non-African American) 37.2; Glucose 106 mg/dl (70-99); Lipase 293 U/L (73-393); Magnesium 2.1 mg/dl (1.8-2.4); Potassium 3.8 mmol/L (3.5-5.1); Sodium 140 mmol/L (136-145)
[2019-12-01 02:33] LABS: Albumin Globulin Ratio 0.7 (0.9-2); Alkaline Phosphatase 56 U/L (45-117); Bilirubin,Total 0.4 mg/dl (0.2-1); Globulin 4.1 gm/dl (2.5-4.0); Troponin I < 0.015 ng/ml (0-0.045)
[2019-12-01] MEDS ORDERED: ALBUMIN 25% 50 ML IV ONE ×2 (02:37→04:00)
--- NOTE | 2019-12-01 02:40 | Communication Note ---
Date of Service: December 01, 2019 Made aware by RN of substernal pain relieved by nitroglycerin. Shortness of breath noted earlier after ambulating into bathroom. Patient with some confusion and anxiety as per RN. Achy headache Rate 90, NSR, normal axis, T wave inversion inferior leads, PVCs Troponin less than 0.[address] head initial read: No acute intracranial hemorrhage, mass-effect, midline shift, hydrocephalus or acute infarct. Small vessel ischemic disease. AP Chest pain relieved by nitroglycerin Rule out ACS Aspirin for now for CAD prevention Follow troponin N.p.o. until patient evaluated by AM provider. May need Cardiology evaluation for chest pain pending evaluation by AM provider.
[2019-12-01] MEDS ORDERED: ASPIRIN 81 MG ECTAB PO STA (02:46)
[2019-12-01] MEDS ORDERED: NITROGLYCERIN SL 0.4 MG/TAB TAB SL PRN (02:48)
--- NOTE | 2019-12-01 06:48 | CT Scan Report ---
CT OF THE HEAD WITHOUT CONTRAST CLINICAL HISTORY: Headache. COMPARISON STUDY: Head CT September 10, 2017. CT DOSE: 614.27 mGy.cm TECHNIQUE: Helical axial images of the head were obtained without IV contrast. Automated exposure con trol was utilized for the study. A dose lowering technique was utilized adhering to the principles o f ALARA. FINDINGS: No acute intracranial hemorrhage, midline shift or mass effect is present. White matter hyp odensity is unchanged. These favor small vessel disease. The ventricular system is unremarkable. The basilar cisterns are patent. No extra-axial collections are present. There are no findings to suggest acute dural sinus thrombosis or acute territorial infarct. No significant calvarial abnormalities ar e present. Note is made of mucosal thickening within left maxillary sinus contains minimal hyperdense material. IMPRESSION: 1. No acute intracranial findings. 2. Left maxillary sinus mucosal thickening. ACT 112: Negative or not required by law. Electronically signed by: Jorje Medrano M.D. 12/01/2019 6:47 AM
[2019-12-01 08:37] LABS: BUN Creatinine Ratio 15.9 (10-20); Blood Urea Nitrogen 20 mg/dl (7-18); Calcium 9.6 mg/dl (8.5-10.1); Carbon Dioxide 35 mmol/L (21-32); Chloride 101 mmol/L (98-107); Cholesterol 143 mg/dl (0-200); Est GFR (African American) 46.5; Est GFR (Non-African American) 40.1; Glucose 95 mg/dl (70-99); Potassium 3.5 mmol/L (3.5-5.1); Sodium 140 mmol/L (136-145); Triglycerides 93 mg/dl (0-150); VLDL Cholesterol 19 mg/dl
[2019-12-01 08:41] LABS: Chol HDL Ratio 3; HDL Cholesterol 55 mg/dl; LDL Cholesterol Calculated 69 mg/dl; Troponin I < 0.015 ng/ml (0-0.045)
[2019-12-01] MEDS: predniSONE 10 MG TABLET PO SCH (09:06)
[2019-12-01] MEDS: CHOLECALCIFEROL 1,000 UNITS 25 MCG TAB PO SCH (09:06)
[2019-12-01] MEDS: LIDOCAINE 4% CREAM 15 GM TUBE EXT SCH ×4 (09:06→20:08)
[2019-12-01] MEDS: DOCUSATE SODIUM 100 MG CAP PO SCH ×2 (09:06→20:08)
[2019-12-01] MEDS: WARFARIN SOD 2.5 MG TAB PO SCH (17:02)
[2019-12-01] MEDS: PRAVASTATIN SOD 10 MG TAB PO SCH (20:08)
--- NOTE | 2019-12-01 20:38 | Hospitalist Progress Note ---
Date of Service December 01, 2019 Assessment & Plan (1) Acute respiratory failure with hypoxia: (2) COPD (chronic obstructive pulmonary disease): (3) Dyspnea on exertion: Present on admission with worsening SOB with oxygen sat 85% CTA chest showed no evidence of pulmonary embolus in the main, lobar, or segmental pulmonary arteries. There is no airspace consolidation or pleural effusion. screening for COVID-19 is negative ECHO showed LV wall motion is normal with EF 55-60% Nocturnal pulse oximetry done did not qualify for overnight oxygen Will need 2 step exercise, will get it at rehab saturated well on RA Clinically improves (4) Pulmonary embolism: pulmonary embolism in the past; no acute pulmonary embolism on this admission (5) Anticoagulated on Coumadin: pulmonary embolism in the past; no acute pulmonary embolism on this admission Continue coumadin with therapeutic INR INR 2.4 today Continue coumadin Continue monitor PT/INR Rheumatoid Arthritis with chronic rn long term care use of steroids Continue chronic prednisone 10 mg daily Continue PT/OT Continue lidocaine gel and continue tylenol waiting for placement to rehab (6) CKD (chronic kidney disease) stage 3, GFR 30-59 ml/min: Creatinine on admission 1.3, baseline creatinine btw 1.2 to 1.3 She wants to hold for the HCTZ for today, but get it early in the morning Continue monitor BMP (7) Traumatic open wound of left lower leg with delayed healing: Following with [facility] [place] care. Most recent wound cx on 11/16/19 grew rai- sensitive Enterobacter Completed ciprofloxacin course today Continue wound care (8) Chronic venous insufficiency of lower extremity: patient with chronic bilateral lower extremity and reports that at home she intermittently takes HCTZ when blood pressure above 110 systolic. Received HCTZ x1 yesterday Did not want to get HCTZ today, will give it tomorrow (9) HTN (hypertension): BP stable Losartan has been on hold due to elevate creatinine but her baseline cr has been btw 1.2 to 1.3 Continue monitor BP Will resume Losartan on discharge (10) HLD (hyperlipidemia): Obesity with BMI of 51 -on pravastatin 10 mg qhs -low fat diet while in hospital DVT Ppx: Coumadin Code status: FULL PCP: Kenia Disposition waiting for placement to rehab Admission and Anticipated Discharge Date Admission Date: November 23, 2019 Subjective Pt was see and examined Sitting in chair with no distress Pt said that last night she woke up in the middle of the night with chest pain She said that she feels ok now She said that her breathing improves Denies any chest pain, palpitation, dizziness and SOB Physical Exam Physical Exam: General- No acute distress Head- atraumatic Eyes- PERRL, EOMI, ENT- oropharynx clear Neck- supple, no JVD Lungs- clear to auscultation Heart- regular rhythm; no murmur Abdomen- normal bowel sounds, soft, nontender Extremities- no calf tenderness, +B/L LE edema Neuro- alert, oriented x 3; PERRL, EOMI; no facial palsy; no dysarthria Skin- warm & dry Results & Data Results & Data ([facility]) Vital Signs (Past 12 Hours) Vital Signs Temp Pulse Resp BP Pulse Ox 12/01/19 19:15 36.4 C L 105 H 18 139/85 93 12/01/19 15:55 36.7 C 97 H 18 158/85 H 91 12/01/19 12:08 36.5 C 74 18 117/76 96
--- NOTE | 2019-12-01 22:41 | Electrocardiogram Report ---
Test Reason : Blood Pressure : / mmHG Vent. Rate : 091 BPM Atrial Rate : 091 BPM P-R Int : 146 ms QRS Dur : 076 ms QT Int : 364 ms P-R-T Axes : 037 046 -17 degrees QTc Int : 447 ms Sinus rhythm with Premature supraventricular complexes and with occasional Premature ventricular comp lexes Low voltage QRS T wave abnormality, consider inferior ischemia Abnormal ECG When compared with ECG of 23-NOV-2019 14:51, Premature ventricular complexes are now Present Premature supraventricular complexes are now Present Confirmed by Mitchell Stevens ([id number]) on 12/01/2019 10:40:42 PM Referred By: REFERRED SELF Confirmed By:Mitchell Stevens
[2019-12-01] MEDS: HYDROCODONE/ACETAMOPHEN 5/325MG TAB PO PRN (23:22)
[2019-12-02] MEDS: ACETAMINOPHEN 325 MG TAB PO PRN (06:32)
[2019-12-02 07:31] LABS: Basophils # (auto) 0.05 K/uL (0-0.2); Basophils % (auto) 0.4 %; Eosinophils # (auto) 0.29 K/uL (0-0.5); Eosinophils % (auto) 2.5 %; Hematocrit (blood only) 38.2 % (37-47); Hemoglobin 11.6 g/dL (12.0-16.0); Immature Granulocytes # (auto) 0.03 K/uL (0.00-0.02); Immature Granulocytes % (auto) 0.3 %; Lymphocytes # (auto) 2.78 K/uL (1.2-3.4); Lymphocytes % (auto) 23.9 %; Mean Corpuscular Hemoglobin 30.1 pg (25-34); Mean Corpuscular Hgb Conc 30.4 g/dL (32-36); Mean Corpuscular Volume 99.2 fL (80-100); Mean Platelet Volume 10.7 fL (7.4-10.4); Monocytes # (auto) 1.02 K/uL (0.11-0.59); Monocytes % (auto) 8.8 %; Neutrophils # (auto) 7.45 K/uL (1.4-6.5); Neutrophils % (auto) 64.1 %; Platelet Count 312 K/uL (130-400); RDW Coefficient of Variation 14.8 % (11.5-14.5); RDW Standard Deviation 53.9 fL (36.4-46.3); Red Blood Count 3.85 M/uL (4.2-5.4); White Blood Count 11.62 K/uL (4.8-10.8)
[2019-12-02 07:40] LABS: INR 2.4 (0.9-1.1); Prothrombin Time 24.5 Seconds (9.0-12.0)
[2019-12-02 07:59] LABS: BUN Creatinine Ratio 19.5 (10-20); Calcium 9.6 mg/dl (8.5-10.1); Creatinine Clr Calc Pharmacy 42.3 ml/min; Est GFR (African American) 51.3; Est GFR (Non-African American) 44.3; Magnesium 2.4 mg/dl (1.8-2.4); Potassium 3.6 mmol/L (3.5-5.1)
[2019-12-02 08:09] LABS: Thyroid Stimulating Hormone 1.48 uIu/ml (0.300-4.500)
[2019-12-02] MEDS: LIDOCAINE 4% CREAM 15 GM TUBE EXT SCH ×4 (08:24→20:25)
[2019-12-02] MEDS: DOCUSATE SODIUM 100 MG CAP PO SCH ×2 (08:25→20:24)
[2019-12-02] MEDS: predniSONE 10 MG TABLET PO SCH (08:25)
[2019-12-02] MEDS: CHOLECALCIFEROL 1,000 UNITS 25 MCG TAB PO SCH (08:25)
[2019-12-02] MEDS ORDERED: hydroCHLOROthiazide 25 MG TAB PO ONE (09:00)
[2019-12-02] MEDS: WARFARIN SOD 2.5 MG TAB PO SCH (15:36)
--- NOTE | 2019-12-02 19:22 | Hospitalist Progress Note ---
Date of Service December 02, 2019 Assessment & Plan (1) Acute respiratory failure with hypoxia: (2) COPD (chronic obstructive pulmonary disease): (3) Dyspnea on exertion: Present on admission with worsening SOB with oxygen sat 85% CTA chest showed no evidence of pulmonary embolus in the main, lobar, or segmental pulmonary arteries. There is no airspace consolidation or pleural effusion. screening for COVID-19 is negative ECHO showed LV wall motion is normal with EF 55-60% Clinically improved (4) Pulmonary embolism: on coumadin (5) Anticoagulated on Coumadin: pulmonary embolism in the past; no acute pulmonary embolism on this admission Continue coumadin with therapeutic INR Rheumatoid Arthritis with chronic [facility] use of steroids Continue chronic prednisone 10 mg daily Continue PT/OT Continue lidocaine gel and continue tylenol waiting for placement to rehab (6) CKD (chronic kidney disease) stage 3, GFR 30-59 ml/min: Creatinine on admission 1.3, baseline creatinine btw 1.2 to 1.3 (7) Traumatic open wound of left lower leg with delayed healing: Following with [facility] [place] care. Most recent wound cx on 11/16/19 grew rai- sensitive Enterobacter Completed ciprofloxacin course Continue wound care (8) Chronic venous insufficiency of lower extremity: patient with chronic bilateral lower extremity takes diuretics (9) HTN (hypertension): BP stable (10) HLD (hyperlipidemia): Obesity with BMI of 51 -on pravastatin 10 mg qhs -low fat diet while in hospital DVT Ppx: Coumadin Code status: FULL PCP: Kenia Disposition transnsfer to [facility] for rehab Admission and Anticipated Discharge Date Admission Date: November 23, 2019 Subjective feels fine denies of any discomfort no cough , no fever or chills Physical Exam Constitutional: WD/WN, vitals as above no acute distress Eyes: PERRL, conjunctivae normal, anicteric sclerae ENMT: external ear and nose normal, oropharynx normal Neck: trachea midline, no thyromegaly Respiratory: normal respiratory effort, lungs clear to auscultation Cardiovascular: RRR, no murmur, no edema Gastrointestinal (Abdomen): normal bowel sounds, soft, nontender, no hepatosplenomegaly Percussion/Palpation: abdomen soft; abdomen nontender Musculoskeletal: no cyanosis or clubbing, extremities motor strength 5/5 Skin: no rashes, warm and dry Neurologic: PERRL, EOMI, accommodation nl, no face palsy, no dysarthria Psychiatric: A+Ox3, euthymic affect Results & Data Results & Data ([facility]) Vital Signs (Past 12 Hours) Vital Signs Temp Pulse Pulse Resp BP Pulse Ox 12/02/19 15:33 36.5 C 90 18 114/65 95 12/02/19 11:19 36.3 C L 66 20 119/81 94 12/02/19 07:54 36.4 C L 74 20 121/74 95 12/02/19 07:31 62
[2019-12-02] MEDS: PRAVASTATIN SOD 10 MG TAB PO SCH (20:24)
[2019-12-02] MEDS: HYDROCODONE/ACETAMOPHEN 5/325MG TAB PO PRN (23:32)
[2019-12-03] MEDS: ACETAMINOPHEN 325 MG TAB PO PRN (03:09)
[2019-12-03] MEDS: CHOLECALCIFEROL 1,000 UNITS 25 MCG TAB PO SCH (09:13)
[2019-12-03] MEDS: DOCUSATE SODIUM 100 MG CAP PO SCH (09:13)
[2019-12-03] MEDS: predniSONE 10 MG TABLET PO SCH (09:13)
[2019-12-03] MEDS: LIDOCAINE 4% CREAM 15 GM TUBE EXT SCH ×2 (09:13→13:03)
--- NOTE | 2019-12-03 12:46 | Discharge Summary ---
Date of Service December 03, 2019 Admission HPI Per Admitting Provider This is a 79 yo F with a PMH of pulmonary embolism on Coumadin, chronic LE wound in setting of venous insufficiency on Cipro, COPD, bilateral lymphedema, rheumatoid arthritis on chronic prednisone and other medical problems listed below who presents from wound care clinic with dyspnea on exertion and hypoxia at 85%. Has felt progressively more short of breath over the past 3 weeks, having to rest even if she walks across the room to use the bathroom. + orthopnea. Is not on home O2. No known history of heart failure. Denies any sick contacts or known COVID exposures. No fever or chills. No muscle aches or generalized weakness. Denies any chest pain, palpitations, wheezing, cough, sore throat, nausea, vomiting, abdominal pain, dysuria, diarrhea or constipation. Does feel like she gained weight in abdomen and lower extremities ever since being on extended course of prednisone this summer. Principal Diagnosis (1) Acute respiratory failure with hypoxia: (2) COPD (chronic obstructive pulmonary disease): (3) Pulmonary embolism: (4)Rheumatoid Arthritis with chronic rn long term care use of steroids (5) CKD (chronic kidney disease) stage 3, GFR 30-59 ml/min: Discharge Exam General- oriented x 3, not in distress, speaks in sentences with no effort or accessory muscle use Head- atraumatic Eyes- PERRL, EOMI, anicteric ENT- oropharynx clear Neck- supple, no JVD, no adenopathy, no thyromegaly; carotids +2/2, no bruits appreciated Lungs- clear to auscultation bilaterally, no rales/wheezes Heart- normal rate, regular rhythm; no murmur, no gallop, no rub appreciated Abdomen- normal bowel sounds, nondistended, soft, nontender, no masses or hepatosplenomegaly Extremities-right lower leg edema, chronic as per patient, with dressing wrapped around the whole lower leg Neuro- alert, oriented x 3; CN 2-12 grossly intact; motor 5/5 bilaterally;sensation 100% on all extremities; no other gross focal neurologic deficits Skin- warm & dry Discharge Data Allergies Allergy/AdvReac Type Severity Reaction Status Date / Time strawberry Allergy Severe Anaphylaxis Verified 11/23/19 16:23 tramadol AdvReac Intermediate Confusion Verified 11/30/19 11:01 atorvastatin AdvReac Mild Muscle Verified 11/30/19 11:01 Aches fentanyl AdvReac Mild Vomiting Verified 11/30/19 11:01 ibandronate sodium AdvReac Mild Nausea/Vomi Verified 11/30/19 11:01 [From Pavel] tinneelam Consultations 11/23/19 17:29 ED Decision to Admit Stat Ordered Studies 11/23/19 14:54 CT angio chest PE protocol Stat 12/01/19 01:28 CT head/brain wo con Urgent Hospital Course (1) Acute respiratory failure with hypoxia: (2) COPD (chronic obstructive pulmonary disease): (3) Dyspnea on exertion: Present on admission with worsening SOB with oxygen sat 85% CTA chest showed no evidence of pulmonary embolus in the main, lobar, or segme ntal pulmonary arteries. There is no airspace consolidation or pleural effusion. screening for COVID-19 is negative ECHO showed LV wall motion is normal with EF 55-60% Clinically improved (4) Pulmonary embolism: on coumadin (5) Anticoagulated on Coumadin: pulmonary embolism in the past; no acute pulmonary embolism on this admission Continue coumadin with therapeutic INR Rheumatoid Arthritis with chronic rn long term care use of steroids Continue chronic prednisone 10 mg daily Continue PT/OT Continue lidocaine gel and continue tylenol waiting for placement to rehab (6) CKD (chronic kidney disease) stage 3, GFR 30-59 ml/min: Creatinine on admission 1.3, baseline creatinine btw 1.2 to 1.3 (7) Traumatic open wound of left lower leg with delayed healing: Following with [facility] wound care. Most recent wound cx on 11/16/19 grew rai- sensitive Enterobacter Completed ciprofloxacin course Continue wound care (8) Chronic venous insufficiency of lower extremity: patient with chronic bilateral lower extremity takes diuretics (9) HTN (hypertension): BP stable (10) HLD (hyperlipidemia): Obesity with BMI of 51 -on pravastatin 10 mg qhs -low fat diet while in hospital DVT Ppx: Coumadin Code status: FULL PCP: Kenia Disposition transnsfer to [facility] for rehab Total Time Total Time Spent Total Time Spent (In Minutes): 35 minutes Total Time Includes: Discharge Planning and Medication Reconciliation Discharge Plan Discharge Items Patient Disposition: Transfer [facility] Reason For Visit: DYSPNEA ON EXERTION, ACUTE HYPOXIC RESP FAILURE, Discharge Diagnosis: (1) Acute respiratory failure with hypoxia: (2) COPD (chronic obstructive pulmonary disease): (3) Pulmonary embolism: (4)Rheumatoid Arthritis with chronic [facility] use of steroids (5) CKD (chronic kidney disease) stage 3, GFR 30-59 ml/min: Condition on Discharge: Good Activity: Per Instructions section Non-emergency contact: Primary Care Provider Call non-emergency contact if: you have any medication questions Follow-up/Referrals: Poncho Aquino MD [Primary Care Provider] - Diet: Carb Consistent or DM2 and Low Fat Addtl Attending Provider Instructions: Follow up with family physician after discharge from Rehab Pending Studies at Discharge: No Stand-Alone Forms: [facility] Skilled Items Patient informed of condition?: Yes DNR: No Discharge Level of Care: Skilled Communicable Disease: No Discharge Prognosis: Stable Lines: None Urinary Catheter: No Medications and DC Order Prescriptions: New hydrocodone-acetaminophen [[place]] 5-325 mg Tablet 1 tab PO QID PRN (Reason: pain) Qty: 14 RF: 0 Continued losartan [Cozaar] 25 mg tablet 25 mg PO DAILY RF: 0 pravastatin 10 mg Tablet 10 mg PO HS RF: 0 docusate sodium [Colace] 100 mg Capsule 100 mg PO BID RF: 0 cholecalciferol (vitamin D3) [Vitamin D3] 2,000 unit Tablet 2,000 unit PO QAM RF: 0 hydrochlorothiazide 12.5 mg Tablet 12.5 mg PO Q2D RF: 0 acetaminophen [Tylenol Extra Strength] 500 mg Tablet 1,000 mg PO Q6H PRN (Reason: Pain) RF: 0 warfarin [Jantoven] 5 mg tablet 2.5 mg PO SUMOTUWEFRSA@1600 RF: 0 fluticasone propionate 50 mcg/actuation [place],Suspension 2 spray NA BID PRN (Reason: nasal congestion or sinus headaches) Qty: 15.8 RF: 0 sodium chloride [Saline Mist] 0.65 % Aerosol,[place] 4 spray NA QID PRN (Reason: nasal congestion or sinus headache) Qty: 30 RF: 0 albuterol sulfate 90 mcg/actuation HFA aerosol inhaler 2 puffs INH Q6H Qty: 18 RF: 1 warfarin [Jantoven] 5 mg tablet 5 mg PO TH@1600 RF: 0 prednisone 10 mg tablet 10 mg PO DAILY RF: 0 biotin 5 mg Tablet 5 mg PO QAM RF: 0 Discontinued ciprofloxacin HCl 500 mg tablet 500 mg PO q12h 10 Days Qty: 20 RF: 0 hydrocodone-acetaminophen 5-325 mg tablet 0.5 tab PO BID PRN (Reason: Pain) RF: 0 Discharge Orders: Discharge Order (Routine); Ordered 12/03/19 Ordered By: Viji Duke Admission Data Admit Date/Time: 11/23/19 17:34 Attending Provider: Viji Duke Admit Provider: Mikey Garber Primary Care Provider: Poncho Aquino Other Providers: Africa Keita ; Mikey Hunter ; Gerardo Velez ; Mikey Garber Other Interventions: Discharge Summary Assessment (RN) Last Done: 12/03/19 14:17
[2019-12-03] MEDS: WARFARIN SOD 5 MG TAB PO SCH (16:17)
== END 2019-12-03 17:54 | DRG 189 ==
LOC: ED 14:20 → 2W 17:34 → SUATTDRO 17:34 → 2W 19:31